=== PATIENT | male | born 1965 | race African-American/Black ===

== ENCOUNTER 2017-02-01 10:08 | Day surgery (SDC) | payer OTHER ==
[2017-01-31 08:24] VITALS: BMI 21.4
[~2017-02-01 10:08] MED LIST: LACTATED RINGERS 1,000 ML IV SCH
[2017-02-01 11:33] VITALS: RESP 18; TEMP 98
[2017-02-01] MEDS ORDERED: LIDOCAINE 1% 20 ML VIAL (10MG/ML) FOR IV START INTRADERMA ONE (11:39)
--- NOTE | 2017-02-01 11:41 | P.GSHP ---
History of Present Illness H&P Date: 02/01/17 Chief Complaint: GI bleed This is a 51-year-old male with complaints of GI bleed. He presents today for colonoscopy. - Constitutional Constitutional: Reports as per HPI Past Medical History Past Medical History: COPD, CVA/TIA, Hypertension, Osteoarthritis (OA) Additional Past Medical History / Comment(s): recent rectal bleeding, blood in stools, had test for sleep apnea-never got results, ?TIA few months ago, not currently taking BP medication but has in past History of Any Multi-Drug Resistant Organisms: None Reported Past Surgical History: Joint Replacement Additional Past Surgical History / Comment(s): L hip replacement Past Anesthesia/Blood Transfusion Reactions: No Reported Reaction Past Psychological History: No Psychological Hx Reported Smoking Status: Current every day smoker Past Alcohol Use History: Heavy Additional Past Alcohol Use History / Comment(s): 1ppd for 41 yrs., 4-5 24 oz. beers daily or pint alcohol Past Drug Use History: Marijuana Additional Drug Use History / Comment(s): USUALLY ONCE A DAY - Past Family History Mother Family Medical History: Cancer Medications and Allergies Home Medications Medication Instructions Recorded Confirmed Type No Known Home Medications [No 08/13/15 01/31/17 History Known Home Medications] Allergies Allergy/AdvReac Type Severity Reaction Status Date / Time aspirin AdvReac Nausea & Verified 01/31/17 08:20 Vomiting ibuprofen [From Motrin] AdvReac Nausea & Verified 01/31/17 08:20 Vomiting Surgical - Exam Vital Signs Temp Pulse Resp BP Pulse Ox 98.0 F 60 18 130/75 99 02/01/17 11:28 02/01/17 11:28 02/01/17 11:28 02/01/17 11:28 02/01/17 11:28 - General well developed, no distress - Eyes PERRL - ENT normal pinna - Neck no masses - Respiratory normal expansion - Cardiovascular Rhythm: regular - Abdomen Abdomen: soft, non tender Assessment and Plan Plan: GI bleed. We'll perform colonoscopy.
[2017-02-01] MEDS ORDERED: FAMOTIDINE 20 MG/2 ML VIAL IVP ONE (11:44)
[2017-02-01] MEDS ORDERED: fentaNYL (PF) 50 MCG/ML 2 ML AMP ONE (12:38)
[2017-02-01] MEDS ORDERED: MIDAZOLAM 2 MG/2 ML VIAL ONE (12:38)
[2017-02-01] MEDS ORDERED: PROPOFOL 10 MG/ML 20 ML VIAL IV ONE (12:38)
--- NOTE | 2017-02-01 13:12 | P.OP ---
Date of Procedure: 02/01/17 Preoperative Diagnosis: GI bleed Postoperative Diagnosis: Mild internal hemorrhoids Transverse colon polyp Procedure(s) Performed: Colonoscopy Anesthesia: MAC Surgeon: Shantanu Yip Pathology: other (Transverse colon polyp) Disposition: PACU Description of Procedure: The patient's placed on the endoscopy table in the lateral position. He received IV sedation. Digital rectal exam was performed which revealed a few internal hemorrhoids. Flexible colonoscope was then placed patient anus and passed throughout the entire colon. The ileocecal valve lesions. The cecum, ascending colon appeared normal. In the transverse colon there was a small polyp was removed the forcep. Scope was then withdrawn remainder the transverse descending and sigmoid colon appeared normal. Scope was then brought back the rectum and this appeared normal. Scope was withdrawn for patient.
[2017-02-01 13:22] LABS: Glucose,Whole Blood 85 mg/dL (75-99)
[2017-02-01 13:33] VITALS: BP 145/80; PULSE 62
== END 2017-02-01 14:06 | disposition home or self-care (01) ==
LOC: ORWHC2ENDO 10:08
PROVIDERS: ATTEND Surgery
DX: K63.5 Polyp of colon (principal); K64.8 Other hemorrhoids; F17.200 Nicotine dependence, unspecified, uncomplicated; F10.10 Alcohol abuse, uncomplicated; Z88.6 Allergy status to analgesic agent
CPT/HCPCS: 88305; 45380; J2250; J3010; J2704

== ENCOUNTER → 2017-05-14 | Outpatient (CLI) | payer OTHER ==
--- NOTE | 2017-05-14 07:48 | XR ---
EXAMINATION TYPE: XR chest 2V DATE OF EXAM: 05/14/2017 HISTORY: C61 prostate ca. REFERENCE: Previous study dated 08/31/2011. FINDINGS: The lungs are overinflated. There are scattered granulomata of the right lung base. Lungs o therwise clear. Pleural spaces are clear. The heart is not enlarged. IMPRESSION: 1. COPD. 2. EVIDENCE OF OLD GRANULOMATOUS DISEASE.
--- NOTE | 2017-05-14 10:03 | CT ---
EXAMINATION TYPE: CT abdomen pelvis w con DATE OF EXAM: 05/14/2017 REFERENCE: NONE HISTORY: C61 prostate ca HISTORY: Prostatic cancer REFERENCE: NONE CT DLP: 375.2 mGy Automated exposure control for dose reduction was used. TECHNIQUE: Helical acquisition through the abdomen and pelvis was obtained following the oral ingesti on of with Oral Contrast and following intravenous administration of 100 mL of Omnipaque 300. The kia a was reformatted in axial, coronal and sagittal projections. FINDINGS: There is some atelectasis or early infiltrate at the right lung base. There is no pleural or pericardial fluid. The heart is not enlarged. Within the abdomen, the liver is normal in size but mildly fatty infiltrated. The spleen and gallblad fay are normal. There is mild fullness to the left adrenal gland but no adrenal masses seen. Both kidneys demonstrate function. There are 2 small hypoechoic lesions involving the left kidney. Th e largest is in the mid polar region and measures 9.9 mm. The right kidney is normal. The pancreas is unremarkable. There is mild atheromatous calcification of the visualized arterial tree. There is no significant retroperitoneal, iliac or inguinal adenopathy. A left hip arthroplasty is causing significant streak artifact through the pelvis. There is prostatic enlargement and thickening of the bladder. There is no significant diverticular change and there is no radiographic evidence of diverticulitis. There is some mucosal thickening involving the ascending, transverse and proximal descending colon. T he appendix is not visualized. Small bowel loops are normal. There is no free fluid and no free air. No osseous lesion is seen. He left kidney. IMPRESSION: 1. FINDINGS CONSISTENT WITH COLITIS. PLEASE CORRELATE CLINICALLY. 2. 2 SMALL LESIONS IN THE LEFT KIDNEY ARE LIKELY CYSTS. THIS COULD BE CONFIRMED WITH ULTRASOUND.
--- NOTE | 2017-05-14 12:40 | NM ---
EXAMINATION TYPE: NM bone scan whole body DATE OF EXAM: 05/14/2017 COMPARISON: CT abdomen pelvis and chest x-ray same date HISTORY: Prostate carcinoma, C 61 Delayed whole-body scanning was performed following the injection of 25.2 mCi Tc 99m MDP. Images acq uired 3 hours post injection. FINDINGS: Soft tissue uptake is normal. There is a focus of increased radiopharmaceutical uptake present in the posterior left eighth rib. No corresponding plain film finding on chest x-ray. Photopenic area in th e left hip is compatible with patient's history of arthroplasty. Some urine contamination is present over the soft tissues within the groin region. There is a spinal curvature. IMPRESSION: Cannot exclude metastasis to the posterior left eighth rib, correlate for history of trauma, alternat e imaging may be of benefit. Postop changes.
== END | disposition home or self-care (01) ==
LOC: RADCTMAIN 07:26
PROVIDERS: ATTEND Urology
DX: C61 Malignant neoplasm of prostate (principal); J44.9 Chronic obstructive pulmonary disease, unspecified; N28.9 Disorder of kidney and ureter, unspecified; Z98.890 Other specified postprocedural states
CPT/HCPCS: 71020; 74177; 78306; A9503; Q9967

== ENCOUNTER → 2017-05-28 | Outpatient (CLI) | payer OTHER ==
--- NOTE | 2017-05-28 14:38 | XR ---
Left rib series HISTORY: Abnormal bone scan, prostate carcinoma 4 views of the left ribs correlated to bone scan, CT abdomen pelvis, chest x-ray 05/14/2017 There is no corresponding abnormality to the finding on bone scan within the posterior left eighth ri b. MRI or CT of the chest could be performed for increased sensitivity. No pneumothorax or pleural ef fusion. There is mild spinal curvature. IMPRESSION: No abnormalities evident as described.
== END | disposition home or self-care (01) ==
LOC: RADXRMAIN 11:18
PROVIDERS: ATTEND Urology
DX: C61 Malignant neoplasm of prostate (principal)

== ENCOUNTER 2018-12-11 13:30 | Inpatient (IN) | payer OTHER ==
[2018-12-11] MEDS ORDERED: SODIUM CHLORIDE 0.9% 1,000 ML IV STA ×2 (14:04)
--- NOTE | 2018-12-11 14:30 | ED ---
Nausea/Vomiting/Diarrhea HPI - General Source: patient, RN notes reviewed, old records reviewed Mode of arrival: ambulatory Limitations: no limitations <María Arthur - Last Filed: 12/11/18 17:50> <Andres Wilson - Last Filed: 12/11/18 18:30> - General Chief complaint: Nausea/Vomiting/Diarrhea Stated complaint: diarrhea Time Seen by Provider: 12/11/18 13:37 - History of Present Illness Initial comments: Patient is a 73-year-old male who presents emergency room today with complaints of diarrhea and tarry stools for the past 4 days. He has history of colon cancer which is in remission. Last chemotherapy and radiation therapy was 3 months ago. He reports he's had progressive weight loss over the past year. He states he had some episodes vomiting yesterday that were questionably bloody. Patient states that he has history of COPD. (María Arthur) - Related Data Home Medications Medication Instructions Recorded Confirmed ALPRAZolam [Xanax] 0.25 mg PO BID PRN 12/11/18 12/11/18 HYDROcodone/APAP 10-325MG [Allison 1 tab PO Q6HR PRN 12/11/18 12/11/18 10-325] Allergies Allergy/AdvReac Type Severity Reaction Status Date / Time aspirin AdvReac Nausea & Verified 12/11/18 14:33 Vomiting ibuprofen [From Motrin] AdvReac Nausea & Verified 12/11/18 14:33 Vomiting Review of Systems ROS Other: All systems not noted in ROS Statement are negative. <María Arthur - Last Filed: 12/11/18 17:50> ROS Other: All systems not noted in ROS Statement are negative. <Andres Wilson - Last Filed: 12/11/18 18:30> ROS Statement: Those systems with pertinent positive or pertinent negative responses have been documented in the HPI. Past Medical History Past Medical History: COPD, CVA/TIA, Hypertension, Osteoarthritis (OA) Additional Past Medical History / Comment(s): recent rectal bleeding, blood in stools, had test for sleep apnea-never got results, ?TIA few months ago, not currently taking BP medication but has in past History of Any Multi-Drug Resistant Organisms: None Reported Past Surgical History: Joint Replacement Additional Past Surgical History / Comment(s): L hip replacement Past Anesthesia/Blood Transfusion Reactions: No Reported Reaction Past Psychological History: No Psychological Hx Reported Smoking Status: Current every day smoker Past Alcohol Use History: Heavy Past Drug Use History: Marijuana - Past Family History Mother Family Medical History: Cancer <María Arthur - Last Filed: 12/11/18 17:50> General Exam Limitations: no limitations General appearance: alert, in no apparent distress Head exam: Present: atraumatic, normocephalic, normal inspection Eye exam: Present: normal appearance, PERRL, EOMI. Absent: scleral icterus, conjunctival injection, periorbital swelling ENT exam: Present: normal exam, mucous membranes moist Neck exam: Present: normal inspection. Absent: tenderness, meningismus, lymphadenopathy Respiratory exam: Present: normal lung sounds bilaterally. Absent: respiratory distress, wheezes, rales, rhonchi, stridor Cardiovascular Exam: Present: regular rate, normal rhythm, normal heart sounds. Absent: systolic murmur, diastolic murmur, rubs, gallop, clicks GI/Abdominal exam: Present: soft, distended, tenderness (Diffuse abdominal tenderness) Rectal exam: Present: normal inspection, heme (+) stool (Black tarry stools), black stool Extremities exam: Present: normal inspection, full ROM, normal capillary refill. Absent: tenderness, pedal edema, joint swelling, calf tenderness Back exam: Present: normal inspection Neurological exam: Present: alert, oriented X3, CN II-XII intact Psychiatric exam: Present: normal affect, normal mood Skin exam: Present: warm, dry, intact, normal color. Absent: rash <María Arthur - Last Filed: 12/11/18 17:50> <Andres Wilson - Last Filed: 12/11/18 18:30> - General Exam Comments Initial Comments: Patient 3-year-old male. Alert and oriented. Patient appears weak. (María Arthur) Vital Signs 12/11/18 12/11/18 12/11/18 13:32 16:00 18:00 Temperature 96.7 F L 98.0 F Pulse Rate 93 88 102 H Respiratory 22 18 18 Rate Blood Pressure 104/74 108/67 104/78 O2 Sat by Pulse 97 97 100 Oximetry Procedures - Sepsis Sepsis Focused Exam #1 Time Sepsis Criteria Met: 18:00 Sepsis Focused Exam Date: 12/11/18 Sepsis Focused Exam Time: 18:30 Sepsis Focused Exam Complete: Yes Vital Signs & RN Notes Reviewed: Yes Capillary Refill: < 2 Seconds: Fingers, Toes Peripheral Pulses: Normal: Radial (R), Radial (L) Skin Color: Normal for Patient Respiratory Exam: normal lung sounds Cardiovascular Exam: regular rate, normal rhythm <Andres Wilson - Last Filed: 12/11/18 18:30> Medical Decision Making - Lab Data Result diagrams: 12/11/18 14:25 12/11/18 14:25 - Radiology Data Radiology results: report reviewed <María Arthur - Last Filed: 12/11/18 17:50> - Lab Data Result diagrams: 12/11/18 14:25 12/11/18 14:25 <Andres Wilson - Last Filed: 12/11/18 18:30> - Medical Decision Making 53-year-old male presents to return today with progressive weight loss, and complains of diffuse abdominal pain and bloody stools and vomiting for the past 4 days. He appears generally ill and weak. Lactic acid blood cultures were obtained. Lab work was reviewed. His hemoglobin has been somewhat stable at this time. But he does have significant tarry stools. He is not on any blood thinners. Lactic acid was noted to be elevated at 4.6. Is given 2 L bolus. Urinalysis is positive for infection. Urine culture completed given [address] abdomen and pelvis was completed. There is evidence of small bowel obstruction. He has had no active vomiting at this time. So we did not proceed with a NG tube. He was started on maintenance fluids. There is also the Patient has history of alcohol abuse. Given the patient's he will protocol. Patient also meets sepsis criteria. (María Arthur) patient reevaluated by myself, Dr. Wilson. Patient resting in bed with some nausea. Abdomen with mild diffuse tenderness. Patient is updated on results and plan. Case was discussed in detail with Dr. Krishna, who will admit his patient with consult for Dr. Yip. I did review and agree with PAs findings. This includes all diagnostic interpretations and treatment plan. ( Andres Wilson) - Lab Data Lab Results 12/11/18 12/11/18 12/11/18 Range/Units 14:25 14:25 14:25 WBC 10.1 (3.8-10.6) k/uL RBC 3.80 L (4.30-5.90) m/uL Hgb 11.7 L (13.0-17.5) gm/dL Hct 34.6 L (39.0-53.0) % MCV 91.1 (80.0-100.0) fL MCH 30.9 (25.0-35.0) pg MCHC 33.9 (31.0-37.0) g/dL RDW 13.9 (11.5-15.5) % Plt Count 185 (150-450) k/uL Neutrophils % 85 % Lymphocytes % 9 % Monocytes % 4 % Eosinophils % 1 % Basophils % 0 % Neutrophils # 8.7 H (1.3-7.7) k/uL Lymphocytes # 0.9 L (1.0-4.8) k/uL Monocytes # 0.4 (0-1.0) k/uL Eosinophils # 0.1 (0-0.7) k/uL Basophils # 0.0 (0-0.2) k/uL PT 10.3 (9.0-12.0) sec INR 1.0 (<1.2) APTT 25.0 (22.0-30.0) sec Sodium 140 (137-145) mmol/L Potassium 3.9 (3.5-5.1) mmol/L Chloride 105 (98-107) mmol/L Carbon Dioxide 24 (22-30) mmol/L Anion Gap 11 mmol/L BUN 17 (9-20) mg/dL Creatinine 0.74 (0.66-1.25) mg/dL Est GFR (CKD-EPI)AfAm >90 (>60 ml/min/1.73 sqM) Est GFR (CKD-EPI)NonAf >90 (>60 ml/min/1.73 sqM) Glucose 110 H (74-99) mg/dL Plasma Lactic Acid Hank (0.7-2.0) mmol/L Calcium 8.9 (8.4-10.2) mg/dL Total Bilirubin 1.3 (0.2-1.3) mg/dL AST 73 H (17-59) U/L ALT 63 (21-72) U/L Alkaline Phosphatase 81 (38-126) U/L Troponin I (0.000-0.034) ng/mL Total Protein 6.4 (6.3-8.2) g/dL Albumin 3.2 L (3.5-5.0) g/dL Amylase 38 (30-110) U/L Lipase 15 L (23-300) U/L Urine Color Urine Appearance (Clear) Urine pH (5.0-8.0) Ur Specific [place] (1.001-1.035) Urine Protein (Negative) Urine Glucose (UA) (Negative) Urine Ketones (Negative) Urine Blood (Negative) Urine Nitrite (Negative) Urine Bilirubin (Negative) Urine Urobilinogen (<2.0) mg/dL Ur Leukocyte Esterase (Negative) Urine RBC (0-5) /hpf Urine WBC (0-5) /hpf Ur Squamous Epith Cells (0-4) /hpf Urine Mucus (None) /hpf Stool Occult Blood (Negative) Blood Type Blood Type Confirm Blood Type Recheck Antibody Screen Spec Expiration Date 12/11/18 12/11/18 12/11/18 Range/Units 14:25 14:25 14:25 WBC (3.8-10.6) k/uL RBC (4.30-5.90) m/uL Hgb (13.0-17.5) gm/dL Hct (39.0-53.0) % MCV (80.0-100.0) fL MCH (25.0-35.0) pg MCHC (31.0-37.0) g/dL RDW (11.5-15.5) % Plt Count (150-450) k/uL Neutrophils % % Lymphocytes % % Monocytes % % Eosinophils % % Basophils % % Neutrophils # (1.3-7.7) k/uL Lymphocytes # (1.0-4.8) k/uL Monocytes # (0-1.0) k/uL Eosinophils # (0-0.7) k/uL Basophils # (0-0.2) k/uL PT (9.0-12.0) sec INR (<1.2) APTT (22.0-30.0) sec Sodium (137-145) mmol/L Potassium (3.5-5.1) mmol/L Chloride (98-107) mmol/L Carbon Dioxide (22-30) mmol/L Anion Gap mmol/L BUN (9-20) mg/dL Creatinine (0.66-1.25) mg/dL Est GFR (CKD-EPI)AfAm (>60 ml/min/1.73 sqM) Est GFR (CKD-EPI)NonAf (>60 ml/min/1.73 sqM) Glucose (74-99) mg/dL Plasma Lactic Acid Hank 4.8 H* (0.7-2.0) mmol/L Calcium (8.4-10.2) mg/dL Total Bilirubin (0.2-1.3) mg/dL AST (17-59) U/L ALT (21-72) U/L Alkaline Phosphatase (38-126) U/L Troponin I <0.012 (0.000-0.034) ng/mL Total Protein (6.3-8.2) g/dL Albumin (3.5-5.0) g/dL Amylase (30-110) U/L Lipase (23-300) U/L Urine Color Yellow Urine Appearance Clear (Clear) Urine pH 5.5 (5.0-8.0) Ur Specific [place] 1.014 (1.001-1.035) Urine Protein 1+ H (Negative) Urine Glucose (UA) 1+ H (Negative) Urine Ketones 1+ H (Negative) Urine Blood Negative (Negative) Urine Nitrite Negative (Negative) Urine Bilirubin Negative (Negative) Urine Urobilinogen 2.0 (<2.0) mg/dL Ur Leukocyte Esterase Large H (Negative) Urine RBC 2 (0-5) /hpf Urine WBC 42 H (0-5) /hpf Ur Squamous Epith Cells <1 (0-4) /hpf Urine Mucus Rare H (None) /hpf Stool Occult Blood (Negative) Blood Type Blood Type Confirm Blood Type Recheck Antibody Screen Spec Expiration Date 12/11/18 12/11/18 12/11/18 Range/Units 14:25 16:44 18:12 WBC (3.8-10.6) k/uL RBC (4.30-5.90) m/uL Hgb (13.0-17.5) gm/dL Hct (39.0-53.0) % MCV (80.0-100.0) fL MCH (25.0-35.0) pg MCHC (31.0-37.0) g/dL RDW (11.5-15.5) % Plt Count (150-450) k/uL Neutrophils % % Lymphocytes % % Monocytes % % Eosinophils % % Basophils % % Neutrophils # (1.3-7.7) k/uL Lymphocytes # (1.0-4.8) k/uL Monocytes # (0-1.0) k/uL Eosinophils # (0-0.7) k/uL Basophils # (0-0.2) k/uL PT (9.0-12.0) sec INR (<1.2) APTT (22.0-30.0) sec Sodium (137-145) mmol/L Potassium (3.5-5.1) mmol/L Chloride (98-107) mmol/L Carbon Dioxide (22-30) mmol/L Anion Gap mmol/L BUN (9-20) mg/dL Creatinine (0.66-1.25) mg/dL Est GFR (CKD-EPI)AfAm (>60 ml/min/1.73 sqM) Est GFR (CKD-EPI)NonAf (>60 ml/min/1.73 sqM) Glucose (74-99) mg/dL Plasma Lactic Acid Hank (0.7-2.0) mmol/L Calcium (8.4-10.2) mg/dL Total Bilirubin (0.2-1.3) mg/dL AST (17-59) U/L ALT (21-72) U/L Alkaline Phosphatase (38-126) U/L Troponin I (0.000-0.034) ng/mL Total Protein (6.3-8.2) g/dL Albumin (3.5-5.0) g/dL Amylase (30-110) U/L Lipase (23-300) U/L Urine Color Urine Appearance (Clear) Urine pH (5.0-8.0) Ur Specific [place] (1.001-1.035) Urine Protein (Negative) Urine Glucose (UA) (Negative) Urine Ketones (Negative) Urine Blood (Negative) Urine Nitrite (Negative) Urine Bilirubin (Negative) Urine Urobilinogen (<2.0) mg/dL Ur Leukocyte Esterase (Negative) Urine RBC (0-5) /hpf Urine WBC (0-5) /hpf Ur Squamous Epith Cells (0-4) /hpf Urine Mucus (None) /hpf Stool Occult Blood Positive (Negative) Blood Type O Positive Blood Type Confirm O Positive Blood Type Recheck CABO Indicated Antibody Screen NEGATIVE Spec Expiration Date 12/14/2018 - 230912/11/18 17:28 EKG shows no sinus rhythm, left anterior fascicular block. Prolonged QT. Normal EKG. Ventricular rate 95 bpm. Was 154 ms. QS duration 66. QT QTC 390/490 ms. (María Arthur) - Radiology Data Mild distal ileal small bowel obstruction pattern. Incidental urinary bladder wall thickening presuming a bladder outlet related. If her with urology consultation. (María Arthur) Disposition Is patient prescribed a controlled substance at d/c from ED?: No Time of Disposition: 17:54 <María Arthur - Last Filed: 12/11/18 17:50> <Andres Wilson - Last Filed: 12/11/18 18:30> Clinical Impression: GI bleed, History of ETOH abuse, SBO (small bowel obstruction), UTI (urinary tract infection), Sepsis Disposition: ADMITTED IP TO THIS HOSP Condition: Stable Referrals: Lawanda Krishna MD [Primary Care Provider] - 1-2 days
--- NOTE | 2018-12-11 14:58 | XR ---
EXAMINATION TYPE: XR chest 2V DATE OF EXAM: 12/11/2018 COMPARISON: NONE TECHNIQUE: PA and lateral views submitted. HISTORY: Nausea and vomiting FINDINGS: The lungs are clear and there is no pneumothorax, pleural effusion, or focal pneumonia. Hyperinflat ion correlate for COPD. Dilated bowel loops in the upper abdomen. IMPRESSION: 1. No acute process. Correlate for COPD. 2. There are dilated bowel loops in the upper abdomen correlate clinically and if necessary with abdo le series to assess for abnormality related to the bowel.
[2018-12-11] MEDS ORDERED: PANTOPRAZOLE 40 MG/10 ML VIAL IVP STA (15:02)
[2018-12-11 15:25] LABS: ALT 63 U/L (21-72); AST 73 U/L (17-59); Albumin 3.2 g/dL (3.5-5.0); Alkaline Phosphatase 81 U/L (38-126); Amylase 38 U/L (30-110); Anion Gap 11 mmol/L; Blood Urea Nitrogen 17 mg/dL (9-20); Calcium 8.9 mg/dL (8.4-10.2); Carbon Dioxide 24 mmol/L (22-30); Chloride 105 mmol/L (98-107); Glucose 110 mg/dL (74-99); Lipase 15 U/L (23-300); Potassium 3.9 mmol/L (3.5-5.1); Prothrombin Time 10.3 sec (9.0-12.0); Sodium 140 mmol/L (137-145); Total Bilirubin 1.3 mg/dL (0.2-1.3); Total Protein 6.4 g/dL (6.3-8.2)
[2018-12-11 15:33] LABS: Appearance,Urine Clear (Clear); Bilirubin,Urine Negative (Negative); Blood,Urine Negative (Negative); Color,Urine Yellow; Glucose,Urine (UA) 1+ (Negative); Ketones,Urine 1+ (Negative); Leukocyte Esterase,Urine Large (Negative); Mucus,Urine Rare /hpf; Nitrite,Urine Negative (Negative); PH, Urine 5.5 (5.0-8.0); Protein,Urine 1+ (Negative); RBC,Urine 2 /hpf (0-5); Specific Gravity,Urine 1.014 (1.001-1.035); Squamous Epithelial Cell,Urine <1 /hpf (0-4); WBC,Urine 42 /hpf (0-5)
[2018-12-11 15:42] LABS: Basophils % (A) 0 %; Eosinophils # (A) 0.1 k/uL (0-0.7); Eosinophils % (A) 1 %; HCT 34.6 % (39.0-53.0); HGB 11.7 gm/dL (13.0-17.5); Lymphocytes # (A) 0.9 k/uL (1.0-4.8); Lymphocytes % (A) 9 %; MCH 30.9 pg (25.0-35.0); MCHC 33.9 g/dL (31.0-37.0); MCV 91.1 fL (80.0-100.0); Mean Platelet Volume 7.3; Monocytes # (A) 0.4 k/uL (0-1.0); Monocytes % (A) 4 %; Neutrophils # (A) 8.7 k/uL (1.3-7.7); Neutrophils % (A) 85 %; Platelet Count 185 k/uL (150-450); RDW 13.9 % (11.5-15.5); WBC 10.1 k/uL (3.8-10.6)
[2018-12-11] MEDS ORDERED: SODIUM CHLORIDE 0.9% 1,000 ML IV ONE (16:03)
--- NOTE | 2018-12-11 16:52 | CT ---
EXAMINATION TYPE: CT abdomen pelvis w con DATE OF EXAM: 12/11/2018 COMPARISON: 05/14/2017 HISTORY: VOMITING CT DLP: 572.5 mGycm Automated exposure control for dose reduction was used. TECHNIQUE: Helical acquisition of images was performed from the lung bases through the pelvis. CONTRAST: Performed without Oral Contrast and with IV Contrast, patient injected with 100 mL of Isovu e 300. FINDINGS: LUNG BASES: No significant abnormality is appreciated. LIVER/GB: No significant abnormality is appreciated. PANCREAS: No significant abnormality is seen. SPLEEN: No significant abnormality is seen. ADRENALS: No significant abnormality is seen. KIDNEYS: No significant abnormality is seen. FREE AIR: No free air is visualized. RETROPERITONEAL ADENOPATHY: None visualized REPRODUCTIVE ORGANS: No significant abnormality is seen URINARY BLADDER: No definite acute finding, but bladder wall thickening is noted, partially obscured due to the metallic CT beam hardening artifact from the left THR. PELVIC ADENOPATHY: None visualized. OSSEOUS STRUCTURES: No significant abnormality is seen. BOWEL: There are a few lower quadrant loops of ileum that are mildly dilated. No mural thickening, p neumatosis, or mesenteric edematous reticulation. At the transition point there is no apparent etiolo gy, so adhesions are suspected. Gas is seen throughout a nondilated colon. OTHER: No acute vascular findings. 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 IMPRESSION: 1. MILD DISTAL ILEAL SMALL BOWEL OBSTRUCTION PATTERN. 2. INCIDENTAL URINARY BLADDER WALL THICKENING, PRESUMABLY BLADDER OUTLET RELATED, WITH DEFER TO UROLO GY CONSULTATION.
[2018-12-11] MEDS ORDERED: THIAMINE 100 MG/ML 2 ML VIAL IM STA (17:55)
[2018-12-11] MEDS ORDERED: LORazepam 2 MG/ML INJ IV PRN (17:55)
[2018-12-11] MEDS ORDERED: ONDANSETRON 4 MG/2 ML VIAL IVP PRN (17:56)
[2018-12-11] MEDS ORDERED: NALOXONE 0.4 MG/ML 1 ML VIAL IV PRN (17:56)
[2018-12-11] MEDS ORDERED: HYDROmorphone 1 MG/ML 1 ML SYRINGE IVP PRN (17:56)
[2018-12-11] MEDS: THIAMINE 100 MG TAB PO SCH (19:43)
[2018-12-11] MEDS: LORazepam 2 MG/ML INJ IV PRN (21:31)
[2018-12-12 06:37] LABS: Anion Gap 5 mmol/L; Blood Urea Nitrogen 14 mg/dL (9-20); Calcium 8.4 mg/dL (8.4-10.2); Carbon Dioxide 24 mmol/L (22-30); Chloride 110 mmol/L (98-107); Glucose 64 mg/dL (74-99); Potassium 3.3 mmol/L (3.5-5.1); Sodium 139 mmol/L (137-145)
[2018-12-12 06:44] LABS: Basophils % (A) 0 %; Eosinophils # (A) 0.1 k/uL (0-0.7); Eosinophils % (A) 1 %; HCT 28.3 % (39.0-53.0); Lymphocytes # (A) 1.2 k/uL (1.0-4.8); Lymphocytes % (A) 16 %; MCH 32.2 pg (25.0-35.0); MCHC 34.8 g/dL (31.0-37.0); MCV 92.4 fL (80.0-100.0); Mean Platelet Volume 7.7; Monocytes # (A) 0.3 k/uL (0-1.0); Monocytes % (A) 4 %; Neutrophils # (A) 5.4 k/uL (1.3-7.7); Neutrophils % (A) 77 %; Platelet Count 144 k/uL (150-450); RBC 3.07 m/uL (4.30-5.90); RDW 14.1 % (11.5-15.5); WBC 7.1 k/uL (3.8-10.6)
[2018-12-12 07:01] LABS: HGB 9.9 gm/dL (13.0-17.5)
[2018-12-12] MEDS ORDERED: SODIUM CHLORIDE 0.9% 1,000 ML IV ONE (08:44)
[2018-12-12] MEDS ORDERED: PROPOFOL 10 MG/ML 20 ML VIAL IV ONE (08:44)
[2018-12-12] MEDS ORDERED: Potassium Replacement Protocol 1 EACH MISC MISCELLANE PRN (09:06)
[2018-12-12] MEDS: PANTOPRAZOLE 40 MG/10 ML VIAL IV SCH (09:53)
--- NOTE | 2018-12-12 09:57 | P.OP ---
Date of Procedure: 12/12/18 Preoperative Diagnosis: Hematemesis Postoperative Diagnosis: Duodenitis Mild antral gastritis Hiatal hernia Esophagitis Procedure(s) Performed: EGD Anesthesia: MAC Surgeon: Shantanu Yip Pathology: other (Antrum, esophagus) Condition: stable Disposition: PACU Description of Procedure: The patient's placed on the endoscopy table in the lateral position. He received IV sedation. The gastroscope placed oropharynx passed in the esophagus into the stomach. Scope was then placed through the pylorus. First and second portion of the duodenum appeared mildly inflamed. A biopsies performed. Scope was then brought back and the antrum this is minimal inflamed. A biopsies performed. Scope was then retroflexed and the remainder stomach appeared normal. There was a moderate size hiatal hernia. The GE junction was at 38 cm. The distal esophagus. Inflamed this was biopsied. The proximal esophagus appeared normal. Scope withdrawn for patient.
--- NOTE | 2018-12-12 09:59 | P.GSCN ---
History of Present Illness Consult date: 12/12/18 Reason for Consult: Hematemesis History of present illness: This a 53-year-old male who was admitted through the emergency room with complaints of nausea vomiting patient hematemesis. He describes a black tarry vomits. He states she's had some epigastric pain. His CAT scan shows a possible mild distal small bowel obstruction. Past Medical History Past Medical History: COPD, CVA/TIA, Hypertension, Osteoarthritis (OA) Additional Past Medical History / Comment(s): recent rectal bleeding, blood in stools, had test for sleep apnea-never got results, ?TIA few months ago, not currently taking BP medication but has in past. colon cancer-radiation ended 3 months ago. History of Any Multi-Drug Resistant Organisms: None Reported Past Surgical History: Joint Replacement Additional Past Surgical History / Comment(s): L hip replacement Past Anesthesia/Blood Transfusion Reactions: No Reported Reaction Past Psychological History: No Psychological Hx Reported Smoking Status: Current every day smoker Past Alcohol Use History: Heavy Additional Past Alcohol Use History / Comment(s): 1ppd for 41 yrs., 4-5 24 oz. beers daily or pint alcohol. pt states he drinks depending on how much money he has Past Drug Use History: Marijuana Additional Drug Use History / Comment(s): USUALLY ONCE A DAY - Past Family History Mother Family Medical History: Cancer Medications and Allergies Home Medications Medication Instructions Recorded Confirmed Type ALPRAZolam [Xanax] 0.25 mg PO BID PRN 12/11/18 12/11/18 History HYDROcodone/APAP 10-325MG [[place] 1 tab PO Q6HR PRN 12/11/18 12/11/18 History 10-325] Allergies Allergy/AdvReac Type Severity Reaction Status Date / Time aspirin AdvReac Nausea & Verified 12/11/18 14:33 Vomiting ibuprofen [From Motrin] AdvReac Nausea & Verified 12/11/18 14:33 Vomiting Surgical - Exam Vital Signs Temp Pulse Resp BP Pulse Ox 96.7 F L 93 22 104/74 97 12/11/18 13:32 12/11/18 13:32 12/11/18 13:32 12/11/18 13:32 12/11/18 13:32 - General well developed, well nourished, no distress - Eyes PERRL - ENT normal pinna - Neck no masses - Respiratory normal expansion - Cardiovascular Rhythm: regular - Abdomen The patient is very thin he appears to be cachectic Abdomen: soft, non tender Results - Labs 12/12/18 05:47 12/12/18 05:47 Abnormal Lab Results - Last 24 Hours (Table) 12/11/18 12/11/18 12/11/18 Range/Units 14:25 14:25 14:25 RBC 3.80 L (4.30-5.90) m/uL Hgb 11.7 L (13.0-17.5) gm/dL Hct 34.6 L (39.0-53.0) % Plt Count (150-450) k/uL Neutrophils # 8.7 H (1.3-7.7) k/uL Lymphocytes # 0.9 L (1.0-4.8) k/uL Potassium (3.5-5.1) mmol/L Chloride (98-107) mmol/L Glucose 110 H (74-99) mg/dL Plasma Lactic Acid Hank (0.7-2.0) mmol/L AST 73 H (17-59) U/L Albumin 3.2 L (3.5-5.0) g/dL Lipase 15 L (23-300) U/L Urine Protein 1+ H (Negative) Urine Glucose (UA) 1+ H (Negative) Urine Ketones 1+ H (Negative) Ur Leukocyte Esterase Large H (Negative) Urine WBC 42 H (0-5) /hpf Urine Mucus Rare H (None) /hpf 12/11/18 12/11/18 12/12/18 Range/Units 14:25 19:20 05:47 RBC 3.07 L (4.30-5.90) m/uL Hgb 9.9 L D (13.0-17.5) gm/dL Hct 28.3 L (39.0-53.0) % Plt Count 144 L (150-450) k/uL Neutrophils # (1.3-7.7) k/uL Lymphocytes # (1.0-4.8) k/uL Potassium (3.5-5.1) mmol/L Chloride (98-107) mmol/L Glucose (74-99) mg/dL Plasma Lactic Acid Hank 4.8 H* 2.6 H* (0.7-2.0) mmol/L AST (17-59) U/L Albumin (3.5-5.0) g/dL Lipase (23-300) U/L Urine Protein (Negative) Urine Glucose (UA) (Negative) Urine Ketones (Negative) Ur Leukocyte Esterase (Negative) Urine WBC (0-5) /hpf Urine Mucus (None) /hpf 12/12/18 Range/Units 05:47 RBC (4.30-5.90) m/uL Hgb (13.0-17.5) gm/dL Hct (39.0-53.0) % Plt Count (150-450) k/uL Neutrophils # (1.3-7.7) k/uL Lymphocytes # (1.0-4.8) k/uL Potassium 3.3 L (3.5-5.1) mmol/L Chloride 110 H (98-107) mmol/L Glucose 64 L (74-99) mg/dL Plasma Lactic Acid Hank (0.7-2.0) mmol/L AST (17-59) U/L Albumin (3.5-5.0) g/dL Lipase (23-300) U/L Urine Protein (Negative) Urine Glucose (UA) (Negative) Urine Ketones (Negative) Ur Leukocyte Esterase (Negative) Urine WBC (0-5) /hpf Urine Mucus (None) /hpf Microbiology - Last 24 Hours (Table) 12/11/18 14:25 Urine Culture - Preliminary Urine,Voided 12/11/18 19:20 Stool Culture - Preliminary Stool Diabetes panel 12/11/18 12/12/18 Range/Units 14:25 05:47 Sodium 140 139 (137-145) mmol/L Potassium 3.9 3.3 L (3.5-5.1) mmol/L Chloride 105 110 H (98-107) mmol/L Carbon Dioxide 24 24 (22-30) mmol/L BUN 17 14 (9-20) mg/dL Creatinine 0.74 0.71 (0.66-1.25) mg/dL Glucose 110 H 64 L (74-99) mg/dL Calcium 8.9 8.4 (8.4-10.2) mg/dL AST 73 H (17-59) U/L ALT 63 (21-72) U/L Alkaline Phosphatase 81 (38-126) U/L Total Protein 6.4 (6.3-8.2) g/dL Albumin 3.2 L (3.5-5.0) g/dL Calcium panel 12/11/18 12/12/18 Range/Units 14:25 05:47 Calcium 8.9 8.4 (8.4-10.2) mg/dL Albumin 3.2 L (3.5-5.0) g/dL Pituitary panel 12/11/18 12/12/18 Range/Units 14:25 05:47 Sodium 140 139 (137-145) mmol/L Potassium 3.9 3.3 L (3.5-5.1) mmol/L Chloride 105 110 H (98-107) mmol/L Carbon Dioxide 24 24 (22-30) mmol/L BUN 17 14 (9-20) mg/dL Creatinine 0.74 0.71 (0.66-1.25) mg/dL Glucose 110 H 64 L (74-99) mg/dL Calcium 8.9 8.4 (8.4-10.2) mg/dL Adrenal panel 12/11/18 12/12/18 Range/Units 14:25 05:47 Sodium 140 139 (137-145) mmol/L Potassium 3.9 3.3 L (3.5-5.1) mmol/L Chloride 105 110 H (98-107) mmol/L Carbon Dioxide 24 24 (22-30) mmol/L BUN 17 14 (9-20) mg/dL Creatinine 0.74 0.71 (0.66-1.25) mg/dL Glucose 110 H 64 L (74-99) mg/dL Calcium 8.9 8.4 (8.4-10.2) mg/dL Total Bilirubin 1.3 (0.2-1.3) mg/dL AST 73 H (17-59) U/L ALT 63 (21-72) U/L Alkaline Phosphatase 81 (38-126) U/L Total Protein 6.4 (6.3-8.2) g/dL Albumin 3.2 L (3.5-5.0) g/dL Assessment and Plan Assessment: The patient denies any nausea or vomiting currently. The patient will undergo EGD to evaluate the source of his upper GI bleed.
[2018-12-12] MEDS: POTASSIUM CHLORIDE 10 MEQ in WATER FOR INJECTION 1 100ML.BAG IVPB SCH ×4 (10:23→16:34)
[2018-12-12] MEDS: SODIUM CHLORIDE 0.9% 1,000 ML IV SCH ×2 (10:23→20:00)
[2018-12-12] MEDS ORDERED: MAGNESIUM SULFATE-D5W PMX 1 GM in DEXTROSE/WATER 1 100ML.BAG IVPB ONE (11:00)
[2018-12-12] MEDS: LORazepam 2 MG/ML INJ IV PRN ×3 (11:18→17:45)
[2018-12-12] MEDS: THIAMINE 100 MG TAB PO SCH ×2 (12:22→16:34)
--- NOTE | 2018-12-12 13:12 | P.HPIM ---
History of Present Illness H&P Date: 12/12/18 Chief Complaint: Black tarry stools and hematemesis This is a 53-year-old male with a known past medical history of colon cancer she is currently in remission last chemo therapy and radiation treatment was about 3 months ago. He also has a history of COPD, TIA nicotine dependence and alcohol abuse. He presents to the hospital for 4 day complaint of diarrhea with tarry stools and hematemesis. Patient also reporting significant weight loss. Stool for occult blood was positive. Hemoglobin did drop from 11.7-9.9. Lactic acid was elevated at 2.6 and down to 1.3 after IV fluids. Potassium 3.3 magnesium 1.7 being replaced. AST was 73. Patient was seen by surgical service and underwent EGD this morning which did reveal duodenitis mild antral gastritis hiatal hernia and esophagitis. He is currently on IV Protonix. He is still having diarrhea. However the stools are more green. Cultures have been obtained. Last hematemesis was yesterday. Patient denies any chest pain or shortness of breath. Denies abdominal pain. Does admit to burning with urination. He was found have evidence of a UTI and is on Rocephin. Review of Systems Please refer to HPI otherwise unremarkable Past Medical History Past Medical History: COPD, CVA/TIA, Hypertension, Osteoarthritis (OA) Additional Past Medical History / Comment(s): recent rectal bleeding, blood in stools, had test for sleep apnea-never got results, ?TIA few months ago, not currently taking BP medication but has in past. colon cancer-radiation ended 3 months ago. History of Any Multi-Drug Resistant Organisms: None Reported Past Surgical History: Joint Replacement Additional Past Surgical History / Comment(s): L hip replacement Past Anesthesia/Blood Transfusion Reactions: No Reported Reaction Past Psychological History: No Psychological Hx Reported Smoking Status: Current every day smoker Past Alcohol Use History: Heavy Additional Past Alcohol Use History / Comment(s): 1ppd for 41 yrs., 4-5 24 oz. beers daily or pint alcohol. pt states he drinks depending on how much money he has Past Drug Use History: Marijuana Additional Drug Use History / Comment(s): USUALLY ONCE A DAY - Past Family History Mother Family Medical History: Cancer Medications and Allergies Home Medications Medication Instructions Recorded Confirmed Type ALPRAZolam [Xanax] 0.25 mg PO BID PRN 12/11/18 12/11/18 History HYDROcodone/APAP 10-325MG [[place] 1 tab PO Q6HR PRN 12/11/18 12/11/18 History 10-325] Allergies Allergy/AdvReac Type Severity Reaction Status Date / Time aspirin AdvReac Nausea & Verified 12/11/18 14:33 Vomiting ibuprofen [From Motrin] AdvReac Nausea & Verified 12/11/18 14:33 Vomiting Physical Exam Vitals: Vital Signs Temp Pulse Pulse Resp BP BP BP 12/12/18 11:14 98.6 F 84 20 128/78 12/12/18 09:50 74 127/70 12/12/18 09:30 77 103/72 12/12/18 08:00 98.9 F 88 16 110/79 12/12/18 04:00 98.1 F 101 H 18 120/90 12/11/18 23:39 91 16 12/11/18 23:36 99.0 F 91 16 97/75 12/11/18 23:31 98.5 F 118 H 16 99/77 12/11/18 22:30 118 H 16 12/11/18 22:00 110 H 19 112/88 12/11/18 21:30 98.5 F 118 H 16 99/77 12/11/18 21:06 91 16 102/82 12/11/18 20:56 114 H 16 93/76 12/11/18 20:00 111/85 12/11/18 19:44 98 16 111/85 12/11/18 19:30 106/81 12/11/18 19:00 104 H 18 108/78 12/11/18 18:30 99 19 104/78 12/11/18 18:00 98.0 F 102 H 18 104/78 12/11/18 16:00 88 18 108/67 12/11/18 13:32 96.7 F L 93 22 104/74 Pulse Ox 12/12/18 11:14 100 12/12/18 09:50 100 12/12/18 09:30 99 12/12/18 08:00 98 12/12/18 04:00 98 12/11/18 23:39 12/11/18 23:36 97 12/11/18 23:31 95 12/11/18 22:30 12/11/18 22:00 98 12/11/18 21:30 95 12/11/18 21:06 12/11/18 20:56 99 12/11/18 20:00 12/11/18 19:44 12/11/18 19:30 12/11/18 19:00 12/11/18 18:30 96 12/11/18 18:00 100 12/11/18 16:00 97 12/11/18 13:32 97 Intake and Output 12/11/18 12/12/18 12/12/18 22:59 06:59 14:59 Intake Total 800 100 Output Total 150 200 Balance 650 -100 Intake: IV 100 Intake, IV Titration 800 Amount Sodium Chloride 0.9% 1, 800 000 ml @ 100 mls/hr IV . Q10H STA Rx#:[id number] Output: Urine 150 200 Other: Voiding Method Urinal Urinal Urinal # Voids 1 1 1 Weight 52.6 kg 52.6 kg Head normocephalic Neck supple Lungs clear to auscultation bilaterally no wheezing or crackles Heart regular rate and rhythm S1-S2, no rub or gallop Abdomen is soft nontender nondistended positive bowel sounds no hepatosplenomegaly Extremities no edema Neuro alert and orientated to 3 Results CBC & Chem 7: 12/12/18 05:47 12/12/18 05:47 Labs: Abnormal Lab Results - Last 24 Hours (Table) 12/11/18 12/11/18 12/11/18 Range/Units 14:25 14:25 14:25 RBC 3.80 L (4.30-5.90) m/uL Hgb 11.7 L (13.0-17.5) gm/dL Hct 34.6 L (39.0-53.0) % Plt Count (150-450) k/uL Neutrophils # 8.7 H (1.3-7.7) k/uL Lymphocytes # 0.9 L (1.0-4.8) k/uL Potassium (3.5-5.1) mmol/L Chloride (98-107) mmol/L Glucose 110 H (74-99) mg/dL Plasma Lactic Acid Hank (0.7-2.0) mmol/L AST 73 H (17-59) U/L Albumin 3.2 L (3.5-5.0) g/dL Lipase 15 L (23-300) U/L Urine Protein 1+ H (Negative) Urine Glucose (UA) 1+ H (Negative) Urine Ketones 1+ H (Negative) Ur Leukocyte Esterase Large H (Negative) Urine WBC 42 H (0-5) /hpf Urine Mucus Rare H (None) /hpf 12/11/18 12/11/18 12/12/18 Range/Units 14:25 19:20 05:47 RBC 3.07 L (4.30-5.90) m/uL Hgb 9.9 L D (13.0-17.5) gm/dL Hct 28.3 L (39.0-53.0) % Plt Count 144 L (150-450) k/uL Neutrophils # (1.3-7.7) k/uL Lymphocytes # (1.0-4.8) k/uL Potassium (3.5-5.1) mmol/L Chloride (98-107) mmol/L Glucose (74-99) mg/dL Plasma Lactic Acid Hank 4.8 H* 2.6 H* (0.7-2.0) mmol/L AST (17-59) U/L Albumin (3.5-5.0) g/dL Lipase (23-300) U/L Urine Protein (Negative) Urine Glucose (UA) (Negative) Urine Ketones (Negative) Ur Leukocyte Esterase (Negative) Urine WBC (0-5) /hpf Urine Mucus (None) /hpf 12/12/18 Range/Units 05:47 RBC (4.30-5.90) m/uL Hgb (13.0-17.5) gm/dL Hct (39.0-53.0) % Plt Count (150-450) k/uL Neutrophils # (1.3-7.7) k/uL Lymphocytes # (1.0-4.8) k/uL Potassium 3.3 L (3.5-5.1) mmol/L Chloride 110 H (98-107) mmol/L Glucose 64 L (74-99) mg/dL Plasma Lactic Acid Hank (0.7-2.0) mmol/L AST (17-59) U/L Albumin (3.5-5.0) g/dL Lipase (23-300) U/L Urine Protein (Negative) Urine Glucose (UA) (Negative) Urine Ketones (Negative) Ur Leukocyte Esterase (Negative) Urine WBC (0-5) /hpf Urine Mucus (None) /hpf Microbiology - Last 24 Hours (Table) 12/11/18 14:25 Urine Culture - Preliminary Urine,Voided 12/11/18 19:20 Stool Culture - Preliminary Stool Thrombosis Risk Factor Assmnt - Choose All That Apply Any of the Below Risk Factors Present?: Yes Each Factor Represents 1 point: Abnormal pulmonary function (COPD), Age 41-60 years Other Risk Factors: No Other congenital or acquired thrombophilia - If yes, enter type in comment: No Thrombosis Risk Factor Assessment Total Risk Factor Score: 2 Thrombosis Risk Factor Assessment Level: Low Risk Assessment and Plan Assessment: 1. Acute upper GI bleed with black tarry stools and hematemesis. Status post EGD revealing duodenitis, mild antral gastritis, hiatal hernia and esophagitis. Continue with IV Protonix surgical service is following. Stool for occult blood positive 2. UTI: Check urine culture continue Rocephin 3. Hypomagnesemia and hypokalemia patient receiving supplement. Likely related to patient's diarrhea. 4. Elevated lactic acid level on admission of 2.6 improved with IV fluids 5. Anemia with acute blood loss anemia secondary GI bleed. Hemoglobin is 9.9 continue to monitor 6. History of COPD stable 7. Nicotine dependence discussed smoking cessation for greater than 3 minutes. Patient refusing nicotine patch at this time 8. Alcohol abuse: last alcoholic beverage was yesterday. Continue the CIWA protocol. Patient has been requiring the Ativan. Continue thiamine and multivitamin. 9. History of colon cancer with previous surgery and last chemotherapy and radiation treatment was about 3 months ago GI prophylaxis Protonix and DVT prophylaxis SCDs Time with Patient: Greater than 30 (Greater than 50% of the total time spent in counseling and coordination of care.I performed an examination of the patient and discussed their management with the physician Miller Rod Mill. I have reviewed the Physician Miller Rod Mill's notes and agree with the documented findings and plan of care)
[2018-12-12] MEDS: IOPAMIDOL-300 CONTRAST 30 ML VIAL (ORAL USE) PO PRN ×2 (13:44→14:49)
--- NOTE | 2018-12-12 15:48 | CT ---
EXAMINATION TYPE: CT abdomen pelvis wo con DATE OF EXAM: 12/12/2018 COMPARISON: 12/11/2018 INDICATION: Abdominal pain DLP: 472.3 mGycm, Automated exposure control for dose reduction was used. CONTRAST: 0 mL of Isovue 300. Study performed with Oral Contrast TECHNIQUE: Axial images were obtained from above the diaphragm to the pubic rami in the axial plane a t 5 mm thick sections. Reconstructed images are reviewed on the computer in the coronal plane. FINDINGS: Limited CT sections are obtained the lung bases. Mild infiltrate is in the posterior left lung base. Correlate for atelectasis. Developing pneumonia could be considered.. CT ABDOMEN: Liver: There appears be moderate fatty infiltration liver. Spleen: Normal Pancreas: Normal Adrenal glands: The adrenal glands are normal. Gallbladder: Poorly visualized there may be a small amount of contrast within the gallbladder which m ay be some secondary excretion from previous examination. Kidneys: No masses are evident. No hydronephrosis is present. No cysts are present. No renal stone s are identified. Aorta: Vascular calcification is within the aorta. Inferior vena cava: Normal. CT PELVIS: Oral contrast extends into the pelvis. Contrast into the distal ileum is not evident. No contrast is within the air-filled colon. Distal small bowel loops are somewhat prominent. Transition may be withi n the right inguinal hernia. Significant dissent of bowel distally into the inguinal hernia is not id entified. Appendix: What appears to be the appendix is normal. Urinary bladder: Decompressed. A left hip prosthesis is present which causes beam hardening artifact and additional limitation Genitourinary structures: Prostate appears normal Osseous structures: No suspicious lytic or sclerotic lesions. IMPRESSIONS: 1. There is a right inguinal hernia containing loops of bowel. This may be a zone of transition with out contrast extending to the distal ileum or within the colon.
[2018-12-13] MEDS: LORazepam 2 MG/ML INJ IV PRN ×3 (00:36→23:31)
[2018-12-13] MEDS: SODIUM CHLORIDE 0.9% 1,000 ML IV SCH ×2 (06:10→18:54)
[2018-12-13 07:20] LABS: Basophils % (A) 1 %; Eosinophils # (A) 0.1 k/uL (0-0.7); Eosinophils % (A) 2 %; HCT 27.4 % (39.0-53.0); Lymphocytes # (A) 0.7 k/uL (1.0-4.8); Lymphocytes % (A) 16 %; MCH 31.6 pg (25.0-35.0); MCHC 32.8 g/dL (31.0-37.0); MCV 96.3 fL (80.0-100.0); Monocytes # (A) 0.2 k/uL (0-1.0); Monocytes % (A) 5 %; Neutrophils # (A) 3.6 k/uL (1.3-7.7); Neutrophils % (A) 75 %; Platelet Count 151 k/uL (150-450); RBC 2.84 m/uL (4.30-5.90); WBC 4.8 k/uL (3.8-10.6)
[2018-12-13 07:59] LABS: ALT 43 U/L (21-72); AST 53 U/L (17-59); Albumin 2.5 g/dL (3.5-5.0); Alkaline Phosphatase 59 U/L (38-126); Anion Gap 9 mmol/L; Blood Urea Nitrogen 7 mg/dL (9-20); Calcium 7.9 mg/dL (8.4-10.2); Carbon Dioxide 18 mmol/L (22-30); Chloride 110 mmol/L (98-107); Magnesium 1.8 mg/dL (1.6-2.3); Potassium 3.7 mmol/L (3.5-5.1); Sodium 137 mmol/L (137-145); Total Bilirubin 1.1 mg/dL (0.2-1.3)
[2018-12-13 08:22] LABS: Glucose 39 mg/dL (74-99)
[2018-12-13] MEDS: PANTOPRAZOLE 40 MG/10 ML VIAL IV SCH (08:44)
[2018-12-13] MEDS: MULTIVITAMINS, THERA 1 EACH TAB PO SCH (08:45)
[2018-12-13] MEDS: THIAMINE 100 MG TAB PO SCH ×2 (08:45→18:54)
[2018-12-13 08:46] LABS: Glucose,Whole Blood 49 mg/dL (75-99)
[2018-12-13 09:05] LABS: Glucose,Whole Blood 48 mg/dL (75-99)
[2018-12-13 09:18] LABS: Glucose,Whole Blood 55 mg/dL (75-99)
[2018-12-13 09:33] LABS: Glucose,Whole Blood 77 mg/dL (75-99)
--- NOTE | 2018-12-13 09:37 | P.PN ---
Progress Note - Text Progress Note Date: 12/13/18 The patient's CAT scan noted a right inguinal hernia. Per the patient he has had a right inguinal hernia for a very long time. The hernia comes and goes. On exam his abdomen is soft. His hernia was completely reduced today. There is known to any obstruction due to hernia. Abdomen is soft with minimal tenderness. A pair patient will start on a clear liquid diet.
[2018-12-13 11:24] LABS: Glucose,Whole Blood 198 mg/dL (75-99)
[2018-12-13] MEDS ORDERED: THIAMINE 100 MG TAB ONE (14:28)
[2018-12-13] MEDS ORDERED: LORazepam 2 MG/ML INJ ONE ×2 (14:28)
[2018-12-13 23:28] LABS: Glucose,Whole Blood 97 mg/dL (75-99)
[2018-12-14] MEDS: LORazepam 2 MG/ML INJ IV PRN ×5 (03:16→23:16)
[2018-12-14] MEDS: SODIUM CHLORIDE 0.9% 1,000 ML IV SCH ×3 (03:16→23:15)
[2018-12-14 07:21] LABS: Basophils % (A) 1 %; Eosinophils # (A) 0.1 k/uL (0-0.7); Eosinophils % (A) 4 %; HCT 26.7 % (39.0-53.0); Lymphocytes # (A) 0.6 k/uL (1.0-4.8); Lymphocytes % (A) 17 %; MCH 31.7 pg (25.0-35.0); MCHC 33.8 g/dL (31.0-37.0); MCV 93.8 fL (80.0-100.0); Mean Platelet Volume 6.8; Monocytes # (A) 0.2 k/uL (0-1.0); Monocytes % (A) 6 %; Neutrophils # (A) 2.6 k/uL (1.3-7.7); Neutrophils % (A) 70 %; Platelet Count 153 k/uL (150-450); RBC 2.85 m/uL (4.30-5.90); RDW 14.2 % (11.5-15.5); WBC 3.7 k/uL (3.8-10.6)
[2018-12-14 07:41] LABS: ALT 43 U/L (21-72); AST 49 U/L (17-59); Albumin 2.3 g/dL (3.5-5.0); Alkaline Phosphatase 51 U/L (38-126); Anion Gap 2 mmol/L; Blood Urea Nitrogen 2 mg/dL (9-20); Calcium 8.1 mg/dL (8.4-10.2); Carbon Dioxide 24 mmol/L (22-30); Chloride 111 mmol/L (98-107); Glucose 75 mg/dL (74-99); Magnesium 1.5 mg/dL (1.6-2.3); Potassium 4.1 mmol/L (3.5-5.1); Sodium 137 mmol/L (137-145); Total Bilirubin 1.1 mg/dL (0.2-1.3); Total Protein 4.9 g/dL (6.3-8.2)
[2018-12-14] MEDS: PANTOPRAZOLE 40 MG/10 ML VIAL IV SCH (08:07)
[2018-12-14] MEDS: MULTIVITAMINS, THERA 1 EACH TAB PO SCH (12:38)
[2018-12-14] MEDS: THIAMINE 100 MG TAB PO SCH ×2 (12:40→16:49)
--- NOTE | 2018-12-14 13:10 | P.PN ---
Subjective Progress Note Date: 12/14/18 Date of this progress note is 12/13/2018 computer where down on that day and the note was dictated the next day. This is a 53-year-old male with a known past medical history of colon cancer she is currently in remission last chemo therapy and radiation treatment was about 3 months ago. He also has a history of COPD, TIA nicotine dependence and alcohol abuse. He presents to the hospital for 4 day complaint of diarrhea with tarry stools and hematemesis. Patient also reporting significant weight loss. Stool for occult blood was positive. Hemoglobin did drop from 11.7-9.9. Lactic acid was elevated at 2.6 and down to 1.3 after IV fluids. Potassium 3.3 magnesium 1.7 being replaced. AST was 73. Patient was seen by surgical service and underwent EGD this morning which did reveal duodenitis mild antral gastritis hiatal hernia and esophagitis. He is currently on IV Protonix. He is still having diarrhea. However the stools are more green. Cultures have been obtained. Last hematemesis was yesterday. Patient denies any chest pain or shortness of breath. Denies abdominal pain. Does admit to burning with urination. He was found have evidence of a UTI and is on Rocephin. On 12/13/2018 patient was seen and examined on the telemetry floor he is alert slightly confused in no apparent distress, he is having multiple bowel movements , he is still complaining of abdominal pain, he is still having significant tremors, otherwise there is no other complaints there is no fever or chills no headache or dizziness no chest pain no shortness of breath no cough no nausea or vomiting and no urinary symptoms. On 12/14/2018 patient is alert slightly confused in no apparent distress, still having some tremor and abdominal pain otherwise no complaints, he had multiple loose bowel movements yesterday, no bowel movements today, there is no fever or chills no headache or dizziness no chest pain no shortness of breath no cough no nausea or vomiting and no urinary symptoms. Objective - Vital Signs Vital signs: Vital Signs Temp 97.4 F L 12/14/18 04:00 Pulse 110 H 12/14/18 12:00 Resp 16 12/14/18 12:00 BP 115/94 12/14/18 12:00 Pulse Ox 100 12/14/18 04:00 Intake & Output 12/13/18 12/14/18 12/14/18 18:59 06:59 18:59 Intake Total 0 10 160 Output Total 1 Balance 0 9 160 Weight 54 kg Intake: IV 10 10 Invasive Line 2 10 10 Oral 0 150 Output: Urine 1 Other: Voiding Method Urinal Urinal # Voids 1 - Exam Head normocephalic and atraumatic Neck supple no JVD no goiter Lungs clear to auscultation bilaterally no wheezing or crackles Heart regular rate and rhythm S1-S2, no rub or gallop Abdomen is soft nontender nondistended positive bowel sounds no hepatosplenomegaly Extremities no edema no cyanosis or clubbing Neuro alert and orientated to 3 - Labs CBC & Chem 7: 12/14/18 06:14 12/14/18 06:14 Labs: Abnormal Lab Results - Last 24 Hours (Table) 12/14/18 12/14/18 Range/Units 06:14 06:14 WBC 3.7 L (3.8-10.6) k/uL RBC 2.85 L (4.30-5.90) m/uL Hgb 9.0 L (13.0-17.5) gm/dL Hct 26.7 L (39.0-53.0) % Lymphocytes # 0.6 L (1.0-4.8) k/uL Chloride 111 H (98-107) mmol/L BUN 2 L (9-20) mg/dL Creatinine 0.59 L (0.66-1.25) mg/dL Calcium 8.1 L (8.4-10.2) mg/dL Magnesium 1.5 L (1.6-2.3) mg/dL Total Protein 4.9 L (6.3-8.2) g/dL Albumin 2.3 L (3.5-5.0) g/dL Microbiology - Last 24 Hours (Table) 12/11/18 19:20 Stool Culture - Preliminary Stool 12/11/18 14:25 Blood Culture - Preliminary Blood No Growth after 48 hours Assessment and Plan Plan: 1. Acute upper GI bleed with black tarry stools and hematemesis. Status post EGD revealing duodenitis, mild antral gastritis, hiatal hernia and esophagitis. Continue with IV Protonix surgical service is following. Stool for occult blood positive, computed tomography scan revealing possible bowel obstruction versus ileus, surgery following, patient is having bowel movements today, no surgical intervention planned at this point. 2. UTI: Check urine culture continue Rocephin 3. Hypomagnesemia and hypokalemia patient receiving supplement. Likely related to patient's diarrhea. 4. Elevated lactic acid level on admission of 2.6 improved with IV fluids 5. Anemia with acute blood loss anemia secondary GI bleed. Hemoglobin is 9.9 continue to monitor 6. History of COPD stable 7. Nicotine dependence discussed smoking cessation for greater than 3 minutes. Patient refusing nicotine patch at this time 8. Alcohol abuse: last alcoholic beverage was yesterday. Continue the CIWA protocol. Patient has been requiring the Ativan. Continue thiamine and multivitamin. 9. History of colon cancer with previous surgery and last chemotherapy and radiation treatment was about 3 months ago GI prophylaxis Protonix and DVT prophylaxis SCDs
--- NOTE | 2018-12-14 13:41 | P.PN ---
Progress Note - Text Progress Note Date: 12/14/18 The patient is resting in his bed. He is currently being treated for DTs. He denies any significant abdominal pain. On exam his vital signs are stable. His abdomen is soft nontender. No evidence of bowel structure. Patient will have his right inguinal hernia repaired once he is medically stable as an outpatient.
[2018-12-14] MEDS ORDERED: MAGNESIUM SULFATE-D5W PMX 1 GM in DEXTROSE/WATER 1 100ML.BAG IVPB ONE (14:00)
[2018-12-15] MEDS: LORazepam 2 MG/ML INJ IV PRN ×2 (03:24→22:15)
[2018-12-15 06:29] LABS: Basophils % (A) 0 %; Eosinophils # (A) 0.1 k/uL (0-0.7); Eosinophils % (A) 3 %; HCT 27.8 % (39.0-53.0); HGB 9.4 gm/dL (13.0-17.5); Lymphocytes # (A) 0.7 k/uL (1.0-4.8); Lymphocytes % (A) 19 %; MCH 31.5 pg (25.0-35.0); MCHC 33.7 g/dL (31.0-37.0); MCV 93.3 fL (80.0-100.0); Mean Platelet Volume 7.1; Monocytes # (A) 0.2 k/uL (0-1.0); Monocytes % (A) 7 %; Neutrophils # (A) 2.3 k/uL (1.3-7.7); Neutrophils % (A) 67 %; Platelet Count 184 k/uL (150-450); RBC 2.98 m/uL (4.30-5.90); RDW 14.1 % (11.5-15.5); WBC 3.4 k/uL (3.8-10.6)
[2018-12-15 06:43] LABS: ALT 48 U/L (21-72); AST 49 U/L (17-59); Albumin 2.3 g/dL (3.5-5.0); Alkaline Phosphatase 52 U/L (38-126); Anion Gap 2 mmol/L; Blood Urea Nitrogen <2 mg/dL (9-20); Calcium 8.3 mg/dL (8.4-10.2); Carbon Dioxide 26 mmol/L (22-30); Chloride 112 mmol/L (98-107); Glucose 78 mg/dL (74-99); Magnesium 1.7 mg/dL (1.6-2.3); Potassium 3.8 mmol/L (3.5-5.1); Sodium 140 mmol/L (137-145); Total Bilirubin 0.8 mg/dL (0.2-1.3); Total Protein 4.9 g/dL (6.3-8.2)
[2018-12-15] MEDS: PANTOPRAZOLE 40 MG/10 ML VIAL IV SCH (08:13)
[2018-12-15] MEDS: SODIUM CHLORIDE 0.9% 1,000 ML IV SCH ×2 (08:13→16:50)
--- NOTE | 2018-12-15 10:42 | P.PN ---
Subjective Progress Note Date: 12/15/18 This is a 53-year-old male with a known past medical history of colon cancer she is currently in remission last chemo therapy and radiation treatment was about 3 months ago. He also has a history of COPD, TIA nicotine dependence and alcohol abuse. He presents to the hospital for 4 day complaint of diarrhea with tarry stools and hematemesis. Patient also reporting significant weight loss. Stool for occult blood was positive. Hemoglobin did drop from 11.7-9.9. Lactic acid was elevated at 2.6 and down to 1.3 after IV fluids. Potassium 3.3 magnesium 1.7 being replaced. AST was 73. Patient was seen by surgical service and underwent EGD this morning which did reveal duodenitis mild antral gastritis hiatal hernia and esophagitis. He is currently on IV Protonix. He is still having diarrhea. However the stools are more green. Cultures have been obtained. Last hematemesis was yesterday. Patient denies any chest pain or shortness of breath. Denies abdominal pain. Does admit to burning with urination. He was found have evidence of a UTI and is on Rocephin. On 12/13/2018 patient was seen and examined on the telemetry floor he is alert slightly confused in no apparent distress, he is having multiple bowel movements , he is still complaining of abdominal pain, he is still having significant tremors, otherwise there is no other complaints there is no fever or chills no headache or dizziness no chest pain no shortness of breath no cough no nausea or vomiting and no urinary symptoms. On 12/14/2018 patient is alert slightly confused in no apparent distress, still having some tremor and abdominal pain otherwise no complaints, he had multiple loose bowel movements yesterday, no bowel movements today, there is no fever or chills no headache or dizziness no chest pain no shortness of breath no cough no nausea or vomiting and no urinary symptoms. 12/15/2018 patient complaining of back pain per nursing staff. Resume his home [place]. Also requesting a cigarette. Nicotine patch has been ordered. He's working with physical therapy this morning. Still requiring Ativan per the CIWA protocol. Patient reports having a bowel movement. Per nursing staff there has been no black stool or blood in stool present. Hemoglobin 9.4. Patient will be transferred to a regular medical floor with telemetry. He is still having some sinus tachycardia likely related to withdrawal's. Objective - Vital Signs Vital signs: Vital Signs Temp 98.6 F 12/15/18 08:15 Pulse 104 H 12/15/18 10:11 Resp 18 12/15/18 10:11 BP 122/80 12/15/18 08:15 Pulse Ox 100 12/15/18 10:11 Intake & Output 12/14/18 12/15/18 12/15/18 18:59 06:59 18:59 Intake Total 510 920 Output Total 1575 Balance 510 -655 Weight 54 kg Intake: IV 10 800 Invasive Line 2 10 Sodium Chloride 0.9% 1, 800 000 ml @ 100 mls/hr IV . Q10H SCOTT Rx#:[id number] Oral 500 120 Output: Urine 1575 Other: Voiding Method Urinal Urinal # Voids 1 - Exam Head normocephalic Neck supple Lungs clear to auscultation bilaterally no wheezing or crackles Heart regular rate and rhythm S1-S2, no rub or gallop Abdomen is soft nontender nondistended positive bowel sounds no hepatosplenomegaly Extremities no edema Neuro tremor in the hands present awake and alert answering questions appropriately - Labs CBC & Chem 7: 12/15/18 05:49 12/15/18 05:49 Labs: Abnormal Lab Results - Last 24 Hours (Table) 12/15/18 12/15/18 Range/Units 05:49 05:49 WBC 3.4 L (3.8-10.6) k/uL RBC 2.98 L (4.30-5.90) m/uL Hgb 9.4 L (13.0-17.5) gm/dL Hct 27.8 L (39.0-53.0) % Lymphocytes # 0.7 L (1.0-4.8) k/uL Chloride 112 H (98-107) mmol/L BUN <2 L (9-20) mg/dL Creatinine 0.60 L (0.66-1.25) mg/dL Calcium 8.3 L (8.4-10.2) mg/dL Total Protein 4.9 L (6.3-8.2) g/dL Albumin 2.3 L (3.5-5.0) g/dL Microbiology - Last 24 Hours (Table) 12/11/18 19:20 Stool Culture - Final Stool 12/11/18 14:25 Blood Culture - Preliminary Blood No Growth after 72 hours Assessment and Plan Assessment: 1. Acute upper GI bleed with black tarry stools and hematemesis. Status post EGD revealing duodenitis, mild antral gastritis, hiatal hernia and esophagitis. Continue with IV Protonix surgical service is following. Stool for occult blood positive 2. UTI: Urine culture contaminant. Patient currently on Rocephin 3. Hypomagnesemia and hypokalemia patient receiving supplement. Likely related to patient's diarrhea. 4. Elevated lactic acid level on admission of 2.6 improved with IV fluids. Likely related to GI bleed 5. Anemia with acute blood loss anemia secondary GI bleed. Hemoglobin is 9.4 continue to monitor 6. History of COPD stable 7. Nicotine dependence discussed smoking cessation for greater than 3 minutes. Start nicotine patch 8. Alcohol abuse with evidence of alcohol withdrawal: last alcoholic beverage was yesterday. Continue the CIWA protocol. Patient has been requiring the Ativan. Continue thiamine and multivitamin. 9. History of colon cancer with previous surgery and last chemotherapy and radiation treatment was about 3 months ago 10. Her magnesium patient receiving magnesium supplement. Repeat magnesium in a.m. 11. Right inguinal hernia noted on CAT scan. Surgical service recommending repair in outpatient setting Plan Increase diet as tolerated Replace magnesium Add [place] for pain control Continue physical therapy Add nicotine patch Transfer to regular medical floor with telemetry GI prophylaxis Protonix and DVT prophylaxis SCDs I performed an examination of the patient and discussed their management with the physician Asian Art Curator. I have reviewed the Physician Asian Art Curator's notes and agree with the documented findings and plan of care
[2018-12-15] MEDS ORDERED: NICOTINE 14MG/24HR PATCH TRANSDERM STA (10:53)
[2018-12-15] MEDS: HYDROcodone/APAP 10-325MG 1 EACH TAB PO PRN (11:26)
[2018-12-15] MEDS: THIAMINE 100 MG TAB PO SCH ×2 (11:26→16:50)
[2018-12-15] MEDS: MULTIVITAMINS, THERA 1 EACH TAB PO SCH (11:26)
[2018-12-15 11:57] LABS: Glucose,Whole Blood 115 mg/dL (75-99)
[2018-12-15 14:33] VITALS: BMI 17.0
--- NOTE | 2018-12-15 15:26 | P.PN ---
Subjective Progress Note Date: 12/15/18 HISTORY OF PRESENT ILLNESS: Patient currently going through DTs. Denies abdominal pain. Tolerating PO intake, although intake is decreased. PHYSICAL EXAM: VITAL SIGNS: Currently stable. GENERAL: Well-developed in no acute distress. HEENT: No sclera icterus. Extraocular movements grossly intact. Moist buccal mucosa. Head is atraumatic, normocephalic. Hears conversational speech. No nasal drainage. NECK: Supple without lymphadenopathy. CHEST: Non-labored respirations and equal bilateral excursions. CARDIOVASCULAR: Regular rate with regular rhythm. Palpable 2+ radial pulses. ABDOMEN: Soft. Nondistended. MUSCULOSKELETAL: No clubbing, cyanosis or edema. NEUROLOGIC: No focal or lateralizing signs. Cranial nerves II through XII grossly intact. PSYCH: Awake and alert SKIN: Well perfused. Good skin turgor. ASSESSMENT: 1. Hematemesis, status post EGD revealing duodenitis, mild antral gastritis, hiatal hernia, and esophagitis 2. Right inguinal hernia PLAN: 1. Advance diet as tolerated 2. Patient to follow-up with Dr. Yip outpatient for repair of right inguinal hernia 3. Patient is stable from a surgical standpoint. We will sign off. Nurse practitioner note has been reviewed by physician. Signing provider agrees with the documented findings, assessment, and plan of care. Objective - Vital Signs Vital signs: Vital Signs Temp 98.6 F 12/15/18 08:15 Pulse 104 H 12/15/18 10:11 Resp 18 12/15/18 10:11 BP 122/80 12/15/18 08:15 Pulse Ox 100 12/15/18 10:11 Intake & Output 12/14/18 12/15/18 12/15/18 18:59 06:59 18:59 Intake Total 510 920 850 Output Total 1575 Balance 510 -655 850 Weight 54 kg Intake: IV 10 800 800 Invasive Line 2 10 Sodium Chloride 0.9% 1, 800 800 000 ml @ 100 mls/hr IV . Q10H [facility]OTT Rx#:[id number] Intake, IV Titration 50 Amount cefTRIAXone 1,000 mg In 50 Sodium Chloride 0.9% 50 ml @ 100 mls/hr IVPB Q24HR SCOTT Rx#:[id number] Oral 500 120 Output: Urine 1575 Other: Voiding Method Urinal Urinal Urinal # Voids 1 - Labs CBC & Chem 7: 01/28/19 05:49 12/15/18 05:49 Labs: Abnormal Lab Results - Last 24 Hours (Table) 12/15/18 12/15/18 12/15/18 Range/Units 05:49 05:49 11:45 WBC 3.4 L (3.8-10.6) k/uL RBC 2.98 L (4.30-5.90) m/uL Hgb 9.4 L (13.0-17.5) gm/dL Hct 27.8 L (39.0-53.0) % Lymphocytes # 0.7 L (1.0-4.8) k/uL Chloride 112 H (98-107) mmol/L BUN <2 L (9-20) mg/dL Creatinine 0.60 L (0.66-1.25) mg/dL POC Glucose (mg/dL) 115 H (75-99) mg/dL Calcium 8.3 L (8.4-10.2) mg/dL Total Protein 4.9 L (6.3-8.2) g/dL Albumin 2.3 L (3.5-5.0) g/dL Microbiology - Last 24 Hours (Table) 12/11/18 19:20 Stool Culture - Final Stool 12/11/18 14:25 Blood Culture - Preliminary Blood No Growth after 72 hours
[2018-12-15 21:21] LABS: Glucose,Whole Blood 133 mg/dL (75-99)
[2018-12-16] MEDS: SODIUM CHLORIDE 0.9% 1,000 ML IV SCH (05:42)
[2018-12-16 07:40] LABS: Basophils % (A) 0 %; Eosinophils # (A) 0.1 k/uL (0-0.7); Eosinophils % (A) 2 %; HCT 27.2 % (39.0-53.0); HGB 9.3 gm/dL (13.0-17.5); Lymphocytes # (A) 1.2 k/uL (1.0-4.8); Lymphocytes % (A) 23 %; MCH 31.4 pg (25.0-35.0); MCHC 34.2 g/dL (31.0-37.0); MCV 91.9 fL (80.0-100.0); Mean Platelet Volume 6.9; Monocytes # (A) 0.4 k/uL (0-1.0); Monocytes % (A) 8 %; Neutrophils # (A) 3.4 k/uL (1.3-7.7); Neutrophils % (A) 65 %; Platelet Count 232 k/uL (150-450); RBC 2.96 m/uL (4.30-5.90); RDW 14.3 % (11.5-15.5); WBC 5.3 k/uL (3.8-10.6)
[2018-12-16] MEDS: PANTOPRAZOLE 40 MG/10 ML VIAL IV SCH (08:44)
[2018-12-16] MEDS: NICOTINE 14MG/24HR PATCH TRANSDERM SCH (08:44)
[2018-12-16 08:54] LABS: ALT 42 U/L (21-72); AST 40 U/L (17-59); Albumin 2.3 g/dL (3.5-5.0); Alkaline Phosphatase 61 U/L (38-126); Anion Gap 2 mmol/L; Blood Urea Nitrogen <2 mg/dL (9-20); Calcium 8.3 mg/dL (8.4-10.2); Carbon Dioxide 26 mmol/L (22-30); Chloride 110 mmol/L (98-107); Glucose 85 mg/dL (74-99); Magnesium 1.5 mg/dL (1.6-2.3); Potassium 3.6 mmol/L (3.5-5.1); Sodium 138 mmol/L (137-145); Total Bilirubin 0.6 mg/dL (0.2-1.3); Total Protein 4.8 g/dL (6.3-8.2)
[2018-12-16] MEDS: LORazepam 2 MG/ML INJ IV PRN ×2 (11:30→19:54)
[2018-12-16] MEDS: THIAMINE 100 MG TAB PO SCH ×2 (12:42→17:51)
[2018-12-16] MEDS: MULTIVITAMINS, THERA 1 EACH TAB PO SCH (12:42)
[2018-12-16] MEDS: MAGNESIUM SULFATE-D5W PMX 1 GM in DEXTROSE/WATER 1 100ML.BAG IVPB SCH ×2 (12:42→14:19)
--- NOTE | 2018-12-16 12:45 | P.PN ---
Subjective Progress Note Date: 12/16/18 This is a 53-year-old male with a known past medical history of colon cancer she is currently in remission last chemo therapy and radiation treatment was about 3 months ago. He also has a history of COPD, TIA nicotine dependence and alcohol abuse. He presents to the hospital for 4 day complaint of diarrhea with tarry stools and hematemesis. Patient also reporting significant weight loss. Stool for occult blood was positive. Hemoglobin did drop from 11.7-9.9. Lactic acid was elevated at 2.6 and down to 1.3 after IV fluids. Potassium 3.3 magnesium 1.7 being replaced. AST was 73. Patient was seen by surgical service and underwent EGD this morning which did reveal duodenitis mild antral gastritis hiatal hernia and esophagitis. He is currently on IV Protonix. He is still having diarrhea. However the stools are more green. Cultures have been obtained. Last hematemesis was yesterday. Patient denies any chest pain or shortness of breath. Denies abdominal pain. Does admit to burning with urination. He was found have evidence of a UTI and is on Rocephin. On 12/13/2018 patient was seen and examined on the telemetry floor he is alert slightly confused in no apparent distress, he is having multiple bowel movements , he is still complaining of abdominal pain, he is still having significant tremors, otherwise there is no other complaints there is no fever or chills no headache or dizziness no chest pain no shortness of breath no cough no nausea or vomiting and no urinary symptoms. On 12/14/2018 patient is alert slightly confused in no apparent distress, still having some tremor and abdominal pain otherwise no complaints, he had multiple loose bowel movements yesterday, no bowel movements today, there is no fever or chills no headache or dizziness no chest pain no shortness of breath no cough no nausea or vomiting and no urinary symptoms. 12/15/2018 patient complaining of back pain per nursing staff. Resume his home [place]. Also requesting a cigarette. Nicotine patch has been ordered. He's working with physical therapy this morning. Still requiring Ativan per the CIWA protocol. Patient reports having a bowel movement. Per nursing staff there has been no black stool or blood in stool present. Hemoglobin 9.4. Patient will be transferred to a regular medical floor with telemetry. He is still having some sinus tachycardia likely related to withdrawal's. 12/16/2018 patient had an episode of V. tach 12 beat run. Magnesium and potassium are being replaced. Cardiology will be consulted. The episode happened when he got to stand with physical therapy. Patient also reporting a possible dream versus hallucination as throwing a knife at the police. Patient denies any chest pain or shortness of breath. Possible small episode of vomiting yesterday per patient. Again patient is a poor historian. Patient is stooling no further episodes of blood in the stool. Hemoglobin is 9.3. Magnesium 1.5 and potassium is 3.6 Objective - Vital Signs Vital signs: Vital Signs Temp 97.6 F 12/16/18 11:55 Pulse 115 H 12/16/18 11:55 Resp 22 12/16/18 11:55 BP 140/99 12/16/18 11:55 Pulse Ox 100 12/16/18 11:55 Intake & Output 12/15/18 12/16/18 12/16/18 18:59 06:59 18:59 Intake Total 1450 480 Output Total 475 800 Balance 975 -320 Weight 54 kg Intake: IV 800 Sodium Chloride 0.9% 1, 800 000 ml @ 100 mls/hr IV . Q10H [facility] Rx#:[id number] Intake, IV Titration 50 Amount cefTRIAXone 1,000 mg In 50 Sodium Chloride 0.9% 50 ml @ 100 mls/hr IVPB Q24HR [facility]OTT Rx#:[id number] Oral 600 480 Output: Urine 475 800 Other: Voiding Method Urinal Urinal Urinal # Voids 1 - Exam Head normocephalic Neck supple Lungs clear to auscultation bilaterally no wheezing or crackles Heart regular rate and rhythm S1-S2, no rub or gallop Abdomen is soft nontender nondistended positive bowel sounds no hepatosplenomegaly Extremities no edema Neuro tremor in the hands present awake and alert answering questions appropriately - Labs CBC & Chem 7: 12/16/18 07:14 12/16/18 07:14 Labs: Abnormal Lab Results - Last 24 Hours (Table) 12/15/18 12/16/18 12/16/18 Range/Units 21:19 07:14 07:14 RBC 2.96 L (4.30-5.90) m/uL Hgb 9.3 L (13.0-17.5) gm/dL Hct 27.2 L (39.0-53.0) % Chloride 110 H (98-107) mmol/L BUN <2 L (9-20) mg/dL Creatinine 0.63 L (0.66-1.25) mg/dL POC Glucose (mg/dL) 133 H (75-99) mg/dL Calcium 8.3 L (8.4-10.2) mg/dL Magnesium 1.5 L (1.6-2.3) mg/dL Total Protein 4.8 L (6.3-8.2) g/dL Albumin 2.3 L (3.5-5.0) g/dL Microbiology - Last 24 Hours (Table) 12/11/18 14:25 Blood Culture - Preliminary Blood No Growth after 96 hours Assessment and Plan Assessment: 1. Acute upper GI bleed with black tarry stools and hematemesis. Status post EGD revealing duodenitis, mild antral gastritis, hiatal hernia and esophagitis. Continue with IV Protonix surgical service is following. Stool for occult blood positive. Patient tolerated advancement of diet. Surgical service has signed off 2. UTI: Urine culture contaminant. Patient completed 5 days of Rocephin 3. Hypomagnesemia and hypokalemia patient receiving supplement. Likely related to patient's diarrhea. 4. Elevated lactic acid level on admission of 2.6 improved with IV fluids. Likely related to GI bleed 5. Anemia with acute blood loss anemia secondary GI bleed. Hemoglobin is 9.4 continue to monitor 6. History of COPD stable 7. Nicotine dependence discussed smoking cessation for greater than 3 minutes. Start nicotine patch 8. Alcohol abuse with evidence of alcohol withdrawal: last alcoholic beverage was yesterday. Continue the CIWA protocol. Patient has been requiring the Ativan. Continue thiamine and multivitamin. 9. History of colon cancer with previous surgery and last chemotherapy and radiation treatment was about 3 months ago 10. Hypomagnesium patient receiving magnesium supplement. Repeat magnesium in a.m. 11. Right inguinal hernia noted on CAT scan. Surgical service recommending repair in outpatient setting 12. Episode of nonsustained ventricle tachycardia. Consult cardiology. Possible secondary to patient's poor magnesium. Patient is receiving magnesium supplement as well as potassium supplement. Plan Replace magnesium and potassium Consult cardiology GI prophylaxis Protonix and DVT prophylaxis SCDs I performed an examination of the patient and discussed their management with the physician Tobacco Drummer. I have reviewed the Physician Tobacco Drummer's notes and agree with the documented findings and plan of care
[2018-12-16] MEDS: HYDROcodone/APAP 10-325MG 1 EACH TAB PO PRN (20:33)
[2018-12-17] MEDS: POTASSIUM CHLORIDE ER 20 MEQ TAB.ER PO SCH ×2 (00:34→01:13)
[2018-12-17 04:03] LABS: Basophils % (A) 1 %; Eosinophils # (A) 0.2 k/uL (0-0.7); Eosinophils % (A) 4 %; HCT 24.8 % (39.0-53.0); Lymphocytes % (A) 20 %; MCH 30.4 pg (25.0-35.0); MCHC 32.3 g/dL (31.0-37.0); MCV 94.1 fL (80.0-100.0); Monocytes # (A) 0.5 k/uL (0-1.0); Monocytes % (A) 10 %; Neutrophils # (A) 3.1 k/uL (1.3-7.7); Neutrophils % (A) 62 %; Platelet Count 241 k/uL (150-450); RBC 2.64 m/uL (4.30-5.90); RDW 14.5 % (11.5-15.5)
[2018-12-17 04:21] LABS: ALT 45 U/L (21-72); AST 29 U/L (17-59); Albumin 2.1 g/dL (3.5-5.0); Alkaline Phosphatase 67 U/L (38-126); Anion Gap 1 mmol/L; Blood Urea Nitrogen 4 mg/dL (9-20); Calcium 8.1 mg/dL (8.4-10.2); Carbon Dioxide 28 mmol/L (22-30); Chloride 108 mmol/L (98-107); Glucose 87 mg/dL (74-99); Magnesium 1.8 mg/dL (1.6-2.3); Potassium 3.4 mmol/L (3.5-5.1); Sodium 137 mmol/L (137-145); Total Bilirubin 0.5 mg/dL (0.2-1.3); Total Protein 4.6 g/dL (6.3-8.2)
[2018-12-17] MEDS: POTASSIUM CHLORIDE 10 MEQ in WATER FOR INJECTION 1 100ML.BAG IVPB SCH ×4 (05:08→08:47)
[2018-12-17 05:14] LABS: Polychromasia Present; Target Cells Present
[2018-12-17] MEDS: NICOTINE 14MG/24HR PATCH TRANSDERM SCH (07:41)
[2018-12-17] MEDS: PANTOPRAZOLE 40 MG/10 ML VIAL IV SCH (07:41)
--- NOTE | 2018-12-17 11:12 | P.CRDCN ---
History of Present Illness History of present illness: This is a pleasant 53-year-old male past medical history significant for colon cancer s/p chemotherapy and radiation 3-months ago, COPD, chronic nicotine dependence and regular daily alcohol abuse. He denies history of coronary artery disease, hypertension, dyslipidemia or diabetes mellitus. We have been asked to see him in consultation for a run of 12 beats of VT. He presented to the hospital 6 days ago with black tarry stools, diarrhea and hematemesis. He underwent an EGD with Dr. Arora revealing duodenitis, gastritis, esophagitis and hiatal hernia. He is being treated with IV protonix, however continuing to have diarrhea. He is also being treated for acute alcohol withdrawal symptoms. Telemetry tracings reviewed and reveal he has been having multiple episodes of non-sustained ventricular tachycardia since admission. He is seen and examined laying flat in bed in no acute distress. He denies feeling any symptoms of chest pain, palpitation, dizziness or shortness of breath yesterday during the episode of VT. He was up walking with PT at the time and was completely asymptomatic per PT staff and nursing staff. EKG on admission reveals sinus mechanism with no acute ST or T-wave abnormalities with left anterior fasicular block. Chest x-ray on admission is negative for an acute cardiopulmonary process with evidence of COPD, dilated bowel loops in the upper abdomen. CT abdomen and pelvis on admission reveals mild distal ileal small bowel obstruction, urinary bladder wall thickening. Laboratory data reviewed, WBC 5, hemoglobin 8, platelets 241, sodium 137, potassium 3.4, creatinine 0.69, magnesium 1.8. Most recent echocardiogram obtained 2014 reveals preserved left ventricular systolic function with ejection fraction 55-60%. He does not take any daily cardiac medications. At the time of my exam: CONSTITUTIONAL: Denies fever. Denies chills. EYES: Denies blurred vision. Denies vision changes. Denies eye pain. EARS, NOSE, MOUTH & THROAT: Denies headache. Denies sore throat. Denies ear pain. CARDIOVASCULAR: Denies chest pain. Denies shortness of breath. Denies orthopnea. Denies PND. Denies palpitations. RESPIRATORY: Denies cough. GASTROINTESTINAL: Denies abdominal pain. Denies diarrhea. Denies constipation. Denies nausea. Denies vomiting. MUSCULOSKELETAL: Denies myalgias. INTEGUMENTARY: Denies pruitis. Denies rash. NEUROLOGIC: Denies numbness. Denies tingling. Denies weakness. PSYCHIATRIC: Denies anxiety. Denies depression. ENDOCRINE: Denies fatigue. Denies weight change. Denies polydipsia. Denies polyurina. GENITOURINARY: Denies burning, hematuria or urgency with micturation. HEMATOLOGIC: Denies history of anemia. Denies bleeding. Blood pressure 119/80 heart rate 86 afebrile maintaining oxygen saturation on room air. GENERAL: This is a 53-year-old male in no apparent distress at the time of my examination. Frail. HEENT: Head is atraumatic, normocephalic. Pupils are equal, round. Sclerae anicteric. Conjunctivae are clear. Mucous membranes of the mouth are moist. Neck is supple. There is no jugular venous distention. No carotid bruit is heard. LUNGS: Clear to auscultation no wheezes, rales or rhonchi. No chest wall tenderness is noted on palpation or with deep breathing. HEART: Regular rate and rhythm without murmurs, rubs or gallops. S1 and S2 heard. ABDOMEN: Soft, nontender. Bowel sounds are heard. No organomegaly noted. EXTREMITIES: No evidence of peripheral edema and no calf tenderness noted. VASCULAR: Radial and dorsalis pedis pulses palpated, no evidence of clubbing. NEUROLOGIC: Patient is awake, alert and oriented x3. ASSESSMENT Non-sustained ventricular tachycardia in the presence of electrolyte abnormalities Acute upper GI bleed s/p EGD revealing duodenitis, esophagitis, gastritis and hiatal hernia. Urinary tract infection Lactic acidosis on admission, resolved. Colon cancer Hypokalemia, currently being replaced Hypomagnesemia, replaced yesterday and stable today Acute blood loss anemia COPD Chronic alcohol abuse Chronic nicotine dependence PLAN Obtain 2D echocardiogram and doppler study to assess cardiac structure and function. Continue to replace electrolytes aggressively. Add on small dose of beta sandra, lopressor 25 mg BID. Check TSH. Repeat BMP and magnesium in the morning. Thank you kindly for this consultation. Nurse Practitioner note has been reviewed, I agree with a documented findings and plan of care. Patient was seen and examined. Past Medical History Past Medical History: COPD, CVA/TIA, Hypertension, Osteoarthritis (OA) Additional Past Medical History / Comment(s): recent rectal bleeding, blood in stools, had test for sleep apnea-never got results, ?TIA few months ago, not currently taking BP medication but has in past. colon cancer-radiation ended 3 months ago. History of Any Multi-Drug Resistant Organisms: None Reported Past Surgical History: Joint Replacement Additional Past Surgical History / Comment(s): L hip replacement Past Anesthesia/Blood Transfusion Reactions: No Reported Reaction Past Psychological History: No Psychological Hx Reported Smoking Status: Current every day smoker Past Alcohol Use History: Heavy Additional Past Alcohol Use History / Comment(s): 1ppd for 41 yrs., 4-5 24 oz. beers daily or pint alcohol. pt states he drinks depending on how much money he has Past Drug Use History: Marijuana Additional Drug Use History / Comment(s): USUALLY ONCE A DAY - Past Family History Mother Family Medical History: Cancer Medications and Allergies Home Medications Medication Instructions Recorded Confirmed Type ALPRAZolam [Xanax] 0.25 mg PO BID PRN 12/11/18 12/11/18 History HYDROcodone/APAP 10-325MG [[place] 1 tab PO Q6HR PRN 12/11/18 12/11/18 History 10-325] Allergies Allergy/AdvReac Type Severity Reaction Status Date / Time aspirin AdvReac Nausea & Verified 12/11/18 14:33 Vomiting ibuprofen [From Motrin] AdvReac Nausea & Verified 12/11/18 14:33 Vomiting Physical Exam Vitals: Vital Signs Temp Pulse Resp BP BP Pulse Ox 12/17/18 04:54 98.2 F 86 16 119/80 100 12/17/18 01:00 97.6 F 12/17/18 00:50 107 H 119/82 96 12/16/18 20:51 99.5 F 96 18 129/80 100 12/16/18 19:53 99.9 F H 119 H 18 126/84 97 12/16/18 11:55 97.6 F 115 H 22 140/99 100 Intake and Output 12/16/18 12/17/18 12/17/18 22:59 06:59 14:59 Intake Total 450 Balance 450 Intake: Oral 450 Other: Voiding Method Urinal Urinal Urinal Diaper Incontinent # Voids 4 3 Results 12/17/18 03:54 12/17/18 03:54 Cardiac Enzymes 12/16/18 12/17/18 Range/Units 07:14 03:54 AST 40 29 (17-59) U/L CBC 12/17/18 Range/Units 03:54 WBC 5.0 (3.8-10.6) k/uL RBC 2.64 L (4.30-5.90) m/uL Hgb 8.0 L (13.0-17.5) gm/dL Hct 24.8 L (39.0-53.0) % Plt Count 241 (150-450) k/uL Comprehensive Metabolic Panel 12/16/18 12/16/18 12/17/18 Range/Units 07:14 22:45 03:54 Sodium 138 137 (137-145) mmol/L Potassium 3.6 3.1 L 3.4 L (3.5-5.1) mmol/L Chloride 110 H 108 H (98-107) mmol/L Carbon Dioxide 26 28 (22-30) mmol/L BUN <2 L 4 L (9-20) mg/dL Creatinine 0.63 L 0.69 (0.66-1.25) mg/dL Glucose 85 87 (74-99) mg/dL Calcium 8.3 L 8.1 L (8.4-10.2) mg/dL AST 40 29 (17-59) U/L ALT 42 45 (21-72) U/L Alkaline Phosphatase 61 67 (38-126) U/L Total Protein 4.8 L 4.6 L (6.3-8.2) g/dL Albumin 2.3 L 2.1 L (3.5-5.0) g/dL Current Medications Generic Name Dose Route Start Last Admin Trade Name Freq PRN Reason Stop Dose Admin Hydrocodone Bitart/Acetaminophen 1 each 12/15/18 10:53 12/16/18 20:33 [place] 10 PO 1 each Q6HR PRN Administration Mild Pain Potassium Chloride 10 meq/ IV 100 mls @ 100 mls/hr 12/17/18 05:00 12/17/18 07 :40 Solution IVPB 12/17/18 08:59 100 mls/hr Q1HR SCOTT Administration Protocol Lorazepam 1 mg 12/11/18 17:55 12/16/18 11:30 Ativan IV 1 mg Q2HR PRN Administration CIWA 8 or 9 Lorazepam 1 mg 12/11/18 17:55 12/16/18 19:54 Ativan IV 1 mg Q1HR PRN Administration CIWA 10 to 15 Miscellaneous Information 1 each 12/12/18 09:06 Potassium Per Protocol MISCELLANE DAILY PRN Per Protocol Protocol Multivitamins 1 each 12/13/18 12:00 12/16/18 12:42 Theragran PO 1 each DAILY@1200 SCOTT Administration Naloxone HCl 0.2 mg 12/11/18 17:56 Narcan IV Q2M PRN Opioid Reversal Nicotine 1 patch 12/16/18 09:00 12/17/18 07:41 Habitrol 14mg/24hr Patch TRANSDERM 1 patch DAILY SCOTT Administration Ondansetron HCl 4 mg 12/11/18 17:56 12/12/18 09:55 Zofran IVP 4 mg Q8HR PRN Administration Nausea And Vomiting Pantoprazole Sodium 40 mg 12/12/18 09:00 12/17/18 07:41 Protonix IV 40 mg DAILY SCOTT Administration Thiamine HCl 100 mg 12/11/18 19:00 12/16/18 17:51 Vitamin B-1 PO 100 mg BID@1200,1700 SCOTT Administration Intake and Output 12/16/18 12/17/18 12/17/18 22:59 06:59 14:59 Intake Total 450 Balance 450 Intake: Oral 450 Other: Voiding Method Urinal Urinal Urinal Diaper Incontinent # Voids 4 3 12/17/18 03:54 12/17/18 03:54
[2018-12-17] MEDS: METOPROLOL TARTRATE 25 MG TAB PO SCH ×2 (11:53→22:09)
[2018-12-17] MEDS: HYDROcodone/APAP 10-325MG 1 EACH TAB PO PRN ×2 (11:53→19:49)
[2018-12-17] MEDS: MULTIVITAMINS, THERA 1 EACH TAB PO SCH (11:53)
[2018-12-17] MEDS: THIAMINE 100 MG TAB PO SCH ×2 (11:53→17:49)
--- NOTE | 2018-12-17 11:55 | P.PN ---
Subjective Principal diagnosis: This is a 53-year-old male with a known past medical history of colon cancer she is currently in remission last chemo therapy and radiation treatment was about 3 months ago. He also has a history of COPD, TIA nicotine dependence and alcohol abuse. He presents to the hospital for 4 day complaint of diarrhea with tarry stools and hematemesis. Patient also reporting significant weight loss. Stool for occult blood was positive. Hemoglobin did drop from 11.7-9.9. Lactic acid was elevated at 2.6 and down to 1.3 after IV fluids. Potassium 3.3 magnesium 1.7 being replaced. AST was 73. Patient was seen by surgical service and underwent EGD this morning which did reveal duodenitis mild antral gastritis hiatal hernia and esophagitis. He is currently on IV Protonix. He is still having diarrhea. However the stools are more green. Cultures have been obtained. Last hematemesis was yesterday. Patient denies any chest pain or shortness of breath. Denies abdominal pain. Does admit to burning with urination. He was found have evidence of a UTI and is on Rocephin. On 12/13/2018 patient was seen and examined on the telemetry floor he is alert slightly confused in no apparent distress, he is having multiple bowel movements , he is still complaining of abdominal pain, he is still having significant tremors, otherwise there is no other complaints there is no fever or chills no headache or dizziness no chest pain no shortness of breath no cough no nausea or vomiting and no urinary symptoms. On 12/14/2018 patient is alert slightly confused in no apparent distress, still having some tremor and abdominal pain otherwise no complaints, he had multiple loose bowel movements yesterday, no bowel movements today, there is no fever or chills no headache or dizziness no chest pain no shortness of breath no cough no nausea or vomiting and no urinary symptoms. 12/15/2018 patient complaining of back pain per nursing staff. Resume his home [place]. Also requesting a cigarette. Nicotine patch has been ordered. He's working with physical therapy this morning. Still requiring Ativan per the CIWA protocol. Patient reports having a bowel movement. Per nursing staff there has been no black stool or blood in stool present. Hemoglobin 9.4. Patient will be transferred to a regular medical floor with telemetry. He is still having some sinus tachycardia likely related to withdrawal's. 12/16/2018 patient had an episode of V. tach 12 beat run. Magnesium and potassium are being replaced. Cardiology will be consulted. The episode happened when he got to stand with physical therapy. Patient also reporting a possible dream versus hallucination as throwing a knife at the police. Patient denies any chest pain or shortness of breath. Possible small episode of vomiting yesterday per patient. Again patient is a poor historian. Patient is stooling no further episodes of blood in the stool. Hemoglobin is 9.3. Magnesium 1.5 and potassium is 3.6 on 12/17/2018 patient is currently resting in bed. Patient currently getting 2- D echo completed per cardiology. Per nursing staff patient's had no additional runs of V. tach hemoglobin decreasing to 8.0. Per nursing patient had denied any bowel movement or emesis. No evidence of blood in stool. Potassium remains low at 3.4 will replace per protocol. At this time patient denies chest pain or shortness of breath. Patient denies nausea vomiting or diarrhea. Patient denies any urinary burning or frequency This is a 53-year-old male with a known past medical history of colon cancer she is currently in remission last chemo therapy and radiation treatment was about 3 months ago. He also has a history of COPD, TIA nicotine dependence and alcohol abuse. He presents to the hospital for 4 day complaint of diarrhea with tarry stools and hematemesis. Patient also reporting significant weight loss. Stool for occult blood was positive. Hemoglobin did drop from 11.7-9.9. Lactic acid was elevated at 2.6 and down to 1.3 after IV fluids. Potassium 3.3 magnesium 1.7 being replaced. AST was 73. Patient was seen by surgical service and underwent EGD this morning which did reveal duodenitis mild antral gastritis hiatal hernia and esophagitis. He is currently on IV Protonix. He is still having diarrhea. However the stools are more green. Cultures have been obtained. Last hematemesis was yesterday. Patient denies any chest pain or shortness of breath. Denies abdominal pain. Does admit to burning with urination. He was found have evidence of a UTI and is on Rocephin. On 12/13/2018 patient was seen and examined on the telemetry floor he is alert slightly confused in no apparent distress, he is having multiple bowel movements , he is still complaining of abdominal pain, he is still having significant tremors, otherwise there is no other complaints there is no fever or chills no headache or dizziness no chest pain no shortness of breath no cough no nausea or vomiting and no urinary symptoms. On 12/14/2018 patient is alert slightly confused in no apparent distress, still having some tremor and abdominal pain otherwise no complaints, he had multiple loose bowel movements yesterday, no bowel movements today, there is no fever or chills no headache or dizziness no chest pain no shortness of breath no cough no nausea or vomiting and no urinary symptoms. 12/15/2018 patient complaining of back pain per nursing staff. Resume his home [place]. Also requesting a cigarette. Nicotine patch has been ordered. He's working with physical therapy this morning. Still requiring Ativan per the CIWA protocol. Patient reports having a bowel movement. Per nursing staff there has been no black stool or blood in stool present. Hemoglobin 9.4. Patient will be transferred to a regular medical floor with telemetry. He is still having some sinus tachycardia likely related to withdrawal's. 12/16/2018 patient had an episode of V. tach 12 beat run. Magnesium and potassium are being replaced. Cardiology will be consulted. The episode happened when he got to stand with physical therapy. Patient also reporting a possible dream versus hallucination as throwing a knife at the police. Patient denies any chest pain or shortness of breath. Possible small episode of vomiting yesterday per patient. Again patient is a poor historian. Patient is stooling no further episodes of blood in the stool. Hemoglobin is 9.3. Magnesium 1.5 and potassium is 3.6 on 12/17/2018 patient is currently resting in bed. Patient currently getting 2- D echo completed per cardiology. Per nursing staff patient's had no additional runs of V. tach hemoglobin decreasing to 8.0. Per nursing patient had denied any bowel movement or emesis. No evidence of blood in stool. Potassium remains low at 3.4 will replace per protocol. At this time patient denies chest pain or shortness of breath. Patient denies nausea vomiting or diarrhea. Patient denies any urinary burning or frequency Objective - Vital Signs Vital signs: Vital Signs Temp 98.2 F 12/17/18 04:54 Pulse 86 12/17/18 04:54 Resp 16 12/17/18 04:54 BP 119/80 12/17/18 04:54 Pulse Ox 100 12/17/18 04:54 Intake & Output 12/16/18 12/17/18 12/17/18 18:59 06:59 18:59 Intake Total 450 Output Total 500 Balance -500 450 Weight 54 kg Intake: Oral 450 Output: Urine 500 Other: Voiding Method Urinal Urinal Urinal Diaper Incontinent # Voids 3 - Exam Head normocephalic Neck supple Lungs clear to auscultation bilaterally no wheezing or crackles Heart regular rate and rhythm S1-S2, no rub or gallop Abdomen is soft nontender nondistended positive bowel sounds no hepatosplenomegaly Extremities no edema Neuro tremor in the hands present awake and alert answering questions appropriately - Labs CBC & Chem 7: 12/17/18 03:54 12/17/18 11:08 Labs: Abnormal Lab Results - Last 24 Hours (Table) 12/16/18 12/17/18 12/17/18 Range/Units 22:45 03:54 03:54 RBC 2.64 L (4.30-5.90) m/uL Hgb 8.0 L (13.0-17.5) gm/dL Hct 24.8 L (39.0-53.0) % Potassium 3.1 L 3.4 L (3.5-5.1) mmol/L Chloride 108 H (98-107) mmol/L BUN 4 L (9-20) mg/dL Calcium 8.1 L (8.4-10.2) mg/dL Total Protein 4.6 L (6.3-8.2) g/dL Albumin 2.1 L (3.5-5.0) g/dL Microbiology - Last 24 Hours (Table) 12/11/18 14:25 Blood Culture - Preliminary Blood No Growth after 120 hours Assessment and Plan Assessment: 1. Acute upper GI bleed with black tarry stools and hematemesis. Status post EGD revealing duodenitis, mild antral gastritis, hiatal hernia and esophagitis. Continue with IV Protonix surgical service is following. Stool for occult blood positive. Patient tolerated advancement of diet. Surgical service has signed off 2. UTI: Urine culture contaminant. Patient completed 5 days of Rocephin 3. Hypomagnesemia and hypokalemia patient receiving supplement. Likely related to patient's diarrhea. 4. Elevated lactic acid level on admission of 2.6 improved with IV fluids. Likely related to GI bleed 5. Anemia with acute blood loss anemia secondary GI bleed. Hemoglobin is 8.0. 6. History of COPD stable 7. Nicotine dependence discussed smoking cessation for greater than 3 minutes. Start nicotine patch 8. Alcohol abuse with evidence of alcohol withdrawal: last alcoholic beverage was yesterday. Continue the CIWA protocol. Patient has been requiring the Ativan. Continue thiamine and multivitamin. 9. History of colon cancer with previous surgery and last chemotherapy and radiation treatment was about 3 months ago 10. Hypomagnesium patient receiving magnesium supplement. Repeat magnesium in a.m. 11. Right inguinal hernia noted on CAT scan. Surgical service recommending repair in outpatient setting 12. Episode of nonsustained ventricle tachycardia. Consult cardiology. Possible secondary to patient's poor magnesium. Patient is receiving magnesium supplement as well as potassium supplement. 2-D echo has been ordered per cardiology. Small dose of beta sandra Lopressor 25 mg twice a day has been added per cardiology. TSH level has been ordered GI prophylaxis Protonix. DVT prophylaxis SCDs I performed an examination of the patient and discussed their management with the Nurse Practitioner. I have reviewed the Nurse Practitioner's notes and agree with the documented findings and plan of care
[2018-12-17] MEDS ORDERED: SODIUM FERRIC GLUCONAT-SUCROSE 125 MG in SODIUM CHLORIDE 0.9% 100 ML IVPB ONE (13:00)
[2018-12-18] MEDS: HYDROcodone/APAP 10-325MG 1 EACH TAB PO PRN (01:54)
[2018-12-18] MEDS: LORazepam 2 MG/ML INJ IV PRN (02:08)
[2018-12-18] MEDS ORDERED: PANTOPRAZOLE 40 MG TABLET PO SCH (09:00)
[2018-12-18] MEDS: METOPROLOL TARTRATE 25 MG TAB PO SCH (09:11)
[2018-12-18] MEDS: NICOTINE 14MG/24HR PATCH TRANSDERM SCH (09:11)
[2018-12-18 09:38] LABS: HCT 25.9 % (39.0-53.0); HGB 8.2 gm/dL (13.0-17.5); MCH 29.8 pg (25.0-35.0); MCHC 31.7 g/dL (31.0-37.0); MCV 94.2 fL (80.0-100.0); Mean Platelet Volume 6.6; Platelet Count 326 k/uL (150-450); RBC 2.75 m/uL (4.30-5.90); RDW 14.3 % (11.5-15.5); WBC 4.7 k/uL (3.8-10.6)
[2018-12-18 09:51] LABS: ALT 43 U/L (21-72); AST 29 U/L (17-59); Albumin 2.3 g/dL (3.5-5.0); Alkaline Phosphatase 59 U/L (38-126); Anion Gap 1 mmol/L; Blood Urea Nitrogen 5 mg/dL (9-20); Calcium 8.5 mg/dL (8.4-10.2); Carbon Dioxide 29 mmol/L (22-30); Chloride 106 mmol/L (98-107); Glucose 87 mg/dL (74-99); Potassium 3.9 mmol/L (3.5-5.1); Sodium 136 mmol/L (137-145); Total Bilirubin 0.5 mg/dL (0.2-1.3); Total Protein 4.8 g/dL (6.3-8.2)
[2018-12-18 11:04] LABS: Lymphocytes # (M) 1.32 k/uL (1.0-4.8); Monocytes # (M) 0.66 k/uL (0-1.0); Myelocytes # (M) 0.05 k/uL (0); Myelocytes % 1 %; Nucleated Red Blood Cells 0 /100 WBC (0-0)
--- NOTE | 2018-12-18 11:05 | P.PN ---
Subjective This is a pleasant 53-year-old male past medical history significant for colon cancer s/p chemotherapy and radiation 3-months ago, COPD, chronic nicotine dependence and regular daily alcohol abuse. He denies history of coronary artery disease, hypertension, dyslipidemia or diabetes mellitus. He is seen and examined sitting up in bed in no acute distress. Telemetry tracings for the previous 24 hours reviewed and reveals sinus mechanism with no further episodes of non-sustained VT. EKG obtained yesterday reveals sinus mechanism with no acute ST or T-wave abnormalities. Laboratory data reviewed, hemoglobin 8.2, platelets 326, sodium 136, potassium 3.9, creatinine 0.57, TSH 1.15. Blood pressure 111/77 heart rate 79. He denies chest pain, shortness of breath, dizziness or palpitations. He seems to be tolerating lopressor thus far. Echocardiogram obtained and will be reviewed. GENERAL: This is a 53-year-old male in no apparent distress at the time of my examination. Frail. HEENT: Head is atraumatic, normocephalic. Pupils are equal, round. Sclerae anicteric. Conjunctivae are clear. Mucous membranes of the mouth are moist. Neck is supple. There is no jugular venous distention. No carotid bruit is heard. LUNGS: Clear to auscultation no wheezes, rales or rhonchi. No chest wall tenderness is noted on palpation or with deep breathing. HEART: Regular rate and rhythm without murmurs, rubs or gallops. S1 and S2 heard. ABDOMEN: Soft, nontender. Bowel sounds are heard. No organomegaly noted. EXTREMITIES: No evidence of peripheral edema and no calf tenderness noted. ASSESSMENT Non-sustained ventricular tachycardia in the presence of electrolyte abnormalities Acute upper GI bleed s/p EGD revealing duodenitis, esophagitis, gastritis and hiatal hernia. Urinary tract infection Lactic acidosis on admission, resolved. Colon cancer Hypokalemia, currently being replaced Hypomagnesemia, replaced yesterday and stable today Acute blood loss anemia COPD Chronic alcohol abuse Chronic nicotine dependence PLAN Stable from a cardiac perspective. Alcohol and tobacco cessation recommended. Follow up in the office with Dr. Mcintyre in 3-4 weeks. We will continue to follow as needed. Nurse Practitioner note has been reviewed, I agree with a documented findings and plan of care. Patient was seen and examined. Objective - Vital Signs Vital signs: Vital Signs Temp 97.8 F 12/18/18 05:23 Pulse 79 12/18/18 05:23 Resp 18 12/18/18 05:23 BP 111/77 12/18/18 05:23 Pulse Ox 99 12/18/18 05:23 Intake & Output 12/17/18 12/18/18 12/18/18 18:59 06:59 18:59 Output Total 700 200 Balance -700 -200 Weight 54 kg Output: Urine 700 200 Other: Voiding Method Urinal Urinal Urinal Diaper Diaper # Voids 1,200 4 - Labs CBC & Chem 7: 12/18/18 08:13 12/18/18 08:13 Labs: Abnormal Lab Results - Last 24 Hours (Table) 12/18/18 12/18/18 Range/Units 08:13 08:13 RBC 2.75 L (4.30-5.90) m/uL Hgb 8.2 L (13.0-17.5) gm/dL Hct 25.9 L (39.0-53.0) % Sodium 136 L (137-145) mmol/L BUN 5 L (9-20) mg/dL Creatinine 0.57 L (0.66-1.25) mg/dL Total Protein 4.8 L (6.3-8.2) g/dL Albumin 2.3 L (3.5-5.0) g/dL Microbiology - Last 24 Hours (Table) 12/11/18 14:25 Blood Culture - Final Blood No Growth after 144 hours
[2018-12-18 11:06] LABS: Eosinophils # (M) 0.14 k/uL (0-0.7); Neutrophils # (M) 2.59 k/uL (1.3-7.7); Neutrophils % (M) 55 %; Total Cells Counted 200
[2018-12-18 11:07] LABS: Poikilocytosis (M) Present
--- NOTE | 2018-12-18 11:18 | ECHOF ---
Referral Reason:vt MEASUREMENTS -------- HEIGHT: 152.4 cm WEIGHT: 54.0 kg BP: IVSd: 0.8 cm (0.6 - 1.1) LVIDd: 4.5 cm (3.9 - 5.3) LVPWd: 1.5 cm (0.6 - 1.1) IVSs: 1.2 cm LVIDs: 3.2 cm LVPWs: 1.2 cm LA Diam: 3.8 cm (2.7 - 3.8) RVIDd: 3.0 cm (< 3.3) Ao Diam: 3.5 cm (2.0 - 3.7) LA Diam: 3.3 cm (2.7 - 3.8) AV Cusp: 1.6 cm (1.5 - 2.6) EPSS: 1.0 cm MV E Jostin: 0.58 m/s MV DecT: 227 ms MV A Jostin: 0.77 m/s MV E/A Ratio: 0.75 RAP: 5.00 mmHg RVSP: 41.69 mmHg MV EF SLOPE: 99.82 mm/s (70 - 150) MV EXCURSION: 25.68 mm (> 18.000) FINDINGS -------- Sinus rhythm. This was a technically adequate study. LV size, wall thickness and systolic function are normal, with an EF greater than 55%. The right ventricle is normal in size. The left atrial size is normal. The right atrial size is normal. The aortic valve is trileaflet, and appears structurally normal. No aortic stenosis or regurgitation. Mild mitral regurgitation is present. Mild tricuspid regurgitation present. There is mild pulmonary hypertension. The right ventricular systolic pressure, as measured by Doppler, is 41.69mmHg. Trace/mild (physiologic) pulmonic regurgitation. The aortic root size is normal. There is no pericardial effusion. CONCLUSIONS -------- 1. LV size, wall thickness and systolic function are normal, with an EF greater than 55%. 2. The right ventricle is normal in size. 3. The left atrial size is normal. 4. The right atrial size is normal. 5. The aortic valve is trileaflet, and appears structurally normal. No aortic stenosis or regurgitati on. 6. Mild mitral regurgitation is present. 7. Mild tricuspid regurgitation present. 8. There is mild pulmonary hypertension. 9. The right ventricular systolic pressure, as measured by Doppler, is 41.69mmHg. 10. Trace/mild (physiologic) pulmonic regurgitation. 11. The aortic root size is normal. 12. There is no pericardial effusion. ADOLESCENT COORDINATOR: Sofia Jain RDCS
[2018-12-18 12:35] VITALS: BP 124/86; PULSE 76; RESP 17; TEMP 97.7
[2018-12-18] MEDS: MULTIVITAMINS, THERA 1 EACH TAB PO SCH (13:22)
[2018-12-18] MEDS: THIAMINE 100 MG TAB PO SCH (13:22)
--- NOTE | 2018-12-18 13:37 | P.DS ---
Providers Date of admission: 12/11/18 18:28 Expected date of discharge: 12/18/18 Attending physician: Lawanda Krishna Consults: 12/12/18 14:21 Consult Physician Routine Consulting Provider: Cesar Artis Consult Reason/Comments: urinary bladder wall thickening Do you want consulting provider notified?: Yes 12/16/18 12:06 Consult Physician Routine Consulting Provider: Koby Vera Consult Reason/Comments: Run Vtach Do you want consulting provider notified?: Already Contacted 12/16/18 13:36 Consult Physician Routine Consulting Provider: Artemio Ashraf Consult Reason/Comments: possible hallucinations Do you want consulting provider notified?: Yes Primary care physician: Lawandaximena Krishna [facility] Course: Discharge diagnosis 1. Acute upper GI bleed with black tarry stools and hematemesis. Status post EGD revealing duodenitis, mild antral gastritis, hiatal hernia and esophagitis. Continue with IV Protonix surgical service is following. Stool for occult blood positive. Patient tolerated advancement of diet. Surgical service has signed off 2. UTI: Urine culture contaminant. Patient completed 5 days of Rocephin 3. Hypomagnesemia and hypokalemia patient receiving supplement. Likely related to patient's diarrhea. 4. Elevated lactic acid level on admission of 2.6 improved with IV fluids. Likely related to GI bleed 5. Anemia with acute blood loss anemia secondary GI bleed. Hemoglobin is 8.0. 6. History of COPD stable 7. Nicotine dependence discussed smoking cessation for greater than 3 minutes. Start nicotine patch 8. Alcohol abuse with evidence of alcohol withdrawal: last alcoholic beverage was yesterday. Continue the CIWA protocol. Patient has been requiring the Ativan. Continue thiamine and multivitamin. 9. History of colon cancer with previous surgery and last chemotherapy and radiation treatment was about 3 months ago 10. Hypomagnesium patient receiving magnesium supplement. Repeat magnesium in a.m. 11. Right inguinal hernia noted on CAT scan. Surgical service recommending repair in outpatient setting 12. Episode of nonsustained ventricle tachycardia. Consult cardiology. Possible secondary to patient's poor magnesium. Patient is receiving magnesium supplement as well as potassium supplement. 2-D echo has been ordered per cardiology. Small dose of beta sandra Lopressor 25 mg twice a day has been added per cardiology. TSH level is normal. Echo so shows an EF greater than 55 Hospital course This is a 53-year-old male with a known past medical history of colon cancer she is currently in remission last chemo therapy and radiation treatment was about 3 months ago. He also has a history of COPD, TIA nicotine dependence and alcohol abuse. He presents to the hospital for 4 day complaint of diarrhea with tarry stools and hematemesis. Patient also reporting significant weight loss. Stool for occult blood was positive. Hemoglobin did drop from 11.7-9.9. Lactic acid was elevated at 2.6 and down to 1.3 after IV fluids. Potassium 3.3 magnesium 1.7 being replaced. AST was 73. Patient was seen by surgical service and underwent EGD this morning which did reveal duodenitis mild antral gastritis hiatal hernia and esophagitis. He is currently on IV Protonix. He is still having diarrhea. However the stools are more green. Cultures have been obtained. Last hematemesis was yesterday. Patient denies any chest pain or shortness of breath. Denies abdominal pain. Does admit to burning with urination. He was found have evidence of a UTI and is on Rocephin. On 12/13/2018 patient was seen and examined on the telemetry floor he is alert slightly confused in no apparent distress, he is having multiple bowel movements , he is still complaining of abdominal pain, he is still having significant tremors, otherwise there is no other complaints there is no fever or chills no headache or dizziness no chest pain no shortness of breath no cough no nausea or vomiting and no urinary symptoms. On 12/14/2018 patient is alert slightly confused in no apparent distress, still having some tremor and abdominal pain otherwise no complaints, he had multiple loose bowel movements yesterday, no bowel movements today, there is no fever or chills no headache or dizziness no chest pain no shortness of breath no cough no nausea or vomiting and no urinary symptoms. 12/15/2018 patient complaining of back pain per nursing staff. Resume his home [place]. Also requesting a cigarette. Nicotine patch has been ordered. He's working with physical therapy this morning. Still requiring Ativan per the CIWA protocol. Patient reports having a bowel movement. Per nursing staff there has been no black stool or blood in stool present. Hemoglobin 9.4. Patient will be transferred to a regular medical floor with telemetry. He is still having some sinus tachycardia likely related to withdrawal's. 12/16/2018 patient had an episode of V. tach 12 beat run. Magnesium and potassium are being replaced. Cardiology will be consulted. The episode happened when he got to stand with physical therapy. Patient also reporting a possible dream versus hallucination as throwing a knife at the police. Patient denies any chest pain or shortness of breath. Possible small episode of vomiting yesterday per patient. Again patient is a poor historian. Patient is stooling no further episodes of blood in the stool. Hemoglobin is 9.3. Magnesium 1.5 and potassium is 3.6 on 12/17/2018 patient is currently resting in bed. Patient currently getting 2- D echo completed per cardiology. Per nursing staff patient's had no additional runs of V. tach hemoglobin decreasing to 8.0. Per nursing patient had denied any bowel movement or emesis. No evidence of blood in stool. Potassium remains low at 3.4 will replace per protocol. At this time patient denies chest pain or shortness of breath. Patient denies nausea vomiting or diarrhea. Patient denies any urinary burning or frequency 12/18/2018 patient is medically stable for discharge. Tolerating diet. No further episodes of bleeding. Patient's hemoglobin is 8.2 after receiving IV iron. He'll continue on iron supplement at discharge. Also be discharged with Protonix 40 mg daily. Patient did have EGD during this admission showing duodenitis, gastritis and esophagitis. Patient also had V. tach during this admission metoprolol was added. Electrolytes were replaced. Magnesium is 1.6 at discharge we'll continue magnesium oxide 400 mg daily for the next 3 days. Recommend checking CBC, magnesium and potassium level in 3 days. Patient also dealing with some hoarseness which is been ongoing for the last couple of months. We'll have him follow up with ENT as outpatient. Patient is medically stable for discharge. He has been cleared by all consulting physicians. Please refer to chart for any further details. I performed an examination of the patient and discussed their management with the physician Hydrology Technician. I have reviewed the Physician Hydrology Technician's notes and agree with the documented findings and plan of care Patient Condition at Discharge: Stable Plan - Discharge Summary Discharge Rx Participant: Yes New Discharge Prescriptions: New Metoprolol Tartrate [Lopressor] 25 mg PO BID #180 tab Ferrous Sulfate [Feosol] 325 mg PO BID #60 tab Multivitamins, Thera [Multivitamin (formulary)] 1 each PO DAILY@1200 #30 tab Thiamine [Vitamin B-1] 100 mg PO BID@1200,1700 #60 tab Pantoprazole Sodium [Protonix] 40 mg PO DAILY #30 tablet. Magnesium Oxide 400 mg PO DAILY #3 tablet Continue HYDROcodone/APAP 10-325MG [[place] 10-325] 1 tab PO Q6HR PRN PRN Reason: Shortness Of Breath ALPRAZolam [Xanax] 0.25 mg PO BID PRN PRN Reason: Anxiety Discharge Medication List ALPRAZolam [Xanax] 0.25 mg PO BID PRN 12/11/18 [History] HYDROcodone/APAP 10-325MG [[place] 10-325] 1 tab PO Q6HR PRN 12/11/18 [History] Ferrous Sulfate [Feosol] 325 mg PO BID #60 tab 12/18/18 [Rx] Magnesium Oxide 400 mg PO DAILY #3 tablet 12/18/18 [Rx] Metoprolol Tartrate [Lopressor] 25 mg PO BID #180 tab 12/18/18 [Rx] Multivitamins, Thera [Multivitamin (formulary)] 1 each PO DAILY@1200 #30 tab [Rx] Pantoprazole Sodium [Protonix] 40 mg PO DAILY #30 tablet. 12/18/18 [Rx] Thiamine [Vitamin B-1] 100 mg PO BID@1200,1700 #60 tab 12/18/18 [Rx] Follow up Appointment(s)/Referral(s): Freddie Mcintyre MD [STAFF PHYSICIAN] - 01/09/19 11:30 am Koko Longoria DO [Doctor of Osteopathic Medicine] - 1 Week [facility], [NON-STAFF] - 1-2 Days Lawanda Krishna MD [Primary Care Provider] - 12/26/18 10:30 am () Ambulatory/Diagnostic Orders: Complete Blood Count w/diff [LAB.AMB] Time Frame: 3 Days, Location: None Selected Activity/Diet/Wound Care/Special Instructions: Diet: regular Activity: as tolerated Discharge Disposition: HOME WITH HOME HEALTH SERVICES
--- NOTE | 2018-12-22 16:09 | CDI ---
Documentation Clarification Form Date: 12/22/2018 2:46:00 PM From: Modesta Lehman Sierra Cervantes, Java Sdet Hours-8:30 am & 5 pm MDorcas Admit Date: 12/11/2018 6:28:00 PM Patient Name: Fercho Yen Visit Number: [id number] Discharge Date: 12/18/2018 2:49:00 PM ATTENTION: The Clinical Documentation Specialists (CDI) and [facility] Coding Staff appreciate your assistance in clarifying documentation. Please respond to the clarification below the line at the bottom and electronically sign. The CDI & [facility] Coding staff will review the response and follow-up if needed. Please note: Queries are made part of the Legal Health Record. If you have any questions, please contact the author of this message via ITS. Dr. Lawnada Krishna Conflicting documentation has been found in the medical record: ED Notes document Sepsis History/Risk Factors:UTI Clinical Indicators: LA 4.8, 2.6, 1.3 RR 22,18,18 Treatment: IV Abx In your opinion, what is the most clinically appropriate diagnosis for this patient? Sepsis ruled in Sepsis ruled out Other Unable to determine MTDD
== END 2018-12-18 14:49 | disposition home health service (06) | DRG 378 ==
LOC: EC 13:30 → 3SCARD 18:28 → 3NMEDONC 12-16 02:23
PROVIDERS: ADMIT Internal Medicine; ATTEND Internal Medicine
PROC: 0D9670Z Drainage of Stomach with Drainage Device, Via Natural or Artificial Opening (ICD-10-PCS; 2018-12-11)
PROC: 0DB98ZX Excision of Duodenum, Via Natural or Artificial Opening Endoscopic, Diagnostic (ICD-10-PCS; 2018-12-12)
PROC: 0DB38ZX Excision of Lower Esophagus, Via Natural or Artificial Opening Endoscopic, Diagnostic (ICD-10-PCS; 2018-12-12)
PROC: 0DB78ZX Excision of Stomach, Pylorus, Via Natural or Artificial Opening Endoscopic, Diagnostic (ICD-10-PCS; principal; 2018-12-12 07:55)
DX: K29.81 Duodenitis with bleeding (principal); D62 Acute posthemorrhagic anemia; N39.0 Urinary tract infection, site not specified; I47.2 Ventricular tachycardia; F10.231 Alcohol dependence with withdrawal delirium; E87.2 Acidosis; K40.30 Unilateral inguinal hernia, with obstruction, without gangrene, not specified as recurrent; Z68.1 Body mass index [BMI] 19.9 or less, adult; E83.42 Hypomagnesemia; R63.4 Abnormal weight loss; J44.9 Chronic obstructive pulmonary disease, unspecified; K29.71 Gastritis, unspecified, with bleeding; I10 Essential (primary) hypertension; M19.90 Unspecified osteoarthritis, unspecified site; K44.9 Diaphragmatic hernia without obstruction or gangrene; K20.9 Esophagitis, unspecified; E87.6 Hypokalemia; F17.210 Nicotine dependence, cigarettes, uncomplicated; M54.9 Dorsalgia, unspecified; I44.4 Left anterior fascicular block; Z79.899 Other long term (current) drug therapy; Z86.73 Personal history of transient ischemic attack (TIA), and cerebral infarction without residual deficits; Z96.642 Presence of left artificial hip joint; Z92.21 Personal history of antineoplastic chemotherapy; Z92.3 Personal history of irradiation; Z85.038 Personal history of other malignant neoplasm of large intestine; Z71.6 Tobacco abuse counseling; Z80.9 Family history of malignant neoplasm, unspecified; Z88.6 Allergy status to analgesic agent
CPT/HCPCS: 36415; 43239; 71046; 74176; 74177; 80048; 80053; 81001; 82150; 82272; 83605; 83690; 83735; 84132; 84443; 84484; 85025; 85610; 85730; 86850; 86900; 86901; 87040; 87045; 87046; 87086; 87324; 88305; 93005; 93306; 96361; 96365; 96372; 96375; 99285

== ENCOUNTER → 2019-03-13 | Outpatient (CLI) | payer OTHER ==
[2019-03-13 12:57] LABS: HGB 12.9 gm/dL (13.0-17.5); MCH 29.9 pg (25.0-35.0); MCHC 33.1 g/dL (31.0-37.0); MCV 90.4 fL (80.0-100.0); Mean Platelet Volume 7.2; Platelet Count 241 k/uL (150-450); RBC 4.32 m/uL (4.30-5.90); RDW 15.7 % (11.5-15.5); WBC 3.8 k/uL (3.8-10.6)
== END | disposition home or self-care (01) ==
LOC: LABPAT 12:28
PROVIDERS: ATTEND Surgery
DX: Z01.812 Encounter for preprocedural laboratory examination (principal); K40.90 Unilateral inguinal hernia, without obstruction or gangrene, not specified as recurrent; K42.9 Umbilical hernia without obstruction or gangrene
CPT/HCPCS: 36415; 84132; 85027

== ENCOUNTER 2019-03-17 07:27 | Day surgery (SDC) | payer OTHER ==
[2019-03-12 18:01] VITALS: BMI 18.6
[~2019-03-17 07:27] MED LIST changes: +DEXAMETHASONE SOD PHOSPHATE 10 MG/ML 1 ML VIAL IV ONE; +HEPARIN SODIUM,PORCINE 5,000 UNIT/ML 1 ML VIAL SQ ONE; +HYDROmorphone 0.5 MG/0.5 ML SYRINGE IVP PRN; -LACTATED RINGERS 1,000 ML IV SCH; +LIDOCAINE 1% 20 ML VIAL (10MG/ML) FOR IV START INTRADERMA PRN; +MIDAZOLAM 2 MG/2 ML VIAL IV PRN; +ONDANSETRON 4 MG/2 ML VIAL IVP ONE; +SCOPOLAMINE 1.5MG/72HR PATCH TRANSDERM ONE; +ceFAZolin IN SWFI 2 GM/20 ML SYRINGE IVP ONE
[2019-03-17] MEDS: LACTATED RINGERS 1,000 ML IV SCH (08:40)
--- NOTE | 2019-03-17 08:45 | P.GSHP ---
History of Present Illness H&P Date: 03/17/19 Chief Complaint: Right inguinal hernia, umbilical hernia This is a 54-year-old male who presents today for laparoscopic robotic system repair of right inguinal hernia and umbilical hernia. Past Medical History Past Medical History: Cancer, COPD, CVA/TIA, GERD/Reflux, GI Bleed, Hypertension, Osteoarthritis (OA), Sleep Apnea/CPAP/BIPAP Additional Past Medical History / Comment(s): Hx rectal bleeding, blood in stools, UTI 12/06. Still has UTI symptoms - INSTRUCTED TO NOTIFY DR HERNÁNDEZ IN AM. TIA 2017. Not currently taking BP medication but has in past. "Stomach cancer 4 months ago, had 3 months of radiation." No CPAP use. STATES PATIENT CONTINUES TO DRINK HEAVILY, PATIENT NOT TAKING RX PRESCRIBED - SHE WILL CALL DR HERNÁNDEZ RE. THIS IN AM ALSO. History of Any Multi-Drug Resistant Organisms: None Reported Past Surgical History: Joint Replacement Additional Past Surgical History / Comment(s): Left hip replacement. EGD 11/2018. Past Anesthesia/Blood Transfusion Reactions: No Reported Reaction Smoking Status: Current every day smoker - Past Family History Mother Family Medical History: Cancer Additional Family Medical History / Comment(s): Breast cancer. Medications and Allergies Home Medications Medication Instructions Recorded Confirmed Type Ferrous Sulfate [Feosol] 325 mg PO BID #60 tab 12/18/18 03/12/19 Rx Escitalopram [Lexapro] 10 mg PO DAILY 03/12/19 03/12/19 History Furosemide [Lasix] 20 mg PO DAILY 03/12/19 03/12/19 History Magnesium Oxide [Mag-Ox] 400 mg PO DAILY 03/12/19 03/12/19 History Metoprolol Tartrate [Lopressor] 25 mg PO BID 03/12/19 03/17/19 History Multivitamins, Thera [Multivitamin 1 tab PO DAILY 03/12/19 03/12/19 History (formulary)] Omeprazole [PriLOSEC] 20 mg PO AC-BID 03/12/19 03/12/19 History Pantoprazole [Protonix] 40 mg PO DAILY 03/12/19 03/12/19 History Potassium Chloride ER [K-Dur 10] 10 meq PO DAILY 03/12/19 03/12/19 History Thiamine [Vitamin B-1] 100 mg PO DAILY@1200,1700 03/12/19 03/12/19 History Allergies Allergy/AdvReac Type Severity Reaction Status Date / Time aspirin AdvReac Nausea & Verified 03/17/19 07:58 Vomiting ibuprofen [From Motrin] AdvReac Nausea & Verified 03/17/19 07:58 Vomiting Surgical - Exam Vital Signs Temp Pulse Resp BP Pulse Ox 98.7 F 72 17 117/69 98 03/17/19 08:38 03/17/19 08:38 03/17/19 08:38 03/17/19 08:38 03/17/19 08:38 - General well developed, well nourished, no distress - Eyes PERRL - ENT normal pinna - Neck no masses - Respiratory normal expansion - Cardiovascular Rhythm: regular - Abdomen Abdomen: soft, non tender Hernia: inguinal (Right inguinal hernia), umbilical (Umbilical hernia) Assessment and Plan Assessment: Right inguinal and umbilical hernia. We'll perform laparoscopic robotic- assisted repair.
--- NOTE | 2019-03-17 09:16 | P.ONQ ---
Anesthesiology Proc Note - PNB - Peripheral Nerve Block Performed Right Transversus Abdominis Time Out Performed: Yes Procedure Start Time: 08:41 Procedure Stop Time: 08:52 Indication: Acute Post-Operative Pain, Analgesia, Requested by physician Sedation Type: Sedate with meaningful contact maintained Preparation: Sterile Prep Catheter: None Needle Types: On-Q Needle Size: 50mm (2") Needle Gauge: 20 Technique: Ultrasound Injectate: 0.5% Ropivacaine (see comment for volume) Blood Aspirated: No Pain Paresthesia on Injection Noted: No Resistance on Injection: Normal Events: Uneventful and Well Tolerated (30 ml total solution)
[2019-03-17] MEDS ORDERED: GLYCOPYRROLATE 0.2 MG/ML 2 ML VIAL ONE (09:55)
[2019-03-17] MEDS ORDERED: fentaNYL (PF) 50 MCG/ML 2 ML AMP ONE (09:55)
[2019-03-17] MEDS ORDERED: NEOSTIGMINE 1 MG/ML 10 ML VIAL ONE (09:55)
[2019-03-17] MEDS ORDERED: MIDAZOLAM 2 MG/2 ML VIAL ONE (09:55)
[2019-03-17] MEDS ORDERED: ROPIVACAINE 5 MG/ML 30 ML VIAL ONE (09:55)
[2019-03-17] MEDS ORDERED: PROPOFOL 10 MG/ML 20 ML VIAL IV ONE (09:55)
[2019-03-17] MEDS ORDERED: ROCURONIUM BROMIDE 10 MG/ML 10 ML VIAL IV ONE (09:55)
[2019-03-17] MEDS ORDERED: LIDOCAINE 1% INJ 10MG/ML (20 ML MDV) ONE (09:55)
[2019-03-17] MEDS ORDERED: BUPIVACAINE (PF) 0.5% 30 ML VIAL SQ ONE (10:23)
[2019-03-17 11:09] VITALS: RESP 16; TEMP 97.5
--- NOTE | 2019-03-17 11:26 | P.OP ---
Date of Procedure: 03/17/19 Preoperative Diagnosis: Umbilical hernia Right inguinal hernia Postoperative Diagnosis: Umbilical hernia Right inguinal hernia Procedure(s) Performed: Laparoscopic robotic-assisted repair of right inguinal hernia and umbilical hernia Anesthesia: TK Surgeon: Shantanu Yip Estimated Blood Loss (ml): 5 Pathology: other (Umbilical hernia sac/omentum) Condition: stable Disposition: PACU Description of Procedure: The patient was placed on the operating table in the supine position. The patient received general anesthesia. The patient's abdomen was prepped and draped in usual sterile fashion. The skin was anesthetized 1% local Xylocaine at the incision sites. Using an 11 blade a skin incision was made at the umbilicus. The fascia was grasped with a Doyle and then the peritoneal cavity was entered with the Veress needle. Position of the Veress needle was confirmed with a positive drop test. After adequate insufflation a 5 mm trocar was placed into the peritoneal cavity. The Laparoscope was placed the peritoneal cavity. And a robotic 8 mm trocar was placed in the right lateral position and then another 8 mm robotic trochars placed in the left lateral position. The original 5 mm trocar was exchanged for a 12 mm trocar. The patient was placed in reverse Trendelenburg and then the patient was docked to the robot. Next the peritoneum over top of the hernia was incised and then using blunt and sharp dissection and electrocautery the hernia sac was dissected free from the floor of the inguinal canal. The hernia sac was completely reduced into the peritoneal cavity. And then using the Pro beauty sales consultant mesh the hernia was repaired. The peritoneum was then sutured with 2-0V lock suture. The patient was then undocked the robot. The needle was withdrawn from the peritoneal cavity. The umbilical hernia site was closed with 0 Ethibond suture. The skin was closed interrupted 3-0 Monocryl suture. Dermabond dressing was applied. Patient was sent to recovery in stable condition.
[2019-03-17] MEDS ORDERED: HYDROcodone/APAP 7.5-325MG 1 EACH TAB PO ONE (12:07)
[2019-03-17 12:27] VITALS: PULSE 61
[2019-03-17 12:44] VITALS: BP 139/81
== END 2019-03-17 12:56 | disposition home or self-care (01) ==
LOC: OR 07:27
PROVIDERS: ATTEND Surgery
DX: K42.9 Umbilical hernia without obstruction or gangrene (principal); J44.9 Chronic obstructive pulmonary disease, unspecified; I11.0 Hypertensive heart disease with heart failure; I50.9 Heart failure, unspecified; K21.9 Gastro-esophageal reflux disease without esophagitis; M19.90 Unspecified osteoarthritis, unspecified site; F17.200 Nicotine dependence, unspecified, uncomplicated; Z85.028 Personal history of other malignant neoplasm of stomach; Z86.73 Personal history of transient ischemic attack (TIA), and cerebral infarction without residual deficits; Z96.642 Presence of left artificial hip joint; Z79.891 Long term (current) use of opiate analgesic; Z79.899 Other long term (current) drug therapy; Z88.6 Allergy status to analgesic agent; Z88.8 Allergy status to other drugs, medicaments and biological substances
CPT/HCPCS: 49652; S2900; 64486; 88302

== ENCOUNTER 2020-07-04 17:41 | Inpatient (IN) | payer OTHER ==
[2020-07-04] MEDS ORDERED: SODIUM CHLORIDE 0.9% 1,000 ML with MVI, ADULT NO.4 WITH VIT K 10 ML, THIAMINE 100 MG, F... IV ONE ×4 (18:30)
[2020-07-04 18:36] LABS: Basophils % (A) 0 %; Eosinophils # (A) 0.1 k/uL (0-0.7); Eosinophils % (A) 1 %; HCT 24.9 % (39.0-53.0); HGB 8.3 gm/dL (13.0-17.5); Lymphocytes # (A) 1.3 k/uL (1.0-4.8); Lymphocytes % (A) 14 %; MCH 29.2 pg (25.0-35.0); MCHC 33.2 g/dL (31.0-37.0); Mean Platelet Volume 8.1; Monocytes # (A) 0.3 k/uL (0-1.0); Monocytes % (A) 4 %; Neutrophils # (A) 6.9 k/uL (1.3-7.7); Neutrophils % (A) 79 %; Platelet Count 301 k/uL (150-450); RBC 2.83 m/uL (4.30-5.90); RDW 15.5 % (11.5-15.5); WBC 8.7 k/uL (3.8-10.6)
[2020-07-04] MEDS ORDERED: SODIUM CHLORIDE 0.9% 1,000 ML IV STA (18:40)
--- NOTE | 2020-07-04 18:40 | ED ---
Weakness HPI - General Chief complaint: Weakness Stated complaint: N/V/D, weakness Time Seen by Provider: 07/04/20 17:54 Source: patient, RN notes reviewed Mode of arrival: wheelchair Limitations: no limitations - History of Present Illness Initial comments: This is a 55-year-old male with a history of alcoholism also history of cirrhosis per his who is brought in for evaluation because of continued weight loss confusion cough he is a heavy drinker per his he has not drank in 2 or 3 days she's had no oral intake for 3 days. No reported falls however. He told his that he was on vacation but he did not know where or when he later said it evaluated was in [place] though he was in [place]. MD Complaint: generalized weakness, lack of energy - Related Data Home Medications Medication Instructions Recorded Confirmed Omeprazole [PriLOSEC] 20 mg PO AC-BID PRN 03/12/19 07/04/20 ALPRAZolam [Xanax] 0.25 mg PO BID PRN 07/04/20 07/04/20 Albuterol Sulfate [Ventolin HFA] 2 puff INHALATION RT-QID PRN 07/04/20 07/04/20 HYDROcodone/APAP 10-325MG [[place] 1 tab PO Q6H PRN 07/04/20 07/04/20 10-325] Allergies Allergy/AdvReac Type Severity Reaction Status Date / Time aspirin AdvReac Nausea & Verified 07/04/20 18:40 Vomiting ibuprofen [From Motrin] AdvReac Nausea & Verified 07/04/20 18:40 Vomiting Review of Systems ROS Statement: Those systems with pertinent positive or pertinent negative responses have been documented in the HPI. ROS Other: All systems not noted in ROS Statement are negative. Past Medical History Past Medical History: Cancer, COPD, CVA/TIA, GERD/Reflux, GI Bleed, Hypertension, Osteoarthritis (OA), Sleep Apnea/CPAP/BIPAP Additional Past Medical History / Comment(s): Hx rectal bleeding, blood in stools, UTI 12/06. Still has UTI symptoms - INSTRUCTED TO NOTIFY DR HERNÁNDEZ IN AM. TIA 2017. Not currently taking BP medication but has in past. "Stomach cancer 4 months ago, had 3 months of radiation." No CPAP use. STATES PATIENT CONTINUES TO DRINK HEAVILY, PATIENT NOT TAKING RX PRESCRIBED - SHE WILL CALL DR EDGAR KNAPP. THIS IN AM ALSO. History of Any Multi-Drug Resistant Organisms: None Reported Past Surgical History: Joint Replacement Additional Past Surgical History / Comment(s): Left hip replacement. EGD 11/2018. Past Anesthesia/Blood Transfusion Reactions: No Reported Reaction Past Psychological History: Anxiety, Depression Smoking Status: Current some day smoker Past Alcohol Use History: Abuse, Daily, Heavy Past Drug Use History: Marijuana - Past Family History Mother Family Medical History: Cancer Additional Family Medical History / Comment(s): Breast cancer. General Exam - General Exam Comments Initial Comments: This is a well-developed asthenic appearing male who is awake lethargic male. He believes it is the does not know which month Limitations: no limitations General appearance: alert, lethargic Head exam: Present: atraumatic, normocephalic, normal inspection Eye exam: Present: normal appearance, PERRL, EOMI. Absent: scleral icterus, conjunctival injection, periorbital swelling ENT exam: Present: mucous membranes dry Neck exam: Present: normal inspection. Absent: tenderness, meningismus, lymphadenopathy Respiratory exam: Present: decreased breath sounds. Absent: respiratory distress, wheezes, rales, rhonchi, stridor Cardiovascular Exam: Present: regular rate, normal rhythm, normal heart sounds. Absent: systolic murmur, diastolic murmur, rubs, gallop, clicks GI/Abdominal exam: Present: soft, normal bowel sounds. Absent: distended, tenderness, guarding, rebound, rigid Extremities exam: Present: normal inspection, full ROM, normal capillary refill. Absent: tenderness, pedal edema, joint swelling, calf tenderness Back exam: Present: normal inspection Neurological exam: Present: alert, oriented X3, CN II-XII intact Psychiatric exam: Present: normal affect, normal mood Skin exam: Present: warm, dry, intact, normal color. Absent: rash Course Vital Signs 07/04/20 07/04/20 07/04/20 17:43 18:50 19:43 Temperature 97.7 F Pulse Rate 60 100 Respiratory 16 16 Rate Blood Pressure 71/59 75/61 85/62 O2 Sat by Pulse 94 L 99 Oximetry EKG Findings - EKG Results: EKG: interpreted by COLIN, sinus rhythm (Sinus rhythm of 98. Interval 144 QRS duration 82 QT/QTC 474/605. Left anterior fascicular block prolonged QT. Occasional PVCs) Medical Decision Making - Medical Decision Making I did discuss the findings with the patient had previously with his patient will be admitted he does have evidence of hypo-ketonemia hypotensive episode dehydration sodium of 126 likely an alcohol withdrawal. CAT scans are negative. The case will be discussed with Dr. Krishna - Lab Data Result diagrams: 07/04/20 18:27 07/04/20 18:27 Lab Results 07/04/20 07/04/20 07/04/20 Range/Units 18:27 18:27 18:27 WBC 8.7 (3.8-10.6) k/uL RBC 2.83 L (4.30-5.90) m/uL Hgb 8.3 L (13.0-17.5) gm/dL Hct 24.9 L (39.0-53.0) % MCV 88.0 (80.0-100.0) fL MCH 29.2 (25.0-35.0) pg MCHC 33.2 (31.0-37.0) g/dL RDW 15.5 (11.5-15.5) % Plt Count 301 (150-450) k/uL Neutrophils % 79 % Lymphocytes % 14 % Monocytes % 4 % Eosinophils % 1 % Basophils % 0 % Neutrophils # 6.9 (1.3-7.7) k/uL Lymphocytes # 1.3 (1.0-4.8) k/uL Monocytes # 0.3 (0-1.0) k/uL Eosinophils # 0.1 (0-0.7) k/uL Basophils # 0.0 (0-0.2) k/uL PT 10.8 (9.0-12.0) sec INR 1.1 (<1.2) Sodium 126 L (137-145) mmol/L Potassium 2.5 L* (3.5-5.1) mmol/L Chloride 85 L (98-107) mmol/L Carbon Dioxide 30 (22-30) mmol/L Anion Gap 11 mmol/L BUN 10 (9-20) mg/dL Creatinine 0.60 L (0.66-1.25) mg/dL Est GFR (CKD-EPI)AfAm >90 (>60 ml/min/1.73 sqM) Est GFR (CKD-EPI)NonAf >90 (>60 ml/min/1.73 sqM) Glucose 93 (74-99) mg/dL POC Glucose (mg/dL) (75-99) mg/dL POC Glu Behavioral Health Consultant ID Calcium 7.9 L (8.4-10.2) mg/dL Magnesium 2.0 (1.6-2.3) mg/dL Total Bilirubin 0.9 (0.2-1.3) mg/dL AST 27 (17-59) U/L ALT 23 (4-49) U/L Alkaline Phosphatase 41 (38-126) U/L Ammonia (<30) umol/L Creatine Kinase 22 L (55-170) U/L Total Protein 5.2 L (6.3-8.2) g/dL Albumin 2.6 L (3.5-5.0) g/dL Lipase 14 L (23-300) U/L Serum Alcohol 21 mg/dL 07/04/20 07/04/20 Range/Units 18:27 18:57 WBC (3.8-10.6) k/uL RBC (4.30-5.90) m/uL Hgb (13.0-17.5) gm/dL Hct (39.0-53.0) % MCV (80.0-100.0) fL MCH (25.0-35.0) pg MCHC (31.0-37.0) g/dL RDW (11.5-15.5) % Plt Count (150-450) k/uL Neutrophils % % Lymphocytes % % Monocytes % % Eosinophils % % Basophils % % Neutrophils # (1.3-7.7) k/uL Lymphocytes # (1.0-4.8) k/uL Monocytes # (0-1.0) k/uL Eosinophils # (0-0.7) k/uL Basophils # (0-0.2) k/uL PT (9.0-12.0) sec INR (<1.2) Sodium (137-145) mmol/L Potassium (3.5-5.1) mmol/L Chloride (98-107) mmol/L Carbon Dioxide (22-30) mmol/L Anion Gap mmol/L BUN (9-20) mg/dL Creatinine (0.66-1.25) mg/dL Est GFR (CKD-EPI)AfAm (>60 ml/min/1.73 sqM) Est GFR (CKD-EPI)NonAf (>60 ml/min/1.73 sqM) Glucose (74-99) mg/dL POC Glucose (mg/dL) 105 H (75-99) mg/dL POC Glu Behavioral Health Consultant ID Linette, NAWAF, Gerardo Calcium (8.4-10.2) mg/dL Magnesium (1.6-2.3) mg/dL Total Bilirubin (0.2-1.3) mg/dL AST (17-59) U/L ALT (4-49) U/L Alkaline Phosphatase (38-126) U/L Ammonia <9 (<30) umol/L Creatine Kinase (55-170) U/L Total Protein (6.3-8.2) g/dL Albumin (3.5-5.0) g/dL Lipase (23-300) U/L Serum Alcohol mg/dL - Radiology Data Radiology results: report reviewed, image reviewed (I did review the imaging and report no acute findings.) Disposition Clinical Impression: Alcohol withdrawal delirium, Hypotensive episode, Hypokalemia, Dehydration, Failure to thrive Disposition: ADMITTED IP TO THIS HOSP Condition: Fair Referrals: Lawanda Krishna MD [Primary Care Provider] - 1-2 days
[2020-07-04 18:45] LABS: INR 1.1 (<1.2); Prothrombin Time 10.8 sec (9.0-12.0)
[2020-07-04 18:46] LABS: ALT 23 U/L (4-49); AST 27 U/L (17-59); African American GFR (CKD) >90 (>60 ml/min/1.73 sqM); Albumin 2.6 g/dL (3.5-5.0); Alcohol 21 mg/dL; Alkaline Phosphatase 41 U/L (38-126); Anion Gap 11 mmol/L; Blood Urea Nitrogen 10 mg/dL (9-20); Calcium 7.9 mg/dL (8.4-10.2); Carbon Dioxide 30 mmol/L (22-30); Chloride 85 mmol/L (98-107); Creatine Kinase 22 U/L (55-170); Glucose 93 mg/dL (74-99); Non-African American GFR(CKD) >90 (>60 ml/min/1.73 sqM); Sodium 126 mmol/L (137-145); Total Bilirubin 0.9 mg/dL (0.2-1.3); Total Protein 5.2 g/dL (6.3-8.2)
[2020-07-04 18:50] LABS: Potassium 2.5 mmol/L (3.5-5.1)
[2020-07-04 18:58] LABS: Glucose,Whole Blood 105 mg/dL (75-99)
[2020-07-04] MEDS ORDERED: POTASSIUM CHLORIDE 20 MEQ in WATER FOR INJECTION 1 100ML.BAG IVPB STA (19:09)
--- NOTE | 2020-07-04 19:21 | XR ---
EXAMINATION TYPE: XR chest 2V DATE OF EXAM: 07/04/2020 COMPARISON: 12/11/2018 HISTORY: Pain TECHNIQUE: FINDINGS: Heart is normal. Lungs are clear of consolidation. There are no hilar masses. There are kiana st leads. Costophrenic angles are clear. Bony thorax appears intact. IMPRESSION: No active cardiopulmonary disease. No change.
--- NOTE | 2020-07-04 19:23 | CT ---
EXAMINATION TYPE: CT brain wo con DATE OF EXAM: 07/04/2020 COMPARISON: None HISTORY: Confusion. Weakness CT DLP: 1123.4 mGycm Automated exposure control for dose reduction was used. There is cerebral cortical atrophy. There is no mass effect nor midline shift. There is no sign of in tracranial hemorrhage. The calvarium is intact. There is no evidence of cerebral edema. Skull base is intact. IMPRESSION: Cerebral atrophy. No acute intracranial abnormality.
[2020-07-04] MEDS ORDERED: SODIUM CHLORIDE 0.9% 500 ML 500 ML IV STA (20:10)
[2020-07-04] MEDS ORDERED: NALOXONE 0.4 MG/ML 1 ML VIAL IV PRN (20:25)
[2020-07-04] MEDS ORDERED: THIAMINE 100 MG/ML 2 ML VIAL IM STA (20:29)
[2020-07-04] MEDS ORDERED: LORazepam 2 MG/ML INJ IV PRN (20:29)
[2020-07-04] MEDS ORDERED: ALBUTEROL NEBULIZED 2.5 MG/3 ML INHALATION PRN (20:30)
[2020-07-04] MEDS ORDERED: PANTOPRAZOLE 40 MG TABLET PO PRN (20:30)
[2020-07-04 21:39] LABS: Glucose,Whole Blood 102 mg/dL (75-99)
[2020-07-04] MEDS: SODIUM CHLORIDE 0.9% 1,000 ML IV SCH (22:30)
[2020-07-05 04:37] LABS: Basophils % (A) 0 %; Eosinophils % (A) 1 %; HCT 21.8 % (39.0-53.0); HGB 7.1 gm/dL (13.0-17.5); Lymphocytes % (A) 15 %; MCH 29.7 pg (25.0-35.0); MCHC 32.8 g/dL (31.0-37.0); MCV 90.5 fL (80.0-100.0); Mean Platelet Volume 7.5; Monocytes # (A) 0.3 k/uL (0-1.0); Monocytes % (A) 4 %; Neutrophils # (A) 5.4 k/uL (1.3-7.7); Neutrophils % (A) 78 %; Platelet Count 260 k/uL (150-450); RBC 2.41 m/uL (4.30-5.90); RDW 15.6 % (11.5-15.5); WBC 6.9 k/uL (3.8-10.6)
[2020-07-05 04:51] LABS: African American GFR (CKD) >90 (>60 ml/min/1.73 sqM); Anion Gap 7 mmol/L; Blood Urea Nitrogen 8 mg/dL (9-20); Calcium 7.2 mg/dL (8.4-10.2); Carbon Dioxide 27 mmol/L (22-30); Chloride 95 mmol/L (98-107); Glucose 73 mg/dL (74-99); Non-African American GFR(CKD) >90 (>60 ml/min/1.73 sqM); Potassium 2.8 mmol/L (3.5-5.1); Sodium 129 mmol/L (137-145)
[2020-07-05] MEDS: POTASSIUM CHLORIDE ER 20 MEQ TAB.ER PO SCH ×8 (05:25→21:00)
[2020-07-05] MEDS: SODIUM CHLORIDE 0.9% 1,000 ML IV SCH (05:27)
[2020-07-05] MEDS: THIAMINE 100 MG TAB PO SCH ×2 (07:00→19:21)
[2020-07-05 10:44] LABS: Potassium 2.9 mmol/L (3.5-5.1)
[2020-07-05] MEDS ORDERED: Potassium Replacement Protocol 1 EACH MISC MISCELLANE PRN ×3 (10:54→18:24)
[2020-07-05] MEDS: NICOTINE 21MG/24HR PATCH TRANSDERM SCH (11:02)
--- NOTE | 2020-07-05 12:00 | US ---
EXAMINATION TYPE: US abdomen limited DATE OF EXAM: 07/05/2020 COMPARISON: NONE CLINICAL HISTORY: ETOH hx, anemia, Nausea/vomiting. No ultrasound evidence of fluid. IMPRESSION: No evidence of sizable ascites.
--- NOTE | 2020-07-05 17:47 | P.HPIM ---
History of Present Illness H&P Date: 07/05/20 Fercho Yen, is a 55-year-old male with known history of excessive alcohol use and history of liver cirrhosis who was brought in to [facility] emergency room by his due to mental status changes was confusion patient was also having weight loss, he was drinking alcohol up to 2 days prior to admission then he was not feeling well and he stopped drinking alcohol and stopped eating and drinking for 2-3 days. Patient was evaluated in emergency room, he was febrile temperature 97.7 pulse 60 respiration 16 blood pressure was significantly low at 71/59 pulse ox 94% on room air white blood count was 8.7 hemoglobin 8.3 platelet count 260 sodium was low at 126 potassium was low at 2.5 serum alcohol level was 21. Patient was admitted to intensive care unit he was started on IV fluid and potassium replacement protocol. Chest x-ray was done in the emergency room and did not reveal any active cardiopulmonary disease, computed tomography scan done in the emergency room revealed cerebral atrophy no acute intracranial abnormality, abdomen ultrasound done did not reveal any e vidence of sizable ascites, urine analysis and blood culture were done and were ordered in ICU. Past Medical History Past Medical History: Cancer, COPD, CVA/TIA, GERD/Reflux, GI Bleed, Hypertension, Osteoarthritis (OA), Sleep Apnea/CPAP/BIPAP Additional Past Medical History / Comment(s): TIA 2017. Not currently taking BP medication but has in past. "Stomach cancer 3 yrs, had 3 months of radiation." Does not use CPAP machine. History of Any Multi-Drug Resistant Organisms: None Reported Past Surgical History: Joint Replacement Additional Past Surgical History / Comment(s): Left hip replacement. EGD 11/2018. Past Anesthesia/Blood Transfusion Reactions: No Reported Reaction Past Psychological History: Anxiety, Depression Smoking Status: Current every day smoker Past Alcohol Use History: Abuse, Daily, Heavy Additional Past Alcohol Use History / Comment(s): DRINKS 5-10. beers daily. Past Drug Use History: Marijuana Additional Drug Use History / Comment(s): USUALLY USES MARIJUANA ONCE A DAY. - Past Family History Mother Family Medical History: Cancer Additional Family Medical History / Comment(s): Breast cancer. Medications and Allergies Home Medications Medication Instructions Recorded Confirmed Type Omeprazole [PriLOSEC] 20 mg PO AC-BID PRN 03/12/19 07/04/20 History ALPRAZolam [Xanax] 0.25 mg PO BID PRN 07/04/20 07/04/20 History Albuterol Sulfate [Ventolin HFA] 2 puff INHALATION RT-QID PRN 07/04/20 07/04/20 History HYDROcodone/APAP 10-325MG [[place] 1 tab PO Q6H PRN 07/04/20 07/04/20 History 10-325] Allergies Allergy/AdvReac Type Severity Reaction Status Date / Time aspirin AdvReac Nausea & Verified 07/04/20 18:40 Vomiting ibuprofen [From Motrin] AdvReac Nausea & Verified 07/04/20 18:40 Vomiting Physical Exam Vitals: Vital Signs Temp Pulse Resp BP BP Pulse Ox 07/05/20 13:00 82 20 91/67 100 07/05/20 12:00 97.6 F 107 H 20 81/60 100 07/05/20 11:00 83 22 93/32 99 07/05/20 10:00 85 24 85/64 98 07/05/20 09:28 88 07/05/20 09:13 92 07/05/20 09:00 78 20 96/81 98 07/05/20 08:00 86 25 H 94/79 96 07/05/20 07:00 72 18 85/69 98 07/05/20 06:00 82 22 94/64 96 07/05/20 05:00 75 20 84/64 95 07/05/20 04:00 97.7 F 84 15 88/67 95 07/05/20 03:00 79 19 88/67 95 07/05/20 02:00 87 23 97/77 97 07/05/20 01:00 81 10 L 97 07/05/20 00:00 96 19 97/77 97 07/04/20 23:00 80 16 98/66 98 07/04/20 22:00 97.6 F 86 17 99/76 99 07/04/20 21:42 97.6 F 21 99/76 07/04/20 21:18 90 16 115/93 99 07/04/20 21:05 82 16 87/58 07/04/20 19:43 100 16 85/62 99 07/04/20 18:50 75/61 07/04/20 17:43 97.7 F 60 16 71/59 94 L Intake and Output 08/17/20 08/18/20 08/18/20 22:59 06:59 14:59 Intake Total 230 2140 880 Output Total 100 500 Balance 130 1640 880 Intake: IV 230 1840 880 Sodium Chloride 0.9% 1, 100 800 100 000 ml @ 100 mls/hr IV . Q10H7M ONE with Mvi, Adult No.4 with Vit K 10 ml with Thiamine 100 mg with Folic Acid 1 mg Rx#: [id number] Sodium Chloride 0.9% 1, 130 1040 780 000 ml @ 130 mls/hr IV . Q7H42M [facility] Rx#:[id number] Tube Feeding 300 Output: Urine 100 500 Other: # Voids 1 Weight 49.895 kg 50.2 kg 50.2 kg In general patient is alert slightly confused in no apparent distress HEENT head normocephalic and atraumatic Neck is supple no JVD no goiter no lymphadenopathy Chest exam reveals a few scattered crackles no wheezing Cardiac exam reveals regular heart sounds S1 and S2 no gallops no murmurs Abdomen is soft nontender no organomegaly with normal bowel sounds Extremity exam reveals no edema no cyanosis or clubbing Neurological examination reveals no gross focal deficit other than mild confusion Results CBC & Chem 7: 07/05/20 03:56 07/05/20 10:18 Labs: Abnormal Lab Results - Last 24 Hours (Table) 07/04/20 07/04/20 07/04/20 Range/Units 18:27 18:27 18:57 RBC 2.83 L (4.30-5.90) m/uL Hgb 8.3 L (13.0-17.5) gm/dL Hct 24.9 L (39.0-53.0) % RDW (11.5-15.5) % Sodium 126 L (137-145) mmol/L Potassium 2.5 L* (3.5-5.1) mmol/L Chloride 85 L (98-107) mmol/L BUN (9-20) mg/dL Creatinine 0.60 L (0.66-1.25) mg/dL Glucose (74-99) mg/dL POC Glucose (mg/dL) 105 H (75-99) mg/dL Calcium 7.9 L (8.4-10.2) mg/dL Creatine Kinase 22 L (55-170) U/L Total Protein 5.2 L (6.3-8.2) g/dL Albumin 2.6 L (3.5-5.0) g/dL Lipase 14 L (23-300) U/L 07/04/20 07/05/20 07/05/20 Range/Units 21:37 03:56 03:56 RBC 2.41 L (4.30-5.90) m/uL Hgb 7.1 L (13.0-17.5) gm/dL Hct 21.8 L (39.0-53.0) % RDW 15.6 H (11.5-15.5) % Sodium 129 L (137-145) mmol/L Potassium 2.8 L (3.5-5.1) mmol/L Chloride 95 L (98-107) mmol/L BUN 8 L (9-20) mg/dL Creatinine 0.49 L (0.66-1.25) mg/dL Glucose 73 L (74-99) mg/dL POC Glucose (mg/dL) 102 H (75-99) mg/dL Calcium 7.2 L (8.4-10.2) mg/dL Creatine Kinase (55-170) U/L Total Protein (6.3-8.2) g/dL Albumin (3.5-5.0) g/dL Lipase (23-300) U/L 07/05/20 Range/Units 10:18 RBC (4.30-5.90) m/uL Hgb (13.0-17.5) gm/dL Hct (39.0-53.0) % RDW (11.5-15.5) % Sodium (137-145) mmol/L Potassium 2.9 L (3.5-5.1) mmol/L Chloride (98-107) mmol/L BUN (9-20) mg/dL Creatinine (0.66-1.25) mg/dL Glucose (74-99) mg/dL POC Glucose (mg/dL) (75-99) mg/dL Calcium (8.4-10.2) mg/dL Creatine Kinase (55-170) U/L Total Protein (6.3-8.2) g/dL Albumin (3.5-5.0) g/dL Lipase (23-300) U/L Thrombosis Risk Factor Assmnt - Choose All That Apply Each Factor Represents 1 point: Age 41-60 years Other Risk Factors: No Thrombosis Risk Factor Assessment Total Risk Factor Score: 1 Thrombosis Risk Factor Assessment Level: Low Risk Assessment and Plan Plan: 1. Mental status changes, likely related to chronic alcohol use and early alcohol withdrawal, on CIWA protocol 2. Hypotension patient was started on IV fluid, blood pressure stable, will check urine analysis and blood culture to rule out any infectious etiology, cr itical care consult requested 3. Underlying history of liver cirrhosis, gastroenterology consult requested 4. Anemia will recheck CBC is this evening, if needed will proceed with red blood cell transfusion, gastroenterology consult 5. Hypokalemia correcting 6. Poor oral intake will advance diet gradually For DVT prophylaxis SCD stockings For GI prophylaxis patient on Protonix Will follow in a.m.
[2020-07-05 18:12] LABS: Basophils % (A) 0 %; Eosinophils % (A) 0 %; HCT 23.9 % (39.0-53.0); HGB 7.7 gm/dL (13.0-17.5); Lymphocytes # (A) 1.1 k/uL (1.0-4.8); Lymphocytes % (A) 15 %; MCH 29.2 pg (25.0-35.0); MCHC 32.3 g/dL (31.0-37.0); MCV 90.3 fL (80.0-100.0); Mean Platelet Volume 7.7; Monocytes # (A) 0.2 k/uL (0-1.0); Monocytes % (A) 3 %; Neutrophils % (A) 81 %; Platelet Count 351 k/uL (150-450); RBC 2.65 m/uL (4.30-5.90); RDW 15.8 % (11.5-15.5); WBC 7.4 k/uL (3.8-10.6)
[2020-07-06 01:08] LABS: % Iron Saturation 15.15 (15.00-50.00); Folate, Serum 10.2 ng/mL
--- NOTE | 2020-07-06 02:51 | CONS ---
CONSULTATION DATE OF DICTATION: 07/05/2020 REASON FOR CONSULTATION: Anemia. HISTORY OF PRESENT ILLNESS: The patient is a 55-year-old white male with history of heavy alcohol abuse, was admitted to hospital with altered mental status. The patient was brought in by his to the emergency room and in the ER he had an ammonia level done which was within normal limits. Patient apparently has been drinking alcohol heavily for several years and he stopped drinking alcohol 2 days ago and since then he stopped eating and drinking liquids too. In the ER he was noted to be hypotensive and hemoglobin was 8.3, which subsequently dropped to 7.5 g/dL and hence we are consulted because of this issue. The patient denies any abdominal pain. He reports no nausea, vomiting. He denies any rectal bleeding or melena. At the time of admission to the hospital, alcohol level was 21, hemoglobin 8.3, platelets were 260. ALT, AST, T bilirubin and alkaline phosphatase were within normal limits. He did have a CT of the abdomen and pelvis done that showed small amount of ascites, otherwise unremarkable. PAST MEDICAL HISTORY: Significant for heavy alcohol abuse, history of GERD, hypertension, degenerative joint disease, COPD, CVA in the past, sleep apnea. PAST SURGICAL HISTORY: Left hip replacement. SOCIAL HISTORY: Chronic smoker. Alcohol abuse heavily as mentioned above. FAMILY HISTORY: Mother had breast cancer. MEDICATIONS: Medications at home include Prilosec, Xanax, Ventolin and [place]. ALLERGIES: ASPIRIN, IBUPROFEN. REVIEW OF SYSTEMS: CARDIOPULMONARY: No chest pain or shortness of breath. GENITOURINARY: No dysuria or hematuria. MUSCULOSKELETAL: Unremarkable. SKIN: Unremarkable. NEUROLOGY: Unremarkable. ENT/VISION: Unremarkable. CONSTITUTIONAL: No weight loss. No fever, chills, night sweats. PHYSICAL EXAMINATION: He appears comfortable. No apparent distress. Vital signs are stable. Blood pressure is 85/64, pulse rate 100, temperature 97.6. HEENT EXAMINATION: Unremarkable. Conjunctivae pale. Sclerae anicteric. Oral cavity, no lesions. NECK: No JVD or lymph node enlargement. CHEST: Clear to auscultation. HEART: Regular rate and rhythm. ABDOMEN: Was soft. It was nontender, nondistended. Liver and spleen were not palpable. Bowel sounds are positive. No organomegaly. EXTREMITIES: No pedal edema. SKIN: No rashes. NEURO: He is alert and oriented x3. No focal deficits. LABS: Labs done today: WBC 6.9, hemoglobin 7.1, platelets 260. Yesterday hemoglobin was 8.8. Sodium 133, potassium 2.9. BUN and creatinine are within normal limits at 10 and 0.6. Albumin 2.6. Lipase 14. IMPRESSION: 1. Severe symptomatic anemia with a hemoglobin of 7.7 g/dL. Clinically no evidence of active ongoing bleeding. 2. Altered mental status, but normal serum ammonia level. 3. History of heavy alcohol abuse with possible underlying chronic liver disease. 4. Electrolyte abnormalities with hypokalemia. RECOMMENDATIONS: 1. Continue with Protonix 40 mg daily. 2. We will obtain iron studies. 3. Transfuse if hemoglobin less than 7. 4. Will monitor for alcohol withdrawal/DTs. 5. Abstinence from alcohol. 6. Further recommendations will follow based on the iron studies. We will follow with you closely. Thank you for this consultation. YOMI / JASIELN: [id number] /
[2020-07-06 04:02] LABS: Appearance,Urine Cloudy (Clear); Bacteria,Urine Many /hpf; Bilirubin,Urine Negative (Negative); Blood,Urine Small (Negative); Color,Urine Yellow; Glucose,Urine (UA) Negative (Negative); Ketones,Urine Negative (Negative); Leukocyte Esterase,Urine Large (Negative); Mucus,Urine Rare /hpf; Nitrite,Urine Positive (Negative); PH, Urine 5.5 (5.0-8.0); Protein,Urine Negative (Negative); RBC,Urine 2 /hpf (0-5); Specific Gravity,Urine 1.007 (1.001-1.035); Urobilinogen,Urine <2.0 mg/dL (<2.0); WBC,Urine 10 /hpf (0-5)
[2020-07-06 04:48] LABS: Anisocytosis Slight; Basophils % (A) 0 %; Eosinophils # (A) 0.1 k/uL (0-0.7); Eosinophils % (A) 1 %; HCT 20.7 % (39.0-53.0); Lymphocytes # (A) 1.3 k/uL (1.0-4.8); Lymphocytes % (A) 15 %; MCH 30.2 pg (25.0-35.0); MCHC 32.8 g/dL (31.0-37.0); MCV 92.1 fL (80.0-100.0); Mean Platelet Volume 7.3; Monocytes # (A) 0.4 k/uL (0-1.0); Monocytes % (A) 5 %; Neutrophils # (A) 6.9 k/uL (1.3-7.7); Neutrophils % (A) 79 %; Platelet Count 319 k/uL (150-450); RBC 2.25 m/uL (4.30-5.90); RDW 16.1 % (11.5-15.5); WBC 8.8 k/uL (3.8-10.6)
[2020-07-06 05:01] LABS: ALT 19 U/L (4-49); AST 23 U/L (17-59); African American GFR (CKD) >90 (>60 ml/min/1.73 sqM); Albumin 2.2 g/dL (3.5-5.0); Alkaline Phosphatase 41 U/L (38-126); Anion Gap 1 mmol/L; Blood Urea Nitrogen 3 mg/dL (9-20); Calcium 7.7 mg/dL (8.4-10.2); Carbon Dioxide 26 mmol/L (22-30); Chloride 106 mmol/L (98-107); Glucose 89 mg/dL (74-99); Non-African American GFR(CKD) >90 (>60 ml/min/1.73 sqM); Potassium 3.7 mmol/L (3.5-5.1); Sodium 133 mmol/L (137-145); Total Bilirubin 0.7 mg/dL (0.2-1.3); Total Protein 4.6 g/dL (6.3-8.2)
[2020-07-06 05:16] LABS: HGB 6.8 gm/dL (13.0-17.5)
[2020-07-06] MEDS: NICOTINE 21MG/24HR PATCH TRANSDERM SCH (09:12)
[2020-07-06] MEDS: POTASSIUM CHLORIDE 10 MEQ in WATER FOR INJECTION 1 100ML.BAG IVPB SCH ×2 (09:12→10:33)
[2020-07-06] MEDS: THIAMINE 100 MG TAB PO SCH ×2 (09:12→16:49)
[2020-07-06] MEDS: SODIUM CHLORIDE 0.9% 1,000 ML IV SCH ×5 (09:20→18:46)
--- NOTE | 2020-07-06 10:28 | CONS ---
CONSULTATION PULMONARY/CRITICAL CARE CONSULTATION: DATE OF SERVICE: 07/06/2020 This is a 55-year-old gentleman who apparently was brought into the emergency room on July 04 at 17:41. He apparently came in with nausea, vomiting, diarrhea and weakness. He has a history of chronic alcohol abuse and history of alcoholic liver cirrhosis. The patient apparently has had continued weight loss, confusion and dry cough. He is a heavy drinker per , but had apparently not been drinking for 2 or 3 days prior to admission and has had no oral intake. His alcohol level on admission was 21, I believe. Apparently, the patient was admitted with a diagnosis of alcohol with potential alcohol withdrawal syndrome, alcoholic liver disease and admitted to the ICU as an overflow patient. We were not initially consulted. Apparently yesterday, then we were placed on consultation. I am not sure exactly why the need for the consultation after a day and a half of being here, but nonetheless, it is noted that his admission hemoglobin was 8.3. His sodium on admission was 126, potassium 2.5, it looked like he had a urinary tract infection. Currently, his hemoglobin 6.8, but he has no active bleeding. We are going to add a nicotine patch as he is asking for cigarettes. We are going to also add Rocephin for possible UTI. He is on room air. In no distress. He is getting saline at 130 mL an hour. MEDICATIONS: His home medications include Prilosec, Xanax, Ventolin inhaler, and [place]. ALLERGIES: He is allergic to ASPIRIN and IBUPROFEN. MEDICAL HISTORY: Documented and includes COPD, CVA, GERD, GI bleed, hypertension, DJD, and sleep apnea syndrome, currently on CPAP. He also has a history of previous lower GI bleed with rectal bleeding, previous UTI, TIA, stomach cancer with previous radiation, as well as some other minor medical problems. SURGICAL HISTORY: Includes left hip replacement and an EGD. SOCIAL HISTORY: Positive for ongoing daily tobacco use, chronic and ongoing alcohol abuse, as well as marijuana use. FAMILY HISTORY: Positive for mother with breast cancer. REVIEW OF SYSTEMS: CONSTITUTIONAL: Weakness. NEUROLOGIC: Negative. HEENT: Negative. CARDIOVASCULAR: Negative. PULMONARY: Cough. GI: Nausea, vomiting, abdominal pain. : Negative. RHEUMATOLOGIC: Negative. IMMUNOLOGIC: Negative. ENDOCRINOLOGIC: Negative. DERMATOLOGIC: Negative. PHYSICAL EXAMINATION: VITAL SIGNS: Current vital signs are reviewed. Temperature 97.9, heart rate 116, respiratory rate 23, blood pressure 84/72 with mean 76, saturations on room air 100%. Appears in no acute distress. HEENT: Examination is unremarkable. No nasal O2. NECK: Supple, full range of motion. No adenopathy. Neck veins are flat. CARDIOVASCULAR: Examination reveals regular rhythm and rate. S1, S2 normal. No S3, S4, or murmur. LUNGS: Reveal a few scattered rhonchi. No wheezes or crackles. ABDOMEN: Soft. EXTREMITIES: Intact. No edema. SKIN: Without rash. NEUROLOGIC: Examination is brief but nonfocal. LABS: Reviewed. White count 8.8, hemoglobin 6.8, hematocrit 28.7, platelet count 319,000. Sodium 133, potassium 3.7, chloride 106, CO2 26, anion gap is 1. BUN and creatinine were 3 and 0.46. The rest of the labs look okay. Urine appears to show urinary tract infection with leukocyte esterase being large positive, nitrite being positive, 10 WBCs, few WBC clumps and many urine bacteria. Hence, the ceftriaxone. IMAGING: Abdominal ultrasound was done. It shows no evidence of ascites. A brain CT was done. It showed no abnormality other than cerebral atrophy. A chest x-ray was done. It is consistent with underlying COPD, in my opinion. ASSESSMENT: 1. Alcoholic liver disease with liver cirrhosis, rule out alcohol withdrawal syndrome. 2. History of stomach cancer, status post radiation. 3. History of chronic obstructive pulmonary disease from chronic and ongoing tobacco use. 4. Chronic alcohol abuse. 5. History of marijuana use. 6. History of cerebrovascular accident/transient ischemic attack. 7. History of gastroesophageal reflux disease and gastrointestinal bleed. 8. History of hypertension. 9. Degenerative joint disease. 10.History of sleep apnea syndrome. 11.Prior history of urinary tract infection. 12.Prior history of gastrointestinal bleed with bright red blood per rectum. 13.Multiple other medical problems and comorbidities. PLAN: Currently, the patient's medications include albuterol updrafts as needed, Rocephin, Ativan, Narcan, nicotine patch, Protonix, potassium replacement, and thiamine. We will continue to follow. Prognosis is guarded. We will need to get more history as to the stomach cancer diagnosis. His overall prognosis is poor. He looks very frail. We did add nicotine patch and Rocephin. Additional recommendations and suggestions are forthcoming. MMODL / IJN: [id number] /
[2020-07-06] MEDS: LORazepam 2 MG/ML INJ IV PRN (11:45)
--- NOTE | 2020-07-06 13:56 | CDI ---
Documentation Clarification Form Date: 07/06/2020 01:48:27 PM From: Latoya Marin RN, CCDS Admit Date: 07/04/2020 08:25:00 PM Patient Name: Fercho Yen Visit Number: [id number] ATTENTION: The Clinical Documentation Specialists (CDI) and [facility] Coding Staff appreciate your assistance in clarifying documentation. Please respond to the clarification below the line at the bottom and electronically sign. The CDI & [facility] Coding staff will review the response and follow-up if needed. Please note: Queries are made part of the Legal Health Record. If you have any questions, please contact the author of this message via ITS. Dr. Lawanda Krishna Severe symptomatic Anemia is documented in the H&P and consults and requires further specificity History/Risk Factors: ETOH, Anemia, Nausea, vomiting Clinical indicators: 07/05 H&P: "Anemia will recheck CBC is this evening, if needed will proceed with red blood cell transfusion, gastroenterology consult." 07/05 GI progress Note: Severe symptomatic anemia with a hemoglobin of 7.7 g/dL. Clinically no evidence of active ongoing bleeding." 07/04-07/06 Hemoglobin: 8.3/7.7/7.7/6.8 07/04-07/06 Hematocrit: 24.9/21.8/23.9/20.7 Treatment: 07/04 IV Multivit bag 07/04 1.5L IVF Bolus 0.9% NS followed by 130 cc/ hr In order to capture the severity of condition, please clarify the type of anemia and etiology if known. Chronic blood loss anemia Iron deficiency anemia Anemia due to malignancy Nutritional anemia Anemia of chronic disease Unable to determine Other, please specify (Last Form Revision: January 2020) Anemia of chronic disease MTDD
--- NOTE | 2020-07-06 23:52 | PN ---
PROGRESS NOTE Patient is a 55-year-old white male with history of alcoholic cirrhosis of the liver, admitted to the hospital with nausea, vomiting, diarrhea, altered mental status. The patient is going through alcohol withdrawal currently and remains somewhat confused. He is being monitored in the intensive care unit closely. We saw him on consultation yesterday for anemia with a hemoglobin of 7.7. Today he dropped his hemoglobin to 6.8 g/dL. As per the nursing staff, he had 2 brown bowel movements today. No nausea, vomiting that was documented. The patient is very confused. PHYSICAL EXAMINATION: He appears comfortable. No apparent distress. Vital signs are stable. Blood pressure is 112/82, pulse rate 104, temperature 98. HEENT EXAMINATION: Unremarkable. Conjunctivae pale. Sclerae anicteric. Oral cavity, no lesions. NECK: No JVD or lymph node enlargement. CHEST: Clear to auscultation. HEART: Regular rate and rhythm. ABDOMEN: Soft. Bowel sounds are positive. EXTREMITIES: No pedal edema. NEURO: He is very confused. LABS: WBC 8.8, hemoglobin 6.8, platelets 319. Basic metabolic panel is within normal limits. BUN 3, creatinine 0.46. Serum iron 25, TIBC 165, iron saturation 15%. Vitamin B12 and folate are normal. Ammonia level is less than 9. AST, ALT, T bilirubin and alkaline phosphatase are within normal limits. IMPRESSION: 1. Acute alcohol withdrawal. 2. Severe symptomatic anemia with a hemoglobin of 6.8. Iron indices consistent with iron deficiency. However, ferritin was not done. Clinically no evidence of active bleeding most likely dealing with upper gastrointestinal blood loss. 3. History of alcoholic cirrhosis of the liver. 4. Electrolyte abnormalities, improving. RECOMMENDATIONS: 1. Plan to continue close monitoring in ICU and treat alcohol withdrawal and watch for DTs. 2. Transfuse 1 unit of PRBC. 3. Monitor CBC on a daily basis. 4. No plans on any endoscopic intervention until his overall medical condition stabilizes. We will follow with you closely. Thank you for this consultation. MMODL / IJN: [id number] /
[2020-07-07] MEDS: LORazepam 2 MG/ML INJ IV PRN ×4 (00:03→21:43)
[2020-07-07] MEDS: SODIUM CHLORIDE 0.9% 1,000 ML IV SCH ×3 (02:08→18:03)
[2020-07-07 04:58] LABS: Anisocytosis Slight; Basophils % (A) 0 %; Eosinophils # (A) 0.1 k/uL (0-0.7); Eosinophils % (A) 1 %; HCT 21.5 % (39.0-53.0); Lymphocytes # (A) 1.5 k/uL (1.0-4.8); Lymphocytes % (A) 15 %; MCH 29.5 pg (25.0-35.0); MCHC 31.9 g/dL (31.0-37.0); MCV 92.5 fL (80.0-100.0); Mean Platelet Volume 7.1; Monocytes # (A) 0.5 k/uL (0-1.0); Monocytes % (A) 6 %; Neutrophils # (A) 7.1 k/uL (1.3-7.7); Neutrophils % (A) 76 %; Platelet Count 385 k/uL (150-450); RBC 2.33 m/uL (4.30-5.90); RDW 16.4 % (11.5-15.5); WBC 9.4 k/uL (3.8-10.6)
[2020-07-07 05:11] LABS: HGB 6.9 gm/dL (13.0-17.5)
[2020-07-07 05:12] LABS: African American GFR (CKD) >90 (>60 ml/min/1.73 sqM); Anion Gap 0 mmol/L; Blood Urea Nitrogen 2 mg/dL (9-20); Calcium 8.1 mg/dL (8.4-10.2); Carbon Dioxide 27 mmol/L (22-30); Chloride 107 mmol/L (98-107); Glucose 94 mg/dL (74-99); Non-African American GFR(CKD) >90 (>60 ml/min/1.73 sqM); Potassium 3.7 mmol/L (3.5-5.1); Sodium 134 mmol/L (137-145)
[2020-07-07] MEDS: POTASSIUM CHLORIDE 10 MEQ in WATER FOR INJECTION 1 100ML.BAG IVPB SCH ×2 (05:29→06:39)
[2020-07-07] MEDS: THIAMINE 100 MG TAB PO SCH ×2 (06:51→18:09)
--- NOTE | 2020-07-07 06:53 | XR ---
EXAMINATION TYPE: XR chest 1V portable DATE OF EXAM: 07/07/2020 CLINICAL HISTORY: Cough TECHNIQUE: Portable upright view of the chest obtained COMPARISON: 07/04/2020 FINDINGS: The cardiomediastinal silhouette is within normal limits for size. Pulmonary vasculature i s normal. Minimal bibasilar atelectasis. There is no focal air space opacity, pleural effusion, or pn eumothorax seen. The osseous structures are intact. IMPRESSION: No acute cardiopulmonary process.
[2020-07-07] MEDS: NICOTINE 21MG/24HR PATCH TRANSDERM SCH (07:45)
[2020-07-07] MEDS ORDERED: IPRATROPIUM-ALBUTEROL 3 ML NEB INHALATION PRN (07:50)
[2020-07-07] MEDS: IPRATROPIUM-ALBUTEROL 3 ML NEB INHALATION SCH ×4 (08:32→20:08)
--- NOTE | 2020-07-07 09:07 | P.PN ---
Subjective Progress Note Date: 07/07/20 Principal diagnosis: Alcoholic liver disease with liver cirrhosis, rule out acute alcohol withdrawal syndrome, possible urinary tract infection, chronic anemia 55-year-old white male patient with history of heavy alcohol abuse who was admitted to the hospital on 07/04/2020 when she was brought in by his for evaluation of altered mental status. In the ER she was also hypotensive, and hemoglobin was 8.3, with no evidence of active bleeding. He was given IV fluid boluses, and his hemoglobin has been trending down over the last couple of days. 6.9 and today's labs, and patient denies any abdominal pain, there has been no evidence of active bleeding since admission. Patient has been being monitored in the ICU, he is awake and alert, he is only oriented to person, his chem ICU is positive on today's exam. He has a vice president safety at the bedside. he thought he was in [place]. He denies any acute distress, there is audible wheezing on today's exam. He has a congested cough. Patient is a chronic smoker. Today's chest x-ray shows no acute cardiopulmonary process. Abdomen is nontender, GI service is following, aorta to the unit of blood for hemoglobin of 6.9 this morning. Sinus tachycardia on the monitor, with a rate of 120 BPM. Blood pressure is 115/99, patient is on room air, with a pulse ox of 100%. Afebrile, denies any chills. White blood cell count is 9.4, platelet count is 385, serum sodium is 134, the rest of the electrolytes were within normal limits, B1 is 2 and creatinine 0.49, LFTs were within normal limits. Yesterday his urinalysis suggested presence of urinary tract infection, urine culture was sent and is pending, blood culture showed no growth at the 24-hour [place]. We started the patient on ceftriaxone empirically. IV fluids 0.9 and was seen at a rate of 1:30, patient is on CIWA protocol for acute alcohol withdrawal, however only required 1 mg of Ativan last night. No agitation. Patient is fairly cooperative. Objective - Vital Signs Vital signs: Vital Signs Temp 98.5 F 07/07/20 04:00 Pulse 116 H 07/07/20 07:00 Resp 22 07/07/20 07:00 BP 115/99 07/07/20 07:00 Pulse Ox 100 08/20/20 07:00 Intake & Output 07/06/20 07/07/20 07/07/20 18:59 06:59 18:59 Intake Total 1735 1430 130 Output Total 845 610 125 Balance 890 820 5 Weight 54.6 kg Intake: IV 1735 1430 130 Potassium Chloride 10 meq 200 In Water For Injection 1 100ml.bag @ 100 mls/hr IVPB Q1H [facility] Rx#: [id number] Sodium Chloride 0.9% 1, 1485 1430 130 000 ml @ 130 mls/hr IV . Q7H42M [facility] Rx#:[id number] cefTRIAXone 1 gm In 50 Sodium Chloride 0.9% 50 ml @ 100 mls/hr IVPB Q24HR [facility] Rx#:[id number] Output: Urine 845 610 125 Other: Voiding Method Indwelling Catheter Indwelling Catheter # Voids 1 - Exam GENERAL EXAM: Alert, slightly lethargic, a bit slow to respond, confused, with positive CAM-ICU, 55-year-old -[place] male, thin, resting in bed, remains pulse ox is 100%, vice president safety is at the bedside, comfortable in no apparent distress. HEAD: Normocephalic/atraumatic. EYES: Normal reaction of pupils, equal size. Conjunctiva pink, sclera white. NOSE: Clear with pink turbinates. THROAT: No erythema or exudates. NECK: No masses, no JVD, no thyroid enlargement, no adenopathy. CHEST: No chest wall deformity. Symmetrical expansion. LUNGS: Equal air entry with scattered wheezes, rhonchi CVS: Regular rate and rhythm, normal S1 and S2, no gallops, no murmurs, no rubs, tachycardic, in sinus mechanism ABDOMEN: Soft, nontender. No hepatosplenomegaly, normal bowel sounds, no guardi ng or rigidity. EXTREMITIES: No clubbing, no edema, no cyanosis, 2+ pulses and upper and lower extremities. MUSCULOSKELETAL: Muscle strength and tone normal. SPINE: No scoliosis or deformity SKIN: No rashes CENTRAL NERVOUS SYSTEM: Alert and oriented -1. No focal deficits, tone is normal in all 4 extremities. PSYCHIATRIC: Alert and oriented -1. Confused, not agitated - Labs CBC & Chem 7: 07/07/20 04:20 07/07/20 04:20 Labs: Abnormal Lab Results - Last 24 Hours (Table) 07/07/20 07/07/20 07/07/20 Range/Units 04:20 04:20 06:04 RBC 2.33 L (4.30-5.90) m/uL Hgb 6.9 L* (13.0-17.5) gm/dL Hct 21.5 L (39.0-53.0) % RDW 16.4 H (11.5-15.5) % Sodium 134 L (137-145) mmol/L BUN 2 L (9-20) mg/dL Creatinine 0.49 L (0.66-1.25) mg/dL Calcium 8.1 L (8.4-10.2) mg/dL Crossmatch See Detail Microbiology - Last 24 Hours (Table) 07/05/20 17:48 Blood Culture - Preliminary Blood No Growth after 24 hours 07/06/20 03:20 Urine Culture - Preliminary Urine,Voided Assessment and Plan Plan: Assessment: #1. Alcoholic liver disease with liver cirrhosis, rule out alcohol withdrawal syndrome #2. Hypotension, likely hypovolemic, related to poor oral intake, and active alcohol abuse, improved fluid resuscitation #3. Symptomatic anemia, with no sign of active bleeding, GI service is following, today's hemoglobin 6.9, patient will receive a unit of packed red blood cells. There may be a component of hemodilution related to IV fluid resuscitation #4. Acute exacerbation of COPD #5. Chronic alcohol abuse #6. Acute delirium likely related to acute alcohol withdrawal, and symptomatic anemia, and possibility of urinary tract infection is not excluded #7. History of chronic alcohol abuse and chronic tobacco abuse #8. GERD/reflux with history of GI bleeding in the past #9. History of hypertension #10. History of sleep apnea syndrome #11. Prior history of urinary tract infections Plan: Continue current medical treatment, continue the IV fluids, patient is tole rating oral diet, maintain aspiration precautions, maintain safety precautions, as a patient remains delirious. Monitor for signs of bleeding, so far there has not been a sign of active bleeding. GI service is following. Hemodynamically patient is stable, in our opinion we can hold off on the blood transfusion. Continue same antibiotics, awaiting results of urine culture, patient has been afebrile. Continue [place] protocol, we'll add breathing treatments. We'll continue monitoring the patient in the intensive care unit. I performed a history & physical examination of the patient and discussed their management with my nurse practitioner, Marilyn Rushing. I reviewed the nurse practitioner's note and agree with the documented findings and plan of care. Lung sounds are positive for diffuse wheezes throughout the lung truong. The findings and the impression was discussed with the patient. I attest to the documentation by the nurse practitioner. Time with Patient: Less than 30
--- NOTE | 2020-07-07 19:11 | PN ---
PROGRESS NOTE DATE OF SERVICE: 07/07/2020 HISTORY OF PRESENT ILLNESS: Patient is a 57-year-old white male admitted to the hospital with acute alcoholic intoxication and presently undergoing alcohol withdrawal. He remains in the intensive care unit. He continues to have persistent anemia. He dropped his hemoglobin to 6.8 g/dL today. Clinically no evidence of active bleeding. He received one unit of PRBC transfusion. No prior history of EGD or colonoscopy in the past. PHYSICAL EXAMINATION: He appears comfortable. No apparent distress. Vital signs stable. Blood pressure is 112/82, pulse rate 109 temperature 98.7. HEENT: Examination unremarkable. Conjunctivae pink. Sclerae anicteric. Oral cavity no lesions. NECK: No JVD or lymph node enlargement. CHEST:Clear to auscultation. HEART: Regular rate and rhythm. ABDOMEN: Soft. EXTREMITIES: Mild tremors. No pedal edema. NEUROLOGIC: Awake, somewhat sleepy. LABS: WBC 9.4, hemoglobin 6.9, platelets 385. BUN and creatinine 2 and 0.49 respectively. Sodium is 134. IMPRESSION: 1. Acute alcohol withdrawal, gradually improving. 2. History of heavy alcohol abuse. 3. Severe symptomatic anemia and iron indices consistent with iron deficiency anemia. No prior history of EGD or colonoscopy in the past. Clinically no evidence of active bleeding. RECOMMENDATION: 1. Monitor the patient closely in the ICU. 2. Repeat CBC in the morning. 3. Obtain ferritin level. 4. Consider EGD and colonoscopy prior to discharge from the hospital as a part of evaluation of anemia. Thank you for this consultation. MMANGELL / JASIELN: [id number] /
--- NOTE | 2020-07-07 19:21 | P.PN ---
Subjective Progress Note Date: 07/07/20 Fercho Yen, is a 55-year-old male with known history of excessive alcohol use and history of liver cirrhosis who was brought in to [facility] emergency room by his due to mental status changes was confusion patient was also having weight loss, he was drinking alcohol up to 2 days prior to admission then he was not feeling well and he stopped drinking alcohol and stopped eating and drinking for 2-3 days. Patient was evaluated in emergency room, he was febrile temperature 97.7 pulse 60 respiration 16 blood pressure was significantly low at 71/59 pulse ox 94% on room air white blood count was 8.7 hemoglobin 8.3 platelet count 260 sodium was low at 126 potassium was low at 2.5 serum alcohol level was 21. Patient was admitted to intensive care unit he was started on IV fluid and potassium replacement protocol. Chest x-ray was done in the emergency room and did not reveal any active cardiopulmonary disease, computed tomography scan done in the emergency room revealed cerebral atrophy no acute intracranial abnormality, abdomen ultrasound done did not reveal any evidence of sizable ascites, urine analysis and blood culture were done and were ordered in ICU. On 07/06/2020 patient was seen and examined on the medical floor he is more somnolent he responds to stimuli otherwise he denies any complaints blood pressure is improved today urine analysis revealed evidence of urinary tract infection patient was started on IV Rocephin more globin is down to 6.8, On 07/07/2020 patient was seen and examined in the ICU he is alert and oriented 3 in no apparent distress he is answering questions appropriately today, there is no fever or chills no headache or dizziness no chest pain no shortness of breath no cough no nausea or vomiting no abdominal pain. No burning with urination no frequency or urgency and no hematuria, he received 1 unit of red blood cells today Objective - Vital Signs Vital signs: Vital Signs Temp 98.2 F 07/07/20 09:39 Pulse 109 H 07/07/20 10:00 Resp 22 07/07/20 10:00 BP 107/74 07/07/20 10:00 Pulse Ox 100 07/07/20 10:00 Intake & Output 07/06/20 07/07/20 07/07/20 18:59 06:59 18:59 Intake Total 1735 1430 470 Output Total 845 610 475 Balance 890 820 -5 Weight 54.6 kg Intake: IV 1735 1430 470 Potassium Chloride 10 meq 200 In Water For Injection 1 100ml.bag @ 100 mls/hr IVPB Q1H [facility] Rx#: [id number] Sodium Chloride 0.9% 1, 1485 1430 420 000 ml @ 130 mls/hr IV . Q7H42M [facility] Rx#:[id number] cefTRIAXone 1 gm In 50 50 Sodium Chloride 0.9% 50 ml @ 100 mls/hr IVPB Q24HR [facility] Rx#:[id number] Blood Product 0 Rc As-1 Unit 0 [id number] Output: Urine 845 610 475 Other: Voiding Method Indwelling Catheter Indwelling Catheter # Voids 1 - Exam In general patient is alert slightly confused in no apparent distress HEENT head normocephalic and atraumatic Neck is supple no JVD no goiter no lymphadenopathy Chest exam reveals a few scattered crackles no wheezing Cardiac exam reveals regular heart sounds S1 and S2 no gallops no murmurs Abdomen is soft nontender no organomegaly with normal bowel sounds Extremity exam reveals no edema no cyanosis or clubbing Neurological examination reveals no gross focal deficit other than mild confusion - Labs CBC & Chem 7: 07/07/20 04:20 07/07/20 04:20 Labs: Abnormal Lab Results - Last 24 Hours (Table) 07/07/20 07/07/20 07/07/20 Range/Units 04:20 04:20 06:04 RBC 2.33 L (4.30-5.90) m/uL Hgb 6.9 L* (13.0-17.5) gm/dL Hct 21.5 L (39.0-53.0) % RDW 16.4 H (11.5-15.5) % Sodium 134 L (137-145) mmol/L BUN 2 L (9-20) mg/dL Creatinine 0.49 L (0.66-1.25) mg/dL Calcium 8.1 L (8.4-10.2) mg/dL Crossmatch See Detail Microbiology - Last 24 Hours (Table) 07/05/20 17:48 Blood Culture - Preliminary Blood No Growth after 24 hours 07/06/20 03:20 Urine Culture - Preliminary Urine,Voided Assessment and Plan Plan: 1. Mental status changes, likely related to chronic alcohol use and early alcohol withdrawal, on CIWA protocol 2. Hypotension patient was started on IV fluid, blood pressure stable, will ch sb urine analysis and blood culture to rule out any infectious etiology, critical care consult requested 3. Underlying history of liver cirrhosis, gastroenterology consult requested 4. Anemia will recheck CBC is this evening, if needed will proceed with red blood cell transfusion, gastroenterology consult 5. Hypokalemia correcting 6. Poor oral intake will advance diet gradually For DVT prophylaxis SCD stockings For GI prophylaxis patient on Protonix Will follow in a.m.
[2020-07-07 19:35] LABS: Anisocytosis Slight; HCT 27.7 % (39.0-53.0); MCH 28.2 pg (25.0-35.0); MCHC 31.7 g/dL (31.0-37.0); MCV 88.9 fL (80.0-100.0); Platelet Count 383 k/uL (150-450); RBC 3.11 m/uL (4.30-5.90); RDW 17.9 % (11.5-15.5); WBC 11.7 k/uL (3.8-10.6)
[2020-07-07 19:40] LABS: HGB 8.8 gm/dL (13.0-17.5)
[2020-07-08] MEDS: SODIUM CHLORIDE 0.9% 1,000 ML IV SCH ×3 (03:28→16:50)
[2020-07-08] MEDS: IPRATROPIUM-ALBUTEROL 3 ML NEB INHALATION SCH ×4 (07:53→19:57)
[2020-07-08 09:06] LABS: ALT 18 U/L (4-49); AST 20 U/L (17-59); African American GFR (CKD) >90 (>60 ml/min/1.73 sqM); Alkaline Phosphatase 43 U/L (38-126); Anion Gap 3 mmol/L; Blood Urea Nitrogen 4 mg/dL (9-20); Carbon Dioxide 27 mmol/L (22-30); Chloride 108 mmol/L (98-107); Glucose 72 mg/dL (74-99); Non-African American GFR(CKD) >90 (>60 ml/min/1.73 sqM); Potassium 3.9 mmol/L (3.5-5.1); Sodium 138 mmol/L (137-145); Total Bilirubin 0.9 mg/dL (0.2-1.3); Total Protein 4.5 g/dL (6.3-8.2)
[2020-07-08 09:08] LABS: Anisocytosis Slight; Basophils % (A) 0 %; Eosinophils # (A) 0.1 k/uL (0-0.7); Eosinophils % (A) 1 %; HGB 8.1 gm/dL (13.0-17.5); Lymphocytes # (A) 1.1 k/uL (1.0-4.8); Lymphocytes % (A) 10 %; MCH 28.7 pg (25.0-35.0); MCHC 32.5 g/dL (31.0-37.0); MCV 88.3 fL (80.0-100.0); Mean Platelet Volume 7.1; Monocytes # (A) 0.8 k/uL (0-1.0); Monocytes % (A) 7 %; Neutrophils # (A) 8.7 k/uL (1.3-7.7); Neutrophils % (A) 81 %; Platelet Count 348 k/uL (150-450); RBC 2.83 m/uL (4.30-5.90); RDW 18.5 % (11.5-15.5); WBC 10.8 k/uL (3.8-10.6)
[2020-07-08] MEDS: LORazepam 2 MG/ML INJ IV PRN (09:48)
[2020-07-08] MEDS: NICOTINE 21MG/24HR PATCH TRANSDERM SCH (09:48)
[2020-07-08] MEDS: THIAMINE 100 MG TAB PO SCH ×2 (09:48→17:13)
--- NOTE | 2020-07-08 11:10 | P.PN ---
Subjective Progress Note Date: 07/08/20 Principal diagnosis: Alcoholic liver disease with liver cirrhosis, rule out acute alcohol withdrawal syndrome, possible urinary tract infection, chronic anemia 55-year-old white male patient with history of heavy alcohol abuse who was admitted to the hospital on 07/04/2020 when he was brought in by his for evaluation of altered mental status. In the ER she was also hypotensive, and hemoglobin was 8.3, with no evidence of active bleeding. He was given IV fluid boluses, and his hemoglobin has been trending down over the last couple of days. 6.9 and today's labs, and patient denies any abdominal pain, there has been no evidence of active bleeding since admission. Patient has been being monitored in the ICU, he is awake and alert, he is only oriented to person, his chem ICU is positive on today's exam. He has a human resources safety manager at the bedside. he thought he was in [place]. He denies any acute distress, there is audible wheezing on today's exam. He has a congested cough. Patient is a chronic smoker. Today's chest x-ray shows no acute cardiopulmonary process. Abdomen is nontender, GI service is following, aorta to the unit of blood for hemoglobin of 6.9 this morning. Sinus tachycardia on the monitor, with a rate of 120 BPM. Blood pressure is 115/99, patient is on room air, with a pulse ox of 100%. Afebrile, denies any chills. White blood cell count is 9.4, platelet count is 385, serum sodium is 134, the rest of the electrolytes were within normal limits, B1 is 2 and creatinine 0.49, LFTs were within normal limits. Yesterday his urinalysis s uggested presence of urinary tract infection, urine culture was sent and is pending, blood culture showed no growth at the 24-hour [place]. We started the patient on ceftriaxone empirically. IV fluids 0.9 and was seen at a rate of 1:30, patient is on CIWA protocol for acute alcohol withdrawal, however only required 1 mg of Ativan last night. No agitation. Patient is fairly cooperative. On 07/08/2020 patient seen in follow-up on the selective care unit, he is resting quietly in bed, appears to be in no acute distress, room air pulse ox is 98%, his been intermittently confused. Afebrile. Denies any shortness of breath, lung sounds are clear, last chest x-ray was on 07/07/2020, showing no a cute cardiopulmonary process. Patient was transfused with 1 unit of packed red blood cells yesterday, today hemoglobin is 8.1, clinically no evidence of bleeding. GI service is following. Patient is on antibiotics in the form of Rocephin for gram-negative bacilli in the urine culture, blood culture showed no growth. Patient has been afebrile. Objective - Vital Signs Vital signs: Vital Signs Temp 98 F 07/08/20 08:00 Pulse 99 07/08/20 08:00 Resp 18 07/08/20 08:00 BP 110/82 07/08/20 08:00 Pulse Ox 98 07/08/20 08:00 Intake & Output 07/07/20 07/08/20 07/08/20 18:59 06:59 18:59 Intake Total 1560 1170 Output Total 920 1200 690 Balance 640 -30 -690 Weight 56.5 kg Intake: IV 1250 1170 Sodium Chloride 0.9% 1, 1200 1170 000 ml @ 130 mls/hr IV . Q7H42M [facility] Rx#:[id number] cefTRIAXone 1 gm In 50 Sodium Chloride 0.9% 50 ml @ 100 mls/hr IVPB Q24HR [facility] Rx#:[id number] Blood Product 310 Rc As-1 Unit 310 [id number] Output: Urine 920 1200 690 Other: Voiding Method Indwelling Catheter Indwelling Catheter Indwelling Catheter - Exam GENERAL EXAM: Alert, slightly lethargic, a bit slow to respond, confused, with positive CAM-ICU, 55-year-old -[place] male, thin, resting in bed, remains pulse ox is 98%, human resources safety manager is at the bedside, comfortable in no apparent distress. HEAD: Normocephalic/atraumatic. EYES: Normal reaction of pupils, equal size. Conjunctiva pink, sclera white. NOSE: Clear with pink turbinates. THROAT: No erythema or exudates. NECK: No masses, no JVD, no thyroid enlargement, no adenopathy. CHEST: No chest wall deformity. Symmetrical expansion. LUNGS: Equal air entry with scattered wheezes, rhonchi CVS: Regular rate and rhythm, normal S1 and S2, no gallops, no murmurs, no rubs, tachycardic, in sinus mechanism ABDOMEN: Soft, nontender. No hepatosplenomegaly, normal bowel sounds, no guarding or rigidity. EXTREMITIES: No clubbing, no edema, no cyanosis, 2+ pulses and upper and lower extremities. MUSCULOSKELETAL: Muscle strength and tone normal. SPINE: No scoliosis or deformity SKIN: No rashes CENTRAL NERVOUS SYSTEM: Alert and oriented -1. No focal deficits, tone is normal in all 4 extremities. PSYCHIATRIC: Alert and oriented -1. Confused, not agitated - Labs CBC & Chem 7: 07/08/20 07:50 07/08/20 07:50 Labs: Abnormal Lab Results - Last 24 Hours (Table) 07/07/20 07/07/20 07/08/20 Range/Units 06:04 18:26 07:50 WBC 11.7 H 10.8 H (3.8-10.6) k/uL RBC 3.11 L 2.83 L (4.30-5.90) m/uL Hgb 8.8 L D 8.1 L (13.0-17.5) gm/dL Hct 27.7 L 25.0 L (39.0-53.0) % RDW 17.9 H 18.5 H (11.5-15.5) % Neutrophils # 8.7 H (1.3-7.7) k/uL Chloride (98-107) mmol/L BUN (9-20) mg/dL Creatinine (0.66-1.25) mg/dL Glucose (74-99) mg/dL Calcium (8.4-10.2) mg/dL Total Protein (6.3-8.2) g/dL Albumin (3.5-5.0) g/dL Crossmatch See Detail 07/08/20 Range/Units 07:50 WBC (3.8-10.6) k/uL RBC (4.30-5.90) m/uL Hgb (13.0-17.5) gm/dL Hct (39.0-53.0) % RDW (11.5-15.5) % Neutrophils # (1.3-7.7) k/uL Chloride 108 H (98-107) mmol/L BUN 4 L (9-20) mg/dL Creatinine 0.53 L (0.66-1.25) mg/dL Glucose 72 L (74-99) mg/dL Calcium 8.0 L (8.4-10.2) mg/dL Total Protein 4.5 L (6.3-8.2) g/dL Albumin 2.0 L (3.5-5.0) g/dL Crossmatch Microbiology - Last 24 Hours (Table) 07/05/20 17:48 Blood Culture - Preliminary Blood No Growth after 48 hours 07/06/20 03:20 Urine Culture - Preliminary Urine,Voided Gram Neg Bacilli Assessment and Plan Plan: Assessment: #1. Alcoholic liver disease with liver cirrhosis, rule out alcohol withdrawal syndrome #2. Hypotension, likely hypovolemic, related to poor oral intake, and active alcohol abuse, improved fluid resuscitation #3. Symptomatic anemia, with no sign of active bleeding, GI service is following, hemoglobin is 8.1 today status post transfusion with 1 unit of packed red blood cells #4. Acute exacerbation of COPD #5. Chronic alcohol abuse #6. Acute delirium likely related to acute alcohol withdrawal, and symptomatic anemia, and possibility of urinary tract infection is not excluded #7. History of chronic alcohol abuse and chronic tobacco abuse #8. GERD/reflux with history of GI bleeding in the past #9. History of hypertension #10. History of sleep apnea syndrome #11. Prior history of urinary tract infections Plan: Continue current medical treatment, recommend addressing patient's CODE STATUS, overall prognosis is extremely guarded. He has remained stable in the last 24 hours, denies any pulmonary complaints, intermittently confused, but no acute distress, maintain safety precautions, maintain aspiration precautions, pulmonary/critical care service will sign off and follow on as-needed basis. I performed a history & physical examination of the patient and discussed their management with my nurse practitioner, Marilyn Rushing. I reviewed the nurse practitioner's note and agree with the documented findings and plan of care. Lung sounds are positive for diffuse wheezes throughout the lung truong. The findings and the impression was discussed with the patient. I attest to the documentation by the nurse practitioner. Time with Patient: Less than 30
[2020-07-08] MEDS ORDERED: PEG 3350-NA SULF,BICARB,CL/KCL 4,000 ML BOTTLE PO ONE (15:00)
[2020-07-08] MEDS ORDERED: bisacodyL 5 MG TABLET.DR PO STA (15:21)
--- NOTE | 2020-07-08 15:51 | P.PN ---
Subjective Progress Note Date: 07/08/20 Fercho Yen, is a 55-year-old male with known history of excessive alcohol use and history of liver cirrhosis who was brought in to [facility] emergency room by his due to mental status changes was confusion patient was also having weight loss, he was drinking alcohol up to 2 days prior to admission then he was not feeling well and he stopped drinking alcohol and stopped eating and drinking for 2-3 days. Patient was evaluated in emergency room, he was febrile temperature 97.7 pulse 60 respiration 16 blood pressure was significantly low at 71/59 pulse ox 94% on room air white blood count was 8.7 hemoglobin 8.3 platelet count 260 sodium was low at 126 potassium was low at 2.5 serum alcohol level was 21. Patient was admitted to intensive care unit he was started on IV fluid and potassium replacement protocol. Chest x-ray was done in the emergency room and did not reveal any active cardiopulmonary disease, computed tomography scan done in the emergency room revealed cerebral atrophy no acute intracranial abnormality, abdomen ultrasound done did not reveal any evidence of sizable ascites, urine analysis and blood culture were done and were ordered in ICU. On 07/06/2020 patient was seen and examined on the medical floor he is more somnolent he responds to stimuli otherwise he denies any complaints blood pressure is improved today urine analysis revealed evidence of urinary tract infection patient was started on IV Rocephin more globin is down to 6.8, On 07/07/2020 patient was seen and examined in the ICU he is alert and oriented 3 in no apparent distress he is answering questions appropriately today, there is no fever or chills no headache or dizziness no chest pain no shortness of breath no cough no nausea or vomiting no abdominal pain. No burning with urination no frequency or urgency and no hematuria, he received 1 unit of red blood cells today. On 07/08/2020, patient was seen and examined on the medical floor, he is somnolent but arousable in no apparent distress, there is no fever or chills no headache or dizziness no chest pain no shortness of breath no cough no nausea or vomiting no abdominal pain no diarrhea no burning with urination no frequency or urgency no hematuria, he had very poor oral intake so far, he was counseled in length he seems to understand, if the oral intake does not improve patient may need a nasogastric tube feeding. Objective - Vital Signs Vital signs: Vital Signs Temp 98.2 F 07/08/20 11:26 Pulse 104 H 07/08/20 12:00 Resp 18 07/08/20 12:00 BP 102/69 07/08/20 11:26 Pulse Ox 99 07/08/20 11:26 Intake & Output 07/07/20 07/08/20 07/08/20 18:59 06:59 18:59 Intake Total 1560 1170 Output Total 920 1200 690 Balance 640 -30 -690 Weight 56.5 kg 56.5 kg Intake: IV 1250 1170 Sodium Chloride 0.9% 1, 1200 1170 000 ml @ 130 mls/hr IV . Q7H42M [facility] Rx#:[id number] cefTRIAXone 1 gm In 50 Sodium Chloride 0.9% 50 ml @ 100 mls/hr IVPB Q24HR [facility] Rx#:[id number] Blood Product 310 Rc As-1 Unit 310 [id number] Output: Urine 920 1200 690 Other: Voiding Method Indwelling Catheter Indwelling Catheter Indwelling Catheter - Exam In general patient is alert slightly confused in no apparent distress HEENT head normocephalic and atraumatic Neck is supple no JVD no goiter no lymphadenopathy Chest exam reveals a few scattered crackles no wheezing Cardiac exam reveals regular heart sounds S1 and S2 no gallops no murmurs Abdomen is soft nontender no organomegaly with normal bowel sounds Extremity exam reveals no edema no cyanosis or clubbing Neurological examination reveals no gross focal deficit other than mild confusion - Labs CBC & Chem 7: 07/08/20 07:50 07/08/20 07:50 Labs: Abnormal Lab Results - Last 24 Hours (Table) 07/07/20 07/08/20 07/08/20 Range/Units 18:26 07:50 07:50 WBC 11.7 H 10.8 H (3.8-10.6) k/uL RBC 3.11 L 2.83 L (4.30-5.90) m/uL Hgb 8.8 L D 8.1 L (13.0-17.5) gm/dL Hct 27.7 L 25.0 L (39.0-53.0) % RDW 17.9 H 18.5 H (11.5-15.5) % Neutrophils # 8.7 H (1.3-7.7) k/uL Chloride 108 H (98-107) mmol/L BUN 4 L (9-20) mg/dL Creatinine 0.53 L (0.66-1.25) mg/dL Glucose 72 L (74-99) mg/dL Calcium 8.0 L (8.4-10.2) mg/dL Total Protein 4.5 L (6.3-8.2) g/dL Albumin 2.0 L (3.5-5.0) g/dL Microbiology - Last 24 Hours (Table) 07/06/20 03:20 Urine Culture - Final Urine,Voided Klebsiella pneumoniae 07/05/20 17:48 Blood Culture - Preliminary Blood No Growth after 48 hours Assessment and Plan Plan: 1. Mental status changes, likely related to chronic alcohol use and early alcohol withdrawal, on CIWA protocol 2. Hypotension patient was started on IV fluid, blood pressure stable, will check urine analysis and blood culture to rule out any infectious etiology, critical care consult requested 3. Underlying history of liver cirrhosis, gastroenterology consult requested 4. Anemia will recheck CBC is this evening, if needed will proceed with red blood cell transfusion, gastroenterology consult 5. Hypokalemia correcting 6. Poor oral intake will advance diet gradually For DVT prophylaxis SCD stockings For GI prophylaxis patient on Protonix Will follow in a.m.
--- NOTE | 2020-07-08 18:43 | PN ---
PROGRESS NOTE DATE OF DICTATION: 07/08/2020 Patient is a 55-year-old pleasant white male admitted to the hospital with acute alcohol intoxication followed by acute alcohol withdrawal. While in the hospital he was noted to have a hemoglobin of 6.8 requiring a unit of blood transfusion. Iron indices are consistent with iron deficiency anemia. The patient denies any symptoms today. He does complain of fatigue and weakness. Otherwise doing well. PHYSICAL EXAMINATION: Appears comfortable. No apparent distress. Vital signs are stable. Blood pressure is 126/74, pulse rate 96, temperature 97.2. HEENT examination unremarkable. Conjunctivae pink. Sclerae anicteric. Oral cavity no lesions. NECK: No JVD or lymph node enlargement. CHEST: Clear to auscultation. HEART: Regular rate and rhythm. ABDOMEN: Soft. Bowel sounds are positive. No organomegaly. EXTREMITIES: No pedal edema. NEUROLOGIC: Alert and oriented x3. No focal deficits. LABS: Labs from today show WBC 10.8, hemoglobin 8.1, platelets 348. Rest of the labs are within normal limits. AST, ALT, T-bilirubin and alkaline phosphatase are normal. BUN and creatinine normal. IMPRESSION: 1. Iron deficiency anemia with a hemoglobin of 6.8, status post one unit of PRBC transfusion. Clinically no evidence of active bleeding. There was questionable dark-colored stool last night. 2. History of heavy alcohol abuse. 3. Alcohol withdrawal, resolved. RECOMMENDATIONS: In regard to the iron deficiency, we will proceed with an EGD and colonoscopy tomorrow. Discussed with the patient as well as his and they are agreeable to it. He is scheduled for the procedure tomorrow. Thank you for this consultation. MMODL / IJN: [id number] /
[2020-07-09] MEDS: SODIUM CHLORIDE 0.9% 1,000 ML IV SCH ×2 (00:41→08:41)
[2020-07-09 06:43] LABS: Anisocytosis Slight; Basophils % (A) 0 %; Eosinophils # (A) 0.1 k/uL (0-0.7); Eosinophils % (A) 1 %; HCT 25.8 % (39.0-53.0); HGB 8.2 gm/dL (13.0-17.5); Hypochromasia Slight; Lymphocytes % (A) 9 %; MCH 27.9 pg (25.0-35.0); MCHC 31.8 g/dL (31.0-37.0); MCV 87.7 fL (80.0-100.0); Mean Platelet Volume 7.1; Monocytes # (A) 0.7 k/uL (0-1.0); Monocytes % (A) 7 %; Neutrophils # (A) 9.1 k/uL (1.3-7.7); Neutrophils % (A) 82 %; Platelet Count 333 k/uL (150-450); RBC 2.95 m/uL (4.30-5.90)
[2020-07-09] MEDS: THIAMINE 100 MG TAB PO SCH ×2 (07:01→18:03)
[2020-07-09 07:11] LABS: ALT 19 U/L (4-49); AST 23 U/L (17-59); African American GFR (CKD) >90 (>60 ml/min/1.73 sqM); Alkaline Phosphatase 45 U/L (38-126); Anion Gap 9 mmol/L; Blood Urea Nitrogen 6 mg/dL (9-20); Calcium 7.6 mg/dL (8.4-10.2); Carbon Dioxide 22 mmol/L (22-30); Chloride 108 mmol/L (98-107); Glucose 58 mg/dL (74-99); Non-African American GFR(CKD) >90 (>60 ml/min/1.73 sqM); Potassium 3.6 mmol/L (3.5-5.1); Sodium 139 mmol/L (137-145); Total Bilirubin 0.8 mg/dL (0.2-1.3); Total Protein 4.6 g/dL (6.3-8.2)
[2020-07-09] MEDS ORDERED: PROPOFOL 10 MG/ML 20 ML VIAL IV ONE (07:20)
[2020-07-09] MEDS ORDERED: LIDOCAINE 1% INJ 10MG/ML (20 ML MDV) ONE (07:20)
[2020-07-09] MEDS ORDERED: IV FLUID CONTINUATION 400 ML IV ONE (07:41)
--- NOTE | 2020-07-09 07:49 | P.PCN ---
Date of Procedure: 07/09/20 Procedure(s) Performed: BRIEF HISTORY: Patient is a 55-year-old, pleasant, white male with history of heavy alcohol abuse admitted to the hospital with altered mental status and acute alcohol withdrawn. He was noted to have anemia with a hemoglobin of 6.8 and iron indices consistent with iron deficiency anemia. He also has intermittent dark colored stools. He is scheduled for an upper endoscopy as well as colonoscopy today. However he did not take his colon prep. PROCEDURE PERFORMED: Esophagogastroduodenoscopy with biopsy. PREOPERATIVE DIAGNOSIS: And deficiency anemia and black stool. IV sedation per anesthesia. PROCEDURE: After informed consent was obtained, the patient was brought into the endoscopy unit. IV sedation was administered by Anesthesia under continuous monitoring. Initially the Olympus GIF-140 video endoscope was inserted into the mouth. Esophagus intubated without any difficulty. It was gradually advanced into the stomach and duodenum and carefully examined. The bulb and the second part of the duodenum had mild duodenitis. Biopsies were done from this area.. The scope at this time was withdrawn to the stomach, adequately insufflated with air, and upon careful examination, mucosa of the antrum, body, cardia and the fundus is diffuse Gastritis with small amount of old blood but no active bleeding. No evidence of peptic ulcer disease. The scope was then withdrawn into the esophagus. Small hiatal hernia noted The GE junction was located at 39 cm from the incisors. The esophagus appeared normal. There were no erosions or ulcerations seen and the patient tolerated the procedure well. IMPRESSION: 1. Diffuse gastritis involving the entire stomach with small amount of old blood but no active bleeding. 2. No evidence of gastric or esophageal varices. 3. Mild duodenitis 4. Small hiatal hernia RECOMMENDATIONS: The findings of this examination were discussed with the patient , he was advised to follow with the biopsy results. Diet will be advanced as tolerated. He can have an outpatient colonoscopy in the near future
[2020-07-09] MEDS: IPRATROPIUM-ALBUTEROL 3 ML NEB INHALATION SCH ×4 (08:11→19:36)
[2020-07-09] MEDS: NICOTINE 21MG/24HR PATCH TRANSDERM SCH (08:41)
--- NOTE | 2020-07-09 11:27 | P.PN ---
Subjective Progress Note Date: 07/09/20 Fercho Yen, is a 55-year-old male with known history of excessive alcohol use and history of liver cirrhosis who was brought in to [facility] emergency room by his due to mental status changes was confusion patient was also having weight loss, he was drinking alcohol up to 2 days prior to admission then he was not feeling well and he stopped drinking alcohol and stopped eating and drinking for 2-3 days. Patient was evaluated in emergency room, he was febrile temperature 97.7 pulse 60 respiration 16 blood pressure was significantly low at 71/59 pulse ox 94% on room air white blood count was 8.7 hemoglobin 8.3 platelet count 260 sodium was low at 126 potassium was low at 2.5 serum alcohol level was 21. Patient was admitted to intensive care unit he was started on IV fluid and potassium replacement protocol. Chest x-ray was done in the emergency room and did not reveal any active cardiopulmonary disease, computed tomography scan done in the emergency room revealed cerebral atrophy no acute intracranial abnormality, abdomen ultrasound done did not reveal any evidence of sizable ascites, urine analysis and blood culture were done and were ordered in ICU. On 07/06/2020 patient was seen and examined on the medical floor he is more somnolent he responds to stimuli otherwise he denies any complaints blood pressure is improved today urine analysis revealed evidence of urinary tract infection patient was started on IV Rocephin more globin is down to 6.8, On 07/07/2020 patient was seen and examined in the ICU he is alert and oriented 3 in no apparent distress he is answering questions appropriately today, there is no fever or chills no headache or dizziness no chest pain no shortness of breath no cough no nausea or vomiting no abdominal pain. No burning with urination no frequency or urgency and no hematuria, he received 1 unit of red blood cells today. On 07/08/2020, patient was seen and examined on the medical floor, he is somnolent but arousable in no apparent distress, there is no fever or chills no headache or dizziness no chest pain no shortness of breath no cough no nausea or vomiting no abdominal pain no diarrhea no burning with urination no frequency or urgency no hematuria, he had very poor oral intake so far, he was counseled in length he seems to understand, if the oral intake does not improve patient may need a nasogastric tube feeding. On 07/09/2020 patient was seen and examined on the medical floor, he is more alert today, his still has very poor oral intake, he was counseled in length in regard to need to eat more, he is denying any symptoms at this time there is no fever or chills no headache or dizziness no chest pain no shortness of breath no cough no nausea or vomiting no abdominal pain no diarrhea no burning with urination no frequency or urgency no hematuria, will add physical therapy and occupational therapy and assess if patient needs after discharge Objective - Vital Signs Vital signs: Vital Signs Temp 98.0 F 07/09/20 04:18 Pulse 103 H 07/09/20 04:18 Resp 18 07/09/20 04:18 BP 130/74 07/09/20 04:18 Pulse Ox 100 07/09/20 04:18 Intake & Output 07/08/20 07/09/20 07/09/20 18:59 06:59 18:59 Intake Total 1140 Output Total 1490 700 Balance -1490 -700 1140 Weight 56.5 kg 56.5 kg Intake: IV 1140 Sodium Chloride 0.9% 1, 1040 000 ml @ 130 mls/hr IV . Q7H42M [facility] Rx#:[id number] Output: Urine 1490 700 Other: Voiding Method Indwelling Catheter # Bowel Movements 0 - Exam In general patient is alert slightly confused in no apparent distress HEENT head normocephalic and atraumatic Neck is supple no JVD no goiter no lymphadenopathy Chest exam reveals a few scattered crackles no wheezing Cardiac exam reveals regular heart sounds S1 and S2 no gallops no murmurs Abdomen is soft nontender no organomegaly with normal bowel sounds Extremity exam reveals no edema no cyanosis or clubbing Neurological examination reveals no gross focal deficit other than mild confusion - Labs CBC & Chem 7: 07/09/20 06:17 07/09/20 06:17 Labs: Abnormal Lab Results - Last 24 Hours (Table) 07/09/20 07/09/20 Range/Units 06:17 06:17 WBC 11.0 H (3.8-10.6) k/uL RBC 2.95 L (4.30-5.90) m/uL Hgb 8.2 L (13.0-17.5) gm/dL Hct 25.8 L (39.0-53.0) % RDW 18.0 H (11.5-15.5) % Neutrophils # 9.1 H (1.3-7.7) k/uL Chloride 108 H (98-107) mmol/L BUN 6 L (9-20) mg/dL Creatinine 0.50 L (0.66-1.25) mg/dL Glucose 58 L (74-99) mg/dL Calcium 7.6 L (8.4-10.2) mg/dL Total Protein 4.6 L (6.3-8.2) g/dL Albumin 2.0 L (3.5-5.0) g/dL Microbiology - Last 24 Hours (Table) 07/05/20 17:48 Blood Culture - Preliminary Blood No Growth after 72 hours 07/06/20 03:20 Urine Culture - Final Urine,Voided Klebsiella pneumoniae Assessment and Plan Plan: 1. Mental status changes, likely related to chronic alcohol use and early alcohol withdrawal, on CIWA protocol 2. Hypotension patient was started on IV fluid, blood pressure stable, will check urine analysis and blood culture to rule out any infectious etiology, critical care consult requested 3. Underlying history of liver cirrhosis, gastroenterology consult requested 4. Anemia will recheck CBC is this evening, if needed will proceed with red blood cell transfusion, gastroenterology consult 5. Hypokalemia correcting 6. Poor oral intake will advance diet gradually For DVT prophylaxis SCD stockings For GI prophylaxis patient on Protonix Will follow in a.m.
[2020-07-09] MEDS ORDERED: SODIUM CHLORIDE 0.9% 1,000 ML IV STA (11:31)
[2020-07-09] MEDS: LORazepam 2 MG/ML INJ IV PRN ×2 (12:16→23:04)
[2020-07-10] MEDS: LORazepam 2 MG/ML INJ IV PRN ×2 (02:16→08:32)
[2020-07-10] MEDS: THIAMINE 100 MG TAB PO SCH ×2 (05:52→16:00)
[2020-07-10 06:21] LABS: Anisocytosis Slight; Basophils % (A) 0 %; Eosinophils # (A) 0.1 k/uL (0-0.7); Eosinophils % (A) 1 %; HCT 25.5 % (39.0-53.0); HGB 8.1 gm/dL (13.0-17.5); Hypochromasia Slight; Lymphocytes # (A) 0.9 k/uL (1.0-4.8); Lymphocytes % (A) 9 %; MCH 27.9 pg (25.0-35.0); MCHC 31.8 g/dL (31.0-37.0); MCV 87.8 fL (80.0-100.0); Mean Platelet Volume 7.4; Monocytes # (A) 0.8 k/uL (0-1.0); Monocytes % (A) 7 %; Neutrophils # (A) 8.7 k/uL (1.3-7.7); Neutrophils % (A) 81 %; Platelet Count 360 k/uL (150-450); RDW 17.7 % (11.5-15.5); WBC 10.7 k/uL (3.8-10.6)
[2020-07-10 06:47] LABS: ALT 19 U/L (4-49); AST 19 U/L (17-59); African American GFR (CKD) >90 (>60 ml/min/1.73 sqM); Albumin 2.1 g/dL (3.5-5.0); Alkaline Phosphatase 47 U/L (38-126); Anion Gap 6 mmol/L; Blood Urea Nitrogen 6 mg/dL (9-20); Calcium 7.3 mg/dL (8.4-10.2); Carbon Dioxide 23 mmol/L (22-30); Chloride 108 mmol/L (98-107); Glucose 76 mg/dL (74-99); Non-African American GFR(CKD) >90 (>60 ml/min/1.73 sqM); Potassium 3.4 mmol/L (3.5-5.1); Sodium 137 mmol/L (137-145); Total Protein 4.7 g/dL (6.3-8.2)
[2020-07-10] MEDS: IPRATROPIUM-ALBUTEROL 3 ML NEB INHALATION SCH ×4 (08:05→20:51)
[2020-07-10] MEDS: NICOTINE 21MG/24HR PATCH TRANSDERM SCH (08:59)
[2020-07-10] MEDS ORDERED: Potassium Replacement Protocol 1 EACH MISC MISCELLANE PRN ×2 (09:15→13:06)
--- NOTE | 2020-07-10 09:43 | P.PN ---
Subjective Progress Note Date: 07/10/20 Fercho Yen, is a 55-year-old male with known history of excessive alcohol use and history of liver cirrhosis who was brought in to [facility] emergency room by his due to mental status changes was confusion patient was also having weight loss, he was drinking alcohol up to 2 days prior to admission then he was not feeling well and he stopped drinking alcohol and stopped eating and drinking for 2-3 days. Patient was evaluated in emergency room, he was febrile temperature 97.7 pulse 60 respiration 16 blood pressure was significantly low at 71/59 pulse ox 94% on room air white blood count was 8.7 hemoglobin 8.3 platelet count 260 sodium was low at 126 potassium was low at 2.5 serum alcohol level was 21. Patient was admitted to intensive care unit he was started on IV fluid and potassium replacement protocol. Chest x-ray was done in the emergency room and did not reveal any active cardiopulmonary disease, computed tomography scan done in the emergency room revealed cerebral atrophy no acute intracranial abnormality, abdomen ultrasound done did not reveal any evidence of sizable ascites, urine analysis and blood culture were done and were ordered in ICU. On 07/06/2020 patient was seen and examined on the medical floor he is more somnolent he responds to stimuli otherwise he denies any complaints blood pressure is improved today urine analysis revealed evidence of urinary tract infection patient was started on IV Rocephin more globin is down to 6.8, On 07/07/2020 patient was seen and examined in the ICU he is alert and oriented 3 in no apparent distress he is answering questions appropriately today, there is no fever or chills no headache or dizziness no chest pain no shortness of breath no cough no nausea or vomiting no abdominal pain. No burning with urination no frequency or urgency and no hematuria, he received 1 unit of red blood cells today. On 07/08/2020, patient was seen and examined on the medical floor, he is somnolent but arousable in no apparent distress, there is no fever or chills no headache or dizziness no chest pain no shortness of breath no cough no nausea or vomiting no abdominal pain no diarrhea no burning with urination no frequency or urgency no hematuria, he had very poor oral intake so far, he was counseled in length he seems to understand, if the oral intake does not improve patient may need a nasogastric tube feeding. On 07/09/2020 patient was seen and examined on the medical floor, he is more alert today, his still has very poor oral intake, he was counseled in length in regard to need to eat more, he is denying any symptoms at this time there is no fever or chills no headache or dizziness no chest pain no shortness of breath no cough no nausea or vomiting no abdominal pain no diarrhea no burning with urination no frequency or urgency no hematuria, will add physical therapy and occupational therapy and assess if patient needs after discharge On 07/10/2020 patient was seen and examined on the medical floor he is alert slightly confused in no apparent distress nurse stated that he has been more agitated and slightly aggressive with staff he still has very poor oral intake otherwise he denies any complaints he has been refusing to keep telemetry box on there is no fever or chills no headache or dizziness no chest pain no shortness of breath no cough no nausea or vomiting no abdominal pain no diarrhea and no urinary symptoms Objective - Vital Signs Vital signs: Vital Signs Temp 97.8 F 07/10/20 04:10 Pulse 104 H 07/10/20 04:10 Resp 18 07/10/20 04:10 BP 98/56 07/10/20 04:10 Pulse Ox 100 07/10/20 04:10 Intake & Output 07/09/20 07/10/20 07/10/20 18:59 06:59 18:59 Intake Total 1240 Output Total 1400 Balance 1240 -1400 Weight 40 kg Intake: IV 1140 Sodium Chloride 0.9% 1, 1040 000 ml @ 130 mls/hr IV . Q7H42M [facility] Rx#:[id number] Oral 100 Output: Urine 1400 Other: Voiding Method Indwelling Catheter # Bowel Movements 0 - Exam In general patient is alert slightly confused in no apparent distress HEENT head normocephalic and atraumatic Neck is supple no JVD no goiter no lymphadenopathy Chest exam reveals a few scattered crackles no wheezing Cardiac exam reveals regular heart sounds S1 and S2 no gallops no murmurs Abdomen is soft nontender no organomegaly with normal bowel sounds Extremity exam reveals no edema no cyanosis or clubbing Neurological examination reveals no gross focal deficit other than mild confusion - Labs CBC & Chem 7: 07/10/20 05:15 07/10/20 05:15 Labs: Abnormal Lab Results - Last 24 Hours (Table) 07/10/20 07/10/20 Range/Units 05:15 05:15 WBC 10.7 H (3.8-10.6) k/uL RBC 2.90 L (4.30-5.90) m/uL Hgb 8.1 L (13.0-17.5) gm/dL Hct 25.5 L (39.0-53.0) % RDW 17.7 H (11.5-15.5) % Neutrophils # 8.7 H (1.3-7.7) k/uL Lymphocytes # 0.9 L (1.0-4.8) k/uL Potassium 3.4 L (3.5-5.1) mmol/L Chloride 108 H (98-107) mmol/L BUN 6 L (9-20) mg/dL Creatinine 0.48 L (0.66-1.25) mg/dL Calcium 7.3 L (8.4-10.2) mg/dL Total Protein 4.7 L (6.3-8.2) g/dL Albumin 2.1 L (3.5-5.0) g/dL Microbiology - Last 24 Hours (Table) 07/05/20 17:48 Blood Culture - Preliminary Blood No Growth after 96 hours Assessment and Plan Plan: 1. Mental status changes, likely related to chronic alcohol use and early alcohol withdrawal, on CIWA protocol 2. Hypotension patient was started on IV fluid, blood pressure stable, will check urine analysis and blood culture to rule out any infectious etiology, critical care consult requested 3. Underlying history of liver cirrhosis, gastroenterology consult requested 4. Anemia will recheck CBC is this evening, if needed will proceed with red blood cell transfusion, gastroenterology consult 5. Hypokalemia correcting 6. Poor oral intake will advance diet gradually For DVT prophylaxis SCD stockings For GI prophylaxis patient on Protonix Will follow in a.m.
[2020-07-10] MEDS: ALPRAZolam 0.25 MG TAB PO SCH ×3 (11:13→21:15)
--- NOTE | 2020-07-10 13:20 | XR ---
EXAMINATION TYPE: XR chest 1V portable DATE OF EXAM: 07/10/2020 CLINICAL HISTORY: Cough and possible aspiration progress study. TECHNIQUE: Single AP portable frontal view of the chest is obtained. COMPARISON: Chest x-ray from 3 days earlier and older studies FINDINGS: There is slightly more prominent bibasilar opacities though this may be exaggerated by non upright technique. Elevated left hemidiaphragm redemonstrated. Upper lungs are clear without pneumoth orax. Cardiac silhouette size stable and within normal limits. Osseous structures are intact. IMPRESSION: Bibasilar acute infiltrate and/or atelectasis and small to tiny bilateral pleural effusio ns on current study.
[2020-07-10] MEDS: POTASSIUM CHLORIDE ER 20 MEQ TAB.ER PO SCH ×2 (14:05→16:00)
--- NOTE | 2020-07-10 15:16 | PN ---
PROGRESS NOTE DATE OF SERVICE: 07/10/2020 The patient is a 55-year-old white male admitted to the hospital with altered mental status and alcohol withdrawal. Had a hemoglobin of 6.9. Iron indices consistent with iron deficiency anemia. He underwent an upper endoscopy yesterday that showed evidence of mild diffuse gastritis. He refused to drink his prep for the colonoscopy and hence it was canceled. The patient is somewhat sleepy today. He does not answer any questions. PHYSICAL EXAMINATION: VITAL SIGNS: Blood pressure is 131/84, pulse rate 90, temperature 98.4. HEENT examination unremarkable. Conjunctivae pink. Sclerae anicteric. Oral cavity no lesions. NECK no JVD. No lymph node enlargement. CHEST was auscultation. HEART: Regular rate and rhythm. ABDOMEN: Soft. Bowel sounds are positive. No organomegaly. EXTREMITIES: No pedal edema. NEUROLOGIC: Alert and oriented x3. No focal deficits. LABS: WBC 10.7, hemoglobin 8.1, platelets normal. BUN and creatinine normal. Rest of the labs are within normal limits. IMPRESSION: 1. Acute alcohol withdrawal, resolved. 2. Altered mental status with intermittent episodes of agitation. 3. Iron deficiency anemia, status post EGD yesterday that showed diffuse gastritis. He refused to have a colonoscopy at this time. RECOMMENDATIONS: 1. Continue to monitor CBC on a daily basis. 2. Recommended outpatient colonoscopy following discharge from the hospital. 3. Monitor labs. We will follow with you. Thank you for this consultation. MMODL / JASIELN: [id number] /
[2020-07-11 05:59] LABS: Anisocytosis Slight; Basophils % (A) 0 %; Eosinophils # (A) 0.2 k/uL (0-0.7); Eosinophils % (A) 2 %; HCT 23.8 % (39.0-53.0); HGB 7.8 gm/dL (13.0-17.5); Hypochromasia Slight; Lymphocytes # (A) 1.1 k/uL (1.0-4.8); Lymphocytes % (A) 10 %; MCH 28.6 pg (25.0-35.0); MCHC 32.6 g/dL (31.0-37.0); MCV 87.9 fL (80.0-100.0); Mean Platelet Volume 6.8; Monocytes # (A) 0.5 k/uL (0-1.0); Monocytes % (A) 5 %; Neutrophils # (A) 8.4 k/uL (1.3-7.7); Neutrophils % (A) 81 %; Platelet Count 374 k/uL (150-450); RBC 2.71 m/uL (4.30-5.90); RDW 17.1 % (11.5-15.5); WBC 10.4 k/uL (3.8-10.6)
[2020-07-11 06:12] LABS: ALT 16 U/L (4-49); AST 19 U/L (17-59); African American GFR (CKD) >90 (>60 ml/min/1.73 sqM); Alkaline Phosphatase 44 U/L (38-126); Anion Gap 3 mmol/L; Blood Urea Nitrogen 3 mg/dL (9-20); Calcium 7.7 mg/dL (8.4-10.2); Carbon Dioxide 25 mmol/L (22-30); Chloride 107 mmol/L (98-107); Glucose 78 mg/dL (74-99); Non-African American GFR(CKD) >90 (>60 ml/min/1.73 sqM); Potassium 3.7 mmol/L (3.5-5.1); Sodium 135 mmol/L (137-145); Total Bilirubin 0.9 mg/dL (0.2-1.3); Total Protein 4.6 g/dL (6.3-8.2)
[2020-07-11] MEDS: IPRATROPIUM-ALBUTEROL 3 ML NEB INHALATION SCH ×4 (07:19→19:16)
[2020-07-11] MEDS: THIAMINE 100 MG TAB PO SCH ×2 (08:00→16:45)
[2020-07-11] MEDS: NICOTINE 21MG/24HR PATCH TRANSDERM SCH (08:00)
[2020-07-11] MEDS: ALPRAZolam 0.25 MG TAB PO SCH ×3 (08:00→21:11)
[2020-07-11] MEDS: LORazepam 2 MG/ML INJ IV PRN (09:51)
[2020-07-11] MEDS ORDERED: POTASSIUM BICARBONATE/CIT AC 20 MEQ TABLET.EFF NG-TUBE SCH (12:00)
[2020-07-11] MEDS: PIPERACILLIN-TAZOBACTAM 3.375 GM in SODIUM CHLORIDE 0.9% 100 ML IVPB SCH ×3 (12:11→23:14)
--- NOTE | 2020-07-11 13:38 | P.PN ---
Subjective Progress Note Date: 07/11/20 On today's evaluation of a 2019, seeing the patient for a follow-up. The patient currently is afebrile. He is lethargic. He is slowing communicating. He has noisy breathing and a congested cough. Unable to bring up much sputum. Chest x-ray was repeated and the patient has some atelectatic changes in lung bases bilaterally. He was started on IV Zosyn. Once it was a template for. He remains on room air oxygen. No documented or reported or witnessed aspiration episodes. As mentioned earlier, this is a very debilitated 55-year-old alcoholic male patient with known history of liver cirrhosis. He did have some altered mentation throughout this hospitalization as the patient was drinking a lcohol excessively and he was drinking continuously since young age. He stopped eating and drinking few days prior to his hospitalization. No agitation. No tremulousness. No shakiness. CAT scan of the brain showed cerebral atrophy. Abdominal ultrasound showed no evidence of any ascites. On examination the patient has a large anterior wall hernia with an umbilical hernia in place. Patient had normal LFTs. Albumin is down to 2.0. He looks quite cachectic and malnourished. A baseline ammonia at a time of admission was less than 9. Objective - Vital Signs Vital signs: Vital Signs Temp 98 F 07/11/20 11:31 Pulse 118 H 07/11/20 11:31 Resp 20 07/11/20 11:31 BP 129/78 07/11/20 11:31 Pulse Ox 99 07/11/20 11:31 Intake & Output 07/10/20 07/11/20 07/11/20 18:59 06:59 18:59 Intake Total 150 550 Output Total 500 450 Balance -350 100 Intake: Intake, IV Titration 50 Amount cefTRIAXone 1 gm In 50 Sodium Chloride 0.9% 50 ml @ 100 mls/hr IVPB Q24HR [facility] Rx#:[id number] Oral 100 550 Output: Urine 500 450 Other: Voiding Method Indwelling Catheter Indwelling Catheter Indwelling Catheter - Exam GENERAL EXAM: Alert, slightly lethargic, confused and there is no significant agitation. He is comfortable in bed. No signs of any respiratory distress and currently is on room air oxygen. HEAD: Normocephalic/atraumatic. EYES: Normal reaction of pupils, equal size. Conjunctiva pink, sclera white. NOSE: Clear with pink turbinates. THROAT: No erythema or exudates. NECK: No masses, no JVD, no thyroid enlargement, no adenopathy. CHEST: No chest wall deformity. Symmetrical expansion. LUNGS: Equal air entry with scattered wheezes, rhonchi CVS: Regular rate and rhythm, normal S1 and S2, no gallops, no murmurs, no rubs, tachycardic, in sinus mechanism ABDOMEN: Soft, nontender. No hepatosplenomegaly, normal bowel sounds, no guarding or rigidity. The patient is an anterior abdominal wall hernia and an umbilical hernia. EXTREMITIES: No clubbing, no edema, no cyanosis, 2+ pulses and upper and lower extremities. MUSCULOSKELETAL: Muscle strength and tone normal. SPINE: No scoliosis or deformity SKIN: No rashes CENTRAL NERVOUS SYSTEM: Arousable, noncommunicating at this point in time. 4 extremities. No agitation. No restlessness. No tremors. Weak cough. PSYCHIATRIC: Alert and oriented -1. Confused, not agitated - Labs CBC & Chem 7: 07/11/20 05:39 07/11/20 05:39 Labs: Abnormal Lab Results - Last 24 Hours (Table) 07/11/20 07/11/20 Range/Units 05:39 05:39 RBC 2.71 L (4.30-5.90) m/uL Hgb 7.8 L (13.0-17.5) gm/dL Hct 23.8 L (39.0-53.0) % RDW 17.1 H (11.5-15.5) % Neutrophils # 8.4 H (1.3-7.7) k/uL Sodium 135 L (137-145) mmol/L BUN 3 L (9-20) mg/dL Creatinine 0.49 L (0.66-1.25) mg/dL Calcium 7.7 L (8.4-10.2) mg/dL Total Protein 4.6 L (6.3-8.2) g/dL Albumin 2.0 L (3.5-5.0) g/dL Microbiology - Last 24 Hours (Table) 07/05/20 17:48 Blood Culture - Preliminary Blood No Growth after 120 hours Assessment and Plan Plan: 1 acute bilateral lower lobe infiltrates, atelectasis versus aspiration on IV Zosyn. The patient remains on room air oxygen. 2 chronic alcoholism 3 chronic liver cirrhosis 4 altered mentation, ammonia level was less than 9 at time of admission. Consider metabolic encephalopathy. Alcohol withdrawal possibly still ongoing. Also consider the possibility of an underlying alcoholic dementia as the patient has significant cerebral atrophy on CAT scan imaging 5 chronic symptomatic anemia, current hemoglobin is at 7.8 6 COPD currently inactive in stable 7 chronic malnourishment 8 hypoproteinemia and hypoalbuminemia along with significant loss in total body protein mass and chronic malnourishment 9 hypertension 10 obstructive sleep apnea 11 significant debility secondary to above-mentioned comorbidities Plan Aspiration precautions DuoNeb nebulized treatments [id number] Continue IV Zosyn Continue thiamine Continue IV Protonix Recheck ammonia level
--- NOTE | 2020-07-11 17:50 | P.PN ---
Subjective Progress Note Date: 07/11/20 Fercho Yen, is a 55-year-old male with known history of excessive alcohol use and history of liver cirrhosis who was brought in to [facility] emergency room by his due to mental status changes was confusion patient was also having weight loss, he was drinking alcohol up to 2 days prior to admission then he was not feeling well and he stopped drinking alcohol and stopped eating and drinking for 2-3 days. Patient was evaluated in emergency room, he was febrile temperature 97.7 pulse 60 respiration 16 blood pressure was significantly low at 71/59 pulse ox 94% on room air white blood count was 8.7 hemoglobin 8.3 platelet count 260 sodium was low at 126 potassium was low at 2.5 serum alcohol level was 21. Patient was admitted to intensive care unit he was started on IV fluid and potassium replacement protocol. Chest x-ray was done in the emergency room and did not reveal any active cardiopulmonary disease, computed tomography scan done in the emergency room revealed cerebral atrophy no acute intracranial abnormality, abdomen ultrasound done did not reveal any evidence of sizable ascites, urine analysis and blood culture were done and were ordered in ICU. On 07/06/2020 patient was seen and examined on the medical floor he is more somnolent he responds to stimuli otherwise he denies any complaints blood pressure is improved today urine analysis revealed evidence of urinary tract infection patient was started on IV Rocephin more globin is down to 6.8, On 07/07/2020 patient was seen and examined in the ICU he is alert and oriented 3 in no apparent distress he is answering questions appropriately today, there is no fever or chills no headache or dizziness no chest pain no shortness of breath no cough no nausea or vomiting no abdominal pain. No burning with urination no frequency or urgency and no hematuria, he received 1 unit of red blood cells today. On 07/08/2020, patient was seen and examined on the medical floor, he is somnolent but arousable in no apparent distress, there is no fever or chills no headache or dizziness no chest pain no shortness of breath no cough no nausea or vomiting no abdominal pain no diarrhea no burning with urination no frequency or urgency no hematuria, he had very poor oral intake so far, he was counseled in length he seems to understand, if the oral intake does not improve patient may need a nasogastric tube feeding. On 07/09/2020 patient was seen and examined on the medical floor, he is more alert today, his still has very poor oral intake, he was counseled in length in regard to need to eat more, he is denying any symptoms at this time there is no fever or chills no headache or dizziness no chest pain no shortness of breath no cough no nausea or vomiting no abdominal pain no diarrhea no burning with urination no frequency or urgency no hematuria, will add physical therapy and occupational therapy and assess if patient needs after discharge On 07/10/2020 patient was seen and examined on the medical floor he is alert slightly confused in no apparent distress nurse stated that he has been more agitated and slightly aggressive with staff he still has very poor oral intake otherwise he denies any complaints he has been refusing to keep telemetry box on there is no fever or chills no headache or dizziness no chest pain no shortness of breath no cough no nausea or vomiting no abdominal pain no diarrhea and no urinary symptoms On 07/11/2020 patient was seen and examined on the medical floor he is alert slightly confused in no distress he is complaining of cough he is breathing sounds are coarse otherwise there is no complaints there is no fever or chills no headache or dizziness no chest pain no shortness of breath, no nausea or vomiting no abdominal pain no diarrhea no burning with urination no frequency or urgency and no hematuria. Chest x-ray reveals bilateral infiltrates and small pleural effusion will re-consult pulmonary in that regard Objective - Vital Signs Vital signs: Vital Signs Temp 98.9 F 07/11/20 05:09 Pulse 120 H 07/11/20 07:34 Resp 16 07/11/20 05:09 BP 108/73 07/11/20 05:09 Pulse Ox 99 07/11/20 05:09 Intake & Output 07/10/20 07/11/20 07/11/20 18:59 06:59 18:59 Intake Total 150 550 Output Total 500 450 Balance -350 100 Intake: Intake, IV Titration 50 Amount cefTRIAXone 1 gm In 50 Sodium Chloride 0.9% 50 ml @ 100 mls/hr IVPB Q24HR [facility] Rx#:[id number] Oral 100 550 Output: Urine 500 450 Other: Voiding Method Indwelling Catheter Indwelling Catheter Indwelling Catheter - Exam In general patient is alert slightly confused in no apparent distress HEENT head normocephalic and atraumatic Neck is supple no JVD no goiter no lymphadenopathy Chest exam reveals a few scattered crackles no wheezing Cardiac exam reveals regular heart sounds S1 and S2 no gallops no murmurs Abdomen is soft nontender no organomegaly with normal bowel sounds Extremity exam reveals no edema no cyanosis or clubbing Neurological examination reveals no gross focal deficit other than mild confusion - Labs CBC & Chem 7: 07/11/20 05:39 07/11/20 05:39 Labs: Abnormal Lab Results - Last 24 Hours (Table) 07/11/20 07/11/20 Range/Units 05:39 05:39 RBC 2.71 L (4.30-5.90) m/uL Hgb 7.8 L (13.0-17.5) gm/dL Hct 23.8 L (39.0-53.0) % RDW 17.1 H (11.5-15.5) % Neutrophils # 8.4 H (1.3-7.7) k/uL Sodium 135 L (137-145) mmol/L BUN 3 L (9-20) mg/dL Creatinine 0.49 L (0.66-1.25) mg/dL Calcium 7.7 L (8.4-10.2) mg/dL Total Protein 4.6 L (6.3-8.2) g/dL Albumin 2.0 L (3.5-5.0) g/dL Microbiology - Last 24 Hours (Table) 07/05/20 17:48 Blood Culture - Preliminary Blood No Growth after 120 hours Assessment and Plan Plan: 1. Mental status changes, likely related to chronic alcohol use and early alcohol withdrawal, on CIWA protocol 2. Hypotension patient was started on IV fluid, blood pressure stable, will check urine analysis and blood culture to rule out any infectious etiology, critical care consult requested 3. Underlying history of liver cirrhosis, gastroenterology consult requested 4. Anemia will recheck CBC is this evening, if needed will proceed with red blood cell transfusion, gastroenterology consult 5. Hypokalemia correcting 6. Poor oral intake will advance diet gradually 7. By basilar infiltrate with small pleural effusion, possible pneumonia antibiotic were switched to Zosyn, will reconsult pulmonary For DVT prophylaxis SCD stockings For GI prophylaxis patient on Protonix Will follow in a.m.
[2020-07-11 19:44] LABS: % Iron Saturation 13.41 (15.00-50.00)
[2020-07-12 07:41] LABS: Anisocytosis Slight; Basophils % (A) 0 %; Eosinophils # (A) 0.1 k/uL (0-0.7); Eosinophils % (A) 1 %; Hypochromasia Slight; Lymphocytes # (A) 1.2 k/uL (1.0-4.8); Lymphocytes % (A) 10 %; MCH 28.4 pg (25.0-35.0); MCV 88.8 fL (80.0-100.0); Monocytes # (A) 0.5 k/uL (0-1.0); Monocytes % (A) 5 %; Neutrophils # (A) 9.5 k/uL (1.3-7.7); Neutrophils % (A) 83 %; Platelet Count 381 k/uL (150-450); RBC 2.82 m/uL (4.30-5.90); RDW 16.4 % (11.5-15.5); WBC 11.5 k/uL (3.8-10.6)
[2020-07-12 07:51] LABS: ALT 16 U/L (4-49); AST 17 U/L (17-59); African American GFR (CKD) >90 (>60 ml/min/1.73 sqM); Albumin 2.1 g/dL (3.5-5.0); Alkaline Phosphatase 50 U/L (38-126); Anion Gap 4 mmol/L; Blood Urea Nitrogen 6 mg/dL (9-20); Calcium 7.6 mg/dL (8.4-10.2); Carbon Dioxide 27 mmol/L (22-30); Chloride 107 mmol/L (98-107); Glucose 66 mg/dL (74-99); Non-African American GFR(CKD) >90 (>60 ml/min/1.73 sqM); Potassium 3.6 mmol/L (3.5-5.1); Sodium 138 mmol/L (137-145); Total Bilirubin 0.9 mg/dL (0.2-1.3); Total Protein 4.8 g/dL (6.3-8.2)
[2020-07-12] MEDS: NICOTINE 21MG/24HR PATCH TRANSDERM SCH (07:53)
[2020-07-12] MEDS: ALPRAZolam 0.25 MG TAB PO SCH ×3 (07:53→21:35)
[2020-07-12] MEDS: THIAMINE 100 MG TAB PO SCH ×2 (07:53→16:45)
[2020-07-12] MEDS: PIPERACILLIN-TAZOBACTAM 3.375 GM in SODIUM CHLORIDE 0.9% 100 ML IVPB SCH ×3 (08:48→23:26)
[2020-07-12] MEDS: IPRATROPIUM-ALBUTEROL 3 ML NEB INHALATION SCH ×4 (08:53→20:37)
--- NOTE | 2020-07-12 11:03 | P.PN ---
Subjective Progress Note Date: 07/12/20 Principal diagnosis: Alcoholic liver disease with liver cirrhosis, rule out acute alcohol withdrawal syndrome, possible urinary tract infection, chronic anemia 55-year-old white male patient with history of heavy alcohol abuse who was admitted to the hospital on 07/04/2020 when he was brought in by his for evaluation of altered mental status. In the ER she was also hypotensive, and hemoglobin was 8.3, with no evidence of active bleeding. He was given IV fluid boluses, and his hemoglobin has been trending down over the last couple of days. 6.9 and today's labs, and patient denies any abdominal pain, there has been no evidence of active bleeding since admission. Patient has been being monitored in the ICU, he is awake and alert, he is only oriented to person, his chem ICU is positive on today's exam. He has a safety and occupational health manager at the bedside. he thought he was in [place]. He denies any acute distress, there is audible wheezing on today's exam. He has a congested cough. Patient is a chronic smoker. Today's chest x-ray shows no acute cardiopulmonary process. Abdomen is nontender, GI service is following, aorta to the unit of blood for hemoglobin of 6.9 this morning. Sinus tachycardia on the monitor, with a rate of 120 BPM. Blood pressure is 115/99, patient is on room air, with a pulse ox of 100%. Afebrile, denies any chills. White blood cell count is 9.4, platelet count is 385, serum sodium is 134, the rest of the electrolytes were within normal limits, B1 is 2 and creatinine 0.49, LFTs were within normal limits. Yesterday his urinalysis s uggested presence of urinary tract infection, urine culture was sent and is pending, blood culture showed no growth at the 24-hour [place]. We started the patient on ceftriaxone empirically. IV fluids 0.9 and was seen at a rate of 1:30, patient is on CIWA protocol for acute alcohol withdrawal, however only required 1 mg of Ativan last night. No agitation. Patient is fairly cooperative. On 07/11/2020 patient seen in follow-up on the selective care unit, he is resting quietly in bed, appears to be in no acute distress, room air pulse ox is 98%, his been intermittently confused. Afebrile. Denies any shortness of breath, lung sounds are clear, last chest x-ray was on 07/07/2020, showing no a cute cardiopulmonary process. Patient was transfused with 1 unit of packed red blood cells yesterday, today hemoglobin is 8.1, clinically no evidence of bleeding. GI service is following. Patient is on antibiotics in the form of Rocephin for gram-negative bacilli in the urine culture, blood culture showed no growth. Patient has been afebrile. On 07/12/2020 patient seen in follow-up on general medical surgical floor, she is more awake today, more interactive, room air pulse ox is 97%, no complaints of shortness of breath, today's hemoglobin is 8.0, no active bleeding, serum ammonia level came back at less than 9. No new chest x-ray, last chest x-ray was done on 07/10/2020 showing bibasilar Infiltrates and/or atelectasis and small tiny bilateral pleural effusions, clinically patient is asymptomatic, room air pulse ox is 97%, afebrile, and he is on Zosyn for antibiotic coverage, and nebulized bronchodilators. No hemoptysis, no chest pain breathing is comfortable, Objective - Vital Signs Vital signs: Vital Signs Temp 97.6 F 07/12/20 05:00 Pulse 108 H 07/12/20 08:53 Resp 16 07/12/20 05:00 BP 106/72 07/12/20 05:00 Pulse Ox 97 07/12/20 05:00 Intake & Output 07/11/20 07/12/20 07/12/20 18:59 06:59 18:59 Intake Total 100 Output Total 700 1700 Balance -700 -1600 Weight 40 kg Intake: Intake, IV Titration 100 Amount Piperacillin-Tazobactam 3 100 .375 gm In Sodium Chloride 0.9% 100 ml @ 25 mls/hr IVPB Q8HR [facility] Rx# :[id number] Output: Urine 700 1700 Uretheral (Painter) 700 700 Other: Voiding Method Indwelling Catheter Indwelling Catheter Indwelling Catheter # Voids 0 # Bowel Movements 1 1 - Exam GENERAL EXAM: Alert, less confused 55-year-old -[place] male, thin, resting in bed, with room air pulse ox of 97% comfortable in no apparent distress. HEAD: Normocephalic/atraumatic. EYES: Normal reaction of pupils, equal size. Conjunctiva pink, sclera white. NOSE: Clear with pink turbinates. THROAT: No erythema or exudates. NECK: No masses, no JVD, no thyroid enlargement, no adenopathy. CHEST: No chest wall deformity. Symmetrical expansion. LUNGS: Equal air entry with scattered wheezes, rhonchi CVS: Regular rate and rhythm, normal S1 and S2, no gallops, no murmurs, no rubs, tachycardic, in sinus mechanism ABDOMEN: Soft, nontender. No hepatosplenomegaly, normal bowel sounds, no guarding or rigidity. EXTREMITIES: No clubbing, no edema, no cyanosis, 2+ pulses and upper and lower extremities. MUSCULOSKELETAL: Muscle strength and tone normal. SPINE: No scoliosis or deformity SKIN: No rashes CENTRAL NERVOUS SYSTEM: Alert and oriented -2. No focal deficits, tone is normal in all 4 extremities. PSYCHIATRIC: Alert and oriented -2. Confused, not agitated - Labs CBC & Chem 7: 07/12/20 06:46 07/12/20 06:46 Labs: Abnormal Lab Results - Last 24 Hours (Table) 07/11/20 07/12/20 07/12/20 Range/Units 05:30 06:46 06:46 WBC 11.5 H (3.8-10.6) k/uL RBC 2.82 L (4.30-5.90) m/uL Hgb 8.0 L (13.0-17.5) gm/dL Hct 25.0 L (39.0-53.0) % RDW 16.4 H (11.5-15.5) % Neutrophils # 9.5 H (1.3-7.7) k/uL BUN 6 L (9-20) mg/dL Creatinine 0.59 L (0.66-1.25) mg/dL Glucose 66 L (74-99) mg/dL Calcium 7.6 L (8.4-10.2) mg/dL Iron 22 L (65-175) ug/dL TIBC 164 L (228-460) ug/dL % Saturation 13.41 L (15.00-50.00) Total Protein 4.8 L (6.3-8.2) g/dL Albumin 2.1 L (3.5-5.0) g/dL Microbiology - Last 24 Hours (Table) 07/05/20 17:48 Blood Culture - Final Blood No Growth after 144 hours Assessment and Plan Plan: Assessment: #1. Alcoholic liver disease with liver cirrhosis, rule out alcohol withdrawal syndrome, symptoms of confusion and delirium are improving. Ammonia level is le ss than 9 #2. Hypotension, likely hypovolemic, related to poor oral intake, and active alcohol abuse, improved with fluid resuscitation #3. Symptomatic anemia, with no sign of active bleeding, GI service is following, hemoglobin is 8.1 today status post transfusion with 1 unit of packed red blood cells #4. Acute exacerbation of COPD #5. Chronic alcohol abuse #6. Acute delirium likely related to acute alcohol withdrawal, and symptomatic anemia, and possibility of urinary tract infection is not excluded #7. History of chronic alcohol abuse and chronic tobacco abuse #8. GERD/reflux with history of GI bleeding in the past #9. History of hypertension #10. History of sleep apnea syndrome #11. Prior history of urinary tract infections Plan: Patient remains stable on the medical surgical floor, no fever or chills, no significant cough or congestion, maintain aspiration precautions, on today's exam he's less confused and more interactive, he is on room air, he's been afebr ile, continues on empiric antibiotics, and continue with bronchodilators, no active bleeding in the last 24 hours, vital signs have been noted, obtain follow-up chest x-ray in the morning. Continue to follow I performed a history & physical examination of the patient and discussed their management with my nurse practitioner, Marilyn Rushing. I reviewed the nurse practitioner's note and agree with the documented findings and plan of care. Lung sounds are positive for diffuse wheezes throughout the lung truong. The findings and the impression was discussed with the patient. I attest to the documentation by the nurse practitioner. Time with Patient: Less than 30
--- NOTE | 2020-07-12 12:41 | CDI ---
Documentation Clarification Form Date: 07/12/2020 12:11:38 PM From: Latoya Marin RN, CCDS Admit Date: 07/04/2020 08:25:00 PM Patient Name: Fercho Yen Visit Number: [id number] ATTENTION: The Clinical Documentation Specialists (CDI) and [facility] Coding Staff appreciate your assistance in clarifying documentation. Please respond to the clarification below the line at the bottom and electronically sign. The CDI & [facility] Coding staff will review the response and follow-up if needed. Please note: Queries are made part of the Legal Health Record. If you have any questions, please contact the author of this message via ITS. Dr. Harjeet Person Malnutrition has been documented in 07/11 Pulmonary Progress Note and requires further specificity. History/Risk Factors: Alcoholism with alcohol withdrawal, cirrhosis, COPD, HTN, CVA, Anxiety, depression Clinical Indicators: 07/11 Pulmonary Progress Note:"He looks quite cachectic and malnourished. hypoproteinemia and hypoalbuminemia along with significant loss in total body protein mass and chronic malnourishment 07/09-Present Nursing Wound Assessment: Pressure injury to coccyx, POA, Optifoam dressing in place, redness to site w/o drainage. 07/05 Dietary Consult: "Stage 2 pressure ulcer on coccyx. Acute severe malnutrition" 07/04-07/12 Labs: Total Protein 5.2/4.6/4.5/4.6/4.7/4.6/4.8, Albumin 2.6/2.2/2.0/2.1/2/2.1 Ca+ 7.9/7.2/7.7/8.1/8/7.3/7.7/7.6 Current BMI: 13.8 Insufficient energy intake: Per Dietary Consult: "Poor appetite X1 month with difficulty chewing and swallowing." Weight Loss: documented per dietary consult 07/06 Pulmonary consult: "He apparently came in with nausea, vomiting, diarrhea and weakness." Loss of muscle mass: per Dietary Consult: "patient appears underweight." Treatment: Dietary Consult: Completed 07/05, 07/08, & 07/11 Supplements: ensure enlive TID Tube feeding recommendations made for Jevity 1.5 @ 55 ml/hr made Lab monitoring: AM daily 07/04 MVI bag IV x 1 bag 07/04 500 c 0.9% NS IVF bolus 07/04 100 mg IM Thiamin followed by 100 mg PO BID PO Protonix 40 mg Q AAC Breakfast KCL replacement protocol In your professional opinion, can you please clarify if these findings signify one of the following conditions? Mild Protein-Calorie Malnutrition Moderate Protein-Calorie Malnutrition Severe Protein-Calorie Malnutrition Other condition, please specify Unable to determine (Last Revision: May 2019) Severe Protein-Calorie Malnutrition MTDD
[2020-07-12] MEDS ORDERED: SODIUM FERRIC GLUCONAT-SUCROSE 125 MG in SODIUM CHLORIDE 0.9% 100 ML IVPB ONE (12:46)
--- NOTE | 2020-07-12 12:51 | CDI ---
Documentation Clarification Form Date: 07/12/2020 12:43:00 PM From: Latoya Marin RN, CCDS Admit Date: 07/04/2020 08:25:00 PM Patient Name: Fercho Yen Visit Number: [id number] ATTENTION: The Clinical Documentation Specialists (CDI) and [facility] Coding Staff appreciate your assistance in clarifying documentation. Please respond to the clarification below the line at the bottom and electronically sign. The CDI & [facility] Coding staff will review the response and follow-up if needed. Please note: Queries are made part of the Legal Health Record. If you have any questions, please contact the author of this message via ITS. Dr. Lawanda Shannon pressure ulcer was documented in the Nursing assessments and the Dietary Consult and requires clinical significance documentation by . History/Risk Factors: Alcoholism, cirrhosis, Alcohol withdrawal, Cirrhosis Clinical Indicators: Location: Coccyx Wound description: reddened pressure injury w/o drainage POA per nursing assessments. Stage 2 pressure ulcer documented per dietary. 07/11 Pulmonary Progress Note:"He looks quite cachectic and malnourished. hypoproteinemia and hypoalbuminemia along with significant loss in total body protein mass and chronic malnourishment 07/09-Present Nursing Wound Assessment: Pressure injury to coccyx, POA, Optifoam dressing in place, redness to site w/o drainage. 07/05 Dietary Consult: "Stage 2 pressure ulcer on coccyx. Acute severe malnutrition" 07/04-07/12 Labs: Total Protein 5.2/4.6/4.5/4.6/4.7/4.6/4.8, Albumin 2.6/2.2/2.0/2.1/2/2.1 Ca+ 7.9/7.2/7.7/8.1/8/7.3/7.7/7.6 Current BMI: 13.8 Weight Loss: documented per dietary consult 07/06 Pulmonary consult: "He apparently came in with nausea, vomiting, diarrhea and weakness." Loss of muscle mass: per Dietary Consult: "patient appears underweight. severe acute malnourishment" Treatment: Optifoam dressing Elements for accurate and compliant documentation of an ulcer: *The location/laterality of the ulcer *Etiology (decubitus/pressure, diabetic, PVD) *Stage I-IV, Unstageable, Suspected Deep Tissue Injury (To the deepest stage) *If the ulcer was present at admission (POA) or occurred after admission In your professional opinion, can you please clarify the diagnosis, location, laterality and whether present on admission (POA): Stage 1 Pressure/Decubitus Ulcer (intact skin, non-blanching redness of local area) Stage 2 Pressure/Decubitus Ulcer (Partial thickness, loss of dermis, pink wound bed) Stage 3 Pressure/Decubitus Ulcer (Full thickness tissue loss) Stage 4 Pressure/Decubitus Ulcer (Full thickness tissue loss with exposed bone, tendon, or muscle. May have slough or eschar present) Unstageable Other condition, please specify Unable to determine Please indicate etiology of pressure ulcer (if known). (Last Revision: August 2017) stage 2 pressure ulcer MTDD
--- NOTE | 2020-07-12 16:52 | P.PN ---
Subjective Progress Note Date: 07/12/20 Fercho Yen, is a 55-year-old male with known history of excessive alcohol use and history of liver cirrhosis who was brought in to [facility] emergency room by his due to mental status changes was confusion patient was also having weight loss, he was drinking alcohol up to 2 days prior to admission then he was not feeling well and he stopped drinking alcohol and stopped eating and drinking for 2-3 days. Patient was evaluated in emergency room, he was febrile temperature 97.7 pulse 60 respiration 16 blood pressure was significantly low at 71/59 pulse ox 94% on room air white blood count was 8.7 hemoglobin 8.3 platelet count 260 sodium was low at 126 potassium was low at 2.5 serum alcohol level was 21. Patient was admitted to intensive care unit he was started on IV fluid and potassium replacement protocol. Chest x-ray was done in the emergency room and did not reveal any active cardiopulmonary disease, computed tomography scan done in the emergency room revealed cerebral atrophy no acute intracranial abnormality, abdomen ultrasound done did not reveal any evidence of sizable ascites, urine analysis and blood culture were done and were ordered in ICU. On 07/06/2020 patient was seen and examined on the medical floor he is more somnolent he responds to stimuli otherwise he denies any complaints blood pressure is improved today urine analysis revealed evidence of urinary tract infection patient was started on IV Rocephin more globin is down to 6.8, On 07/07/2020 patient was seen and examined in the ICU he is alert and oriented 3 in no apparent distress he is answering questions appropriately today, there is no fever or chills no headache or dizziness no chest pain no shortness of breath no cough no nausea or vomiting no abdominal pain. No burning with urination no frequency or urgency and no hematuria, he received 1 unit of red blood cells today. On 07/08/2020, patient was seen and examined on the medical floor, he is somnolent but arousable in no apparent distress, there is no fever or chills no headache or dizziness no chest pain no shortness of breath no cough no nausea or vomiting no abdominal pain no diarrhea no burning with urination no frequency or urgency no hematuria, he had very poor oral intake so far, he was counseled in length he seems to understand, if the oral intake does not improve patient may need a nasogastric tube feeding. On 07/09/2020 patient was seen and examined on the medical floor, he is more alert today, his still has very poor oral intake, he was counseled in length in regard to need to eat more, he is denying any symptoms at this time there is no fever or chills no headache or dizziness no chest pain no shortness of breath no cough no nausea or vomiting no abdominal pain no diarrhea no burning with urination no frequency or urgency no hematuria, will add physical therapy and occupational therapy and assess if patient needs after discharge On 07/10/2020 patient was seen and examined on the medical floor he is alert slightly confused in no apparent distress nurse stated that he has been more agitated and slightly aggressive with staff he still has very poor oral intake otherwise he denies any complaints he has been refusing to keep telemetry box on there is no fever or chills no headache or dizziness no chest pain no shortness of breath no cough no nausea or vomiting no abdominal pain no diarrhea and no urinary symptoms On 07/11/2020 patient was seen and examined on the medical floor he is alert slightly confused in no distress he is complaining of cough he is breathing sounds are coarse otherwise there is no complaints there is no fever or chills no headache or dizziness no chest pain no shortness of breath, no nausea or vomiting no abdominal pain no diarrhea no burning with urination no frequency or urgency and no hematuria. Chest x-ray reveals bilateral infiltrates and small pleural effusion will re-consult pulmonary in that regard. On 07/12/2020 patient was seen and examined on the medical floor he is more alert and oriented today he is having more oral intake he is still complaining of cough there is no fever or chills, no chest pain or shortness of breath no nausea or vomiting no abdominal pain no diarrhea and no urinary symptoms Objective - Vital Signs Vital signs: Vital Signs Temp 97.6 F 07/12/20 05:00 Pulse 117 H 07/12/20 12:57 Resp 16 07/12/20 11:05 BP 114/76 07/12/20 11:05 Pulse Ox 99 07/12/20 11:28 Intake & Output 07/11/20 07/12/20 07/12/20 18:59 06:59 18:59 Intake Total 100 Output Total 700 1700 Balance -700 -1600 Weight 40 kg Intake: Intake, IV Titration 100 Amount Piperacillin-Tazobactam 3 100 .375 gm In Sodium Chloride 0.9% 100 ml @ 25 mls/hr IVPB Q8HR [facility] Rx# :[id number] Output: Urine 700 1700 Uretheral (Painter) 700 700 Other: Voiding Method Indwelling Catheter Indwelling Catheter Indwelling Catheter # Voids 0 # Bowel Movements 1 1 - Exam In general patient is alert slightly confused in no apparent distress HEENT head normocephalic and atraumatic Neck is supple no JVD no goiter no lymphadenopathy Chest exam reveals a few scattered crackles no wheezing Cardiac exam reveals regular heart sounds S1 and S2 no gallops no murmurs Abdomen is soft nontender no organomegaly with normal bowel sounds Extremity exam reveals no edema no cyanosis or clubbing Neurological examination reveals no gross focal deficit other than mild confusion - Labs CBC & Chem 7: 07/12/20 06:46 07/12/20 06:46 Labs: Abnormal Lab Results - Last 24 Hours (Table) 07/11/20 07/12/20 07/12/20 Range/Units 05:30 06:46 06:46 WBC 11.5 H (3.8-10.6) k/uL RBC 2.82 L (4.30-5.90) m/uL Hgb 8.0 L (13.0-17.5) gm/dL Hct 25.0 L (39.0-53.0) % RDW 16.4 H (11.5-15.5) % Neutrophils # 9.5 H (1.3-7.7) k/uL BUN 6 L (9-20) mg/dL Creatinine 0.59 L (0.66-1.25) mg/dL Glucose 66 L (74-99) mg/dL Calcium 7.6 L (8.4-10.2) mg/dL Iron 22 L (65-175) ug/dL TIBC 164 L (228-460) ug/dL % Saturation 13.41 L (15.00-50.00) Total Protein 4.8 L (6.3-8.2) g/dL Albumin 2.1 L (3.5-5.0) g/dL Microbiology - Last 24 Hours (Table) 07/05/20 17:48 Blood Culture - Final Blood No Growth after 144 hours Assessment and Plan Plan: 1. Mental status changes, likely related to chronic alcohol use and early alcohol withdrawal, on CIWA protocol 2. Hypotension patient was started on IV fluid, blood pressure stable, will check urine analysis and blood culture to rule out any infectious etiology, critical care consult requested 3. Underlying history of liver cirrhosis, gastroenterology consult requested 4. Anemia will recheck CBC is this evening, if needed will proceed with red blood cell transfusion, gastroenterology consult 5. Hypokalemia correcting 6. Poor oral intake will advance diet gradually 7. By basilar infiltrate with small pleural effusion, possible pneumonia antibiotic were switched to Zosyn, will reconsult pulmonary For DVT prophylaxis SCD stockings For GI prophylaxis patient on Protonix Will follow in a.m.
[2020-07-12] MEDS: LORazepam 2 MG/ML INJ IV PRN (23:43)
[2020-07-13] MEDS: LORazepam 2 MG/ML INJ IV PRN (05:32)
[2020-07-13] MEDS: IPRATROPIUM-ALBUTEROL 3 ML NEB INHALATION SCH ×4 (07:29→20:08)
[2020-07-13] MEDS: ALPRAZolam 0.25 MG TAB PO SCH ×3 (10:00→22:17)
[2020-07-13] MEDS: NICOTINE 21MG/24HR PATCH TRANSDERM SCH (10:00)
[2020-07-13] MEDS: THIAMINE 100 MG TAB PO SCH ×2 (10:00→17:30)
[2020-07-13] MEDS: PIPERACILLIN-TAZOBACTAM 3.375 GM in SODIUM CHLORIDE 0.9% 100 ML IVPB SCH (10:01)
--- NOTE | 2020-07-13 11:00 | P.PN ---
Subjective Progress Note Date: 07/13/20 Principal diagnosis: Alcoholic liver disease with liver cirrhosis, rule out acute alcohol withdrawal syndrome, possible urinary tract infection, chronic anemia 55-year-old white male patient with history of heavy alcohol abuse who was admitted to the hospital on 07/04/2020 when he was brought in by his for evaluation of altered mental status. In the ER she was also hypotensive, and hemoglobin was 8.3, with no evidence of active bleeding. He was given IV fluid boluses, and his hemoglobin has been trending down over the last couple of days. 6.9 and today's labs, and patient denies any abdominal pain, there has been no evidence of active bleeding since admission. Patient has been being monitored in the ICU, he is awake and alert, he is only oriented to person, his chem ICU is positive on today's exam. He has a product safety and standards engineer at the bedside. he thought he was in [place]. He denies any acute distress, there is audible wheezing on today's exam. He has a congested cough. Patient is a chronic smoker. Today's chest x-ray shows no acute cardiopulmonary process. Abdomen is nontender, GI service is following, aorta to the unit of blood for hemoglobin of 6.9 this morning. Sinus tachycardia on the monitor, with a rate of 120 BPM. Blood pressure is 115/99, patient is on room air, with a pulse ox of 100%. Afebrile, denies any chills. White blood cell count is 9.4, platelet count is 385, serum sodium is 134, the rest of the electrolytes were within normal limits, B1 is 2 and creatinine 0.49, LFTs were within normal limits. Yesterday his urinalysis s uggested presence of urinary tract infection, urine culture was sent and is pending, blood culture showed no growth at the 24-hour [place]. We started the patient on ceftriaxone empirically. IV fluids 0.9 and was seen at a rate of 1:30, patient is on CIWA protocol for acute alcohol withdrawal, however only required 1 mg of Ativan last night. No agitation. Patient is fairly cooperative. On 07/11/2020 patient seen in follow-up on the selective care unit, he is resting quietly in bed, appears to be in no acute distress, room air pulse ox is 98%, his been intermittently confused. Afebrile. Denies any shortness of breath, lung sounds are clear, last chest x-ray was on 07/07/2020, showing no a cute cardiopulmonary process. Patient was transfused with 1 unit of packed red blood cells yesterday, today hemoglobin is 8.1, clinically no evidence of bleeding. GI service is following. Patient is on antibiotics in the form of Rocephin for gram-negative bacilli in the urine culture, blood culture showed no growth. Patient has been afebrile. On 07/12/2020 patient seen in follow-up on general medical surgical floor, she is more awake today, more interactive, room air pulse ox is 97%, no complaints of shortness of breath, today's hemoglobin is 8.0, no active bleeding, serum ammonia level came back at less than 9. No new chest x-ray, last chest x-ray was done on 07/10/2020 showing bibasilar Infiltrates and/or atelectasis and small tiny bilateral pleural effusions, clinically patient is asymptomatic, room air pulse ox is 97%, afebrile, and he is on Zosyn for antibiotic coverage, and nebulized bronchodilators. No hemoptysis, no chest pain breathing is comfortable, On 07/13/2020 patient seen in follow-up on the general medical surgical floor. He is resting in bed, sounds more congested and wheezy on today's exam, patient is able to expectorate whitish yellowish colored phlegm, denies any chest pain, no hemoptysis, no fever or chills. It is labs have been reviewed, showing white blood cell, 11.5, hemoglobin of 8.0, electrolytes were all within normal limits, BUN 6 creatinine 0.59. Pro-calcitonin came back elevated at 0.45 suggesting possibility of bacterial infection, chest x-ray showed bibasilar acute infiltrates and/or atelectasis with small tiny bilateral pleural effusions. Patient is on Zosyn for empiric antibiotic coverage. Patient apparently was more confused last night, and try to get up out of bed, however patient is not agitated, he was given some Ativan for possibility of alcohol withdrawals, however this is day 9 of his hospital stay, possibility of alcohol withdrawal at this point is unlikely. Patient remains delirious, but not agitated, delirious screen is positive on today's exam. Otherwise no acute distress Objective - Vital Signs Vital signs: Vital Signs Temp 97.5 F L 07/13/20 05:00 Pulse 122 H 07/13/20 07:43 Resp 20 07/13/20 05:00 BP 106/72 07/13/20 05:00 Pulse Ox 93 L 07/13/20 05:00 Intake & Output 07/12/20 07/13/20 07/13/20 18:59 06:59 18:59 Intake Total 240 Output Total 600 350 Balance -600 -110 Intake: Oral 240 Output: Urine 600 350 Other: Voiding Method Indwelling Catheter Indwelling Catheter # Bowel Movements 1 - Exam GENERAL EXAM: Alert, confused 55-year-old -[place] male, thin, resting in bed, with room air pulse ox of 93% comfortable in no apparent distress. HEAD: Normocephalic/atraumatic. EYES: Normal reaction of pupils, equal size. Conjunctiva pink, sclera white. NOSE: Clear with pink turbinates. THROAT: No erythema or exudates. NECK: No masses, no JVD, no thyroid enlargement, no adenopathy. CHEST: No chest wall deformity. Symmetrical expansion. LUNGS: Equal air entry with scattered wheezes, rhonchi CVS: Regular rate and rhythm, normal S1 and S2, no gallops, no murmurs, no rubs, tachycardic, in sinus mechanism ABDOMEN: Soft, nontender. No hepatosplenomegaly, normal bowel sounds, no guarding or rigidity. EXTREMITIES: No clubbing, no edema, no cyanosis, 2+ pulses and upper and lower extremities. MUSCULOSKELETAL: Muscle strength and tone normal. SPINE: No scoliosis or deformity SKIN: No rashes CENTRAL NERVOUS SYSTEM: Alert and oriented -2. No focal deficits, tone is normal in all 4 extremities. PSYCHIATRIC: Alert and oriented -2. Confused, not agitated - Labs CBC & Chem 7: 07/12/20 06:46 07/12/20 06:46 Labs: Abnormal Lab Results - Last 24 Hours (Table) 07/12/20 Range/Units 06:46 Procalcitonin 0.45 H (0.02-0.09) ng/mL Assessment and Plan Plan: Assessment: #1. Alcoholic liver disease with liver cirrhosis, rule out alcohol withdrawal syndrome, symptoms of confusion and delirium are improving. Ammonia level is less than 9 #2. Hypotension, likely hypovolemic, related to poor oral intake, and active alcohol abuse, improved with fluid resuscitation. And patient has been stable in terms of blood pressure in the last several days #3. Symptomatic anemia, with no sign of active bleeding, GI service is following, hemoglobin is 8.1 today status post transfusion with 1 unit of packed red blood cells #4. Acute exacerbation of COPD #5. Chronic alcohol abuse #6. Acute delirium likely related to acute alcohol withdrawal, and symptomatic anemia, and possibility of urinary tract infection is not excluded #7. History of chronic alcohol abuse and chronic tobacco abuse #8. GERD/reflux with history of GI bleeding in the past #9. History of hypertension #10. History of sleep apnea syndrome #11. Prior history of urinary tract infections Plan: Continue breathing treatments, patient sounds more wheezy and congested on today's exam, maintain aspiration precautions, continue antibiotics, Zosyn can be switched to oral Augmentin, hemodynamically patient is stable, no fever or chills, he is on room air, discontinue the Ativan for possibility of making his delirium worse. Maintain safety precautions, discontinue Painter catheter, increase activity as tolerated, discharge planning is in progress for placement to a local ECF, possibly to [facility] [place], from pulmonary perspective patient is stable for discharge to ECF today I performed a history & physical examination of the patient and discussed their management with my nurse practitioner, Marilyn Rushing. I reviewed the nurse practitioner's note and agree with the documented findings and plan of care. Lung sounds are positive for diffuse wheezes throughout the lung truong. The findings and the impression was discussed with the patient. I attest to the documentation by the nurse practitioner. Time with Patient: Less than 30
--- NOTE | 2020-07-13 11:55 | P.DS ---
Providers Date of admission: 07/04/20 20:25 Expected date of discharge: 07/13/20 Attending physician: Lawanda Krishna Consults: 07/05/20 17:39 Consult Physician Routine Consulting Provider: Bora Millan Consult Reason/Comments: hypotension Do you want consulting provider notified?: Yes 07/11/20 12:40 Consult Physician Routine Consulting Provider: Harjeet Person Consult Reason/Comments: pneumonia Do you want consulting provider notified?: Yes Primary care physician: Lawanda Tomi [facility] Course: Diagnoses on discharge: 1. Mental status changes, likely related to chronic alcohol use and early alcohol withdrawal, on CIWA protocol 2. Hypotension patient was started on IV fluid, blood pressure stable, will check urine analysis and blood culture to rule out any infectious etiology, critical care consult requested 3. Underlying history of liver cirrhosis, gastroenterology consult requested 4. Anemia will recheck CBC is this evening, if needed will proceed with red blood cell transfusion, gastroenterology consult 5. Hypokalemia correcting 6. Poor oral intake will advance diet gradually 7. Bibasilar infiltrate with small pleural effusion, possible pneumonia antibiotic were switched to Zosyn, will reconsult pulmonary 8. Urinary tract infection treated with IV antibiotic Rocephin and then Zosyn Hospital course: Fercho Yen, is a 55-year-old male with known history of excessive alcohol use and history of liver cirrhosis who was brought in to [facility] emergency room by his due to mental status changes was confusion patient was also having weight loss, he was drinking alcohol up to 2 days prior to admission then he was not feeling well and he stopped drinking alcohol and stopped eating and drinking for 2-3 days. Patient was evaluated in emergency room, he was febrile temperature 97.7 pulse 60 respiration 16 blood pressure was significantly low at 71/59 pulse ox 94% on room air white blood count was 8.7 hemoglobin 8.3 platelet count 260 sodium was low at 126 potassium was low at 2.5 serum alcohol level was 21. Patient was admitted to intensive care unit he was started on IV fluid and potassium replacement protocol. Chest x-ray was done in the emergency room and did not reveal any active cardiopulmonary disease, computed tomography scan done in the emergency room revealed cerebral atrophy no acute intracranial abnormality, abdomen ultrasound done did not reveal any evidence of sizable ascites, urine analysis and blood culture were done and were ordered in ICU. On 07/06/2020 patient was seen and examined on the medical floor he is more somnolent he responds to stimuli otherwise he denies any complaints blood pressure is improved today urine analysis revealed evidence of urinary tract infection patient was started on IV Rocephin more globin is down to 6.8, On 07/07/2020 patient was seen and examined in the ICU he is alert and oriented 3 in no apparent distress he is answering questions appropriately today, there is no fever or chills no headache or dizziness no chest pain no shortness of breath no cough no nausea or vomiting no abdominal pain. No burning with urination no frequency or urgency and no hematuria, he received 1 unit of red blood cells today. On 07/08/2020, patient was seen and examined on the medical floor, he is somnolent but arousable in no apparent distress, there is no fever or chills no headache or dizziness no chest pain no shortness of breath no cough no nausea or vomiting no abdominal pain no diarrhea no burning with urination no frequency or urgency no hematuria, he had very poor oral intake so far, he was counseled in length he seems to understand, if the oral intake does not improve patient may need a nasogastric tube feeding. On 07/09/2020 patient was seen and examined on the medical floor, he is more alert today, his still has very poor oral intake, he was counseled in length in regard to need to eat more, he is denying any symptoms at this time there is no fever or chills no headache or dizziness no chest pain no shortness of breath no cough no nausea or vomiting no abdominal pain no diarrhea no burning with urination no frequency or urgency no hematuria, will add physical therapy and occupational therapy and assess if patient needs after discharge On 07/10/2020 patient was seen and examined on the medical floor he is alert slightly confused in no apparent distress nurse stated that he has been more agitated and slightly aggressive with staff he still has very poor oral intake otherwise he denies any complaints he has been refusing to keep telemetry box on there is no fever or chills no headache or dizziness no chest pain no shortness of breath no cough no nausea or vomiting no abdominal pain no diarrhea and no urinary symptoms On 07/11/2020 patient was seen and examined on the medical floor he is alert slightly confused in no distress he is complaining of cough he is breathing sounds are coarse otherwise there is no complaints there is no fever or chills no headache or dizziness no chest pain no shortness of breath, no nausea or vomiting no abdominal pain no diarrhea no burning with urination no frequency or urgency and no hematuria. Chest x-ray reveals bilateral infiltrates and small pleural effusion will re-consult pulmonary in that regard. On 07/12/2020 patient was seen and examined on the medical floor he is more alert and oriented today he is having more oral intake he is still complaining of cough there is no fever or chills, no chest pain or shortness of breath no nausea or vomiting no abdominal pain no diarrhea and no urinary symptoms Patient Condition at Discharge: Fair Plan - Discharge Summary Discharge Rx Participant: Yes New Discharge Prescriptions: New Amoxic-Pot Clav 875-125Mg [Augmentin 875-125] 1 each PO Q12HR tab Ipratropium-Albuterol Nebulize [Duoneb 0.5 mg-3 mg/3 ml Soln] 3 ml INHALATION RT-QID ml Ipratropium-Albuterol Nebulize [Duoneb 0.5 mg-3 mg/3 ml Soln] 3 ml INHALATION RT-Q2H PRN ml PRN Reason: Shortness Of Breath Or Wheezing Nicotine 21Mg/24Hr Patch [Habitrol] 1 patch TRANSDERM DAILY patch Thiamine [Vitamin B-1] 100 mg PO BID-W/MEALS tab ALPRAZolam [Xanax] 0.25 mg PO TID tab Continue Omeprazole [PriLOSEC] 20 mg PO AC-BID PRN PRN Reason: gerds HYDROcodone/APAP 10-325MG [Deeth 10-325] 1 tab PO Q6H PRN PRN Reason: Pain Albuterol Sulfate [Ventolin HFA] 2 puff INHALATION RT-QID PRN PRN Reason: Shortness Of Breath Discontinued ALPRAZolam [Xanax] 0.25 mg PO BID PRN PRN Reason: Anxiety Discharge Medication List Omeprazole [PriLOSEC] 20 mg PO AC-BID PRN 03/12/19 [History] Albuterol Sulfate [Ventolin HFA] 2 puff INHALATION RT-QID PRN 07/04/20 [History] HYDROcodone/APAP 10-325MG [Deeth 10-325] 1 tab PO Q6H PRN 07/04/20 [History] ALPRAZolam [Xanax] 0.25 mg PO TID tab 07/13/20 [Rx] Amoxic-Pot Clav 875-125Mg [Augmentin 875-125] 1 each PO Q12HR tab 07/13/20 [Rx] Ipratropium-Albuterol Nebulize [Duoneb 0.5 mg-3 mg/3 ml Soln] 3 ml INHALATION RT-Q2H PRN ml 07/13/20 [Rx] Ipratropium-Albuterol Nebulize [Duoneb 0.5 mg-3 mg/3 ml Soln] 3 ml INHALATION RT-QID ml 07/13/20 [Rx] Nicotine 21Mg/24Hr Patch [Habitrol] 1 patch TRANSDERM DAILY patch 07/13/20 [Rx] Thiamine [Vitamin B-1] 100 mg PO BID-W/MEALS tab 07/13/20 [Rx] Follow up Appointment(s)/Referral(s): Lawanda Krishna MD [Primary Care Provider] - 1-2 days
--- NOTE | 2020-07-13 13:27 | XR ---
EXAMINATION TYPE: XR chest 2V DATE OF EXAM: 07/13/2020 CLINICAL HISTORY: Dyspnea TECHNIQUE: Frontal and lateral views of the chest are obtained. COMPARISON: 07/10/2020 chest radiograph FINDINGS: Elevation of the left hemidiaphragm redemonstrated. The cardiomediastinal silhouette is wit hin normal limits for size. Pulmonary vasculature is normal. Bibasilar airspace opacities are not sig nificantly changed versus 07/10/2020 comparison. Small bilateral pleural effusions redemonstrated. No pneumothorax. The osseous structures are intact. IMPRESSION: Bibasilar airspace opacities and small bilateral pleural effusions not significantly calderon ged from 07/10/2020.
[2020-07-13 16:39] LABS: Folate, Serum 3.8 ng/mL
[2020-07-13] MEDS: AMOXIC-POT CLAV 875-125MG 1 EACH TAB PO SCH (22:17)
[2020-07-14 03:49] LABS: Glucose,Whole Blood 104 mg/dL (75-99)
[2020-07-14] MEDS: IPRATROPIUM-ALBUTEROL 3 ML NEB INHALATION SCH ×4 (07:27→20:00)
[2020-07-14] MEDS: ALPRAZolam 0.25 MG TAB PO SCH ×3 (09:16→21:16)
[2020-07-14] MEDS: NICOTINE 21MG/24HR PATCH TRANSDERM SCH (09:17)
[2020-07-14] MEDS: THIAMINE 100 MG TAB PO SCH ×2 (09:17→16:55)
[2020-07-14] MEDS: AMOXIC-POT CLAV 875-125MG 1 EACH TAB PO SCH ×2 (09:19→21:16)
--- NOTE | 2020-07-14 11:47 | P.PN ---
Subjective Progress Note Date: 07/14/20 Principal diagnosis: Alcoholic liver disease with liver cirrhosis, rule out acute alcohol withdrawal syndrome, possible urinary tract infection, chronic anemia 55-year-old white male patient with history of heavy alcohol abuse who was admitted to the hospital on 07/04/2020 when he was brought in by his for evaluation of altered mental status. In the ER she was also hypotensive, and hemoglobin was 8.3, with no evidence of active bleeding. He was given IV fluid boluses, and his hemoglobin has been trending down over the last couple of days. 6.9 and today's labs, and patient denies any abdominal pain, there has been no evidence of active bleeding since admission. Patient has been being monitored in the ICU, he is awake and alert, he is only oriented to person, his chem ICU is positive on today's exam. He has a airworthiness safety inspector at the bedside. he thought he was in [place]. He denies any acute distress, there is audible wheezing on today's exam. He has a congested cough. Patient is a chronic smoker. Today's chest x-ray shows no acute cardiopulmonary process. Abdomen is nontender, GI service is following, aorta to the unit of blood for hemoglobin of 6.9 this morning. Sinus tachycardia on the monitor, with a rate of 120 BPM. Blood pressure is 115/99, patient is on room air, with a pulse ox of 100%. Afebrile, denies any chills. White blood cell count is 9.4, platelet count is 385, serum sodium is 134, the rest of the electrolytes were within normal limits, B1 is 2 and creatinine 0.49, LFTs were within normal limits. Yesterday his urinalysis s uggested presence of urinary tract infection, urine culture was sent and is pending, blood culture showed no growth at the 24-hour [place]. We started the patient on ceftriaxone empirically. IV fluids 0.9 and was seen at a rate of 1:30, patient is on CIWA protocol for acute alcohol withdrawal, however only required 1 mg of Ativan last night. No agitation. Patient is fairly cooperative. On 07/11/2020 patient seen in follow-up on the selective care unit, he is resting quietly in bed, appears to be in no acute distress, room air pulse ox is 98%, his been intermittently confused. Afebrile. Denies any shortness of breath, lung sounds are clear, last chest x-ray was on 07/07/2020, showing no a cute cardiopulmonary process. Patient was transfused with 1 unit of packed red blood cells yesterday, today hemoglobin is 8.1, clinically no evidence of bleeding. GI service is following. Patient is on antibiotics in the form of Rocephin for gram-negative bacilli in the urine culture, blood culture showed no growth. Patient has been afebrile. On 07/12/2020 patient seen in follow-up on general medical surgical floor, she is more awake today, more interactive, room air pulse ox is 97%, no complaints of shortness of breath, today's hemoglobin is 8.0, no active bleeding, serum ammonia level came back at less than 9. No new chest x-ray, last chest x-ray was done on 07/10/2020 showing bibasilar Infiltrates and/or atelectasis and small tiny bilateral pleural effusions, clinically patient is asymptomatic, room air pulse ox is 97%, afebrile, and he is on Zosyn for antibiotic coverage, and nebulized bronchodilators. No hemoptysis, no chest pain breathing is comfortable, On 07/13/2020 patient seen in follow-up on the general medical surgical floor. He is resting in bed, sounds more congested and wheezy on today's exam, patient is able to expectorate whitish yellowish colored phlegm, denies any chest pain, no hemoptysis, no fever or chills. It is labs have been reviewed, showing white blood cell, 11.5, hemoglobin of 8.0, electrolytes were all within normal limits, BUN 6 creatinine 0.59. Pro-calcitonin came back elevated at 0.45 suggesting possibility of bacterial infection, chest x-ray showed bibasilar acute infiltrates and/or atelectasis with small tiny bilateral pleural effusions. Patient is on Zosyn for empiric antibiotic coverage. Patient apparently was more confused last night, and try to get up out of bed, however patient is not agitated, he was given some Ativan for possibility of alcohol withdrawals, however this is day 9 of his hospital stay, possibility of alcohol withdrawal at this point is unlikely. Patient remains delirious, but not agitated, delirious screen is positive on today's exam. Otherwise no acute distress On 07/14/2020 patient seen in follow-up on general medical surgical floor. He sitting up in the recliner currently, he has a belt around him because he has been trying to get up unassisted at times, no agitation, he is answering q uestions appropriately, and delirium screen is negative today, room air pulse ox is 100%, hemodynamically stable, he denies any breathing difficulty, lung sounds are less congested and wheezy and today's exam. No fever or chills, no compressive chest pain. Today's chest x-ray shows bibasilar airspace opacity and small bilateral pleural effusions nonsignificant changed from previous chest x-ray. Clinically patient is stable, remains on oral Augmentin, and breathing treatments, urine culture revealed Klebsiella pneumonia with no sensitivity except to ampicillin. Painter catheter has been discontinued. Objective - Vital Signs Vital signs: Vital Signs Temp 98.2 F 07/14/20 05:00 Pulse 112 H 07/14/20 07:40 Resp 18 07/14/20 05:00 BP 104/68 07/14/20 05:00 Pulse Ox 100 07/14/20 05:00 Intake & Output 07/13/20 07/14/20 07/14/20 18:59 06:59 18:59 Intake Total 100 Output Total 500 Balance -500 100 Intake: Oral 100 Output: Urine 500 Other: Voiding Method Indwelling Catheter Diaper Incontinent # Voids 1 - Exam GENERAL EXAM: Alert, oriented person and place 55-year-old -Prydeinig male, thin, resting in bed, with room air pulse ox of 100% comfortable in no apparent distress. HEAD: Normocephalic/atraumatic. EYES: Normal reaction of pupils, equal size. Conjunctiva pink, sclera white. NOSE: Clear with pink turbinates. THROAT: No erythema or exudates. NECK: No masses, no JVD, no thyroid enlargement, no adenopathy. CHEST: No chest wall deformity. Symmetrical expansion. LUNGS: Equal air entry with scattered wheezes, rhonchi CVS: Regular rate and rhythm, normal S1 and S2, no gallops, no murmurs, no rubs, tachycardic, in sinus mechanism ABDOMEN: Soft, nontender. No hepatosplenomegaly, normal bowel sounds, no guarding or rigidity. EXTREMITIES: No clubbing, no edema, no cyanosis, 2+ pulses and upper and lower extremities. MUSCULOSKELETAL: Muscle strength and tone normal. SPINE: No scoliosis or deformity SKIN: No rashes CENTRAL NERVOUS SYSTEM: Alert and oriented -2. No focal deficits, tone is normal in all 4 extremities. PSYCHIATRIC: Alert and oriented -2. No confusion on today's exam, delirium screen is negative - Labs CBC & Chem 7: 07/12/20 06:46 07/12/20 06:46 Labs: Abnormal Lab Results - Last 24 Hours (Table) 07/13/20 07/14/20 Range/Units 07:39 03:47 POC Glucose (mg/dL) 104 H (75-99) mg/dL Procalcitonin 0.41 H (0.02-0.09) ng/mL Assessment and Plan Plan: Assessment: #1. Alcoholic liver disease with liver cirrhosis, rule out alcohol withdrawal syndrome, symptoms of confusion and delirium are improving. Ammonia level is less than 9 #2. Hypotension, likely hypovolemic, related to poor oral intake, and active alcohol abuse, improved with fluid resuscitation. And patient has been stable in terms of blood pressure in the last several days #3. Symptomatic anemia, with no sign of active bleeding, GI service is following, hemoglobin is 8.1 today status post transfusion with 1 unit of packed red blood cells #4. Acute exacerbation of COPD #5. Chronic alcohol abuse #6. Acute delirium likely related to acute alcohol withdrawal, and symptomatic anemia, and urinary tract infection related to Klebsiella pneumonia, improved #7. History of chronic alcohol abuse and chronic tobacco abuse #8. GERD/reflux with history of GI bleeding in the past #9. History of hypertension #10. History of sleep apnea syndrome #11. Prior history of urinary tract infections #12. Klebsiella pneumonia urinary tract infection Plan: Continue oral Augmentin, patient's urine culture was positive for Klebsiella pneumonia. Repeat chest x-ray has been reviewed showing bibasilar airspace opacities and small bilateral pleural effusions. Encourage deep breathing and coughing, increased since activity, encourage patient to sit up in a chair and ambulate with assistance. Delirium has improved, no agitation. No fever or chills. Discharge pending for discharge to [facility] I performed a history & physical examination of the patient and discussed their management with my nurse practitioner, Marilyn Rushing. I reviewed the nurse practitioner's note and agree with the documented findings and plan of care. Lung sounds are positive for diffuse wheezes throughout the lung truong. The findings and the impression was discussed with the patient. I attest to the documentation by the nurse practitioner. Time with Patient: Less than 30
--- NOTE | 2020-07-14 12:17 | FL ---
EXAMINATION TYPE: FL barium swallow w video DATE OF EXAM: 07/14/2020 MODIFIED SWALLOW / DEGLUTITION STUDY CLINICAL HISTORY: Dysphagia. History of lung cancer. TECHNIQUE: Deglutition study is performed utilizing thin liquid barium, honey and nectar thick liqui d barium, and barium thick applesauce. Total 3.09 minutes of fluoroscopic time. There are 0 spot imag es saved. COMPARISON: None. FINDINGS: The oral and pharyngeal phases show satisfactory mild to moderate delay in initiation. Sati sfactory propagation. Some titrations last aspiration with honey thick liquid barium causes coughing. Suspect some penetration with less viscous modalities. Mild pharyngeal residuals are appreciated. IMPRESSION: 1 episode of penetration/aspiration honey thick liquid barium causes cough reflex and roberto aring. Some episodes of transient penetration with less viscous modalities thought present. Please refer to speech therapist notes for further details if necessary.
--- NOTE | 2020-07-14 17:06 | P.PN ---
Subjective Progress Note Date: 07/14/20 Fercho Yen, is a 55-year-old male with known history of excessive alcohol use and history of liver cirrhosis who was brought in to [facility] emergency room by his due to mental status changes was confusion patient was also having weight loss, he was drinking alcohol up to 2 days prior to admission then he was not feeling well and he stopped drinking alcohol and stopped eating and drinking for 2-3 days. Patient was evaluated in emergency room, he was febrile temperature 97.7 pulse 60 respiration 16 blood pressure was significantly low at 71/59 pulse ox 94% on room air white blood count was 8.7 hemoglobin 8.3 platelet count 260 sodium was low at 126 potassium was low at 2.5 serum alcohol level was 21. Patient was admitted to intensive care unit he was started on IV fluid and potassium replacement protocol. Chest x-ray was done in the emergency room and did not reveal any active cardiopulmonary disease, computed tomography scan done in the emergency room revealed cerebral atrophy no acute intracranial abnormality, abdomen ultrasound done did not reveal any evidence of sizable ascites, urine analysis and blood culture were done and were ordered in ICU. On 07/06/2020 patient was seen and examined on the medical floor he is more somnolent he responds to stimuli otherwise he denies any complaints blood pressure is improved today urine analysis revealed evidence of urinary tract infection patient was started on IV Rocephin more globin is down to 6.8, On 07/07/2020 patient was seen and examined in the ICU he is alert and oriented 3 in no apparent distress he is answering questions appropriately today, there is no fever or chills no headache or dizziness no chest pain no shortness of breath no cough no nausea or vomiting no abdominal pain. No burning with urination no frequency or urgency and no hematuria, he received 1 unit of red blood cells today. On 07/08/2020, patient was seen and examined on the medical floor, he is somnolent but arousable in no apparent distress, there is no fever or chills no headache or dizziness no chest pain no shortness of breath no cough no nausea or vomiting no abdominal pain no diarrhea no burning with urination no frequency or urgency no hematuria, he had very poor oral intake so far, he was counseled in length he seems to understand, if the oral intake does not improve patient may need a nasogastric tube feeding. On 07/09/2020 patient was seen and examined on the medical floor, he is more alert today, his still has very poor oral intake, he was counseled in length in regard to need to eat more, he is denying any symptoms at this time there is no fever or chills no headache or dizziness no chest pain no shortness of breath no cough no nausea or vomiting no abdominal pain no diarrhea no burning with urination no frequency or urgency no hematuria, will add physical therapy and occupational therapy and assess if patient needs after discharge On 07/10/2020 patient was seen and examined on the medical floor he is alert slightly confused in no apparent distress nurse stated that he has been more agitated and slightly aggressive with staff he still has very poor oral intake otherwise he denies any complaints he has been refusing to keep telemetry box on there is no fever or chills no headache or dizziness no chest pain no shortness of breath no cough no nausea or vomiting no abdominal pain no diarrhea and no urinary symptoms On 07/11/2020 patient was seen and examined on the medical floor he is alert slightly confused in no distress he is complaining of cough he is breathing sounds are coarse otherwise there is no complaints there is no fever or chills no headache or dizziness no chest pain no shortness of breath, no nausea or vomiting no abdominal pain no diarrhea no burning with urination no frequency or urgency and no hematuria. Chest x-ray reveals bilateral infiltrates and small pleural effusion will re-consult pulmonary in that regard. On 07/12/2020 patient was seen and examined on the medical floor he is more alert and oriented today he is having more oral intake he is still complaining of cough there is no fever or chills, no chest pain or shortness of breath no nausea or vomiting no abdominal pain no diarrhea and no urinary symptoms On 07/14/2020 patient was seen and examined on the medical floor, he is alert and oriented 3 in no apparent distress, he was cleared by all consultants yesterday [facility], discharge was done yest erday however, patient still need authorization from insurance, hence discharge was delayed, clinically patient is stable he is complaining of generalized weakness otherwise he denies any specific complaints there is no fever or chills no headache or dizziness no chest pain no shortness of breath no cough no nausea or vomiting no abdominal pain no diarrhea and no urinary symptoms Objective - Vital Signs Vital signs: Vital Signs Temp 98.2 F 07/14/20 05:00 Pulse 112 H 07/14/20 07:40 Resp 18 07/14/20 05:00 BP 104/68 07/14/20 05:00 Pulse Ox 100 07/14/20 05:00 Intake & Output 07/13/20 07/14/20 07/14/20 18:59 06:59 18:59 Intake Total 100 Output Total 500 Balance -500 100 Intake: Oral 100 Output: Urine 500 Other: Voiding Method Indwelling Catheter Diaper Incontinent # Voids 1 - Exam In general patient is alert slightly confused in no apparent distress HEENT head normocephalic and atraumatic Neck is supple no JVD no goiter no lymphadenopathy Chest exam reveals a few scattered crackles no wheezing Cardiac exam reveals regular heart sounds S1 and S2 no gallops no murmurs Abdomen is soft nontender no organomegaly with normal bowel sounds Extremity exam reveals no edema no cyanosis or clubbing Neurological examination reveals no gross focal deficit other than mild confusion - Labs CBC & Chem 7: 07/12/20 06:46 07/12/20 06:46 Labs: Abnormal Lab Results - Last 24 Hours (Table) 07/13/20 07/14/20 Range/Units 07:39 03:47 POC Glucose (mg/dL) 104 H (75-99) mg/dL Procalcitonin 0.41 H (0.02-0.09) ng/mL Assessment and Plan Plan: 1. Mental status changes, likely related to chronic alcohol use and early alcohol withdrawal, on [facility] protocol 2. Hypotension patient was started on IV fluid, blood pressure stable, will check urine analysis and blood culture to rule out any infectious etiology, critical care consult requested 3. Underlying history of liver cirrhosis, gastroenterology consult requested 4. Anemia will recheck CBC is this evening, if needed will proceed with red blood cell transfusion, gastroenterology consult 5. Hypokalemia correcting 6. Poor oral intake will advance diet gradually 7. By basilar infiltrate with small pleural effusion, possible pneumonia antibiotic were switched to Zosyn, will reconsult pulmonary For DVT prophylaxis SCD stockings For GI prophylaxis patient on Protonix Will follow in a.m.
[2020-07-15] MEDS: IPRATROPIUM-ALBUTEROL 3 ML NEB INHALATION SCH ×4 (08:08→20:03)
[2020-07-15] MEDS: NICOTINE 21MG/24HR PATCH TRANSDERM SCH (08:16)
[2020-07-15] MEDS: ALPRAZolam 0.25 MG TAB PO SCH ×3 (08:16→23:13)
[2020-07-15] MEDS: THIAMINE 100 MG TAB PO SCH ×2 (08:16→15:50)
[2020-07-15] MEDS: AMOXIC-POT CLAV 875-125MG 1 EACH TAB PO SCH (08:21)
--- NOTE | 2020-07-15 16:21 | P.PN ---
Subjective Progress Note Date: 07/15/20 Fercho Yen, is a 55-year-old male with known history of excessive alcohol use and history of liver cirrhosis who was brought in to [facility] emergency room by his due to mental status changes was confusion patient was also having weight loss, he was drinking alcohol up to 2 days prior to admission then he was not feeling well and he stopped drinking alcohol and stopped eating and drinking for 2-3 days. Patient was evaluated in emergency room, he was febrile temperature 97.7 pulse 60 respiration 16 blood pressure was significantly low at 71/59 pulse ox 94% on room air white blood count was 8.7 hemoglobin 8.3 platelet count 260 sodium was low at 126 potassium was low at 2.5 serum alcohol level was 21. Patient was admitted to intensive care unit he was started on IV fluid and potassium replacement protocol. Chest x-ray was done in the emergency room and did not reveal any active cardiopulmonary disease, computed tomography scan done in the emergency room revealed cerebral atrophy no acute intracranial abnormality, abdomen ultrasound done did not reveal any evidence of sizable ascites, urine analysis and blood culture were done and were ordered in ICU. On 07/06/2020 patient was seen and examined on the medical floor he is more somnolent he responds to stimuli otherwise he denies any complaints blood pressure is improved today urine analysis revealed evidence of urinary tract infection patient was started on IV Rocephin more globin is down to 6.8, On 07/07/2020 patient was seen and examined in the ICU he is alert and oriented 3 in no apparent distress he is answering questions appropriately today, there is no fever or chills no headache or dizziness no chest pain no shortness of breath no cough no nausea or vomiting no abdominal pain. No burning with urination no frequency or urgency and no hematuria, he received 1 unit of red blood cells today. On 07/08/2020, patient was seen and examined on the medical floor, he is somnolent but arousable in no apparent distress, there is no fever or chills no headache or dizziness no chest pain no shortness of breath no cough no nausea or vomiting no abdominal pain no diarrhea no burning with urination no frequency or urgency no hematuria, he had very poor oral intake so far, he was counseled in length he seems to understand, if the oral intake does not improve patient may need a nasogastric tube feeding. On 07/09/2020 patient was seen and examined on the medical floor, he is more alert today, his still has very poor oral intake, he was counseled in length in regard to need to eat more, he is denying any symptoms at this time there is no fever or chills no headache or dizziness no chest pain no shortness of breath no cough no nausea or vomiting no abdominal pain no diarrhea no burning with urination no frequency or urgency no hematuria, will add physical therapy and occupational therapy and assess if patient needs after discharge On 07/10/2020 patient was seen and examined on the medical floor he is alert slightly confused in no apparent distress nurse stated that he has been more agitated and slightly aggressive with staff he still has very poor oral intake otherwise he denies any complaints he has been refusing to keep telemetry box on there is no fever or chills no headache or dizziness no chest pain no shortness of breath no cough no nausea or vomiting no abdominal pain no diarrhea and no urinary symptoms On 07/11/2020 patient was seen and examined on the medical floor he is alert slightly confused in no distress he is complaining of cough he is breathing sounds are coarse otherwise there is no complaints there is no fever or chills no headache or dizziness no chest pain no shortness of breath, no nausea or vomiting no abdominal pain no diarrhea no burning with urination no frequency or urgency and no hematuria. Chest x-ray reveals bilateral infiltrates and small pleural effusion will re-consult pulmonary in that regard. On 07/12/2020 patient was seen and examined on the medical floor he is more alert and oriented today he is having more oral intake he is still complaining of cough there is no fever or chills, no chest pain or shortness of breath no nausea or vomiting no abdominal pain no diarrhea and no urinary symptoms On 07/14/2020 patient was seen and examined on the medical floor, he is alert and oriented 3 in no apparent distress, he was cleared by all consultants yesterday [facility], discharge was done yest erday however, patient still need authorization from insurance, hence discharge was delayed, clinically patient is stable he is complaining of generalized weakness otherwise he denies any specific complaints there is no fever or chills no headache or dizziness no chest pain no shortness of breath no cough no nausea or vomiting no abdominal pain no diarrhea and no urinary symptoms. On 07/14/2020 patient was seen and examined on the medical floor, he is complaining of abdominal pain today, otherwise he denies any complaints there is no fever or chills no headache or dizziness no chest pain no shortness of breath no cough no nausea or vomiting no diarrhea no blood in the stools no burning with urination no frequency or urgency no hematuria Objective - Vital Signs Vital signs: Vital Signs Temp 98.2 F 07/15/20 04:25 Pulse 110 H 07/15/20 08:17 Resp 18 07/15/20 04:25 BP 90/65 07/15/20 04:25 Pulse Ox 99 07/15/20 04:25 Intake & Output 07/14/20 07/15/20 07/15/20 18:59 06:59 18:59 Intake Total 290 Balance 290 Intake: Oral 290 Other: Voiding Method Urinal Urinal Diaper Diaper Incontinent Incontinent # Voids 3 2 # Bowel Movements 1 - Exam In general patient is alert slightly confused in no apparent distress HEENT head normocephalic and atraumatic Neck is supple no JVD no goiter no lymphadenopathy Chest exam reveals a few scattered crackles no wheezing Cardiac exam reveals regular heart sounds S1 and S2 no gallops no murmurs Abdomen is soft nontender no organomegaly with normal bowel sounds Extremity exam reveals no edema no cyanosis or clubbing Neurological examination reveals no gross focal deficit other than mild confusion - Labs CBC & Chem 7: 07/12/20 06:46 07/12/20 06:46 Assessment and Plan Plan: 1. Mental status changes, likely related to chronic alcohol use and early alcohol withdrawal, on [facility] protocol 2. Hypotension patient was started on IV fluid, blood pressure stable, will check urine analysis and blood culture to rule out any infectious etiology, critical care consult requested 3. Underlying history of liver cirrhosis, gastroenterology consult requested 4. Anemia will recheck CBC is this evening, if needed will proceed with red blood cell transfusion, gastroenterology consult 5. Hypokalemia correcting 6. Poor oral intake will advance diet gradually 7. By basilar infiltrate with small pleural effusion, possible pneumonia antibiotic were switched to Zosyn, will reconsult pulmonary 8. New abdominal pain today, will check abdomen x-ray and abdomen ultrasound For DVT prophylaxis SCD stockings For GI prophylaxis patient on Protonix Will follow in a.m.
--- NOTE | 2020-07-15 18:15 | XR ---
EXAMINATION TYPE: XR abdomen 2V DATE OF EXAM: 07/15/2020 COMPARISON: Chest x-ray 07/13/2020 INDICATION: Abdominal pain TECHNIQUE: Single view abdomen frontal supine view FINDINGS: There are dilated small bowel loops within the abdomen. Small amount contrast may be within the colon . No free air is evident. Differential air-fluid levels are not evident. There appears to be a small loculated pneumothorax at the right costophrenic angle. Psoas margins are normal. No organomegaly is present. IMPRESSION: 1. Findings suggestive for a small bowel obstruction within the distal ileum. 2. There appears to be a loculated pneumothorax at the right costophrenic angle. This appears to be a change from the chest x-ray of 07/13/2020. A [place] critical message alert has been initiated for Lawanda Krishna MD via the [employer] on 07/15/2020 6:12 PM. This message alert has been sent to Lawanda Krishna MD via the preferences provided by the clinician for the receipt of Radiology Critical Findings. Message ID [id number].
[2020-07-15 19:51] LABS: Glucose,Whole Blood 130 mg/dL (75-99)
--- NOTE | 2020-07-15 20:52 | XR ---
EXAMINATION TYPE: XR chest 1V portable DATE OF EXAM: 07/15/2020 COMPARISON: 07/13/2020 INDICATION: Pneumothorax TECHNIQUE: Single frontal view of the chest is obtained. FINDINGS: The heart size is normal. The pulmonary vasculature is normal. The lungs are clear. No suspicious pneumothorax is evident. IMPRESSION: 1. No acute pulmonary process.
[2020-07-15 21:05] LABS: Glucose,Whole Blood 137 mg/dL (75-99)
[2020-07-15] MEDS ORDERED: SODIUM CHLORIDE 0.9% 1,000 ML IV ONE (21:20)
[2020-07-15 21:41] LABS: Anisocytosis Slight; Basophils # (A) 0.1 k/uL (0-0.2); Basophils % (A) 0 %; Eosinophils # (A) 0.2 k/uL (0-0.7); Eosinophils % (A) 1 %; HCT 25.6 % (39.0-53.0); HGB 8.1 gm/dL (13.0-17.5); Hypochromasia Slight; Lymphocytes % (A) 6 %; MCH 27.9 pg (25.0-35.0); MCHC 31.5 g/dL (31.0-37.0); MCV 88.6 fL (80.0-100.0); Monocytes # (A) 0.4 k/uL (0-1.0); Monocytes % (A) 3 %; Neutrophils # (A) 14.1 k/uL (1.3-7.7); Neutrophils % (A) 89 %; Platelet Count 425 k/uL (150-450); RBC 2.89 m/uL (4.30-5.90); RDW 16.4 % (11.5-15.5); WBC 15.9 k/uL (3.8-10.6)
[2020-07-15 21:51] LABS: ALT 14 U/L (4-49); AST 20 U/L (17-59); African American GFR (CKD) >90 (>60 ml/min/1.73 sqM); Albumin 2.6 g/dL (3.5-5.0); Alkaline Phosphatase 49 U/L (38-126); Anion Gap 10 mmol/L; Blood Urea Nitrogen 15 mg/dL (9-20); Calcium 8.6 mg/dL (8.4-10.2); Carbon Dioxide 29 mmol/L (22-30); Chloride 98 mmol/L (98-107); Glucose 118 mg/dL (74-99); Non-African American GFR(CKD) >90 (>60 ml/min/1.73 sqM); Potassium 4.2 mmol/L (3.5-5.1); Sodium 137 mmol/L (137-145); Total Bilirubin 0.7 mg/dL (0.2-1.3); Total Protein 5.6 g/dL (6.3-8.2)
[2020-07-15 22:12] LABS: Appearance,Urine Clear (Clear); Bilirubin,Urine Negative (Negative); Blood,Urine Negative (Negative); Color,Urine Yellow; Glucose,Urine (UA) Negative (Negative); Hyaline Casts,Urine 7 /lpf (0-2); Ketones,Urine Negative (Negative); Leukocyte Esterase,Urine Small (Negative); Mucus,Urine Rare /hpf; Nitrite,Urine Negative (Negative); Protein,Urine Negative (Negative); RBC,Urine 2 /hpf (0-5); Specific Gravity,Urine 1.014 (1.001-1.035); Squamous Epithelial Cell,Urine 1 /hpf (0-4); Urobilinogen,Urine <2.0 mg/dL (<2.0); WBC,Urine 8 /hpf (0-5)
--- NOTE | 2020-07-15 22:58 | CT ---
EXAMINATION TYPE: CT abdomen pelvis w con DATE OF EXAM: 07/15/2020 COMPARISON: 12/12/2018 HISTORY: abdominal pain and distention CT DLP: 838.2 mGycm Automated exposure control for dose reduction was used. CONTRAST: Performed with IV Contrast, patient injected with 100 mL of Isovue 300. There is mild bilateral pleural effusions. There is infiltrate and atelectasis at the posterior lung bases. Heart size is normal. There is nasogastric tube. Tip is in the lateral stomach. Heart size is normal. There is no pericardial effusion. Liver shows no focal defect. Gallbladder appears normal. Bile ducts are not dilated. Spleen is intact . There is no evidence of pancreatic mass. There are multiple dilated fluid-filled loops of small bowel throughout the abdomen. There is some or al contrast in the large bowel down to the rectum. The large bowel is not dilated. The terminal ileum is not dilated. Transition point not identified. Small bowel is dilated up to 4.7 cm. There is no fr ee air. There is no ascites. There is left hip prosthesis. Kidneys show satisfactory contrast opacification. There is no hydronephrosis. There are small renal c ysts on the left side that measure up to 1 cm. Ureters are not dilated. There is Painter catheter in th e urinary bladder. Bladder is empty. The lumbar spine is intact. The bony pelvis is intact. IMPRESSION: Dilated fluid-filled loops of small bowel consistent with distal mechanical small bowel obstruction. Small bowel significantly increased compared to old exam. Bilateral pleural effusions with basilar pulmonary infiltrates and atelectasis increased compared to old exam.
[2020-07-15] MEDS: HALOPERIDOL LACTATE 5 MG/ML 1 ML VIAL IVP PRN (23:16)
[2020-07-16] MEDS ORDERED: LORazepam 2 MG/ML INJ IV PRN (00:26)
[2020-07-16] MEDS: NOREPINEPHRINE 4 MG in SODIUM CHLORIDE 0.9% 250 ML IV SCH ×2 (00:27→19:41)
--- NOTE | 2020-07-16 00:40 | XR ---
EXAMINATION TYPE: XR chest 1V portable DATE OF EXAM: 07/16/2020 COMPARISON: 07/15/2020 HISTORY: NG tube placement TECHNIQUE: FINDINGS: There is patchy bilateral infiltrates in the lower lung truong. Heart size is normal. There are chest leads. There is nasogastric tube with the tip apparently in the lateral aspect of the vinay crystal fundus. Trachea is midline. Mediastinum is normal. There are no hilar masses. IMPRESSION: NG tube in good position in the stomach. There is increasing infiltrates at the lung base s compared to yesterday.
[2020-07-16] MEDS: PIPERACILLIN-TAZOBACTAM 3.375 GM in SODIUM CHLORIDE 0.9% 100 ML IVPB SCH ×3 (01:14→15:20)
[2020-07-16] MEDS: HALOPERIDOL LACTATE 5 MG/ML 1 ML VIAL IVP PRN ×2 (01:20→04:38)
[2020-07-16 05:17] LABS: Anisocytosis Slight; Basophils # (A) 0.1 k/uL (0-0.2); Basophils % (A) 0 %; Eosinophils # (A) 0.2 k/uL (0-0.7); Eosinophils % (A) 1 %; HCT 27.7 % (39.0-53.0); HGB 8.8 gm/dL (13.0-17.5); Hypochromasia Slight; Lymphocytes # (A) 1.4 k/uL (1.0-4.8); Lymphocytes % (A) 8 %; MCHC 31.9 g/dL (31.0-37.0); MCV 87.8 fL (80.0-100.0); Monocytes # (A) 0.4 k/uL (0-1.0); Monocytes % (A) 3 %; Neutrophils # (A) 14.7 k/uL (1.3-7.7); Neutrophils % (A) 86 %; Platelet Count 452 k/uL (150-450); RBC 3.16 m/uL (4.30-5.90); RDW 16.6 % (11.5-15.5)
[2020-07-16 05:27] LABS: ALT 17 U/L (4-49); AST 29 U/L (17-59); African American GFR (CKD) >90 (>60 ml/min/1.73 sqM); Albumin 2.8 g/dL (3.5-5.0); Alkaline Phosphatase 61 U/L (38-126); Anion Gap 8 mmol/L; Blood Urea Nitrogen 18 mg/dL (9-20); Calcium 9.3 mg/dL (8.4-10.2); Carbon Dioxide 39 mmol/L (22-30); Chloride 93 mmol/L (98-107); Glucose 116 mg/dL (74-99); Magnesium 2.1 mg/dL (1.6-2.3); Non-African American GFR(CKD) 82 (>60 ml/min/1.73 sqM); Potassium 3.6 mmol/L (3.5-5.1); Sodium 140 mmol/L (137-145); Total Bilirubin 0.6 mg/dL (0.2-1.3)
[2020-07-16] MEDS: POTASSIUM CHLORIDE 10 MEQ in WATER FOR INJECTION 1 100ML.BAG IVPB SCH ×4 (05:52→19:46)
--- NOTE | 2020-07-16 06:34 | XR ---
EXAMINATION TYPE: XR chest 1V portable DATE OF EXAM: 07/16/2020 COMPARISON: Today HISTORY: Short of breath TECHNIQUE: FINDINGS: There is some mild infiltrate left lung base. There is no heart failure. There is nasogastr ic tube with the tip in the gastric fundus. Trachea is midline. There are no hilar masses. IMPRESSION: Mild infiltrate and atelectasis at the lung bases is improved slightly compared to exam 5 hours ago. No heart failure.
[2020-07-16] MEDS: IPRATROPIUM-ALBUTEROL 3 ML NEB INHALATION SCH ×4 (07:39→20:16)
[2020-07-16] MEDS: NICOTINE 21MG/24HR PATCH TRANSDERM SCH (08:47)
[2020-07-16] MEDS: PANTOPRAZOLE 40 MG/10 ML VIAL IVP SCH (08:47)
[2020-07-16] MEDS: THIAMINE 100 MG TAB PO SCH ×2 (08:48→16:06)
[2020-07-16] MEDS: ALPRAZolam 0.25 MG TAB PO SCH ×3 (08:48→19:40)
[2020-07-16] MEDS ORDERED: SODIUM CHLORIDE 0.9% 1,000 ML IV ONE (09:09)
[2020-07-16] MEDS: DEXTROSE 5%-0.9% NACL 1,000 ML IV SCH (09:23)
--- NOTE | 2020-07-16 09:39 | US ---
EXAMINATION TYPE: US abdomen complete DATE OF EXAM: 07/16/2020 COMPARISON: NONE CLINICAL HISTORY: 55-year-old male abdominal pain. TECHNIQUE: Multiple sonographic images of the abdomen are obtained. FINDINGS: EXAM MEASUREMENTS: Liver Length: 12.4 cm Gallbladder Wall: 0.4 cm CBD: 0.5 cm Spleen: not visualized Right Kidney: 8.2 x 3.8 x 4.5 cm Left Kidney: 8.9 x 3.9 x 3.3 cm Certified Surgical First Assistant notes: ICU patient in restraints, unable to cooperate with examiner, bowel obstruction, c irrhosis. Severe technical limitations, non-diagnostic exam Pancreas: Obscured by bowel gas Liver: unable to fully evaluate, no evident masses Gallbladder: cholelithiasis Evidence for sonographic Craft's sign: no CBD: wnl Spleen: unable to visualize, see above limitations Right Kidney: measures small, very limited views Left Kidney: measures small, very limited views Upper IVC: wnl Abd Aorta: Obscured by overlying bowel gas Incidental fluid-filled dilated small bowel loops measuring up to 3 cm. IMPRESSION: Severe technical limitations. Nearly nondiagnostic exam. Patient was in restraints and would not coop erate. Gallbladder appears mildly hydropic with stones noted by the brick and blocker aid labor, not well seen on the provid ed images. There is also mild gallbladder wall thickening. Sonographic Craft's sign reported absent. If concern for cholecystitis, HIDA scan can be considered. Incidental dilated fluid-filled small bowel loops.
--- NOTE | 2020-07-16 11:15 | XR ---
EXAMINATION TYPE: XR chest 1V portable DATE OF EXAM: 07/16/2020 Comparison: Earlier today Clinical History: 55-year-old male recent C.L. attempt R/O pneumo., NGT placement Findings: NG tube courses below the diaphragm. Heart normal size. Some strandy lower lung atelectasis. No conso lidation, pneumothorax, or pleural effusion. Dilated small bowel loops partially visualized in the up per abdomen. Impression: No acute cardiopulmonary process. No pneumothorax. Partially visualized dilated small bowel loops in the upper abdomen compatible with recent CT findings.
--- NOTE | 2020-07-16 12:05 | P.PN ---
Subjective Progress Note Date: 07/16/20 On 07/16/2020, the patient is being seen in follow-up in intensive care unit. The patient got transferred to the ICU yesterday. Early evening yesterday, the patient became acutely hypotensive and he developed abdominal distention and abdominal pain. At that time, pleasant of the abdomen showed significant distention of the small bowel. Immediately the patient was given a total of 2 L of IV fluids and he was transferred to the intensive care unit. His blood work showed a white cell count of 15.9. His lactic acid level was nonelevated at 1.9. He has adequate renal function. CAT scan of the abdomen and pelvis was done with IV contrast and the patient was found to have small better pleural ef fusion and atelectatic changes in lung bases bilaterally mainly posteriorly. The patient also had multiple dilated fluid-filled loops of small bowel throughout the abdomen. There was some oral contrast and the large bowel down to the rectum. The large bowel was not dilated. The terminal ileum was not dilated. Transition point not identified. Small bowel was dilated up to 4.7 cm in size. There was no free air. There was no ascites. He has a left hip prosthesis. As such, the patient had dilated small bowel loops with possibility of a small bowel obstruction and distal mechanical small bowel obstruction. NG tube was inserted and the patient had immediately around 3.5 L of gastric juice aspirated through the NG. She was started on IV Zosyn. A triple lumen catheter was established today. Currently is hemodynamically stable. His abdomen still distended. Bowel sounds are hypoactive. Gen. surgery consultation still pending for now. He is baseline confused. Ammonia level was below. Has underlying history of liver cirrhosis. Chest x-ray showed no evidence of any underlying pneumonia. His overall performance and functional status is poor. Note that his albumin starting with was low and he looks quite cachectic and malnourished. He has been drinking alcohol continuously thinks young age. He stopped eating and drinking days before this current hospitalization. No a gitation. No tremulousness. No shakiness. Previous CAT scan of the brain shows cerebral atrophy. Objective - Vital Signs Vital signs: Vital Signs Temp 98.4 F 07/16/20 08:00 Pulse 124 H 07/16/20 11:54 Resp 27 H 07/16/20 11:00 BP 130/74 07/16/20 11:00 Pulse Ox 100 07/16/20 11:00 Intake & Output 07/15/20 07/16/20 07/16/20 18:59 06:59 18:59 Intake Total 340 5368.368 9409.019 Output Total 3115 842 Balance 340 -2055.299 551.019 Weight 40 kg 54.8 kg Intake: IV 1000 1250 Dextrose 5%-0.9% NaCl 1, 150 000 ml @ 75 mls/hr IV . [id number] [facility] Rx#:[id number] Piperacillin-Tazobactam 3 100 .375 gm In Sodium Chloride 0.9% 100 ml @ 25 mls/hr IVPB Q8H [facility] Rx#: [id number] Sodium Chloride 0.9% 1, 1000 000 ml @ 999 mls/hr IV . Q1H1M ONE Rx#:[id number] Sodium Chloride 0.9% 1, 1000 000 ml @ 999 mls/hr IV . Q1H1M ONE Rx#:[id number] Intake, IV Titration 59.701 143.019 Amount Norepinephrine 4 mg In 59.701 143.019 Sodium Chloride 0.9% 250 ml @ 0.05 MCG/KG/MIN 10. 439 mls/hr IV .Q24H [facility] Rx#:[id number] Oral 340 Output: Gastric Drainage 2800 600 Urine 315 242 Other: Voiding Method Urinal Indwelling Catheter Indwelling Catheter Diaper Incontinent # Voids 1 - Exam GENERAL EXAM: The patient is lethargic and somnolent. Her headaches. He can follow some simple commands. He has some baseline underlying confusion. 55-year-old -[place] male, thin, resting in bed, he is not using excessive muscle breathing. He has an NG tube in place. He is on oxygen 2 L per minute nasal cannula. HEAD: Normocephalic/atraumatic. EYES: Normal reaction of pupils, equal size. Conjunctiva pink, sclera white. NOSE: Clear with pink turbinates. THROAT: No erythema or exudates. NECK: No masses, no JVD, no thyroid enlargement, no adenopathy. CHEST: No chest wall deformity. Symmetrical expansion. LUNGS: Equal air entry with scattered wheezes, rhonchi CVS: Regular rate and rhythm, normal S1 and S2, no gallops, no murmurs, no rubs, tachycardic, in sinus mechanism ABDOMEN: Abdomen is quite distended. There is positive tympany. Minimal direct tenderness. No rebound tenderness. No guarding. No ascites. He has an umbilical hernia. No syncopal organomegaly assist. With this small bowel obstruction. EXTREMITIES: No clubbing, no edema, no cyanosis, 2+ pulses and upper and lower extremities. MUSCULOSKELETAL: Muscle strength and tone normal. SPINE: No scoliosis or deformity SKIN: No rashes CENTRAL NERVOUS SYSTEM: Alert and oriented -2. No focal deficits, tone is normal in all 4 extremities. PSYCHIATRIC: Alert and oriented -2. No confusion on today's exam, focal neurological deficits are absence. - Labs CBC & Chem 7: 07/16/20 04:52 07/16/20 04:52 Labs: Abnormal Lab Results - Last 24 Hours (Table) 07/15/20 07/15/20 07/15/20 Range/Units 19:49 21:04 21:22 WBC 15.9 H (3.8-10.6) k/uL RBC 2.89 L (4.30-5.90) m/uL Hgb 8.1 L (13.0-17.5) gm/dL Hct 25.6 L (39.0-53.0) % RDW 16.4 H (11.5-15.5) % Plt Count (150-450) k/uL Neutrophils # 14.1 H (1.3-7.7) k/uL Chloride (98-107) mmol/L Carbon Dioxide (22-30) mmol/L Glucose (74-99) mg/dL POC Glucose (mg/dL) 130 H 137 H (75-99) mg/dL Total Protein (6.3-8.2) g/dL Albumin (3.5-5.0) g/dL Ur Leukocyte Esterase (Negative) Urine WBC (0-5) /hpf Hyaline Casts (0-2) /lpf Urine Mucus (None) /hpf 07/15/20 07/15/20 07/16/20 Range/Units 21:22 21:45 04:52 WBC 17.0 H (3.8-10.6) k/uL RBC 3.16 L (4.30-5.90) m/uL Hgb 8.8 L (13.0-17.5) gm/dL Hct 27.7 L (39.0-53.0) % RDW 16.6 H (11.5-15.5) % Plt Count 452 H (150-450) k/uL Neutrophils # 14.7 H (1.3-7.7) k/uL Chloride (98-107) mmol/L Carbon Dioxide (22-30) mmol/L Glucose 118 H (74-99) mg/dL POC Glucose (mg/dL) (75-99) mg/dL Total Protein 5.6 L (6.3-8.2) g/dL Albumin 2.6 L (3.5-5.0) g/dL Ur Leukocyte Esterase Small H (Negative) Urine WBC 8 H (0-5) /hpf Hyaline Casts 7 H (0-2) /lpf Urine Mucus Rare H (None) /hpf 07/16/20 Range/Units 04:52 WBC (3.8-10.6) k/uL RBC (4.30-5.90) m/uL Hgb (13.0-17.5) gm/dL Hct (39.0-53.0) % RDW (11.5-15.5) % Plt Count (150-450) k/uL Neutrophils # (1.3-7.7) k/uL Chloride 93 L (98-107) mmol/L Carbon Dioxide 39 H (22-30) mmol/L Glucose 116 H (74-99) mg/dL POC Glucose (mg/dL) (75-99) mg/dL Total Protein 6.0 L (6.3-8.2) g/dL Albumin 2.8 L (3.5-5.0) g/dL Ur Leukocyte Esterase (Negative) Urine WBC (0-5) /hpf Hyaline Casts (0-2) /lpf Urine Mucus (None) /hpf Assessment and Plan Plan: 1 acute small bowel obstruction based on CAT scan findings. The patient has significant dilatation of the small bowel. Consider mechanical obstruction. NG tube is in place and the stomach and the decompressed. Abdomen continues to be distended and the patient is currently on IV Zosyn. No free air in the abdomen the lactic acid level was nonelevated at this point in time. Hemodynamically improved with fluids. No pressors for now. 2 chronic alcoholism 3 chronic liver cirrhosis 4 altered mentation,, consider the possibility of an underlying alcoholic dementia as the patient has significant cerebral atrophy on CAT scan imaging, ammonia levels have been consistently low 5 chronic symptomatic anemia 6 COPD currently inactive in stable 7 chronic malnourishment 8 hypoproteinemia and hypoalbuminemia along with significant loss in total body protein mass and chronic malnourishment 9 hypertension 10 obstructive sleep apnea 11 significant debility secondary to above-mentioned comorbidities Plan Aspiration precautions Keep the patient nothing by mouth Keep NG tube in place to suction General surgery consultation Monitor hemodynamics IV fluids DuoNeb nebulized treatments [id number] Continue IV Zosyn Continue thiamine Continue IV Protonix Triple-lumen catheter been established Prognosis poor baseline above-mentioned comorbidities. Not a good candidate for abdominal surgery for bowel obstruction if needed as the patient is quite debilitated and malnourished at this point in time. May consider initiation of TPN on this patient for nutritional support.
--- NOTE | 2020-07-16 12:08 | P.PCN ---
Date of Procedure: 07/16/20 Preoperative Diagnosis: Small bowel obstruction Postoperative Diagnosis: same Procedure(s) Performed: Central line insertion Anesthesia: local Surgeon: Harjeet Person Estimated Blood Loss (ml): 0 Pathology: other Condition: critical Disposition: ICU Operative Findings: Indication: Hemodynamic monitoring/Intravenous access. A time-out was completed verifying correct patient, procedure, site, positioning, and implant(s) or special equipment if applicable. The patient was placed in a dependent position appropriate for central line placement based on the vein to be cannulated. The patient's left groin was prepped and draped in sterile fashion. 1% Lidocaine was used to anesthetize the surrounding skin area. A triple lumen 9F Cordis catheter was introduced into the common femoral vein using Seldinger technique. The catheter was threaded smoothly over the guide wire and appropriate blood return was obtained. Each lumen of the catheter was evacuated of air and flushed with sterile saline. The catheter was then sutured in place to the skin and a sterile dressing applied. Perfusion to the extremity distal to the point of catheter insertion was checked and found to be adequate. The patient tolerated the procedure well and there were no complications.
--- NOTE | 2020-07-16 12:22 | P.PN ---
Subjective Progress Note Date: 07/16/20 Fercho Yen, is a 55-year-old male with known history of excessive alcohol use and history of liver cirrhosis who was brought in to [facility] emergency room by his due to mental status changes was confusion patient was also having weight loss, he was drinking alcohol up to 2 days prior to admission then he was not feeling well and he stopped drinking alcohol and stopped eating and drinking for 2-3 days. Patient was evaluated in emergency room, he was febrile temperature 97.7 pulse 60 respiration 16 blood pressure was significantly low at 71/59 pulse ox 94% on room air white blood count was 8.7 hemoglobin 8.3 platelet count 260 sodium was low at 126 potassium was low at 2.5 serum alcohol level was 21. Patient was admitted to intensive care unit he was started on IV fluid and potassium replacement protocol. Chest x-ray was done in the emergency room and did not reveal any active cardiopulmonary disease, computed tomography scan done in the emergency room revealed cerebral atrophy no acute intracranial abnormality, abdomen ultrasound done did not reveal any evidence of sizable ascites, urine analysis and blood culture were done and were ordered in ICU. On 07/06/2020 patient was seen and examined on the medical floor he is more somnolent he responds to stimuli otherwise he denies any complaints blood pressure is improved today urine analysis revealed evidence of urinary tract infection patient was started on IV Rocephin more globin is down to 6.8, On 07/07/2020 patient was seen and examined in the ICU he is alert and oriented 3 in no apparent distress he is answering questions appropriately today, there is no fever or chills no headache or dizziness no chest pain no shortness of breath no cough no nausea or vomiting no abdominal pain. No burning with urination no frequency or urgency and no hematuria, he received 1 unit of red blood cells today. On 07/08/2020, patient was seen and examined on the medical floor, he is somnolent but arousable in no apparent distress, there is no fever or chills no headache or dizziness no chest pain no shortness of breath no cough no nausea or vomiting no abdominal pain no diarrhea no burning with urination no frequency or urgency no hematuria, he had very poor oral intake so far, he was counseled in length he seems to understand, if the oral intake does not improve patient may need a nasogastric tube feeding. On 07/09/2020 patient was seen and examined on the medical floor, he is more alert today, his still has very poor oral intake, he was counseled in length in regard to need to eat more, he is denying any symptoms at this time there is no fever or chills no headache or dizziness no chest pain no shortness of breath no cough no nausea or vomiting no abdominal pain no diarrhea no burning with urination no frequency or urgency no hematuria, will add physical therapy and occupational therapy and assess if patient needs after discharge On 07/10/2020 patient was seen and examined on the medical floor he is alert slightly confused in no apparent distress nurse stated that he has been more agitated and slightly aggressive with staff he still has very poor oral intake otherwise he denies any complaints he has been refusing to keep telemetry box on there is no fever or chills no headache or dizziness no chest pain no shortness of breath no cough no nausea or vomiting no abdominal pain no diarrhea and no urinary symptoms On 07/11/2020 patient was seen and examined on the medical floor he is alert slightly confused in no distress he is complaining of cough he is breathing sounds are coarse otherwise there is no complaints there is no fever or chills no headache or dizziness no chest pain no shortness of breath, no nausea or vomiting no abdominal pain no diarrhea no burning with urination no frequency or urgency and no hematuria. Chest x-ray reveals bilateral infiltrates and small pleural effusion will re-consult pulmonary in that regard. On 07/12/2020 patient was seen and examined on the medical floor he is more alert and oriented today he is having more oral intake he is still complaining of cough there is no fever or chills, no chest pain or shortness of breath no nausea or vomiting no abdominal pain no diarrhea and no urinary symptoms On 07/14/2020 patient was seen and examined on the medical floor, he is alert and oriented 3 in no apparent distress, he was cleared by all consultants yesterday [facility], discharge was done yest erday however, patient still need authorization from insurance, hence discharge was delayed, clinically patient is stable he is complaining of generalized weakness otherwise he denies any specific complaints there is no fever or chills no headache or dizziness no chest pain no shortness of breath no cough no nausea or vomiting no abdominal pain no diarrhea and no urinary symptoms. On 07/15/2020 patient was seen and examined on the medical floor, he is complaining of abdominal pain today, otherwise he denies any complaints there is no fever or chills no headache or dizziness no chest pain no shortness of breath no cough no nausea or vomiting no diarrhea no blood in the stools no burning with urination no frequency or urgency no hematuria. On 07/16/2020 patient was seen and examined in the ICU he is alert and responsive in no apparent distress, yesterday he was having abdominal pain comp uted tomography scan of the abdomen revealed evidence of small bowel obstruction NG tube was put in patient was having episodes of agitation he was also having hypotension he was transferred to intensive care unit, he is being followed by Dr. Person for pulmonary and critical care, and by surgery, currently he is still in ICU he is maintained on vasopressors. Objective - Vital Signs Vital signs: Vital Signs Temp 98.4 F 07/16/20 08:00 Pulse 126 H 07/16/20 12:03 Resp 27 H 07/16/20 11:00 BP 130/74 07/16/20 11:00 Pulse Ox 100 07/16/20 11:00 Intake & Output 07/15/20 07/16/20 07/16/20 18:59 06:59 18:59 Intake Total 340 6907.699 3667.019 Output Total 3115 842 Balance 340 -2055.299 551.019 Weight 40 kg 54.8 kg Intake: IV 1000 1250 Dextrose 5%-0.9% NaCl 1, 150 000 ml @ 75 mls/hr IV . [id number] [facility] Rx#:[id number] Piperacillin-Tazobactam 3 100 .375 gm In Sodium Chloride 0.9% 100 ml @ 25 mls/hr IVPB Q8H [facility] Rx#: [id number] Sodium Chloride 0.9% 1, 1000 000 ml @ 999 mls/hr IV . Q1H1M [facility] Rx#:[id number] Sodium Chloride 0.9% 1, 1000 000 ml @ 999 mls/hr IV . Q1H1M [facility] Rx#:[id number] Intake, IV Titration 59.701 143.019 Amount Norepinephrine 4 mg In 59.701 143.019 Sodium Chloride 0.9% 250 ml @ 0.05 MCG/KG/MIN 10. 439 mls/hr IV .Q24H [facility] Rx#:[id number] Oral 340 Output: Gastric Drainage 2800 600 Urine 315 242 Other: Voiding Method Urinal Indwelling Catheter Indwelling Catheter Diaper Incontinent # Voids 1 - Exam In general patient is alert slightly confused in no apparent distress HEENT head normocephalic and atraumatic Neck is supple no JVD no goiter no lymphadenopathy Chest exam reveals a few scattered crackles no wheezing Cardiac exam reveals regular heart sounds S1 and S2 no gallops no murmurs Abdomen is tense, distended no organomegaly with normal bowel sounds Extremity exam reveals no edema no cyanosis or clubbing Neurological examination reveals no gross focal deficit other than mild confusion - Labs CBC & Chem 7: 07/16/20 04:52 07/16/20 04:52 Labs: Abnormal Lab Results - Last 24 Hours (Table) 07/15/20 07/15/20 07/15/20 Range/Units 19:49 21:04 21:22 WBC 15.9 H (3.8-10.6) k/uL RBC 2.89 L (4.30-5.90) m/uL Hgb 8.1 L (13.0-17.5) gm/dL Hct 25.6 L (39.0-53.0) % RDW 16.4 H (11.5-15.5) % Plt Count (150-450) k/uL Neutrophils # 14.1 H (1.3-7.7) k/uL Chloride (98-107) mmol/L Carbon Dioxide (22-30) mmol/L Glucose (74-99) mg/dL POC Glucose (mg/dL) 130 H 137 H (75-99) mg/dL Total Protein (6.3-8.2) g/dL Albumin (3.5-5.0) g/dL Ur Leukocyte Esterase (Negative) Urine WBC (0-5) /hpf Hyaline Casts (0-2) /lpf Urine Mucus (None) /hpf 07/15/20 07/15/20 07/16/20 Range/Units 21:22 21:45 04:52 WBC 17.0 H (3.8-10.6) k/uL RBC 3.16 L (4.30-5.90) m/uL Hgb 8.8 L (13.0-17.5) gm/dL Hct 27.7 L (39.0-53.0) % RDW 16.6 H (11.5-15.5) % Plt Count 452 H (150-450) k/uL Neutrophils # 14.7 H (1.3-7.7) k/uL Chloride (98-107) mmol/L Carbon Dioxide (22-30) mmol/L Glucose 118 H (74-99) mg/dL POC Glucose (mg/dL) (75-99) mg/dL Total Protein 5.6 L (6.3-8.2) g/dL Albumin 2.6 L (3.5-5.0) g/dL Ur Leukocyte Esterase Small H (Negative) Urine WBC 8 H (0-5) /hpf Hyaline Casts 7 H (0-2) /lpf Urine Mucus Rare H (None) /hpf 07/16/20 Range/Units 04:52 WBC (3.8-10.6) k/uL RBC (4.30-5.90) m/uL Hgb (13.0-17.5) gm/dL Hct (39.0-53.0) % RDW (11.5-15.5) % Plt Count (150-450) k/uL Neutrophils # (1.3-7.7) k/uL Chloride 93 L (98-107) mmol/L Carbon Dioxide 39 H (22-30) mmol/L Glucose 116 H (74-99) mg/dL POC Glucose (mg/dL) (75-99) mg/dL Total Protein 6.0 L (6.3-8.2) g/dL Albumin 2.8 L (3.5-5.0) g/dL Ur Leukocyte Esterase (Negative) Urine WBC (0-5) /hpf Hyaline Casts (0-2) /lpf Urine Mucus (None) /hpf Assessment and Plan Plan: 1. Mental status changes, likely related to chronic alcohol use and early alcohol withdrawal, on CIWA protocol 2. Hypotension patient was started on IV fluid, blood pressure stable, will check urine analysis and blood culture to rule out any infectious etiology, crit ical care consult requested 3. Underlying history of liver cirrhosis, gastroenterology consult requested 4. Anemia will recheck CBC is this evening, if needed will proceed with red blood cell transfusion, gastroenterology consult 5. Hypokalemia correcting 6. Poor oral intake will advance diet gradually 7. By basilar infiltrate with small pleural effusion, possible pneumonia antibiotic were switched to Zosyn, will reconsult pulmonary 8. New abdominal pain started yesterday, there is evidence of small bowel obstruction on testing, awaiting surgery opinion, NG tube is in 9. Sepsis with hypotension, patient restarted on IV Zosyn, will Consult infectious disease For DVT prophylaxis SCD stockings For GI prophylaxis patient on Protonix Prognosis is guarded will follow closely
[2020-07-16] MEDS: ENOXAPARIN 40 MG/0.4 ML SYRINGE SQ SCH (13:16)
--- NOTE | 2020-07-16 13:22 | P.GSCN ---
History of Present Illness Consult date: 07/16/20 History of present illness: CHIEF COMPLAINT: Bowel obstruction HISTORY OF PRESENT ILLNESS: The patient is a 55 year old male with history of alcoholism including cirrhosis presented to the hospital secondary to confusion. During hospitalization, patient developed increased abdominal distention. Workup demonstrated bowel obstruction. General surgery was consulted. is at bedside. Patient is restrained. He is in intensive care unit. Yesterday, NG tube was placed. He has over 3+ liters out of NGT in 12+ hrs. He reports passage of flatus. PAST MEDICAL HISTORY: See list and reviewed PAST SURGICAL HISTORY: See list and reviewed MEDICATIONS: See list and reviewed ALLERGIES: See list and reviewed SOCIAL HISTORY: See list and reviewed FAMILY HISTORY: See list and reviewed REVIEW OF ORGAN SYSTEMS: CONSTITUTIONAL: No fevers or chills. No recent weight loss. EYES: Denies any trouble with vision. No glasses. HEENT: No difficulties with hearing. No nosebleeds. No difficulty swallowing. RESPIRATORY: Has asthma. Has COPD. Has sleep apnea. CARDIOVASCULAR: Denies any chest pain, palpitations, or recent heart attacks. GASTROINTESTINAL: Has cirrhosis of the liver. Has chronic alcoholism. Past history of GI bleed. History of stomach cancer. GENITOURINARY: Denies any blood in urine or increased urinary frequency. NEUROLOGICAL: Past history of CVA and stroke. MUSCULOSKELETAL: Has back pain, stiffness or joint arthritis. SKIN: No current skin cancer. No rash. PSYCHIATRIC: Has depression. He has anxiety. ENDOCRINE: Denies current thyroid disorders. Denies any blood sugar glucose intolerance. HEME/LYMPHATIC: Denies any lumps and bumps around the neck. No recent deep venous thrombosis. ALLERGY/IMMUNOLOGY: No immunoglobulin therapy. No immune deficiencies. BREAST: Denies current breast lumps, pain or nipple discharge. PHYSICAL EXAM: VITALS: Reviewed CONSTITUTIONAL: Well developed and in no acute distress. EYES: Conjuctivae without sclera icterus. Pupils are equally round and reactive to light. Extraocular movements grossly intact. HEAD, EARS, NOSE, THROAT: Moist buccal mucosa. Head is atraumatic, normocephalic. Hears conversational speech. No nasal drainage. Nasogastric tube present. NECK: Supple. No JV distention. No thyroidomegaly. RESPIRATORY: Non-labored respirations and equal bilateral excursions. No gross wheezes. CARDIOVASCULAR: Tachycardic. Palpable 2+ radial pulses. ABDOMEN: Distended. No peritonitis. NG dark emesis. Mild diffuse tenderness. LYMPH: No neck lymphadenopathy. No axillary lymphadenopathy. MUSCULOSKELETAL: Nail and fingers with good capillary refill, currently in restraints. SKIN: Warm and well perfused with good skin turgor. NEUROLOGIC: Cranial nerves II through XII grossly intact. Sensation upper and extremities intact. No focal or lateralizing signs. PSYCH: Alert to person. CLINCAL LABS: Reviewed. WBC up from 15.9. to 17.0. Hgb up 8.1 to 8.8. STUDIES: CT of abdomen and pelvis reviewed with diffused small bowel distention and contrast in rectum. RADIOLOGY: CT reports distal small bowel obstruction. Ultrasound of the gallbladder demonstrates thickened gallbladder wall. Otherwise suboptimal. ASSESSMENT: 1. Small bowel obstruction per CT 2. Gastritis PLAN: 1. May have ice chips 2. Continue NG decompression as he has symptomatic improvement. 3. GI prophylaxis for gastritis 4. May have Lovenox 5. Abdominal films to follow resolution of bowel obstruction Thank you for this kind consultation. Past Medical History Past Medical History: Cancer, COPD, CVA/TIA, GERD/Reflux, GI Bleed, Hypertension, Osteoarthritis (OA), Sleep Apnea/CPAP/BIPAP Additional Past Medical History / Comment(s): TIA 2018. Not currently taking BP medication but has in past. "Stomach cancer 3 yrs, had 3 months of radiation." Does not use CPAP machine. History of Any Multi-Drug Resistant Organisms: None Reported Past Surgical History: Joint Replacement Additional Past Surgical History / Comment(s): Left hip replacement. EGD . Past Anesthesia/Blood Transfusion Reactions: No Reported Reaction Past Psychological History: Anxiety, Depression Smoking Status: Current every day smoker Past Alcohol Use History: Abuse, Daily, Heavy Additional Past Alcohol Use History / Comment(s): DRINKS 5-10. beers daily. Past Drug Use History: Marijuana Additional Drug Use History / Comment(s): USUALLY USES MARIJUANA ONCE A DAY. - Past Family History Mother Family Medical History: Cancer Additional Family Medical History / Comment(s): Breast cancer. Medications and Allergies Home Medications Medication Instructions Recorded Confirmed Type Omeprazole [PriLOSEC] 20 mg PO AC-BID PRN 03/12/19 07/04/20 History Albuterol Sulfate [Ventolin HFA] 2 puff INHALATION RT-QID PRN 07/04/20 07/04/20 History HYDROcodone/APAP 10-325MG [[place] 1 tab PO Q6H PRN 07/04/20 07/04/20 History 10-325] ALPRAZolam [Xanax] 0.25 mg PO TID tab 07/13/20 Rx Amoxic-Pot Clav 875-125Mg 1 each PO Q12HR tab 07/13/20 Rx [Augmentin 875-125] Ipratropium-Albuterol Nebulize 3 ml INHALATION RT-Q2H PRN ml 07/13/20 Rx [Duoneb 0.5 mg-3 mg/3 ml Soln] Ipratropium-Albuterol Nebulize 3 ml INHALATION RT-QID ml 07/13/20 Rx [Duoneb 0.5 mg-3 mg/3 ml Soln] Nicotine 21Mg/24Hr Patch [Habitrol] 1 patch TRANSDERM DAILY patch 07/13/20 Rx Thiamine [Vitamin B-1] 100 mg PO BID-W/MEALS tab 07/13/20 Rx Allergies Allergy/AdvReac Type Severity Reaction Status Date / Time aspirin AdvReac Nausea & Verified 07/04/20 18:40 Vomiting ibuprofen [From Motrin] AdvReac Nausea & Verified 07/04/20 18:40 Vomiting Surgical - Exam Vital Signs Temp Pulse Resp BP Pulse Ox 97.7 F 60 16 71/59 94 L 07/04/20 17:43 07/04/20 17:43 07/04/20 17:43 07/04/20 17:43 07/04/20 17:43 Results - Labs 07/16/20 04:52 07/16/20 14:15 Abnormal Lab Results - Last 24 Hours (Table) 07/15/20 07/15/20 07/15/20 Range/Units 19:49 21:04 21:22 WBC 15.9 H (3.8-10.6) k/uL RBC 2.89 L (4.30-5.90) m/uL Hgb 8.1 L (13.0-17.5) gm/dL Hct 25.6 L (39.0-53.0) % RDW 16.4 H (11.5-15.5) % Plt Count (150-450) k/uL Neutrophils # 14.1 H (1.3-7.7) k/uL Chloride (98-107) mmol/L Carbon Dioxide (22-30) mmol/L Glucose (74-99) mg/dL POC Glucose (mg/dL) 130 H 137 H (75-99) mg/dL Total Protein (6.3-8.2) g/dL Albumin (3.5-5.0) g/dL Ur Leukocyte Esterase (Negative) Urine WBC (0-5) /hpf Hyaline Casts (0-2) /lpf Urine Mucus (None) /hpf 07/15/20 07/15/20 07/16/20 Range/Units 21:22 21:45 04:52 WBC 17.0 H (3.8-10.6) k/uL RBC 3.16 L (4.30-5.90) m/uL Hgb 8.8 L (13.0-17.5) gm/dL Hct 27.7 L (39.0-53.0) % RDW 16.6 H (11.5-15.5) % Plt Count 452 H (150-450) k/uL Neutrophils # 14.7 H (1.3-7.7) k/uL Chloride (98-107) mmol/L Carbon Dioxide (22-30) mmol/L Glucose 118 H (74-99) mg/dL POC Glucose (mg/dL) (75-99) mg/dL Total Protein 5.6 L (6.3-8.2) g/dL Albumin 2.6 L (3.5-5.0) g/dL Ur Leukocyte Esterase Small H (Negative) Urine WBC 8 H (0-5) /hpf Hyaline Casts 7 H (0-2) /lpf Urine Mucus Rare H (None) /hpf 07/16/20 Range/Units 04:52 WBC (3.8-10.6) k/uL RBC (4.30-5.90) m/uL Hgb (13.0-17.5) gm/dL Hct (39.0-53.0) % RDW (11.5-15.5) % Plt Count (150-450) k/uL Neutrophils # (1.3-7.7) k/uL Chloride 93 L (98-107) mmol/L Carbon Dioxide 39 H (22-30) mmol/L Glucose 116 H (74-99) mg/dL POC Glucose (mg/dL) (75-99) mg/dL Total Protein 6.0 L (6.3-8.2) g/dL Albumin 2.8 L (3.5-5.0) g/dL Ur Leukocyte Esterase (Negative) Urine WBC (0-5) /hpf Hyaline Casts (0-2) /lpf Urine Mucus (None) /hpf Diabetes panel 07/15/20 07/16/20 Range/Units 21:22 04:52 Sodium 137 140 (137-145) mmol/L Potassium 4.2 3.6 (3.5-5.1) mmol/L Chloride 98 93 L (98-107) mmol/L Carbon Dioxide 29 39 H (22-30) mmol/L BUN 15 18 (9-20) mg/dL Creatinine 0.94 1.01 (0.66-1.25) mg/dL Glucose 118 H 116 H (74-99) mg/dL Calcium 8.6 9.3 (8.4-10.2) mg/dL AST 20 29 (17-59) U/L ALT 14 17 (4-49) U/L Alkaline Phosphatase 49 61 (38-126) U/L Total Protein 5.6 L 6.0 L (6.3-8.2) g/dL Albumin 2.6 L 2.8 L (3.5-5.0) g/dL Calcium panel 07/15/20 07/16/20 Range/Units 21:22 04:52 Calcium 8.6 9.3 (8.4-10.2) mg/dL Albumin 2.6 L 2.8 L (3.5-5.0) g/dL Pituitary panel 07/15/20 07/16/20 Range/Units 21:22 04:52 Sodium 137 140 (137-145) mmol/L Potassium 4.2 3.6 (3.5-5.1) mmol/L Chloride 98 93 L (98-107) mmol/L Carbon Dioxide 29 39 H (22-30) mmol/L BUN 15 18 (9-20) mg/dL Creatinine 0.94 1.01 (0.66-1.25) mg/dL Glucose 118 H 116 H (74-99) mg/dL Calcium 8.6 9.3 (8.4-10.2) mg/dL Adrenal panel 07/15/20 07/16/20 Range/Units 21:22 04:52 Sodium 137 140 (137-145) mmol/L Potassium 4.2 3.6 (3.5-5.1) mmol/L Chloride 98 93 L (98-107) mmol/L Carbon Dioxide 29 39 H (22-30) mmol/L BUN 15 18 (9-20) mg/dL Creatinine 0.94 1.01 (0.66-1.25) mg/dL Glucose 118 H 116 H (74-99) mg/dL Calcium 8.6 9.3 (8.4-10.2) mg/dL Total Bilirubin 0.7 0.6 (0.2-1.3) mg/dL AST 20 29 (17-59) U/L ALT 14 17 (4-49) U/L Alkaline Phosphatase 49 61 (38-126) U/L Total Protein 5.6 L 6.0 L (6.3-8.2) g/dL Albumin 2.6 L 2.8 L (3.5-5.0) g/dL Assessment and Plan (1) Gastritis with bleeding Current Visit: Yes Status: Acute Code(s): K29.71 - GASTRITIS, UNSPECIFIED, WITH BLEEDING SNOMED Code(s): 7701971 (2) Cirrhosis of liver Current Visit: Yes Status: Acute Code(s): K74.60 - UNSPECIFIED CIRRHOSIS OF LIVER SNOMED Code(s): 99146829 (3) Alcohol withdrawal delirium Current Visit: Yes Status: Acute Code(s): F10.231 - ALCOHOL DEPENDENCE WITH WITHDRAWAL DELIRIUM SNOMED Code(s): 8028056 (4) History of ETOH abuse Current Visit: No Status: Acute Code(s): Z87.898 - PERSONAL HISTORY OF OTHER SPECIFIED CONDITIONS SNOMED Code(s): 236014784 (5) SBO (small bowel obstruction) Current Visit: No Status: Acute Code(s): K56.609 - UNSP INTESTNL OBST, UNSP TO PARTIAL VERSUS COMPLETE OBST SNOMED Code(s): 903329381
[2020-07-16 14:21] LABS: Phosphorus 6.3 mg/dL (2.5-4.5)
[2020-07-16] MEDS ORDERED: MVI, ADULT NO.4 WITH VIT K 10 ML, TRACE (CONC-1ML/DOSE) 1 ML, PARENTERAL ELECTROLYTES 2... IV SCH ×4 (15:00)
[2020-07-16] MEDS ORDERED: MVI, ADULT NO.4 WITH VIT K 10 ML, TRACE (CONC-1ML/DOSE) 1 ML in AMINO ACID 5%-D15W+LYTE... IV SCH ×3 (15:00)
[2020-07-16 18:14] LABS: Glucose,Whole Blood 169 mg/dL (75-99)
[2020-07-16] MEDS: INSULIN ASPART (NovoLOG) 100 UNIT/ML VIAL SQ SCH (18:16)
[2020-07-16] MEDS ORDERED: PIPERACILLIN-TAZOBACTAM 3.375 GM in SODIUM CHLORIDE 0.9% 100 ML IVPB SCH (21:20)
[2020-07-16 23:29] LABS: Glucose,Whole Blood 124 mg/dL (75-99)
[2020-07-17] MEDS: INSULIN ASPART (NovoLOG) 100 UNIT/ML VIAL SQ SCH ×4 (00:08→18:07)
[2020-07-17] MEDS: PIPERACILLIN-TAZOBACTAM 3.375 GM in SODIUM CHLORIDE 0.9% 100 ML IVPB SCH ×3 (00:09→16:31)
[2020-07-17] MEDS: DEXTROSE 5%-0.9% NACL 1,000 ML IV SCH ×2 (00:10→17:12)
[2020-07-17] MEDS: POTASSIUM CHLORIDE 10 MEQ in WATER FOR INJECTION 1 100ML.BAG IVPB SCH ×4 (04:00→08:26)
[2020-07-17 05:27] LABS: Anisocytosis Slight; Basophils % (A) 0 %; Eosinophils # (A) 0.3 k/uL (0-0.7); Eosinophils % (A) 2 %; HCT 22.1 % (39.0-53.0); Hypochromasia Moderate; Lymphocytes # (A) 1.3 k/uL (1.0-4.8); Lymphocytes % (A) 9 %; MCH 28.1 pg (25.0-35.0); MCHC 31.6 g/dL (31.0-37.0); MCV 88.9 fL (80.0-100.0); Mean Platelet Volume 6.9; Monocytes # (A) 0.7 k/uL (0-1.0); Monocytes % (A) 4 %; Neutrophils # (A) 12.2 k/uL (1.3-7.7); Neutrophils % (A) 83 %; Platelet Count 350 k/uL (150-450); RBC 2.49 m/uL (4.30-5.90); RDW 16.2 % (11.5-15.5); WBC 14.8 k/uL (3.8-10.6)
[2020-07-17 05:29] LABS: ALT 15 U/L (4-49); AST 23 U/L (17-59); African American GFR (CKD) >90 (>60 ml/min/1.73 sqM); Albumin 2.3 g/dL (3.5-5.0); Alkaline Phosphatase 48 U/L (38-126); Anion Gap 3 mmol/L; Blood Urea Nitrogen 15 mg/dL (9-20); Calcium 8.1 mg/dL (8.4-10.2); Carbon Dioxide 35 mmol/L (22-30); Chloride 104 mmol/L (98-107); Glucose 100 mg/dL (74-99); Magnesium 2.1 mg/dL (1.6-2.3); Non-African American GFR(CKD) 89 (>60 ml/min/1.73 sqM); Phosphorus 4.1 mg/dL (2.5-4.5); Potassium 3.9 mmol/L (3.5-5.1); Sodium 142 mmol/L (137-145); Total Bilirubin 0.4 mg/dL (0.2-1.3); Total Protein 5.3 g/dL (6.3-8.2)
[2020-07-17] MEDS: THIAMINE 100 MG TAB PO SCH ×2 (05:37→15:24)
[2020-07-17 05:59] LABS: Glucose,Whole Blood 131 mg/dL (75-99)
--- NOTE | 2020-07-17 08:19 | XR ---
EXAMINATION TYPE: XR chest 1V portable DATE OF EXAM: 07/17/2020 COMPARISON: 07/16/2020 INDICATION: Short of breath TECHNIQUE: Single frontal view of the chest is obtained. FINDINGS: The heart size is normal. The pulmonary vasculature is normal. The lungs are clear. Nasogastric tube transverses the thorax the tip within the abdomen. IMPRESSION: 1. No acute pulmonary process.
[2020-07-17] MEDS: ALPRAZolam 0.25 MG TAB PO SCH ×3 (08:21→20:09)
[2020-07-17] MEDS: IPRATROPIUM-ALBUTEROL 3 ML NEB INHALATION SCH ×4 (08:23→19:47)
[2020-07-17] MEDS: ENOXAPARIN 40 MG/0.4 ML SYRINGE SQ SCH (08:25)
[2020-07-17] MEDS: PANTOPRAZOLE 40 MG/10 ML VIAL IVP SCH ×2 (08:25→20:10)
[2020-07-17] MEDS: NICOTINE 21MG/24HR PATCH TRANSDERM SCH (08:25)
--- NOTE | 2020-07-17 09:58 | XR ---
EXAMINATION TYPE: XR abdomen 1V DATE OF EXAM: 07/17/2020 COMPARISON: 07/15/2020 INDICATION: Small bowel obstruction TECHNIQUE: Single view abdomen supine view FINDINGS: There are prominent air-filled small bowel loops. Loops of bowel have increased in dilation over the interval. Contrast is present within the distal colon. The ascending and transverse colon has some re sidual contrast appears somewhat prominent but similar to prior exam. Stomach appears decompressed ov er the interval. Nasogastric tube is present with tip in the right upper quadrant of the abdomen. Psoas margins are poorly visualized on the overpenetrated exam. No mass effect is evident. No organomegaly is present. IMPRESSION: 1. Increasing dilated small bowel loops with abundant air and contrast within the colon. Correlate fo r ileus. Worsening small bowel obstruction should be considered within the differential.
[2020-07-17 11:44] LABS: Glucose,Whole Blood 116 mg/dL (75-99)
--- NOTE | 2020-07-17 11:49 | P.PN ---
Subjective Progress Note Date: 07/17/20 On 07/16/2020, the patient is being seen in follow-up in intensive care unit. The patient got transferred to the ICU yesterday. Early evening yesterday, the patient became acutely hypotensive and he developed abdominal distention and abdominal pain. At that time, pleasant of the abdomen showed significant distention of the small bowel. Immediately the patient was given a total of 2 L of IV fluids and he was transferred to the intensive care unit. His blood work showed a white cell count of 15.9. His lactic acid level was nonelevated at 1.9. He has adequate renal function. CAT scan of the abdomen and pelvis was done with IV contrast and the patient was found to have small better pleural ef fusion and atelectatic changes in lung bases bilaterally mainly posteriorly. The patient also had multiple dilated fluid-filled loops of small bowel throughout the abdomen. There was some oral contrast and the large bowel down to the rectum. The large bowel was not dilated. The terminal ileum was not dilated. Transition point not identified. Small bowel was dilated up to 4.7 cm in size. There was no free air. There was no ascites. He has a left hip prosthesis. As such, the patient had dilated small bowel loops with possibility of a small bowel obstruction and distal mechanical small bowel obstruction. NG tube was inserted and the patient had immediately around 3.5 L of gastric juice aspirated through the NG. She was started on IV Zosyn. A triple lumen catheter was established today. Currently is hemodynamically stable. His abdomen still distended. Bowel sounds are hypoactive. Gen. surgery consultation still pending for now. He is baseline confused. Ammonia level was below. Has underlying history of liver cirrhosis. Chest x-ray showed no evidence of any underlying pneumonia. His overall performance and functional status is poor. Note that his albumin starting with was low and he looks quite cachectic and malnourished. He has been drinking alcohol continuously thinks young age. He stopped eating and drinking days before this current hospitalization. No a gitation. No tremulousness. No shakiness. Previous CAT scan of the brain shows cerebral atrophy. On 07/17/2020 on seeing this patient for a follow-up in the intensive care unit. The patient unfortunately is decompensated. He has become more confused. He pulled up his through Jazmyn catheter overnight. I had started on TPN for nutritional support and this had to be placed on hold. Meanwhile, his abdomen is to be a bit more distended. NG tube is in place. Output is minimal at this point in time. If that's some of the abdomen was done and it shows increased dilated small bowel loops and abundant air and contrast within the colon. This is likely an ileus. However, there is possibility of worsening small bowel obstruction and general surgeries on the case and the patient was seen by general surgery yesterday. We'll ask a reevaluation. Otherwise, his hemoglobin is at 7.0. No evidence of any upper GI bleed. White cell count is at 14.8. Renal function is stable. He is currently on D5 normal saline at rate of 75 mL an hour. As mentioned earlier, TPN was discontinued due to lack of IV central line access. No significant agitation. No shakiness. No focal neurological d eficits. Objective - Vital Signs Vital signs: Vital Signs Temp 96.8 F L 07/17/20 08:00 Pulse 113 H 07/17/20 11:00 Resp 23 07/17/20 11:00 BP 131/78 07/17/20 11:00 Pulse Ox 100 07/17/20 11:00 Intake & Output 07/16/20 07/17/20 07/17/20 18:59 06:59 18:59 Intake Total 2168.642 1335 500 Output Total 1110 705 315 Balance 1058.642 630 185 Weight 54.8 kg 55.8 kg Intake: IV 1994 1335 500 Dextrose 5%-0.9% NaCl 1, 675 675 300 000 ml @ 75 mls/hr IV . [id number] [facility] Rx#:[id number] Mvi, Adult No.4 with Vit 120 360 K 10 ml Trace (Conc-1Ml/ Dose) 1 ml Parenteral Electrolytes 20 ml In Amino Acid 5%-D15w 1,000 ml @ 30 mls/hr IV .Q24H [facility] Rx#:[id number] Piperacillin-Tazobactam 3 200 100 100 .375 gm In Sodium Chloride 0.9% 100 ml @ 25 mls/hr IVPB Q8H [facility] Rx#: [id number] Potassium Chloride 10 meq 200 In Water For Injection 1 100ml.bag @ 100 mls/hr IVPB Q1H [facility] Rx#: [id number] Potassium Chloride 10 meq 100 In Water For Injection 1 100ml.bag @ 100 mls/hr IVPB Q1HR [facility] Rx#: [id number] Sodium Chloride 0.9% 1, 1000 000 ml @ 999 mls/hr IV . Q1H1M [facility] Rx#:[id number] Intake, IV Titration 173.642 Amount Norepinephrine 4 mg In 173.642 Sodium Chloride 0.9% 250 ml @ 0.05 MCG/KG/MIN 10. 439 mls/hr IV .Q24H [facility] Rx#:[id number] Output: Gastric Drainage 600 Urine 510 705 315 Other: Voiding Method Indwelling Catheter Indwelling Catheter Indwelling Catheter - Exam GENERAL EXAM: The patient is lethargic and somnolent. Her headaches. He can follow some simple commands. He has some baseline underlying confusion. 55-year-old -[place] male, thin, resting in bed, he is not using excessive muscle breathing. He has an NG tube in place. He is on oxygen 2 L per minute nasal cannula. HEAD: Normocephalic/atraumatic. EYES: Normal reaction of pupils, equal size. Conjunctiva pink, sclera white. NOSE: Clear with pink turbinates. THROAT: No erythema or exudates. NECK: No masses, no JVD, no thyroid enlargement, no adenopathy. CHEST: No chest wall deformity. Symmetrical expansion. LUNGS: Equal air entry with scattered wheezes, rhonchi CVS: Regular rate and rhythm, normal S1 and S2, no gallops, no murmurs, no rubs, tachycardic, in sinus mechanism ABDOMEN: Abdomen is quite distended. There is positive tympany. Minimal direct tenderness. No rebound tenderness. No guarding. No ascites. He has an umbilical hernia. No syncopal organomegaly assist. With this small bowel obstruction. EXTREMITIES: No clubbing, no edema, no cyanosis, 2+ pulses and upper and lower extremities. MUSCULOSKELETAL: Muscle strength and tone normal. SPINE: No scoliosis or deformity SKIN: No rashes CENTRAL NERVOUS SYSTEM: Alert and oriented -2. No focal deficits, tone is normal in all 4 extremities. PSYCHIATRIC: Alert and oriented -2. No confusion on today's exam, focal neurological deficits are absence. - Labs CBC & Chem 7: 07/17/20 05:05 07/17/20 05:05 Labs: Abnormal Lab Results - Last 24 Hours (Table) 07/16/20 07/16/20 07/16/20 Range/Units 04:52 18:13 23:27 WBC (3.8-10.6) k/uL RBC (4.30-5.90) m/uL Hgb (13.0-17.5) gm/dL Hct (39.0-53.0) % RDW (11.5-15.5) % Neutrophils # (1.3-7.7) k/uL Carbon Dioxide (22-30) mmol/L Glucose (74-99) mg/dL POC Glucose (mg/dL) 169 H 124 H (75-99) mg/dL Calcium (8.4-10.2) mg/dL Phosphorus 6.3 H (2.5-4.5) mg/dL Total Protein (6.3-8.2) g/dL Albumin (3.5-5.0) g/dL 07/17/20 07/17/20 07/17/20 Range/Units 05:05 05:05 05:59 WBC 14.8 H (3.8-10.6) k/uL RBC 2.49 L (4.30-5.90) m/uL Hgb 7.0 L D (13.0-17.5) gm/dL Hct 22.1 L (39.0-53.0) % RDW 16.2 H (11.5-15.5) % Neutrophils # 12.2 H (1.3-7.7) k/uL Carbon Dioxide 35 H (22-30) mmol/L Glucose 100 H (74-99) mg/dL POC Glucose (mg/dL) 131 H (75-99) mg/dL Calcium 8.1 L (8.4-10.2) mg/dL Phosphorus (2.5-4.5) mg/dL Total Protein 5.3 L (6.3-8.2) g/dL Albumin 2.3 L (3.5-5.0) g/dL Assessment and Plan Plan: 1 acute small bowel obstruction based on CAT scan findings. The patient has significant dilatation of the small bowel. Consider mechanical obstruction. NG tube is in place and the stomach and the decompressed. The abdominal x-ray still showing distention and the patient has a quite distended abdomen. Output from the NG tube is minimal at this point in time. Consider ileus. Consider mechanical obstruction of distal small bowel. 2 chronic alcoholism 3 chronic liver cirrhosis 4 altered mentation,, consider the possibility of an underlying alcoholic dementia as the patient has significant cerebral atrophy on CAT scan imaging, ammonia levels have been consistently low 5 chronic symptomatic anemia 6 COPD currently inactive in stable 7 chronic malnourishment 8 hypoproteinemia and hypoalbuminemia along with significant loss in total body protein mass and chronic malnourishment 9 hypertension 10 obstructive sleep apnea 11 significant debility secondary to above-mentioned comorbidities Plan Aspiration precautions Keep the patient nothing by mouth Keep NG tube in place to suction General surgery will be asked to reevaluate this patient. Remains a high surgical candidate and is currently being managed conservatively. Monitor hemodynamics IV fluids DuoNeb nebulized treatments [id number] Continue IV Zosyn Continue thiamine Continue IV Protonix Triple-lumen catheter been established and the wound to the patient. In fact he pulled out the triple-lumen catheter. We'll try to get insert a PICC line by tomorrow Prognosis poor baseline above-mentioned comorbidities. Not a good candidate for abdominal surgery for bowel obstruction if needed as the patient is quite debilitated and malnourished at this point in time.
--- NOTE | 2020-07-17 12:03 | P.PN ---
Subjective Progress Note Date: 07/17/20 Fercho Yen, is a 55-year-old male with known history of excessive alcohol use and history of liver cirrhosis who was brought in to [facility] emergency room by his due to mental status changes was confusion patient was also having weight loss, he was drinking alcohol up to 2 days prior to admission then he was not feeling well and he stopped drinking alcohol and stopped eating and drinking for 2-3 days. Patient was evaluated in emergency room, he was febrile temperature 97.7 pulse 60 respiration 16 blood pressure was significantly low at 71/59 pulse ox 94% on room air white blood count was 8.7 hemoglobin 8.3 platelet count 260 sodium was low at 126 potassium was low at 2.5 serum alcohol level was 21. Patient was admitted to intensive care unit he was started on IV fluid and potassium replacement protocol. Chest x-ray was done in the emergency room and did not reveal any active cardiopulmonary disease, computed tomography scan done in the emergency room revealed cerebral atrophy no acute intracranial abnormality, abdomen ultrasound done did not reveal any evidence of sizable ascites, urine analysis and blood culture were done and were ordered in ICU. On 07/06/2020 patient was seen and examined on the medical floor he is more somnolent he responds to stimuli otherwise he denies any complaints blood pressure is improved today urine analysis revealed evidence of urinary tract infection patient was started on IV Rocephin more globin is down to 6.8, On 07/07/2020 patient was seen and examined in the ICU he is alert and oriented 3 in no apparent distress he is answering questions appropriately today, there is no fever or chills no headache or dizziness no chest pain no shortness of breath no cough no nausea or vomiting no abdominal pain. No burning with urination no frequency or urgency and no hematuria, he received 1 unit of red blood cells today. On 07/08/2020, patient was seen and examined on the medical floor, he is somnolent but arousable in no apparent distress, there is no fever or chills no headache or dizziness no chest pain no shortness of breath no cough no nausea or vomiting no abdominal pain no diarrhea no burning with urination no frequency or urgency no hematuria, he had very poor oral intake so far, he was counseled in length he seems to understand, if the oral intake does not improve patient may need a nasogastric tube feeding. On 07/09/2020 patient was seen and examined on the medical floor, he is more alert today, his still has very poor oral intake, he was counseled in length in regard to need to eat more, he is denying any symptoms at this time there is no fever or chills no headache or dizziness no chest pain no shortness of breath no cough no nausea or vomiting no abdominal pain no diarrhea no burning with urination no frequency or urgency no hematuria, will add physical therapy and occupational therapy and assess if patient needs after discharge On 07/10/2020 patient was seen and examined on the medical floor he is alert slightly confused in no apparent distress nurse stated that he has been more agitated and slightly aggressive with staff he still has very poor oral intake otherwise he denies any complaints he has been refusing to keep telemetry box on there is no fever or chills no headache or dizziness no chest pain no shortness of breath no cough no nausea or vomiting no abdominal pain no diarrhea and no urinary symptoms On 07/11/2020 patient was seen and examined on the medical floor he is alert slightly confused in no distress he is complaining of cough he is breathing sounds are coarse otherwise there is no complaints there is no fever or chills no headache or dizziness no chest pain no shortness of breath, no nausea or vomiting no abdominal pain no diarrhea no burning with urination no frequency or urgency and no hematuria. Chest x-ray reveals bilateral infiltrates and small pleural effusion will re-consult pulmonary in that regard. On 07/12/2020 patient was seen and examined on the medical floor he is more alert and oriented today he is having more oral intake he is still complaining of cough there is no fever or chills, no chest pain or shortness of breath no nausea or vomiting no abdominal pain no diarrhea and no urinary symptoms On 07/14/2020 patient was seen and examined on the medical floor, he is alert and oriented 3 in no apparent distress, he was cleared by all consultants yesterday for [facility] to a [facility], discharge was done yest erday however, patient still need authorization from insurance, hence discharge was delayed, clinically patient is stable he is complaining of generalized weakness otherwise he denies any specific complaints there is no fever or chills no headache or dizziness no chest pain no shortness of breath no cough no nausea or vomiting no abdominal pain no diarrhea and no urinary symptoms. On 07/15/2020 patient was seen and examined on the medical floor, he is complaining of abdominal pain today, otherwise he denies any complaints there is no fever or chills no headache or dizziness no chest pain no shortness of breath no cough no nausea or vomiting no diarrhea no blood in the stools no burning with urination no frequency or urgency no hematuria. On 07/16/2020 patient was seen and examined in the ICU he is alert and responsive in no apparent distress, yesterday he was having abdominal pain comp uted tomography scan of the abdomen revealed evidence of small bowel obstruction NG tube was put in patient was having episodes of agitation he was also having hypotension he was transferred to intensive care unit, he is being followed by Dr. Person for pulmonary and critical care, and by surgery, currently he is still in ICU he is maintained on vasopressors. On 07/17/2020 patient was seen and examined in the ICU he is alert and responsive, he pulled his triple-lumen out and his NG tube. His abdomen is severely tense and distended, NG tube was put back in, patient was counseled in length in regards to not touching his tubes and lines. Patient was started on TPN however this is on hold at this time. Patient continues to be in critical condition, pulmonary, and surgery are following. Hemodynamically patient is stable his blood pressure is 138/74 his pulse rate is 110 respiration 18 and pulse ox 92% on 2 L nasal cannula his white blood count is slightly down at 14.8 his hemoglobin is down to 7.0 kidney and liver function are within normal limits albumin is down to 2.3 Objective - Vital Signs Vital signs: Vital Signs Temp 96.8 F L 07/17/20 08:00 Pulse 113 H 07/17/20 11:00 Resp 23 07/17/20 11:00 BP 131/78 07/17/20 11:00 Pulse Ox 100 07/17/20 11:00 Intake & Output 07/16/20 07/17/20 07/17/20 18:59 06:59 18:59 Intake Total 2168.642 1335 500 Output Total 1110 705 315 Balance 1058.642 630 185 Weight 54.8 kg 55.8 kg Intake: IV 1994 1335 500 Dextrose 5%-0.9% NaCl 675 300 000 ml @ 75 mls/hr IV . [id number] [facility] Rx#:[id number] Mvi, Adult No.4 with Vit 120 360 K 10 ml Trace (Conc-1Ml/ Dose) 1 ml Parenteral Electrolytes 20 ml In Amino Acid 5%-D15w 1,000 ml @ 30 mls/hr IV .Q24H [facility] Rx#:[id number] Piperacillin-Tazobactam 3 200 100 100 .375 gm In Sodium Chloride 0.9% 100 ml @ 25 mls/hr IVPB Q8H [facility] Rx#: [id number] Potassium Chloride 10 meq 200 In Water For Injection 1 100ml.bag @ 100 mls/hr IVPB Q1H [facility] Rx#: [id number] Potassium Chloride 10 meq 100 In Water For Injection 1 100ml.bag @ 100 mls/hr IVPB Q1HR [facility] Rx#: [id number] Sodium Chloride 0.9% 1, 1000 000 ml @ 999 mls/hr IV . Q1H1M [facility] Rx#:[id number] Intake, IV Titration 173.642 Amount Norepinephrine 4 mg In 173.642 Sodium Chloride 0.9% 250 ml @ 0.05 MCG/KG/MIN 10. 439 mls/hr IV .Q24H [facility] Rx#:[id number] Output: Gastric Drainage 600 Urine 510 705 315 Other: Voiding Method Indwelling Catheter Indwelling Catheter Indwelling Catheter - Exam In general patient is alert slightly confused in no apparent distress HEENT head normocephalic and atraumatic Neck is supple no JVD no goiter no lymphadenopathy Chest exam reveals a few scattered crackles no wheezing Cardiac exam reveals regular heart sounds S1 and S2 no gallops no murmurs Abdomen is tense, distended no organomegaly with normal bowel sounds Extremity exam reveals no edema no cyanosis or clubbing Neurological examination reveals no gross focal deficit other than mild confusion - Labs CBC & Chem 7: 07/17/20 05:05 07/17/20 05:05 Labs: Abnormal Lab Results - Last 24 Hours (Table) 07/16/20 07/16/20 07/16/20 Range/Units 04:52 18:13 23:27 WBC (3.8-10.6) k/uL RBC (4.30-5.90) m/uL Hgb (13.0-17.5) gm/dL Hct (39.0-53.0) % RDW (11.5-15.5) % Neutrophils # (1.3-7.7) k/uL Carbon Dioxide (22-30) mmol/L Glucose (74-99) mg/dL POC Glucose (mg/dL) 169 H 124 H (75-99) mg/dL Calcium (8.4-10.2) mg/dL Phosphorus 6.3 H (2.5-4.5) mg/dL Total Protein (6.3-8.2) g/dL Albumin (3.5-5.0) g/dL 07/17/20 07/17/20 07/17/20 Range/Units 05:05 05:05 05:59 WBC 14.8 H (3.8-10.6) k/uL RBC 2.49 L (4.30-5.90) m/uL Hgb 7.0 L D (13.0-17.5) gm/dL Hct 22.1 L (39.0-53.0) % RDW 16.2 H (11.5-15.5) % Neutrophils # 12.2 H (1.3-7.7) k/uL Carbon Dioxide 35 H (22-30) mmol/L Glucose 100 H (74-99) mg/dL POC Glucose (mg/dL) 131 H (75-99) mg/dL Calcium 8.1 L (8.4-10.2) mg/dL Phosphorus (2.5-4.5) mg/dL Total Protein 5.3 L (6.3-8.2) g/dL Albumin 2.3 L (3.5-5.0) g/dL 07/17/20 Range/Units 11:42 WBC (3.8-10.6) k/uL RBC (4.30-5.90) m/uL Hgb (13.0-17.5) gm/dL Hct (39.0-53.0) % RDW (11.5-15.5) % Neutrophils # (1.3-7.7) k/uL Carbon Dioxide (22-30) mmol/L Glucose (74-99) mg/dL POC Glucose (mg/dL) 116 H (75-99) mg/dL Calcium (8.4-10.2) mg/dL Phosphorus (2.5-4.5) mg/dL Total Protein (6.3-8.2) g/dL Albumin (3.5-5.0) g/dL Assessment and Plan Plan: 1. Mental status changes, likely related to chronic alcohol use and early alcohol withdrawal, on CIWA protocol 2. Hypotension patient was started on IV fluid, blood pressure stable, will check urine analysis and blood culture to rule out any infectious etiology, critical care consult requested 3. Underlying history of liver cirrhosis, gastroenterology consult requested 4. Anemia will recheck CBC is this evening, if needed will proceed with red blood cell transfusion, gastroenterology consult 5. Hypokalemia correcting 6. Poor oral intake will advance diet gradually 7. By basilar infiltrate with small pleural effusion, possible pneumonia antibiotic were switched to Zosyn, will reconsult pulmonary 8. New abdominal pain started yesterday, there is evidence of small bowel obstruction on testing, awaiting surgery opinion, NG tube is in 9. Sepsis with hypotension, patient restarted on IV Zosyn, will Consult i nfectious disease For DVT prophylaxis SCD stockings For GI prophylaxis patient on Protonix Prognosis is guarded will follow closely
--- NOTE | 2020-07-17 12:13 | P.PN ---
Subjective Progress Note Date: 07/17/20 CHIEF COMPLAINT: Bowel obstruction HISTORY OF PRESENT ILLNESS: The patient is a 55 year old male with history of alcoholism including cirrhosis presented to the hospital secondary to confusion. During hospitalization, patient developed increased abdominal distention. Workup demonstrated bowel obstruction. No further reports of bleeding from the NG tube. He has drop in Hgb to 7.0 as yesterday he had blood tinged NG tube output. Per discussion with nurse, despite restraints, patient repeatedly pulled out his NGT. NGT now placed back. No bowel movement. REVIEW OF ORGAN SYSTEMS: History of agitation. No bowel movement. No chills. Has productive sputum PHYSICAL EXAM: VITALS: Reviewed CONSTITUTIONAL: Well developed and in no acute distress. EYES: Conjuctivae without sclera icterus. Pupils are equally round and reactive to light. Extraocular movements grossly intact. HEAD, EARS, NOSE, THROAT: Moist buccal mucosa. Head is atraumatic, normocephalic. Hears conversational speech. No nasal drainage. Nasogastric tube present. NECK: Supple. No JV distention. No thyroidomegaly. RESPIRATORY: Mild labored respirations and equal bilateral excursions. Has coarse rhonchi. CARDIOVASCULAR: Tachycardic. Palpable 2+ radial pulses. ABDOMEN: Distended but less tense than yesterday. No diffuse tenderness. No peritonitis. NG output less bilious and without blood tinge MUSCULOSKELETAL: Nail and fingers with good capillary refill, currently in restraints. SKIN: Warm and well perfused with good skin turgor. NEUROLOGIC: Cranial nerves II through XII grossly intact. Sensation upper and extremities intact. No focal or lateralizing signs. PSYCH: Alert to person. CLINCAL LABS: Reviewed. WBC down from 17.0 to 14. 8. Hgb 8.8 down to 7.0. STUDIES: AXR independently reviewed with dilated small bowel and with contrast in colon and rectum. ASSESSMENT: 1. Severe ileus versus small bowel obstruction 2. Anemia with gastritis PLAN: 1. He has acute drop in Hgb. Recommend hold Lovenox. 2. Increase dose of Protonix from 40 mg daily to BID 3. May need small bowel follow through for further work-up 4. Above plan discussed with mechanical integrity engineer for ileus favored over bowel obstruction as contrast extends to colon and rectum. 5. Recommend blood transfusion for symptomatic anemia Objective - Vital Signs Vital signs: Vital Signs Temp 96.8 F L 08/30/20 08:00 Pulse 113 H 07/17/20 11:00 Resp 23 07/17/20 11:00 BP 131/78 07/17/20 11:00 Pulse Ox 100 07/17/20 11:00 Intake & Output 07/16/20 07/17/20 07/17/20 18:59 06:59 18:59 Intake Total 2168.642 1335 500 Output Total 1110 705 315 Balance 1058.642 630 185 Weight 54.8 kg 55.8 kg Intake: IV 1994 1335 500 Dextrose 5%-0.9% NaCl 15 675 300 000 ml @ 75 mls/hr IV . [id number] [facility] Rx#:[id number] Mvi, Adult No.4 with Vit 120 360 K 10 ml Trace (Conc-1Ml/ Dose) 1 ml Parenteral Electrolytes 20 ml In Amino Acid 5%-D15w 1,000 ml @ 30 mls/hr IV .Q24H [facility] Rx#:[id number] Piperacillin-Tazobactam 3 200 100 100 .375 gm In Sodium Chloride 0.9% 100 ml @ 25 mls/hr IVPB Q8H [facility] Rx#: [id number] Potassium Chloride 10 meq 200 In Water For Injection 1 100ml.bag @ 100 mls/hr IVPB Q1H [facility] Rx#: [id number] Potassium Chloride 10 meq 100 In Water For Injection 1 100ml.bag @ 100 mls/hr IVPB Q1HR [facility] Rx#: [id number] Sodium Chloride 0.9% 1, 1000 000 ml @ 999 mls/hr IV . Q1H1M [facility] Rx#:[id number] Intake, IV Titration 173.642 Amount Norepinephrine 4 mg In 173.642 Sodium Chloride 0.9% 250 ml @ 0.05 MCG/KG/MIN 10. 439 mls/hr IV .Q24H [facility] Rx#:[id number] Output: Gastric Drainage 600 Urine 510 705 315 Other: Voiding Method Indwelling Catheter Indwelling Catheter Indwelling Catheter - Labs CBC & Chem 7: 07/17/20 05:05 07/17/20 05:05 Labs: Abnormal Lab Results - Last 24 Hours (Table) 07/16/20 07/16/20 07/16/20 Range/Units 04:52 18:13 23:27 WBC (3.8-10.6) k/uL RBC (4.30-5.90) m/uL Hgb (13.0-17.5) gm/dL Hct (39.0-53.0) % RDW (11.5-15.5) % Neutrophils # (1.3-7.7) k/uL Carbon Dioxide (22-30) mmol/L Glucose (74-99) mg/dL POC Glucose (mg/dL) 169 H 124 H (75-99) mg/dL Calcium (8.4-10.2) mg/dL Phosphorus 6.3 H (2.5-4.5) mg/dL Total Protein (6.3-8.2) g/dL Albumin (3.5-5.0) g/dL 07/17/20 07/17/20 07/17/20 Range/Units 05:05 05:05 05:59 WBC 14.8 H (3.8-10.6) k/uL RBC 2.49 L (4.30-5.90) m/uL Hgb 7.0 L D (13.0-17.5) gm/dL Hct 22.1 L (39.0-53.0) % RDW 16.2 H (11.5-15.5) % Neutrophils # 12.2 H (1.3-7.7) k/uL Carbon Dioxide 35 H (22-30) mmol/L Glucose 100 H (74-99) mg/dL POC Glucose (mg/dL) 131 H (75-99) mg/dL Calcium 8.1 L (8.4-10.2) mg/dL Phosphorus (2.5-4.5) mg/dL Total Protein 5.3 L (6.3-8.2) g/dL Albumin 2.3 L (3.5-5.0) g/dL 07/17/20 Range/Units 11:42 WBC (3.8-10.6) k/uL RBC (4.30-5.90) m/uL Hgb (13.0-17.5) gm/dL Hct (39.0-53.0) % RDW (11.5-15.5) % Neutrophils # (1.3-7.7) k/uL Carbon Dioxide (22-30) mmol/L Glucose (74-99) mg/dL POC Glucose (mg/dL) 116 H (75-99) mg/dL Calcium (8.4-10.2) mg/dL Phosphorus (2.5-4.5) mg/dL Total Protein (6.3-8.2) g/dL Albumin (3.5-5.0) g/dL Assessment and Plan (1) Gastritis with bleeding Current Visit: Yes Status: Acute Code(s): K29.71 - GASTRITIS, UNSPECIFIED, WITH BLEEDING SNOMED Code(s): 8345264 (2) Cirrhosis of liver Current Visit: Yes Status: Acute Code(s): K74.60 - UNSPECIFIED CIRRHOSIS OF LIVER SNOMED Code(s): 07957020 (3) Alcohol withdrawal delirium Current Visit: Yes Status: Acute Code(s): F10.231 - ALCOHOL DEPENDENCE WITH WITHDRAWAL DELIRIUM SNOMED Code(s): 5943984 (4) History of ETOH abuse Current Visit: No Status: Acute Code(s): Z87.898 - PERSONAL HISTORY OF OTHER SPECIFIED CONDITIONS SNOMED Code(s): 583868080 (5) SBO (small bowel obstruction) Current Visit: No Status: Acute Code(s): K56.609 - UNSP INTESTNL OBST, UNSP TO PARTIAL VERSUS COMPLETE OBST SNOMED Code(s): 895405345
[2020-07-17] MEDS ORDERED: MVI, ADULT NO.4 WITH VIT K 10 ML, TRACE (CONC-1ML/DOSE) 1 ML, PARENTERAL ELECTROLYTES 2... IV SCH ×4 (16:00)
[2020-07-17] MEDS ORDERED: MVI, ADULT NO.4 WITH VIT K 10 ML, TRACE (CONC-1ML/DOSE) 1 ML in AMINO ACID 5%-D15W+LYTE... IV SCH ×3 (16:00)
[2020-07-17 18:06] LABS: Glucose,Whole Blood 111 mg/dL (75-99)
[2020-07-17] MEDS: NOREPINEPHRINE 4 MG in SODIUM CHLORIDE 0.9% 250 ML IV SCH (20:12)
[2020-07-17 23:55] LABS: Glucose,Whole Blood 109 mg/dL (75-99)
[2020-07-18] MEDS: INSULIN ASPART (NovoLOG) 100 UNIT/ML VIAL SQ SCH ×5 (00:04→23:43)
[2020-07-18] MEDS: PIPERACILLIN-TAZOBACTAM 3.375 GM in SODIUM CHLORIDE 0.9% 100 ML IVPB SCH ×4 (00:20→23:32)
[2020-07-18 05:11] LABS: Anisocytosis Slight; Basophils % (A) 0 %; Eosinophils # (A) 0.2 k/uL (0-0.7); Eosinophils % (A) 2 %; HCT 20.6 % (39.0-53.0); Hypochromasia Marked; Lymphocytes # (A) 1.1 k/uL (1.0-4.8); Lymphocytes % (A) 13 %; MCHC 29.3 g/dL (31.0-37.0); MCV 92.1 fL (80.0-100.0); Monocytes # (A) 0.5 k/uL (0-1.0); Monocytes % (A) 7 %; Neutrophils # (A) 6.3 k/uL (1.3-7.7); Neutrophils % (A) 76 %; Platelet Count 349 k/uL (150-450); RBC 2.23 m/uL (4.30-5.90); RDW 16.1 % (11.5-15.5); WBC 8.2 k/uL (3.8-10.6)
[2020-07-18 05:15] LABS: INR 1.1 (<1.2); Prothrombin Time 11.4 sec (9.0-12.0)
[2020-07-18 05:28] LABS: ALT 13 U/L (4-49); AST 18 U/L (17-59); African American GFR (CKD) >90 (>60 ml/min/1.73 sqM); Alkaline Phosphatase 45 U/L (38-126); Anion Gap 1 mmol/L; Blood Urea Nitrogen 10 mg/dL (9-20); Calcium 7.9 mg/dL (8.4-10.2); Carbon Dioxide 27 mmol/L (22-30); Chloride 116 mmol/L (98-107); Glucose 81 mg/dL (74-99); Non-African American GFR(CKD) >90 (>60 ml/min/1.73 sqM); Phosphorus 2.8 mg/dL (2.5-4.5); Potassium 3.8 mmol/L (3.5-5.1); Sodium 144 mmol/L (137-145); Total Bilirubin 0.4 mg/dL (0.2-1.3); Total Protein 4.8 g/dL (6.3-8.2)
[2020-07-18] MEDS: DEXTROSE 5%-0.9% NACL 1,000 ML IV SCH ×2 (05:37→16:23)
[2020-07-18] MEDS: POTASSIUM CHLORIDE 10 MEQ in WATER FOR INJECTION 1 100ML.BAG IVPB SCH ×2 (05:44→08:16)
[2020-07-18 05:50] LABS: Glucose,Whole Blood 95 mg/dL (75-99)
--- NOTE | 2020-07-18 08:01 | XR ---
EXAMINATION TYPE: XR chest 1V portable DATE OF EXAM: 07/18/2020 COMPARISON: Prior chest x-ray 07/17/2020 HISTORY: Shortness of breath TECHNIQUE: Single frontal view of the chest is obtained. FINDINGS: NG tube shows the distal tip in the left upper quadrant. Lucency within the lungs suggests possible underlying COPD. Bibasilar patchy increased density is noted. Aorta is dense. Heart size is normal. No evident pneumothorax. There are overlying cardiac leads. IMPRESSION: Possible basilar atelectasis versus pneumonia. Follow-up recommended.
[2020-07-18] MEDS: PANTOPRAZOLE 40 MG/10 ML VIAL IVP SCH ×2 (08:16→20:48)
[2020-07-18] MEDS: NICOTINE 21MG/24HR PATCH TRANSDERM SCH (08:17)
[2020-07-18] MEDS: THIAMINE 100 MG TAB PO SCH ×2 (08:17→18:37)
[2020-07-18] MEDS: ALPRAZolam 0.25 MG TAB PO SCH (08:21)
[2020-07-18] MEDS: IPRATROPIUM-ALBUTEROL 3 ML NEB INHALATION SCH ×4 (08:24→21:26)
[2020-07-18] MEDS ORDERED: FUROSEMIDE 10 MG/ML 2 ML VIAL IV ONE (09:10)
[2020-07-18] MEDS ORDERED: LIDOCAINE 1% INJ 10MG/ML (20 ML MDV) SQ ONE (09:42)
--- NOTE | 2020-07-18 10:15 | XR ---
EXAMINATION TYPE: XR chest 1V portable DATE OF EXAM: 07/18/2020 COMPARISON: Prior chest x-ray 07/18/2020 HISTORY: Status post central venous catheter placement, PICC line TECHNIQUE: Single frontal view of the chest is obtained. FINDINGS: There is been interval placement of a left-sided PICC line, distal tip is overlying the ca voatrial junction level. No pneumothorax or pleural effusion. Possible improved aeration at the lung bases. IMPRESSION: No evident complication status post PICC line placement.
[2020-07-18] MEDS: FAT EMULSION 20% 250 ML in EMPTY BAG 1 BAG IV SCH (10:52)
--- NOTE | 2020-07-18 10:53 | P.PN ---
Subjective Progress Note Date: 07/18/20 Fercho Yen, is a 55-year-old male with known history of excessive alcohol use and history of liver cirrhosis who was brought in to [facility] emergency room by his due to mental status changes was confusion patient was also having weight loss, he was drinking alcohol up to 2 days prior to admission then he was not feeling well and he stopped drinking alcohol and stopped eating and drinking for 2-3 days. Patient was evaluated in emergency room, he was febrile temperature 97.7 pulse 60 respiration 16 blood pressure was significantly low at 71/59 pulse ox 94% on room air white blood count was 8.7 hemoglobin 8.3 platelet count 260 sodium was low at 126 potassium was low at 2.5 serum alcohol level was 21. Patient was admitted to intensive care unit he was started on IV fluid and potassium replacement protocol. Chest x-ray was done in the emergency room and did not reveal any active cardiopulmonary disease, computed tomography scan done in the emergency room revealed cerebral atrophy no acute intracranial abnormality, abdomen ultrasound done did not reveal any evidence of sizable ascites, urine analysis and blood culture were done and were ordered in ICU. On 07/06/2020 patient was seen and examined on the medical floor he is more somnolent he responds to stimuli otherwise he denies any complaints blood pressure is improved today urine analysis revealed evidence of urinary tract infection patient was started on IV Rocephin more globin is down to 6.8, On 07/07/2020 patient was seen and examined in the ICU he is alert and oriented 3 in no apparent distress he is answering questions appropriately today, there is no fever or chills no headache or dizziness no chest pain no shortness of breath no cough no nausea or vomiting no abdominal pain. No burning with urination no frequency or urgency and no hematuria, he received 1 unit of red blood cells today. On 07/08/2020, patient was seen and examined on the medical floor, he is somnolent but arousable in no apparent distress, there is no fever or chills no headache or dizziness no chest pain no shortness of breath no cough no nausea or vomiting no abdominal pain no diarrhea no burning with urination no frequency or urgency no hematuria, he had very poor oral intake so far, he was counseled in length he seems to understand, if the oral intake does not improve patient may need a nasogastric tube feeding. On 07/09/2020 patient was seen and examined on the medical floor, he is more alert today, his still has very poor oral intake, he was counseled in length in regard to need to eat more, he is denying any symptoms at this time there is no fever or chills no headache or dizziness no chest pain no shortness of breath no cough no nausea or vomiting no abdominal pain no diarrhea no burning with urination no frequency or urgency no hematuria, will add physical therapy and occupational therapy and assess if patient needs after discharge On 07/10/2020 patient was seen and examined on the medical floor he is alert slightly confused in no apparent distress nurse stated that he has been more agitated and slightly aggressive with staff he still has very poor oral intake otherwise he denies any complaints he has been refusing to keep telemetry box on there is no fever or chills no headache or dizziness no chest pain no shortness of breath no cough no nausea or vomiting no abdominal pain no diarrhea and no urinary symptoms On 07/11/2020 patient was seen and examined on the medical floor he is alert slightly confused in no distress he is complaining of cough he is breathing sounds are coarse otherwise there is no complaints there is no fever or chills no headache or dizziness no chest pain no shortness of breath, no nausea or vomiting no abdominal pain no diarrhea no burning with urination no frequency or urgency and no hematuria. Chest x-ray reveals bilateral infiltrates and small pleural effusion will re-consult pulmonary in that regard. On 07/12/2020 patient was seen and examined on the medical floor he is more alert and oriented today he is having more oral intake he is still complaining of cough there is no fever or chills, no chest pain or shortness of breath no nausea or vomiting no abdominal pain no diarrhea and no urinary symptoms On 07/14/2020 patient was seen and examined on the medical floor, he is alert and oriented 3 in no apparent distress, he was cleared by all consultants yesterday for [facility] to a [facility], discharge was done yest erday however, patient still need authorization from insurance, hence discharge was delayed, clinically patient is stable he is complaining of generalized weakness otherwise he denies any specific complaints there is no fever or chills no headache or dizziness no chest pain no shortness of breath no cough no nausea or vomiting no abdominal pain no diarrhea and no urinary symptoms. On 07/15/2020 patient was seen and examined on the medical floor, he is complaining of abdominal pain today, otherwise he denies any complaints there is no fever or chills no headache or dizziness no chest pain no shortness of breath no cough no nausea or vomiting no diarrhea no blood in the stools no burning with urination no frequency or urgency no hematuria. On 07/16/2020 patient was seen and examined in the ICU he is alert and responsive in no apparent distress, yesterday he was having abdominal pain comp uted tomography scan of the abdomen revealed evidence of small bowel obstruction NG tube was put in patient was having episodes of agitation he was also having hypotension he was transferred to intensive care unit, he is being followed by Dr. Person for pulmonary and critical care, and by surgery, currently he is still in ICU he is maintained on vasopressors. On 07/17/2020 patient was seen and examined in the ICU he is alert and responsive, he pulled his triple-lumen out and his NG tube. His abdomen is severely tense and distended, NG tube was put back in, patient was counseled in length in regards to not touching his tubes and lines. Patient was started on TPN however this is on hold at this time. Patient continues to be in critical condition, pulmonary, and surgery are following. Hemodynamically patient is stable his blood pressure is 138/74 his pulse rate is 110 respiration 18 and pulse ox 92% on 2 L nasal cannula his white blood count is slightly down at 14.8 his hemoglobin is down to 7.0 kidney and liver function are within normal limits albumin is down to 2.3 On 07/18/2020 patient was seen and examined in the ICU, he is alert and responsive NG tube is in , case discussed with patient nurse Brittany, plan per GI is to proceed with EGD, today hemoglobin is down to 6.0, his white blood count is 8.2 platelet 349 kidney and liver function are within normal limits, albumin level is low at 2.0 Objective - Vital Signs Vital signs: Vital Signs Temp 98.3 F 07/18/20 08:37 Pulse 107 H 07/18/20 08:37 Resp 24 07/18/20 08:37 BP 119/69 07/18/20 08:37 Pulse Ox 97 07/18/20 08:37 Intake & Output 07/17/20 07/18/20 07/18/20 18:59 06:59 18:59 Intake Total 1125 900 585 Output Total 735 949 775 Balance 390 -49 -190 Weight 58 kg Intake: IV 1125 900 150 Dextrose 5%-0.9% NaCl 1, 825 900 150 000 ml @ 75 mls/hr IV . [id number] [facility] Rx#:[id number] Piperacillin-Tazobactam 3 200 .375 gm In Sodium Chloride 0.9% 100 ml @ 25 mls/hr IVPB Q8H [facility] Rx#: [id number] Potassium Chloride 10 meq 100 In Water For Injection 1 100ml.bag @ 100 mls/hr IVPB Q1HR [facility] Rx#: [id number] Intake, IV Titration 125 Amount Piperacillin-Tazobactam 3 25 .375 gm In Sodium Chloride 0.9% 100 ml @ 25 mls/hr IVPB Q8H [facility] Rx#: [id number] Potassium Chloride 10 meq 100 In Water For Injection 1 100ml.bag @ 100 mls/hr IVPB Q1H [facility] Rx#: [id number] Blood Product 310 Rc As-3 Unit 310 [id number] Output: Gastric Drainage 500 Urine 735 949 275 Other: Voiding Method Indwelling Catheter Indwelling Catheter - Exam In general patient is alert slightly confused in no apparent distress HEENT head normocephalic and atraumatic Neck is supple no JVD no goiter no lymphadenopathy Chest exam reveals a few scattered crackles no wheezing Cardiac exam reveals regular heart sounds S1 and S2 no gallops no murmurs Abdomen is better today less tense and less tender no organomegaly with normal bowel sounds Extremity exam reveals no edema no cyanosis or clubbing Neurological examination reveals no gross focal deficit other than mild confusion - Labs CBC & Chem 7: 07/18/20 04:56 07/18/20 04:56 Labs: Abnormal Lab Results - Last 24 Hours (Table) 07/07/20 07/17/20 07/17/20 Range/Units 06:04 11:42 18:05 RBC (4.30-5.90) m/uL Hgb (13.0-17.5) gm/dL Hct (39.0-53.0) % MCHC (31.0-37.0) g/dL RDW (11.5-15.5) % Chloride (98-107) mmol/L POC Glucose (mg/dL) 116 H 111 H (75-99) mg/dL Calcium (8.4-10.2) mg/dL Total Protein (6.3-8.2) g/dL Albumin (3.5-5.0) g/dL Crossmatch See Detail 07/17/20 07/18/20 07/18/20 Range/Units 23:54 04:56 04:56 RBC 2.23 L (4.30-5.90) m/uL Hgb 6.0 L* (13.0-17.5) gm/dL Hct 20.6 L (39.0-53.0) % MCHC 29.3 L (31.0-37.0) g/dL RDW 16.1 H (11.5-15.5) % Chloride 116 H (98-107) mmol/L POC Glucose (mg/dL) 109 H (75-99) mg/dL Calcium 7.9 L (8.4-10.2) mg/dL Total Protein 4.8 L (6.3-8.2) g/dL Albumin 2.0 L (3.5-5.0) g/dL Crossmatch 07/18/20 Range/Units 05:34 RBC (4.30-5.90) m/uL Hgb (13.0-17.5) gm/dL Hct (39.0-53.0) % MCHC (31.0-37.0) g/dL RDW (11.5-15.5) % Chloride (98-107) mmol/L POC Glucose (mg/dL) (75-99) mg/dL Calcium (8.4-10.2) mg/dL Total Protein (6.3-8.2) g/dL Albumin (3.5-5.0) g/dL Crossmatch See Detail Assessment and Plan Plan: 1. Mental status changes, likely related to chronic alcohol use and early alcohol withdrawal, on CIWA protocol 2. Hypotension patient was started on IV fluid, blood pressure stable, will check urine analysis and blood culture to rule out any infectious etiology, critical care consult requested 3. Underlying history of liver cirrhosis, gastroenterology consult requested 4. Anemia hemoglobin is down to 6.0 GI plan to proceed with EGD today 5. Hypokalemia corrected, potassium 3.8 today 6. Poor oral intake, patient received TPN, currently plan is to proceed was clear liquid diet after EGD 7. By basilar infiltrate with small pleural effusion, possible pneumonia antibiotic were switched to Zosyn, will reconsult pulmonary 8. New abdominal pain started yesterday, there is evidence of small bowel obstruction on testing, awaiting surgery opinion, NG tube is in 9. Sepsis with hypotension, patient restarted on IV Zosyn, will Consult infectious disease For DVT prophylaxis SCD stockings For GI prophylaxis patient on Protonix Prognosis is guarded will follow closely
[2020-07-18] MEDS: MVI, ADULT NO.4 WITH VIT K 10 ML, TRACE (CONC-1ML/DOSE) 1 ML, PARENTERAL ELECTROLYTES 2... IV SCH ×4 (11:17)
[2020-07-18 11:45] LABS: Glucose,Whole Blood 116 mg/dL (75-99)
[2020-07-18] MEDS: DEXAMETHASONE SOD PHOSPHATE 4 MG/ML 1 ML VIAL IV SCH ×3 (11:51→23:32)
--- NOTE | 2020-07-18 12:57 | P.PN ---
Subjective Progress Note Date: 07/18/20 CHIEF COMPLAINT: Bowel obstruction HISTORY OF PRESENT ILLNESS: The patient is a 55 year old male with history of alcoholism including cirrhosis presented to the hospital secondary to confusion. During hospitalization, patient developed increased abdominal distention. Workup demonstrated bowel obstruction. Per nursing yesterday NG tube did have some blood present in it. Patient has pulled his NG tube out about 6 times. He also has TPN. Afebrile. Hemoglobin is 6 she received 2 units of blood. White count 8.0 normal. Patient did have EGD done during this admission with Dr. Gates showing diffuse gastritis involving the entire stomach with a small amount of old blood but no active bleeding. Mild duodenitis and small hiatal hernia PHYSICAL EXAM: VITAL SIGNS: Reviewed. GENERAL: Well-developed in no acute distress. HEENT: No sclera icterus. Extraocular movements grossly intact. Moist buccal mucosa. Head is atraumatic, normocephalic. ABDOMEN: Mildly distended with tenderness noted NEUROLOGIC: Alert and oriented. Cranial nerves II through XII grossly intact. ASSESSMENT: 1. Severe ileus versus small bowel obstruction 2. Anemia with gastritis PLAN: 1. He has acute drop in Hgb. Continue to hold Lovenox. 2. Continue Protonix 40 mg IV twice a day 3. Add Reglan 10 mg IV every 6 4. Continue NG tube to continuous suction Physician [employer] note has been reviewed by physician. Signing provider agrees with the documented findings, assessment, and plan of care. Objective - Vital Signs Vital signs: Vital Signs Temp 98.1 F 07/18/20 12:00 Pulse 106 H 07/18/20 12:00 Resp 17 07/18/20 12:00 BP 120/82 07/18/20 12:00 Pulse Ox 99 07/18/20 12:00 Intake & Output 07/17/20 07/18/20 07/18/20 18:59 06:59 18:59 Intake Total 1125 900 902 Output Total 048 967 4019 Balance 390 -49 -923 Weight 58 kg 58 kg Intake: IV 1125 900 367 Dextrose 5%-0.9% NaCl 1, 825 900 325 000 ml @ 75 mls/hr IV . [id number] [facility] Rx#:[id number] Fat Emulsion 20% 250 ml 42 In Empty Bag 1 bag @ 21 mls/hr IV [id number] [facility] Rx#: [id number] Piperacillin-Tazobactam 3 200 .375 gm In Sodium Chloride 0.9% 100 ml @ 25 mls/hr IVPB Q8H [facility] Rx#: [id number] Potassium Chloride 10 meq 100 In Water For Injection 1 100ml.bag @ 100 mls/hr IVPB Q1HR [facility] Rx#: [id number] Intake, IV Titration 225 Amount Mvi, Adult No.4 with Vit 50 K 10 ml Trace (Conc-1Ml/ Dose) 1 ml Parenteral Electrolytes 20 ml In Amino Acid 5%-D15w 1,000 ml @ 50 mls/hr IV . [id number] [facility] Rx#:[id number] Piperacillin-Tazobactam 3 75 .375 gm In Sodium Chloride 0.9% 100 ml @ 25 mls/hr IVPB Q8H [facility] Rx#: [id number] Potassium Chloride 10 meq 100 In Water For Injection 1 100ml.bag @ 100 mls/hr IVPB Q1H [facility] Rx#: [id number] Blood Product 310 Rc As-3 Unit 310 [id number] Output: Gastric Drainage 500 Urine 415 [id number] 5695 Other: Voiding Method Indwelling Catheter Indwelling Catheter - Labs CBC & Chem 7: 07/18/20 04:56 07/18/20 04:56 Labs: Abnormal Lab Results - Last 24 Hours (Table) 07/07/20 07/17/20 07/17/20 Range/Units 06:04 18:05 23:54 RBC (4.30-5.90) m/uL Hgb (13.0-17.5) gm/dL Hct (39.0-53.0) % MCHC (31.0-37.0) g/dL RDW (11.5-15.5) % Chloride (98-107) mmol/L POC Glucose (mg/dL) 111 H 109 H (75-99) mg/dL Calcium (8.4-10.2) mg/dL Total Protein (6.3-8.2) g/dL Albumin (3.5-5.0) g/dL Crossmatch See Detail 07/18/20 07/18/20 07/18/20 Range/Units 04:56 04:56 05:34 RBC 2.23 L (4.30-5.90) m/uL Hgb 6.0 L* (13.0-17.5) gm/dL Hct 20.6 L (39.0-53.0) % MCHC 29.3 L (31.0-37.0) g/dL RDW 16.1 H (11.5-15.5) % Chloride 116 H (98-107) mmol/L POC Glucose (mg/dL) (75-99) mg/dL Calcium 7.9 L (8.4-10.2) mg/dL Total Protein 4.8 L (6.3-8.2) g/dL Albumin 2.0 L (3.5-5.0) g/dL Crossmatch See Detail 07/18/20 Range/Units 11:43 RBC (4.30-5.90) m/uL Hgb (13.0-17.5) gm/dL Hct (39.0-53.0) % MCHC (31.0-37.0) g/dL RDW (11.5-15.5) % Chloride (98-107) mmol/L POC Glucose (mg/dL) 116 H (75-99) mg/dL Calcium (8.4-10.2) mg/dL Total Protein (6.3-8.2) g/dL Albumin (3.5-5.0) g/dL Crossmatch
--- NOTE | 2020-07-18 13:47 | P.CNNES ---
History of Present Illness Consult date: 07/18/20 Requesting physician: Laura Silva Reason for Consult: altered mental status History of Present Illness: This is a 55-year-old gentleman with medical history of alcohol use, cirrhosis that presented to the hospital on 07/04/20 secondary due to confusion. History was obtained from medical records. During hospitalization the patient developed increasing abdominal distention. Workup demonstrated bowel obstruction. Per documentation the patient pulled his NG tube numerous times and the is noted that this there is some blood in the NG tube. On presentation the patient's hemoglobin was 8.3 last hemoglobin is 6.0 (8/3 12/07) Patient had that a CT of the head on 07/04/2020 because of confusion and weakness was reported as cerebral atrophy no acute intracranial abnormality. Not sure what the patient baseline and no family members at bedside. Per the nurse the patient sister will be here later today and will give more information. Review of Systems Review of system: Is limited because of patient condition. but perittent positive and negative per HPI. Past Medical History Past Medical History: Cancer, COPD, CVA/TIA, GERD/Reflux, GI Bleed, Hypertension, Osteoarthritis (OA), Sleep Apnea/CPAP/BIPAP Additional Past Medical History / Comment(s): TIA 2017. Not currently taking BP medication but has in past. "Stomach cancer 3 yrs, had 3 months of radiation." Does not use CPAP machine. History of Any Multi-Drug Resistant Organisms: None Reported Past Surgical History: Joint Replacement Additional Past Surgical History / Comment(s): Left hip replacement. EGD 11/2018. Past Anesthesia/Blood Transfusion Reactions: No Reported Reaction Past Psychological History: Anxiety, Depression Smoking Status: Current every day smoker Past Alcohol Use History: Abuse, Daily, Heavy Additional Past Alcohol Use History / Comment(s): DRINKS 5-10. beers daily. Past Drug Use History: Marijuana Additional Drug Use History / Comment(s): USUALLY USES MARIJUANA ONCE A DAY. - Past Family History Mother Family Medical History: Cancer Additional Family Medical History / Comment(s): Breast cancer. Medications and Allergies Home Medications Medication Instructions Recorded Confirmed Type Omeprazole [PriLOSEC] 20 mg PO AC-BID PRN 03/12/19 07/04/20 History Albuterol Sulfate [Ventolin HFA] 2 puff INHALATION RT-QID PRN 07/04/20 07/04/20 History HYDROcodone/APAP 10-325MG [[place] 1 tab PO Q6H PRN 07/04/20 07/04/20 History 10-325] ALPRAZolam [Xanax] 0.25 mg PO TID tab 07/13/20 Rx Amoxic-Pot Clav 875-125Mg 1 each PO Q12HR tab 07/13/20 Rx [Augmentin 875-125] Ipratropium-Albuterol Nebulize 3 ml INHALATION RT-Q2H PRN ml 07/13/20 Rx [Duoneb 0.5 mg-3 mg/3 ml Soln] Ipratropium-Albuterol Nebulize 3 ml INHALATION RT-QID ml 07/13/20 Rx [Duoneb 0.5 mg-3 mg/3 ml Soln] Nicotine 21Mg/24Hr Patch [Habitrol] 1 patch TRANSDERM DAILY patch 07/13/20 Rx Thiamine [Vitamin B-1] 100 mg PO BID-W/MEALS tab 07/13/20 Rx Allergies Allergy/AdvReac Type Severity Reaction Status Date / Time aspirin AdvReac Nausea & Verified 07/04/20 18:40 Vomiting ibuprofen [From Motrin] AdvReac Nausea & Verified 07/04/20 18:40 Vomiting Physical Examination - Vital Signs Vital Signs: Vital Signs Temp Pulse Pulse Resp BP Pulse Ox 07/18/20 12:00 98.1 F 106 H 17 120/82 99 07/18/20 11:37 103 H 07/18/20 11:30 103 H 18 112/82 100 07/18/20 11:27 104 H 07/18/20 11:00 106 H 17 116/83 98 07/18/20 10:30 104 H 19 119/78 99 07/18/20 10:00 105 H 17 104/77 100 07/18/20 09:30 105 H 17 126/86 100 07/18/20 09:00 98.3 F 102 H 18 135/82 100 07/18/20 08:37 98.3 F 107 H 24 119/69 97 07/18/20 08:35 106 H 07/18/20 08:30 105 H 19 142/121 100 07/18/20 08:25 107 H 07/18/20 08:00 109 H 17 125/92 100 07/18/20 07:30 106 H 22 112/75 100 07/18/20 07:17 97.9 F 108 H 24 112/75 97 07/18/20 07:00 107 H 19 120/73 100 07/18/20 06:47 97.9 F 101 H 26 H 120/76 100 07/18/20 06:37 98.1 F 108 H 24 120/73 99 07/18/20 06:30 98 18 99 07/18/20 06:20 98.1 F 101 H 16 110/71 100 07/18/20 06:00 101 H 19 115/70 100 07/18/20 05:30 99 18 109/64 99 07/18/20 05:00 98 18 105/63 99 07/18/20 04:30 97 19 104/67 99 07/18/20 04:00 98.1 F 106 H 22 105/71 100 07/18/20 03:58 106 H 24 07/18/20 03:30 106 H 19 120/93 99 07/18/20 03:00 108 H 20 126/80 97 07/18/20 02:30 108 H 20 111/72 96 07/18/20 02:00 101 H 16 110/73 97 07/18/20 01:30 109 H 23 125/86 98 07/18/20 01:00 111 H 26 H 111/85 99 07/18/20 00:30 111 H 23 132/85 98 07/18/20 00:00 96.9 F L 107 H 21 135/93 98 07/17/20 23:31 118 H 18 07/17/20 23:30 112 H 19 129/93 07/17/20 23:00 108 H 18 116/87 99 07/17/20 22:30 110 H 17 115/78 07/17/20 22:00 110 H 22 128/80 96 07/17/20 21:30 113 H 27 H 124/65 07/17/20 21:00 115 H 19 124/80 96 07/17/20 20:30 120 H 24 131/86 07/17/20 20:00 97.6 F 114 H 18 112/76 99 07/17/20 19:58 109 H 21 07/17/20 19:54 114 H 18 07/17/20 19:47 107 H 17 07/17/20 19:30 115 H 16 122/75 07/17/20 19:00 121 H 19 119/82 97 07/17/20 18:30 115 H 22 121/81 07/17/20 18:00 118 H 21 128/77 97 07/17/20 17:30 114 H 18 119/96 07/17/20 17:00 116 H 26 H 115/78 98 07/17/20 16:30 115 H 18 107/83 07/17/20 16:00 98.1 F 108 H 17 123/81 100 07/17/20 15:52 110 H 18 07/17/20 15:41 111 H 18 07/17/20 15:30 114 H 18 122/80 07/17/20 15:00 113 H 17 124/86 94 L 07/17/20 14:30 113 H 17 119/75 07/17/20 14:00 114 H 17 127/76 92 L Intake and Output 07/17/20 07/18/20 07/18/20 22:59 06:59 14:59 Intake Total 700 600 902 Output Total 390 128 5048 Balance 236 115 923 Intake: IV 700 600 367 Dextrose 5%-0.9% NaCl 1, 600 600 325 000 ml @ 75 mls/hr IV . [id number] [facility] Rx#:[id number] Fat Emulsion 20% 250 ml 42 In Empty Bag 1 bag @ 21 mls/hr IV [id number] [facility] Rx#: [id number] Piperacillin-Tazobactam 3 100 .375 gm In Sodium Chloride 0.9% 100 ml @ 25 mls/hr IVPB Q8H [facility] Rx#: [id number] Intake, IV Titration 225 Amount Mvi, Adult No.4 with Vit 50 K 10 ml Trace (Conc-1Ml/ Dose) 1 ml Parenteral Electrolytes 20 ml In Amino Acid 5%-D15w 1,000 ml @ 50 mls/hr IV . [id number] [facility] Rx#:[id number] Piperacillin-Tazobactam 3 75 .375 gm In Sodium Chloride 0.9% 100 ml @ 25 mls/hr IVPB Q8H [facility] Rx#: [id number] Potassium Chloride 10 meq 100 In Water For Injection 1 100ml.bag @ 100 mls/hr IVPB Q1H [facility] Rx#: [id number] Blood Product 310 Rc As-3 Unit 310 [id number] Output: Gastric Drainage 500 Urine [id number] Other: Voiding Method Indwelling Catheter Indwelling Catheter Indwelling Catheter Weight 58 kg 58 kg GENERAL: The patient is lying in bed and is not in acute distress. ENT: Scleral icterus bilaterally. Neck is supple and no neck rigidity. CHEST: The heart rate is regular rate rhythm. No murmurs to auscultation. LUNG: Not labored breathing. Lungs is somewhat gurgly to ausculation througho ut. ABDOMEN/GI: Bowel sounds present in all 4 quadrants. No tenderness to palpation throughout. NEUROLOGICAL: Higher mental function: The patient is awake, alert, oriented to self only. Patient is following few simple commands, like showing thumbs up No neglect. Cranial nerves: The pupils are round, equal 2-3mm bilaterally and reactive to light and accommodation. Visual truong are full to threat throughout. Extraocular movement is intact no nystagmus is noted. Facial sensation could not assess because of cooperation. The facial strength is normal throughout. No dysarthria is noted. Shoulder shrug is normal bilaterally. Motor: Gait is defered. The strength is moving all extremities above gravity and no focality. Normal tone and bulk. Cerebellum: Could not assess. Sensation: Intact to painful stimuli. Reflexes (right/left): 2+ throughout except at ankle 1+ bilaterally. Plantars are downgoing bilaterally. Results PT of 11.4 INR is 1.1 Calcium of 7.9. AST is 18. ALT is 13. Vitamin B12 was normal upon checking it twice on 07/05/20 was the 852. On 07/13/2020 was 531. Ammonia level checked numerous times and it was normal was less than 9 last time as check was 07/11/2020. Folate was 10.2 on 07/05/2020 and that was 3.8 on 07/13/2020 - Laboratory Findings CBC and BMP: 07/18/20 14:20 07/18/20 04:56 Abnormal Lab Findings: Abnormal Labs 07/04/20 07/04/20 07/04/20 18:27 18:27 18:57 WBC RBC 2.83 L Hgb 8.3 L Hct 24.9 L MCHC RDW Plt Count Neutrophils # Lymphocytes # Sodium 126 L Potassium 2.5 L* Chloride 85 L Carbon Dioxide BUN Creatinine 0.60 L Glucose POC Glucose (mg/dL) 105 H Calcium 7.9 L Phosphorus Iron TIBC % Saturation Creatine Kinase 22 L Total Protein 5.2 L Albumin 2.6 L Lipase 14 L Procalcitonin Urine Blood Ur Leukocyte Esterase Urine WBC Urine WBC Clumps Urine Bacteria Hyaline Casts Urine Mucus Crossmatch 07/04/20 07/05/20 07/05/20 21:37 03:56 03:56 WBC RBC 2.41 L Hgb 7.1 L Hct 21.8 L MCHC RDW 15.6 H Plt Count Neutrophils # Lymphocytes # Sodium 129 L Potassium 2.8 L Chloride 95 L Carbon Dioxide BUN 8 L Creatinine 0.49 L Glucose 73 L POC Glucose (mg/dL) 102 H Calcium 7.2 L Phosphorus Iron TIBC % Saturation Creatine Kinase Total Protein Albumin Lipase Procalcitonin Urine Blood Ur Leukocyte Esterase Urine WBC Urine WBC Clumps Urine Bacteria Hyaline Casts Urine Mucus Crossmatch 07/05/20 07/05/20 07/05/20 10:18 17:48 17:48 WBC RBC 2.65 L Hgb 7.7 L Hct 23.9 L MCHC RDW 15.8 H Plt Count Neutrophils # Lymphocytes # Sodium Potassium 2.9 L 3.2 L Chloride Carbon Dioxide BUN Creatinine Glucose POC Glucose (mg/dL) Calcium Phosphorus Iron 25 L TIBC 165 L % Saturation Creatine Kinase Total Protein Albumin Lipase Procalcitonin Urine Blood Ur Leukocyte Esterase Urine WBC Urine WBC Clumps Urine Bacteria Hyaline Casts Urine Mucus Crossmatch 07/06/20 07/06/20 07/06/20 03:20 04:27 04:27 WBC RBC 2.25 L Hgb 6.8 L* Hct 20.7 L MCHC RDW 16.1 H Plt Count Neutrophils # Lymphocytes # Sodium 133 L Potassium Chloride Carbon Dioxide BUN 3 L Creatinine 0.46 L Glucose POC Glucose (mg/dL) Calcium 7.7 L Phosphorus Iron TIBC % Saturation Creatine Kinase Total Protein 4.6 L Albumin 2.2 L Lipase Procalcitonin Urine Blood Small H Ur Leukocyte Esterase Large H Urine WBC 10 H Urine WBC Clumps Few H Urine Bacteria Many H Hyaline Casts Urine Mucus Rare H Crossmatch 07/07/20 07/07/20 07/07/20 04:20 04:20 06:04 WBC RBC 2.33 L Hgb 6.9 L* Hct 21.5 L MCHC RDW 16.4 H Plt Count Neutrophils # Lymphocytes # Sodium 134 L Potassium Chloride Carbon Dioxide BUN 2 L Creatinine 0.49 L Glucose POC Glucose (mg/dL) Calcium 8.1 L Phosphorus Iron TIBC % Saturation Creatine Kinase Total Protein Albumin Lipase Procalcitonin Urine Blood Ur Leukocyte Esterase Urine WBC Urine WBC Clumps Urine Bacteria Hyaline Casts Urine Mucus Crossmatch See Detail 07/07/20 07/08/20 07/08/20 18:26 07:50 07:50 WBC 11.7 H 10.8 H RBC 3.11 L 2.83 L Hgb 8.8 L D 8.1 L Hct 27.7 L 25.0 L MCHC RDW 17.9 H 18.5 H Plt Count Neutrophils # 8.7 H Lymphocytes # Sodium Potassium Chloride 108 H Carbon Dioxide BUN 4 L Creatinine 0.53 L Glucose 72 L POC Glucose (mg/dL) Calcium 8.0 L Phosphorus Iron TIBC % Saturation Creatine Kinase Total Protein 4.5 L Albumin 2.0 L Lipase Procalcitonin Urine Blood Ur Leukocyte Esterase Urine WBC Urine WBC Clumps Urine Bacteria Hyaline Casts Urine Mucus Crossmatch 07/09/20 07/09/20 07/10/20 06:17 06:17 05:15 WBC 11.0 H 10.7 H RBC 2.95 L 2.90 L Hgb 8.2 L 8.1 L Hct 25.8 L 25.5 L MCHC RDW 18.0 H 17.7 H Plt Count Neutrophils # 9.1 H 8.7 H Lymphocytes # 0.9 L Sodium Potassium Chloride 108 H Carbon Dioxide BUN 6 L Creatinine 0.50 L Glucose 58 L POC Glucose (mg/dL) Calcium 7.6 L Phosphorus Iron TIBC % Saturation Creatine Kinase Total Protein 4.6 L Albumin 2.0 L Lipase Procalcitonin Urine Blood Ur Leukocyte Esterase Urine WBC Urine WBC Clumps Urine Bacteria Hyaline Casts Urine Mucus Crossmatch 07/10/20 07/11/20 07/11/20 05:15 05:30 05:39 WBC RBC 2.71 L Hgb 7.8 L Hct 23.8 L MCHC RDW 17.1 H Plt Count Neutrophils # 8.4 H Lymphocytes # Sodium Potassium 3.4 L Chloride 108 H Carbon Dioxide BUN 6 L Creatinine 0.48 L Glucose POC Glucose (mg/dL) Calcium 7.3 L Phosphorus Iron 22 L TIBC 164 L % Saturation 13.41 L Creatine Kinase Total Protein 4.7 L Albumin 2.1 L Lipase Procalcitonin Urine Blood Ur Leukocyte Esterase Urine WBC Urine WBC Clumps Urine Bacteria Hyaline Casts Urine Mucus Crossmatch 07/11/20 07/12/20 07/12/20 05:39 06:46 06:46 WBC 11.5 H RBC 2.82 L Hgb 8.0 L Hct 25.0 L MCHC RDW 16.4 H Plt Count Neutrophils # 9.5 H Lymphocytes # Sodium 135 L Potassium Chloride Carbon Dioxide BUN 3 L 6 L Creatinine 0.49 L 0.59 L Glucose 66 L POC Glucose (mg/dL) Calcium 7.7 L 7.6 L Phosphorus Iron TIBC % Saturation Creatine Kinase Total Protein 4.6 L 4.8 L Albumin 2.0 L 2.1 L Lipase Procalcitonin Urine Blood Ur Leukocyte Esterase Urine WBC Urine WBC Clumps Urine Bacteria Hyaline Casts Urine Mucus Crossmatch 07/12/20 07/13/20 07/14/20 06:46 07:39 03:47 WBC RBC Hgb Hct MCHC RDW Plt Count Neutrophils # Lymphocytes # Sodium Potassium Chloride Carbon Dioxide BUN Creatinine Glucose POC Glucose (mg/dL) 104 H Calcium Phosphorus Iron TIBC % Saturation Creatine Kinase Total Protein Albumin Lipase Procalcitonin 0.45 H 0.41 H Urine Blood Ur Leukocyte Esterase Urine WBC Urine WBC Clumps Urine Bacteria Hyaline Casts Urine Mucus Crossmatch 07/15/20 07/15/20 07/15/20 19:49 21:04 21:22 WBC 15.9 H RBC 2.89 L Hgb 8.1 L Hct 25.6 L MCHC RDW 16.4 H Plt Count Neutrophils # 14.1 H Lymphocytes # Sodium Potassium Chloride Carbon Dioxide BUN Creatinine Glucose POC Glucose (mg/dL) 130 H 137 H Calcium Phosphorus Iron TIBC % Saturation Creatine Kinase Total Protein Albumin Lipase Procalcitonin Urine Blood Ur Leukocyte Esterase Urine WBC Urine WBC Clumps Urine Bacteria Hyaline Casts Urine Mucus Crossmatch 07/15/20 07/15/20 07/16/20 21:22 21:45 04:52 WBC 17.0 H RBC 3.16 L Hgb 8.8 L Hct 27.7 L MCHC RDW 16.6 H Plt Count 452 H Neutrophils # 14.7 H Lymphocytes # Sodium Potassium Chloride Carbon Dioxide BUN Creatinine Glucose 118 H POC Glucose (mg/dL) Calcium Phosphorus Iron TIBC % Saturation Creatine Kinase Total Protein 5.6 L Albumin 2.6 L Lipase Procalcitonin Urine Blood Ur Leukocyte Esterase Small H Urine WBC 8 H Urine WBC Clumps Urine Bacteria Hyaline Casts 7 H Urine Mucus Rare H Crossmatch 07/16/20 07/16/20 07/16/20 04:52 04:52 18:13 WBC RBC Hgb Hct MCHC RDW Plt Count Neutrophils # Lymphocytes # Sodium Potassium Chloride 93 L Carbon Dioxide 39 H BUN Creatinine Glucose 116 H POC Glucose (mg/dL) 169 H Calcium Phosphorus 6.3 H Iron TIBC % Saturation Creatine Kinase Total Protein 6.0 L Albumin 2.8 L Lipase Procalcitonin Urine Blood Ur Leukocyte Esterase Urine WBC Urine WBC Clumps Urine Bacteria Hyaline Casts Urine Mucus Crossmatch 07/16/20 07/17/20 07/17/20 23:27 05:05 05:05 WBC 14.8 H RBC 2.49 L Hgb 7.0 L D Hct 22.1 L MCHC RDW 16.2 H Plt Count Neutrophils # 12.2 H Lymphocytes # Sodium Potassium Chloride Carbon Dioxide 35 H BUN Creatinine Glucose 100 H POC Glucose (mg/dL) 124 H Calcium 8.1 L Phosphorus Iron TIBC % Saturation Creatine Kinase Total Protein 5.3 L Albumin 2.3 L Lipase Procalcitonin Urine Blood Ur Leukocyte Esterase Urine WBC Urine WBC Clumps Urine Bacteria Hyaline Casts Urine Mucus Crossmatch 07/17/20 07/17/20 07/17/20 05:59 11:42 18:05 WBC RBC Hgb Hct MCHC RDW Plt Count Neutrophils # Lymphocytes # Sodium Potassium Chloride Carbon Dioxide BUN Creatinine Glucose POC Glucose (mg/dL) 131 H 116 H 111 H Calcium Phosphorus Iron TIBC % Saturation Creatine Kinase Total Protein Albumin Lipase Procalcitonin Urine Blood Ur Leukocyte Esterase Urine WBC Urine WBC Clumps Urine Bacteria Hyaline Casts Urine Mucus Crossmatch 07/17/20 07/18/20 07/18/20 23:54 04:56 04:56 WBC RBC 2.23 L Hgb 6.0 L* Hct 20.6 L MCHC 29.3 L RDW 16.1 H Plt Count Neutrophils # Lymphocytes # Sodium Potassium Chloride 116 H Carbon Dioxide BUN Creatinine Glucose POC Glucose (mg/dL) 109 H Calcium 7.9 L Phosphorus Iron TIBC % Saturation Creatine Kinase Total Protein 4.8 L Albumin 2.0 L Lipase Procalcitonin Urine Blood Ur Leukocyte Esterase Urine WBC Urine WBC Clumps Urine Bacteria Hyaline Casts Urine Mucus Crossmatch 07/18/20 07/18/20 05:34 11:43 WBC RBC Hgb Hct MCHC RDW Plt Count Neutrophils # Lymphocytes # Sodium Potassium Chloride Carbon Dioxide BUN Creatinine Glucose POC Glucose (mg/dL) 116 H Calcium Phosphorus Iron TIBC % Saturation Creatine Kinase Total Protein Albumin Lipase Procalcitonin Urine Blood Ur Leukocyte Esterase Urine WBC Urine WBC Clumps Urine Bacteria Hyaline Casts Urine Mucus Crossmatch See Detail Assessment and Plan Assessment: Toxic-metabolic Encephalopathy: Has anemia, low folic acid and underlying bowel obstructiion folate defiency Severe ileus versus small bowel obstruction Anemia with gastritis Alcohol use Plan: Regarding his altered mentation ordered the an EEG. Since the last folate level was low start the patient was started on folic acid 1mg daily. I ordered TSH. I also ordered ionized calcium. Currently the patient is on thiamine 100 mg twice a day. Regarding the patient the small bowel obstructive versus ileus and his any known gastritis we'll defer management to the primary team. Thank you for the consult. Gian Millan M.D. Neuro-hospitalist Time with Patient: Greater than 30
[2020-07-18] MEDS: METOCLOPRAMIDE 5 MG/ML 2 ML VIAL IVP SCH ×3 (14:26→23:31)
[2020-07-18] MEDS: FOLIC ACID 1 MG TAB PO SCH (14:27)
[2020-07-18 14:37] LABS: Basophils % (A) 0 %; Eosinophils # (A) 0.2 k/uL (0-0.7); Eosinophils % (A) 2 %; HCT 26.4 % (39.0-53.0); Hypochromasia Moderate; Lymphocytes # (A) 0.5 k/uL (1.0-4.8); Lymphocytes % (A) 6 %; MCH 28.4 pg (25.0-35.0); MCHC 31.6 g/dL (31.0-37.0); MCV 90.1 fL (80.0-100.0); Monocytes # (A) 0.2 k/uL (0-1.0); Monocytes % (A) 2 %; Neutrophils # (A) 7.9 k/uL (1.3-7.7); Neutrophils % (A) 88 %; Platelet Count 293 k/uL (150-450); RBC 2.93 m/uL (4.30-5.90); RDW 15.9 % (11.5-15.5); WBC 8.9 k/uL (3.8-10.6)
[2020-07-18 14:44] LABS: HGB 8.3 gm/dL (13.0-17.5)
--- NOTE | 2020-07-18 14:56 | P.PN ---
Subjective Progress Note Date: 07/18/20 Principal diagnosis: Alcoholic liver disease with liver cirrhosis, rule out acute alcohol withdrawal syndrome, possible urinary tract infection, chronic anemia 55-year-old white male patient with history of heavy alcohol abuse who was admitted to the hospital on 07/04/2020 when he was brought in by his for evaluation of altered mental status. In the ER she was also hypotensive, and hemoglobin was 8.3, with no evidence of active bleeding. He was given IV fluid boluses, and his hemoglobin has been trending down over the last couple of days. 6.9 and today's labs, and patient denies any abdominal pain, there has been no evidence of active bleeding since admission. Patient has been being monitored in the ICU, he is awake and alert, he is only oriented to person, his chem ICU is positive on today's exam. He has a safety equipment tester at the bedside. he thought he was in [place]. He denies any acute distress, there is audible wheezing on today's exam. He has a congested cough. Patient is a chronic smoker. Today's chest x-ray shows no acute cardiopulmonary process. Abdomen is nontender, GI service is following, aorta to the unit of blood for hemoglobin of 6.9 this morning. Sinus tachycardia on the monitor, with a rate of 120 BPM. Blood pressure is 115/99, patient is on room air, with a pulse ox of 100%. Afebrile, denies any chills. White blood cell count is 9.4, platelet count is 385, serum sodium is 134, the rest of the electrolytes were within normal limits, B1 is 2 and creatinine 0.49, LFTs were within normal limits. Yesterday his urinalysis s uggested presence of urinary tract infection, urine culture was sent and is pending, blood culture showed no growth at the 24-hour [place]. We started the patient on ceftriaxone empirically. IV fluids 0.9 and was seen at a rate of 1:30, patient is on CIWA protocol for acute alcohol withdrawal, however only required 1 mg of Ativan last night. No agitation. Patient is fairly cooperative. On 07/11/2020 patient seen in follow-up on the selective care unit, he is resting quietly in bed, appears to be in no acute distress, room air pulse ox is 98%, his been intermittently confused. Afebrile. Denies any shortness of breath, lung sounds are clear, last chest x-ray was on 07/07/2020, showing no a cute cardiopulmonary process. Patient was transfused with 1 unit of packed red blood cells yesterday, today hemoglobin is 8.1, clinically no evidence of bleeding. GI service is following. Patient is on antibiotics in the form of Rocephin for gram-negative bacilli in the urine culture, blood culture showed no growth. Patient has been afebrile. On 07/12/2020 patient seen in follow-up on general medical surgical floor, she is more awake today, more interactive, room air pulse ox is 97%, no complaints of shortness of breath, today's hemoglobin is 8.0, no active bleeding, serum ammonia level came back at less than 9. No new chest x-ray, last chest x-ray was done on 07/10/2020 showing bibasilar Infiltrates and/or atelectasis and small tiny bilateral pleural effusions, clinically patient is asymptomatic, room air pulse ox is 97%, afebrile, and he is on Zosyn for antibiotic coverage, and nebulized bronchodilators. No hemoptysis, no chest pain breathing is comfortable, On 07/13/2020 patient seen in follow-up on the general medical surgical floor. He is resting in bed, sounds more congested and wheezy on today's exam, patient is able to expectorate whitish yellowish colored phlegm, denies any chest pain, no hemoptysis, no fever or chills. It is labs have been reviewed, showing white blood cell, 11.5, hemoglobin of 8.0, electrolytes were all within normal limits, BUN 6 creatinine 0.59. Pro-calcitonin came back elevated at 0.45 suggesting possibility of bacterial infection, chest x-ray showed bibasilar acute infiltrates and/or atelectasis with small tiny bilateral pleural effusions. Patient is on Zosyn for empiric antibiotic coverage. Patient apparently was more confused last night, and try to get up out of bed, however patient is not agitated, he was given some Ativan for possibility of alcohol withdrawals, however this is day 9 of his hospital stay, possibility of alcohol withdrawal at this point is unlikely. Patient remains delirious, but not agitated, delirious screen is positive on today's exam. Otherwise no acute distress On 07/14/2020 patient seen in follow-up on general medical surgical floor. He sitting up in the recliner currently, he has a belt around him because he has been trying to get up unassisted at times, no agitation, he is answering q uestions appropriately, and delirium screen is negative today, room air pulse ox is 100%, hemodynamically stable, he denies any breathing difficulty, lung sounds are less congested and wheezy and today's exam. No fever or chills, no compressive chest pain. Today's chest x-ray shows bibasilar airspace opacity and small bilateral pleural effusions nonsignificant changed from previous chest x-ray. Clinically patient is stable, remains on oral Augmentin, and breathing treatments, urine culture revealed Klebsiella pneumonia with no sensitivity except to ampicillin. Painter catheter has been discontinued. On 07/18/2020 patient is seen in follow-up in intensive care unit, remains confused, he is awake, not making very good eye contact. He is not speaking much, he is on 2 L of oxygen a pulse ox of 99-100%. NG tube remains in place, with approximately 500 mL of gastric drainage in the last 24 hours. His abdomen is still distended, surgical services are following, NG tube to low intermittent suction. Patient apparently pulled out his NG tube 6 times, safety equipment tester is at the bedside to prevent the patient from pulling out his indwelling catheters including his NG tube. He is being nourished with the TPN and lipids. His been nothing by mouth for severe ileus. Today's hemoglobin is 6.0, with no obvious signs of bleeding, he will receive a unit of packed red blood cells. White co unt is 8.2, hemoglobin is 6.0, as mentioned above, platelet count was 349, sodium is 144, potassium 3.8, chloride is 116, the rest of electrolytes and renal profile were within normal limits. PICC line was inserted, patient remains on 2 L of oxygen has pulse ox around 100%, no apparent respiratory difficulty noted, no bowel movement in the last 24 hours. Remains on antibiotics in the form of Zosyn, he is on TPN infusion at 50 ML per hour, and lipids on Saturday schedule Objective - Vital Signs Vital signs: Vital Signs Temp 98.1 F 07/18/20 12:00 Pulse 101 H 07/18/20 14:00 Resp 17 07/18/20 14:00 BP 128/96 07/18/20 14:00 Pulse Ox 100 07/18/20 14:00 Intake & Output 07/17/20 07/18/20 07/18/20 18:59 06:59 18:59 Intake Total 9789 075 8441 Output Total 310 610 5122 Balance 390 -97 -1456 Weight 58 kg 58 kg Intake: IV 1125 900 434 Dextrose 5%-0.9% NaCl 1, 825 900 350 000 ml @ 75 mls/hr IV . [id number] [facility] Rx#:[id number] Fat Emulsion 20% 250 ml 84 In Empty Bag 1 bag @ 21 mls/hr IV MoWeFr [facility] Rx#: [id number] Piperacillin-Tazobactam 3 200 .375 gm In Sodium Chloride 0.9% 100 ml @ 25 mls/hr IVPB Q8H [facility] Rx#: [id number] Potassium Chloride 10 meq 100 In Water For Injection 1 100ml.bag @ 100 mls/hr IVPB Q1HR [facility] Rx#: [id number] Intake, IV Titration 300 Amount Mvi, Adult No.4 with Vit 100 K 10 ml Trace (Conc-1Ml/ Dose) 1 ml Parenteral Electrolytes 20 ml In Amino Acid 5%-D15w 1,000 ml @ 50 mls/hr IV . [id number] [facility] Rx#:[id number] Piperacillin-Tazobactam 3 100 .375 gm In Sodium Chloride 0.9% 100 ml @ 25 mls/hr IVPB Q8H [facility] Rx#: [id number] Potassium Chloride 10 meq 100 In Water For Injection 1 100ml.bag @ 100 mls/hr IVPB Q1H [facility] Rx#: [id number] Blood Product 310 Rc As-3 Unit 310 [id number] Output: Gastric Drainage 500 Urine 429 111 9443 Other: Voiding Method Indwelling Catheter Indwelling Catheter Indwelling Catheter - Exam GENERAL EXAM: Alert, a very weak 55-year-old -[place]ish male, thin, poor ly responsive, his eyes are open, but not verbally responding, resting in bed, pulse ox of 100% on 2 L comfortable in no apparent distress. Weak, but no acute distress, safety equipment tester is at the bedside to prevent the patient from pulling on his indwelling lines HEAD: Normocephalic/atraumatic. EYES: Normal reaction of pupils, equal size. Conjunctiva pink, sclera white. NOSE: Clear with pink turbinates. NG tube in place, to low intermittent suction THROAT: No erythema or exudates. NECK: No masses, no JVD, no thyroid enlargement, no adenopathy. CHEST: No chest wall deformity. Symmetrical expansion. LUNGS: Equal air entry with scattered wheezes, rhonchi CVS: Regular rate and rhythm, normal S1 and S2, no gallops, no murmurs, no rubs, tachycardic, in sinus mechanism ABDOMEN: Soft, nontender. No hepatosplenomegaly, normal bowel sounds, no guarding or rigidity. EXTREMITIES: No clubbing, no edema, no cyanosis, 2+ pulses and upper and lower extremities. MUSCULOSKELETAL: Muscle strength and tone normal. SPINE: No scoliosis or deformity SKIN: No rashes CENTRAL NERVOUS SYSTEM: Lethargic, eyes open, but inattentive, and does not make eye contact No focal deficits, tone is normal in all 4 extremities. - Labs CBC & Chem 7: 07/18/20 04:56 07/18/20 04:56 Labs: Abnormal Lab Results - Last 24 Hours (Table) 07/07/20 07/17/20 07/17/20 Range/Units 06:04 18:05 23:54 RBC (4.30-5.90) m/uL Hgb (13.0-17.5) gm/dL Hct (39.0-53.0) % MCHC (31.0-37.0) g/dL RDW (11.5-15.5) % Chloride (98-107) mmol/L POC Glucose (mg/dL) 111 H 109 H (75-99) mg/dL Calcium (8.4-10.2) mg/dL Total Protein (6.3-8.2) g/dL Albumin (3.5-5.0) g/dL Crossmatch See Detail 07/18/20 07/18/20 07/18/20 Range/Units 04:56 04:56 05:34 RBC 2.23 L (4.30-5.90) m/uL Hgb 6.0 L* (13.0-17.5) gm/dL Hct 20.6 L (39.0-53.0) % MCHC 29.3 L (31.0-37.0) g/dL RDW 16.1 H (11.5-15.5) % Chloride 116 H (98-107) mmol/L POC Glucose (mg/dL) (75-99) mg/dL Calcium 7.9 L (8.4-10.2) mg/dL Total Protein 4.8 L (6.3-8.2) g/dL Albumin 2.0 L (3.5-5.0) g/dL Crossmatch See Detail 07/18/20 Range/Units 11:43 RBC (4.30-5.90) m/uL Hgb (13.0-17.5) gm/dL Hct (39.0-53.0) % MCHC (31.0-37.0) g/dL RDW (11.5-15.5) % Chloride (98-107) mmol/L POC Glucose (mg/dL) 116 H (75-99) mg/dL Calcium (8.4-10.2) mg/dL Total Protein (6.3-8.2) g/dL Albumin (3.5-5.0) g/dL Crossmatch Assessment and Plan Plan: Assessment: #1. Acute small bowel obstruction, versus ileus, patient was transferred back to the intensive care unit on 07/15/2020 with symptoms of abdominal pain, hypotension and CT of the abdomen and pelvis findings showing evidence consistent with ileus and small bowel obstruction, which is being treated conservatively #2. Chronic alcoholism #3. Chronic liver cirrhosis #4. Altered mentation, delirium, multifactorial, in the patient with the prolonged and complicated clinical course and possibly due to multiple etiologies including withdrawal symptoms from alcohol, nutritional deficiencies, urinary tract infection, possibility of pneumonia, small bowel obstruction, nothing by mouth status, immobility. These causes have been addressed on an ongoing basis. Neurology consultation has been requested #5. Chronic symptomatic anemia #6. Acute exacerbation of COPD #7. History of chronic tobacco abuse #8. Chronic malnourishment with hypoproteinemia and hypoalbuminemia along with significant loss and total body protein mass #9. History of hypertension #10. History of sleep apnea syndrome #11. Klebsiella pneumonia urinary tract infection #12. Significant medical debility Plan: Patient will be given one-time dose of IV Lasix, patient is quite bronchospastic and wheezy and today's exam, continue nevertheless broncho-dilators, we will add steroids will Decadron 4 mg every 6 hours, continue TPN for nutritional support, patient is off vasopressor support, hemodynamically he is stable, will try to optimize nutritional status, surgery is following, abdomen is still distended, patient remains nothing by mouth, maintain aspiration precautions. Remains on IV antibiotics, patient will remain in intensive care unit, he remains a full code. We'll request a neurology consultation in regards to his ongoing encephalopathy. Maintaining safety equipment tester, maintaining safety precautions. I performed a history & physical examination of the patient and discussed their management with my nurse practitioner, Marilyn Rushing. I reviewed the nurse practitioner's note and agree with the documented findings and plan of care. Lung sounds are positive for diffuse wheezes throughout the lung truong. The findings and the impression was discussed with the patient. I attest to the documentation by the nurse practitioner. Time with Patient: Greater than 30
[2020-07-18 16:24] LABS: Ionized Calcium 5.2 mg/dL (4.5-5.3)
--- NOTE | 2020-07-18 17:17 | EEG ---
ELECTROENCEPHALOGRAM REPORT DATE OF SERVICE: 07/18/2020 CLINICAL HISTORY: This is a 55-year-old gentleman with a reported history of alcohol use, who presented to the hospital on 07/04/2020 for confusion. This video EEG was obtained to evaluate for seizure and epileptiform activity. RELEVANT MEDICATION: The patient is not on any central acting medication. DESCRIPTION: Wakefulness is only obtained during the study. During wakefulness there is no clear posterior dominant rhythm seen bilaterally. There background consists of 6-7 hertz theta activity intermixed with delta activity. There is no sleep 2 architecture seen during the study. Interictal and ictal - None. ACTIVATION PROCEDURE: Photic stimulation was not performed because of patient is unable to cooperate. Hyperventilation was not performed because the patient clinical history. EEG DIAGNOSIS: This is an abnormal EEG due to background slowing on bilateral hemisphere. CLINICAL INTERPRETATION: This is an abnormal routine awake EEG suggestive of mild to moderate encephalopathy of unknown etiology. There is no focal slowing. There is no interictal or ictal activity during the study. Clinical correlation is recommended. MMRUSTY / JASIELN: [id number] / BOUBACAR
[2020-07-18 18:03] LABS: Glucose,Whole Blood 171 mg/dL (75-99)
[2020-07-18] MEDS: HALOPERIDOL LACTATE 5 MG/ML 1 ML VIAL IVP PRN (19:16)
[2020-07-18] MEDS: NOREPINEPHRINE 4 MG in SODIUM CHLORIDE 0.9% 250 ML IV SCH (22:13)
[2020-07-18 23:41] LABS: Glucose,Whole Blood 150 mg/dL (75-99)
[2020-07-19 05:09] LABS: Basophils % (A) 0 %; Eosinophils % (A) 0 %; HCT 25.3 % (39.0-53.0); Hypochromasia Slight; Lymphocytes # (A) 0.7 k/uL (1.0-4.8); Lymphocytes % (A) 11 %; MCH 28.3 pg (25.0-35.0); MCHC 31.6 g/dL (31.0-37.0); MCV 89.8 fL (80.0-100.0); Mean Platelet Volume 7.7; Monocytes # (A) 0.1 k/uL (0-1.0); Monocytes % (A) 2 %; Neutrophils # (A) 6.1 k/uL (1.3-7.7); Neutrophils % (A) 87 %; Platelet Count 241 k/uL (150-450); RBC 2.82 m/uL (4.30-5.90); RDW 15.8 % (11.5-15.5)
[2020-07-19 05:17] LABS: ALT 14 U/L (4-49); AST 14 U/L (17-59); African American GFR (CKD) >90 (>60 ml/min/1.73 sqM); Albumin 2.4 g/dL (3.5-5.0); Alkaline Phosphatase 56 U/L (38-126); Anion Gap 2 mmol/L; Blood Urea Nitrogen 11 mg/dL (9-20); Calcium 8.8 mg/dL (8.4-10.2); Carbon Dioxide 27 mmol/L (22-30); Chloride 112 mmol/L (98-107); Glucose 119 mg/dL (74-99); Non-African American GFR(CKD) >90 (>60 ml/min/1.73 sqM); Phosphorus 3.1 mg/dL (2.5-4.5); Potassium 4.1 mmol/L (3.5-5.1); Sodium 141 mmol/L (137-145); Total Bilirubin 0.8 mg/dL (0.2-1.3); Total Protein 5.5 g/dL (6.3-8.2)
[2020-07-19] MEDS: METOCLOPRAMIDE 5 MG/ML 2 ML VIAL IVP SCH ×4 (05:17→23:37)
[2020-07-19] MEDS: DEXAMETHASONE SOD PHOSPHATE 4 MG/ML 1 ML VIAL IV SCH ×4 (05:17→23:37)
[2020-07-19] MEDS: DEXTROSE 5%-0.9% NACL 1,000 ML IV SCH ×2 (05:17→18:16)
[2020-07-19] MEDS: INSULIN ASPART (NovoLOG) 100 UNIT/ML VIAL SQ SCH ×4 (05:21→20:11)
[2020-07-19] MEDS: MVI, ADULT NO.4 WITH VIT K 10 ML, TRACE (CONC-1ML/DOSE) 1 ML, PARENTERAL ELECTROLYTES 2... IV SCH ×4 (06:58)
[2020-07-19] MEDS: NICOTINE 21MG/24HR PATCH TRANSDERM SCH (08:23)
[2020-07-19] MEDS: PIPERACILLIN-TAZOBACTAM 3.375 GM in SODIUM CHLORIDE 0.9% 100 ML IVPB SCH ×3 (08:23→23:38)
[2020-07-19] MEDS: FOLIC ACID 1 MG TAB PO SCH (08:23)
[2020-07-19] MEDS: THIAMINE 100 MG TAB PO SCH ×2 (08:23→17:51)
[2020-07-19] MEDS: PANTOPRAZOLE 40 MG/10 ML VIAL IVP SCH ×2 (08:24→20:11)
[2020-07-19] MEDS: IPRATROPIUM-ALBUTEROL 3 ML NEB INHALATION SCH ×4 (08:36→20:29)
--- NOTE | 2020-07-19 10:20 | P.PN ---
Subjective Progress Note Date: 07/19/20 Patient was seen at bedside and the per the nurse the the patient is doing today better compared to yesterday. It's also noted that the ICU team feels the patient is doing better compared to yesterday. Upon seeing the patient that he stated that the he wanted that a drink of beer. Otherwise denies any weakness the denies any visual disturbance. Objective - Vital Signs Vital signs: Vital Signs Temp 97.6 F 07/19/20 08:00 Pulse 103 H 07/19/20 09:00 Resp 14 07/19/20 09:00 BP 120/64 07/19/20 09:00 Pulse Ox 95 07/19/20 09:00 Intake & Output 07/18/20 07/19/20 07/19/20 18:59 06:59 18:59 Intake Total 1503 1564.167 405 Output Total 2800 760 140 Balance -1297 804.167 265 Weight 58 kg 51.8 kg Intake: IV 618 505 275 Dextrose 5%-0.9% NaCl 1, 450 300 175 000 ml @ 75 mls/hr IV . [id number] [facility] Rx#:[id number] Fat Emulsion 20% 250 ml 168 105 In Empty Bag 1 bag @ 21 mls/hr IV MoWeFr [facility] Rx#: [id number] Piperacillin-Tazobactam 3 100 100 .375 gm In Sodium Chloride 0.9% 100 ml @ 25 mls/hr IVPB Q8H [facility] Rx#: [id number] Intake, IV Titration 575 1059.167 100 Amount Mvi, Adult No.4 with Vit 100 K 10 ml Trace (Conc-1Ml/ Dose) 1 ml Parenteral Electrolytes 20 ml In Amino Acid 5%-D15w 1,000 ml @ 50 mls/hr IV . [id number] [facility] Rx#:[id number] Mvi, Adult No.4 with Vit 350 1034.167 K 10 ml Trace (Conc-1Ml/ Dose) 1 ml Parenteral Electrolytes 20 ml In Amino Acid 5%-D15w 1,000 ml @ 50 mls/hr IV . [id number] [facility] Rx#:[id number] Piperacillin-Tazobactam 3 125 25 .375 gm In Sodium Chloride 0.9% 100 ml @ 25 mls/hr IVPB Q8H [facility] Rx#: [id number] Potassium Chloride 10 meq 100 In Water For Injection 1 100ml.bag @ 100 mls/hr IVPB Q1H [facility] Rx#: [id number] Blood Product 310 Rc As-3 Unit 310 [id number] Other 30 Output: Gastric Drainage 500 Urine 2300 760 140 Other: Voiding Method Indwelling Catheter Indwelling Catheter Indwelling Catheter - Exam GENERAL: The patient is lying in bed and is not in acute distress. ENT: Scleral icterus bilaterally. Neck is supple and no neck rigidity. CHEST: The heart rate is regular rate rhythm. No murmurs to auscultation. LUNG: Not labored breathing. ABDOMEN/GI: Bowel sounds present in all 4 quadrants. No tenderness to palpation throughout. NEUROLOGICAL: Higher mental function: The patient is awake, alert, oriented to self, place but not time. Patient is following simple commands. No aphasia or neglect. Cranial nerves: The pupils are round, equal 2-3mm bilaterally and reactive to light and accommodation. Visual truong are full to threat throughout. Extraocular movement is intact no nystagmus is noted. Facial sensation could not assess because of cooperation. The facial strength is normal throughout. No dysarthria is noted. Shoulder shrug is normal bilaterally. Motor: Gait is defered. The strength is moving all extremities above gravity in upper extremities while lower extremities are 5/5 bilaterally. Normal tone and bulk. Sensation: Intact to normal stimuli. Reflexes (right/left): 2+ throughout except at ankle 1+ bilaterally. Plantars are downgoing bilaterally. Foot: Patient has Pes plantus. - Labs CBC & Chem 7: 07/19/20 04:50 07/19/20 04:50 Labs: Abnormal Lab Results - Last 24 Hours (Table) 07/18/20 07/18/20 07/18/20 Range/Units 11:43 14:20 18:02 RBC 2.93 L (4.30-5.90) m/uL Hgb 8.3 L D (13.0-17.5) gm/dL Hct 26.4 L (39.0-53.0) % RDW 15.9 H (11.5-15.5) % Neutrophils # 7.9 H (1.3-7.7) k/uL Lymphocytes # 0.5 L (1.0-4.8) k/uL Chloride (98-107) mmol/L Glucose (74-99) mg/dL POC Glucose (mg/dL) 116 H 171 H (75-99) mg/dL AST (17-59) U/L Total Protein (6.3-8.2) g/dL Albumin (3.5-5.0) g/dL 07/18/20 07/19/20 07/19/20 Range/Units 23:39 04:50 04:50 RBC 2.82 L (4.30-5.90) m/uL Hgb 8.0 L (13.0-17.5) gm/dL Hct 25.3 L (39.0-53.0) % RDW 15.8 H (11.5-15.5) % Neutrophils # (1.3-7.7) k/uL Lymphocytes # 0.7 L (1.0-4.8) k/uL Chloride 112 H (98-107) mmol/L Glucose 119 H (74-99) mg/dL POC Glucose (mg/dL) 150 H (75-99) mg/dL AST 14 L (17-59) U/L Total Protein 5.5 L (6.3-8.2) g/dL Albumin 2.4 L (3.5-5.0) g/dL Assessment and Plan Assessment: Toxic-metabolic Encephalopathy: Has anemia, low folic acid and underlying bowel obstructiion. Component of delirium since the he is in the ICU as well as he has a heavy alcohol as well underlying GI condition. Folate defiency Severe ileus versus small bowel obstruction Anemia with gastritis Alcohol use Plan: Routine EEG (07/19/20): Mild to moderate encephalopathy with unspecified et iology. No epileptiform discharges or seizure detected. Folate was 10.2 on 07/05/2020 and that was 3.8 on 07/13/2020. On folic acid 1mg daily. TSH: 2.47 Ionized calcium: 5.2 The patient the mentation is improved today compared to yesterday but still not back to his baseline now. The patient might also have a component of delirium since the he is in the ICU as well as he has a heavy alcohol use. We'll defer the management to the primary team Currently the patient is on thiamine 100 mg twice a day. Regarding the patient the small bowel obstructive versus ileus and his any known gastritis we'll defer management to the primary team. We'll continue to follow. Gian Millan M.D. Neuro-hospitalist Time with Patient: Greater than 30
--- NOTE | 2020-07-19 10:25 | P.PN ---
Subjective Progress Note Date: 07/19/20 CHIEF COMPLAINT: Bowel obstruction HISTORY OF PRESENT ILLNESS: The patient is a 55 year old male with history of alcoholism including cirrhosis presented to the hospital secondary to confusion. During hospitalization, patient developed increased abdominal distention. He is being followed for ileus versus small bowel obstruction. He did have one smear for a BM. He also has TPN. Afebrile. Hemoglobin is 8.0. Patient did receive 2 units of blood for hemoglobin of 6.0 yesterday. Patient did have EGD done during this admission with Dr. Gates showing diffuse gastritis involving the entire stomach with a small amount of old blood but no active bleeding. Mild duodenitis and small hiatal hernia PHYSICAL EXAM: VITAL SIGNS: Reviewed. GENERAL: Well-developed in no acute distress. HEENT: No sclera icterus. Extraocular movements grossly intact. Moist buccal mucosa. Head is atraumatic, normocephalic. ABDOMEN: Soft nontender nondistended NEUROLOGIC: Alert and oriented. Cranial nerves II through XII grossly intact. ASSESSMENT: 1. Severe ileus versus small bowel obstruction 2. Anemia with gastritis PLAN: 1. He has acute drop in Hgb. Continue to hold Lovenox. 2. Continue Protonix 40 mg IV twice a day 3. Continue Reglan 10 mg IV every 6 4. Discontinue NG tube 5. Add lactulose 30 g by mouth one every hour 3 doses Physician Shorts Sifter note has been reviewed by physician. Signing provider agrees with the documented findings, assessment, and plan of care. Objective - Vital Signs Vital signs: Vital Signs Temp 97.6 F 07/19/20 08:00 Pulse 103 H 07/19/20 09:00 Resp 14 07/19/20 09:00 BP 120/64 07/19/20 09:00 Pulse Ox 95 07/19/20 09:00 Intake & Output 07/18/20 07/19/20 07/19/20 18:59 06:59 18:59 Intake Total 1503 1564.167 405 Output Total 2800 760 140 Balance -1297 804.167 265 Weight 58 kg 51.8 kg Intake: IV 618 505 275 Dextrose 5%-0.9% NaCl 1, 450 300 175 000 ml @ 75 mls/hr IV . [id number] [facility] Rx#:[id number] Fat Emulsion 20% 250 ml 168 105 In Empty Bag 1 bag @ 21 mls/hr IV MoWeFr [facility] Rx#: [id number] Piperacillin-Tazobactam 3 100 100 .375 gm In Sodium Chloride 0.9% 100 ml @ 25 mls/hr IVPB Q8H [facility] Rx#: [id number] Intake, IV Titration 575 1059.167 100 Amount Mvi, Adult No.4 with Vit 100 K 10 ml Trace (Conc-1Ml/ Dose) 1 ml Parenteral Electrolytes 20 ml In Amino Acid 5%-D15w 1,000 ml @ 50 mls/hr IV . [id number] [facility] Rx#:[id number] Mvi, Adult No.4 with Vit 350 1034.167 K 10 ml Trace (Conc-1Ml/ Dose) 1 ml Parenteral Electrolytes 20 ml In Amino Acid 5%-D15w 1,000 ml @ 50 mls/hr IV . [id number] [facility] Rx#:[id number] Piperacillin-Tazobactam 3 125 25 .375 gm In Sodium Chloride 0.9% 100 ml @ 25 mls/hr IVPB Q8H [facility] Rx#: [id number] Potassium Chloride 10 meq 100 In Water For Injection 1 100ml.bag @ 100 mls/hr IVPB Q1H [facility] Rx#: [id number] Blood Product 310 Rc As-3 Unit 310 [id number] Other 30 Output: Gastric Drainage 500 Urine 2300 760 140 Other: Voiding Method Indwelling Catheter Indwelling Catheter Indwelling Catheter - Labs CBC & Chem 7: 07/19/20 04:50 07/19/20 04:50 Labs: Abnormal Lab Results - Last 24 Hours (Table) 07/18/20 07/18/20 07/18/20 Range/Units 11:43 14:20 18:02 RBC 2.93 L (4.30-5.90) m/uL Hgb 8.3 L D (13.0-17.5) gm/dL Hct 26.4 L (39.0-53.0) % RDW 15.9 H (11.5-15.5) % Neutrophils # 7.9 H (1.3-7.7) k/uL Lymphocytes # 0.5 L (1.0-4.8) k/uL Chloride (98-107) mmol/L Glucose (74-99) mg/dL POC Glucose (mg/dL) 116 H 171 H (75-99) mg/dL AST (17-59) U/L Total Protein (6.3-8.2) g/dL Albumin (3.5-5.0) g/dL 07/18/20 07/19/20 07/19/20 Range/Units 23:39 04:50 04:50 RBC 2.82 L (4.30-5.90) m/uL Hgb 8.0 L (13.0-17.5) gm/dL Hct 25.3 L (39.0-53.0) % RDW 15.8 H (11.5-15.5) % Neutrophils # (1.3-7.7) k/uL Lymphocytes # 0.7 L (1.0-4.8) k/uL Chloride 112 H (98-107) mmol/L Glucose 119 H (74-99) mg/dL POC Glucose (mg/dL) 150 H (75-99) mg/dL AST 14 L (17-59) U/L Total Protein 5.5 L (6.3-8.2) g/dL Albumin 2.4 L (3.5-5.0) g/dL
[2020-07-19] MEDS: HALOPERIDOL LACTATE 5 MG/ML 1 ML VIAL IVP PRN ×3 (11:53→20:18)
[2020-07-19 12:01] LABS: Glucose,Whole Blood 137 mg/dL (75-99)
[2020-07-19] MEDS: LACTULOSE 20 GM/30 ML CUP PO SCH ×5 (12:05→17:50)
--- NOTE | 2020-07-19 13:29 | P.PN ---
Subjective Progress Note Date: 07/19/20 Principal diagnosis: Alcoholic liver disease with liver cirrhosis and toxic metabolic encephalopathy. 55-year-old white male patient with history of heavy alcohol abuse who was a dmitted to the hospital on 07/04/2020 when he was brought in by his for evaluation of altered mental status. In the ER she was also hypotensive, and hemoglobin was 8.3, with no evidence of active bleeding. He was given IV fluid boluses, and his hemoglobin has been trending down over the last couple of days. 6.9 and today's labs, and patient denies any abdominal pain, there has been no evidence of active bleeding since admission. Patient has been being monitored in the ICU, he is awake and alert, he is only oriented to person, his chem ICU is positive on today's exam. He has a safety belt installer at the bedside. he thought he was in [place]. He denies any acute distress, there is audible wheezing on today's exam. He has a congested cough. Patient is a chronic smoker. Today's chest x-ray shows no acute cardiopulmonary process. Abdomen is nontender, GI service is following, aorta to the unit of blood for hemoglobin of 6.9 this morning. Sinus tachycardia on the monitor, with a rate of 120 BPM. Blood pressure is 115/99, patient is on room air, with a pulse ox of 100%. Afebrile, denies any chills. White blood cell count is 9.4, platelet count is 385, serum sodium is 134, the rest of the electrolytes were within normal limits, B1 is 2 and creatinine 0.49, LFTs were within normal limits. Yesterday his urinalysis suggested presence of urinary tract infection, urine culture was sent and is pending, blood culture showed no growth at the 24-hour [place]. We started the patient on ceftriaxone empirically. IV fluids 0.9 and was seen at a rate of 1:30, patient is on CIWA protocol for acute alcohol withdrawal, however only required 1 mg of Ativan last night. No agitation. Patient is fairly cooperative. On 07/11/2020 patient seen in follow-up on the selective care unit, he is resting quietly in bed, appears to be in no acute distress, room air pulse ox is 98%, his been intermittently confused. Afebrile. Denies any shortness of breath, lung sounds are clear, last chest x-ray was on 07/07/2020, showing no acute cardiopulmonary process. Patient was transfused with 1 unit of packed red blood cells yesterday, today hemoglobin is 8.1, clinically no evidence of blee ding. GI service is following. Patient is on antibiotics in the form of Rocephin for gram-negative bacilli in the urine culture, blood culture showed no growth. Patient has been afebrile. On 07/12/2020 patient seen in follow-up on general medical surgical floor, she is more awake today, more interactive, room air pulse ox is 97%, no complaints of shortness of breath, today's hemoglobin is 8.0, no active bleeding, serum ammonia level came back at less than 9. No new chest x-ray, last chest x-ray was done on 07/10/2020 showing bibasilar Infiltrates and/or atelectasis and small tiny bilateral pleural effusions, clinically patient is asymptomatic, room air pulse ox is 97%, afebrile, and he is on Zosyn for antibiotic coverage, and nebulized bronchodilators. No hemoptysis, no chest pain breathing is comfortable, On 07/13/2020 patient seen in follow-up on the general medical surgical floor. He is resting in bed, sounds more congested and wheezy on today's exam, patient is able to expectorate whitish yellowish colored phlegm, denies any chest pain, no hemoptysis, no fever or chills. It is labs have been reviewed, showing white blood cell, 11.5, hemoglobin of 8.0, electrolytes were all within normal limits, BUN 6 creatinine 0.59. Pro-calcitonin came back elevated at 0.45 suggesting possibility of bacterial infection, chest x-ray showed bibasilar acute infiltrates and/or atelectasis with small tiny bilateral pleural effusions. Patient is on Zosyn for empiric antibiotic coverage. Patient apparently was more confused last night, and try to get up out of bed, however patient is not agitated, he was given some Ativan for possibility of alcohol withdrawals, however this is day 9 of his hospital stay, possibility of alcohol withdrawal at this point is unlikely. Patient remains delirious, but not agitated, delirious screen is positive on today's exam. Otherwise no acute distress On 07/14/2020 patient seen in follow-up on general medical surgical floor. He sitting up in the recliner currently, he has a belt around him because he has been trying to get up unassisted at times, no agitation, he is answering questions appropriately, and delirium screen is negative today, room air pulse ox is 100%, hemodynamically stable, he denies any breathing difficulty, lung darron nds are less congested and wheezy and today's exam. No fever or chills, no compressive chest pain. Today's chest x-ray shows bibasilar airspace opacity and small bilateral pleural effusions nonsignificant changed from previous chest x-ray. Clinically patient is stable, remains on oral Augmentin, and breathing treatments, urine culture revealed Klebsiella pneumonia with no sensitivity except to ampicillin. Painter catheter has been discontinued. On 07/18/2020 patient is seen in follow-up in intensive care unit, remains confused, he is awake, not making very good eye contact. He is not speaking much, he is on 2 L of oxygen a pulse ox of 99-100%. NG tube remains in place, with approximately 500 mL of gastric drainage in the last 24 hours. His abdomen is still distended, surgical services are following, NG tube to low intermittent suction. Patient apparently pulled out his NG tube 6 times, safety belt installer is at the bedside to prevent the patient from pulling out his indwelling catheters including his NG tube. He is being nourished with the TPN and lipids. His been nothing by mouth for severe ileus. Today's hemoglobin is 6.0, with no obvious signs of bleeding, he will receive a unit of packed red blood cells. White count is 8.2, hemoglobin is 6.0, as mentioned above, platelet count was 349, sodium is 144, potassium 3.8, chloride is 116, the rest of electrolytes and renal profile were within normal limits. PICC line was inserted, patient remains on 2 L of oxygen has pulse ox around 100%, no apparent respiratory difficulty noted, no bowel movement in the last 24 hours. Remains on antibiotics in the form of Zosyn, he is on TPN infusion at 50 ML per hour, and lipids on Saturday schedule Patient was reevaluated today on 07/19/20, remains in the ICU, his mental status seems to wax and wane, today he seems to be confused but less agitated, he was agitated last night and he required Haldol. Patient remains on 2 L nasal cannula, he is on TPN at 50 MLS per hour. Patient is hemodynamically stable. Hemoglobin today is 8. Patient did receive a total of 2 units of packed RBCs since admission for low hemoglobin. Electrolytes are normal, renal profile is normal. Patient continues to do poorly with incentive spirometry, and continues to sound very congested. But less congested today compared to yesterday. And he seems to be much less agitated when I saw him earlier today. Objective - Vital Signs Vital signs: Vital Signs Temp 97.0 F L 07/19/20 12:00 Pulse 107 H 07/19/20 12:44 Resp 14 07/19/20 12:00 BP 124/84 07/19/20 12:00 Pulse Ox 28 L 07/19/20 12:00 Intake & Output 07/18/20 07/19/20 07/19/20 18:59 06:59 18:59 Intake Total 1503 1564.167 630 Output Total 2800 760 290 Balance -1297 804.167 340 Weight 58 kg 51.8 kg Intake: IV 618 505 500 Dextrose 5%-0.9% NaCl 1, 450 300 400 000 ml @ 75 mls/hr IV . [id number] [facility] Rx#:[id number] Fat Emulsion 20% 250 ml 168 105 In Empty Bag 1 bag @ 21 mls/hr IV [id number] [facility] Rx#: [id number] Piperacillin-Tazobactam 3 100 100 .375 gm In Sodium Chloride 0.9% 100 ml @ 25 mls/hr IVPB Q8H [facility] Rx#: [id number] Intake, IV Titration 575 1059.167 100 Amount Mvi, Adult No.4 with Vit 100 K 10 ml Trace (Conc-1Ml/ Dose) 1 ml Parenteral Electrolytes 20 ml In Amino Acid 5%-D15w 1,000 ml @ 50 mls/hr IV . [id number] [facility] Rx#:[id number] Mvi, Adult No.4 with Vit 350 1034.167 K 10 ml Trace (Conc-1Ml/ Dose) 1 ml Parenteral Electrolytes 20 ml In Amino Acid 5%-D15w 1,000 ml @ 50 mls/hr IV . [id number] [facility] Rx#:[id number] Piperacillin-Tazobactam 3 125 25 .375 gm In Sodium Chloride 0.9% 100 ml @ 25 mls/hr IVPB Q8H [facility] Rx#: [id number] Potassium Chloride 10 meq 100 In Water For Injection 1 100ml.bag @ 100 mls/hr IVPB Q1H [facility] Rx#: [id number] Blood Product 310 Rc As-3 Unit 310 [id number] Other 30 Output: Gastric Drainage 500 Urine 2300 760 290 Other: Voiding Method Indwelling Catheter Indwelling Catheter Indwelling Catheter - Exam GENERAL EXAM: Revealed a 55-year-old -[place] male, resting in bed, on 2 L nasal cannula, in no distress, today he seems to be much more verbal compared to the last few days. HEENT: PERRLA, EOMI, no neck masses, no JVD, no icterus. CHEST: No chest wall deformity. Symmetrical expansion. LUNGS: Equal air entry with scattered rhonchi and wheezes noted bilaterally. CVS: Regular rate and rhythm, normal S1 and S2, no gallops, no murmurs, no rubs, tachycardic, in sinus mechanism ABDOMEN: Soft, nontender. No hepatosplenomegaly, normal bowel sounds, no guarding or rigidity. EXTREMITIES: No clubbing, no edema, no cyanosis, 2+ pulses and upper and lower extremities. MUSCULOSKELETAL: Muscle strength and tone normal. SPINE: No scoliosis or deformity SKIN: No rashes CENTRAL NERVOUS SYSTEM: Last lethargic today, opens eyes, interactive, but confused. - Labs CBC & Chem 7: 07/19/20 04:50 07/19/20 04:50 Labs: Abnormal Lab Results - Last 24 Hours (Table) 07/18/20 07/18/20 07/18/20 Range/Units 14:20 18:02 23:39 RBC 2.93 L (4.30-5.90) m/uL Hgb 8.3 L D (13.0-17.5) gm/dL Hct 26.4 L (39.0-53.0) % RDW 15.9 H (11.5-15.5) % Neutrophils # 7.9 H (1.3-7.7) k/uL Lymphocytes # 0.5 L (1.0-4.8) k/uL Chloride (98-107) mmol/L Glucose (74-99) mg/dL POC Glucose (mg/dL) 171 H 150 H (75-99) mg/dL AST (17-59) U/L Total Protein (6.3-8.2) g/dL Albumin (3.5-5.0) g/dL 07/19/20 07/19/20 07/19/20 Range/Units 04:50 04:50 11:49 RBC 2.82 L (4.30-5.90) m/uL Hgb 8.0 L (13.0-17.5) gm/dL Hct 25.3 L (39.0-53.0) % RDW 15.8 H (11.5-15.5) % Neutrophils # (1.3-7.7) k/uL Lymphocytes # 0.7 L (1.0-4.8) k/uL Chloride 112 H (98-107) mmol/L Glucose 119 H (74-99) mg/dL POC Glucose (mg/dL) 137 H (75-99) mg/dL AST 14 L (17-59) U/L Total Protein 5.5 L (6.3-8.2) g/dL Albumin 2.4 L (3.5-5.0) g/dL Assessment and Plan Assessment: Impression: Chronic alcoholism and recurrent in terms of alcohol withdrawal Acute small bowel obstruction versus ileus Chronic liver cirrhosis. Acute metabolic toxic encephalopathy. Chronic symptomatic anemia Acute exacerbation of COPD History of hypertension Klebsiella pneumonia urinary tract infection Medical debility. Recommendation: Continue to monitor the patient in the ICU. Continue bronchodilators. Continue Haldol. Continue Decadron. Continue TPN. Overall prognosis remains extremely poor and guarded, We'll continue to follow. Time with Patient: Less than 30
--- NOTE | 2020-07-19 13:59 | CDI ---
Documentation Clarification Form Date: 07/19/2020 01:18:53 PM From: Latoya Marin RN, CCDS Admit Date: 07/04/2020 08:25:00 PM Patient Name: Fercho Yen Visit Number: [id number] ATTENTION: The Clinical Documentation Specialists (CDI) and [facility] Coding Staff appreciate your assistance in clarifying documentation. Please respond to the clarification below the line at the bottom and electronically sign. The CDI & [facility] Coding staff will review the response and follow-up if needed. Please note: Queries are made part of the Legal Health Record. If you have any questions, please contact the author of this message via ITS. Dr. Lawanda Krishna Hypotension is documented throughout the medical record treated with IV Fluids and blood transfusions and requires further specificity. Patient history/risk factors: Chronic ETOH with withdrawal, chronic liver cirrhosis, nutritional deficiencies, NPO, Immobility, chronic malnourishment, hypoproteinemia, hypoalbuminemia, anemia of chronic disease Clinical Indicators: 07/18 Pulmonary Progress Note: "Acute small bowel obstruction, versus ileus, patient was transferred back to the intensive care unit on 07/15/2020 with symptoms of abdominal pain, hypotension and CT of the abdomen and pelvis findings showing evidence consistent with ileus and small bowel obstruction, which is being treated conservatively " 07/18 Attending Progress Notes: "Hypotension patient was started on IV fluid, blood pressure stable, will check urine analysis and blood culture to rule out any infectious etiology, critical care consult requested. Sepsis with hypotension, patient restarted on IV Zosyn, will consult infectious disease 07/07-07/14 Pulmonary progress note: "Hypotension, likely hypovolemic, related to poor oral intake, and active alcohol abuse, improved with fluid resuscitation." 07/04 1743 Admission Vitals: Temp 97.7, Hr 60, RR 71/59, spo2 94% RA 07/155 V/S: Temp 96, HR 123, RR 42, B/P 80/42, spo2 44% on room air, 100% on NRB Treatment: 07/04 0.9% NS IVF Bolus1.5L followed by 130 cc/hr 07/15 0.9% NS IVF bolus 1L 07/16 0.9% NS IVF Bolus 1L 07/07 1 unit PRBC's transfused 07/18 1 unit PRBC's transfused 07/18 Decadron 4 mg IVP Q 6hr 07/16 TPN Ordered In your professional opinion, can you please clarify the hypotension and treatment further? Septic Shock Suspected or known causative organism Any associated organ failure Hypovolemic Shock Cause Other, please specify Unable to determine (Last Revision: August 2017) hypovolemic shock secondary to amemia and UTI MTDD
[2020-07-19 17:13] LABS: Glucose,Whole Blood 157 mg/dL (75-99)
--- NOTE | 2020-07-19 17:22 | P.PN ---
Subjective Progress Note Date: 07/19/20 Fercho Yen, is a 55-year-old male with known history of excessive alcohol use and history of liver cirrhosis who was brought in to [facility] emergency room by his due to mental status changes was confusion patient was also having weight loss, he was drinking alcohol up to 2 days prior to admission then he was not feeling well and he stopped drinking alcohol and stopped eating and drinking for 2-3 days. Patient was evaluated in emergency room, he was febrile temperature 97.7 pulse 60 respiration 16 blood pressure was significantly low at 71/59 pulse ox 94% on room air white blood count was 8.7 hemoglobin 8.3 platelet count 260 sodium was low at 126 potassium was low at 2.5 serum alcohol level was 21. Patient was admitted to intensive care unit he was started on IV fluid and potassium replacement protocol. Chest x-ray was done in the emergency room and did not reveal any active cardiopulmonary disease, computed tomography scan done in the emergency room revealed cerebral atrophy no acute intracranial abnormality, abdomen ultrasound done did not reveal any evidence of sizable ascites, urine analysis and blood culture were done and were ordered in ICU. On 07/06/2020 patient was seen and examined on the medical floor he is more somnolent he responds to stimuli otherwise he denies any complaints blood pressure is improved today urine analysis revealed evidence of urinary tract infection patient was started on IV Rocephin more globin is down to 6.8, On 07/07/2020 patient was seen and examined in the ICU he is alert and oriented 3 in no apparent distress he is answering questions appropriately today, there is no fever or chills no headache or dizziness no chest pain no shortness of breath no cough no nausea or vomiting no abdominal pain. No burning with urination no frequency or urgency and no hematuria, he received 1 unit of red blood cells today. On 07/08/2020, patient was seen and examined on the medical floor, he is somnolent but arousable in no apparent distress, there is no fever or chills no headache or dizziness no chest pain no shortness of breath no cough no nausea or vomiting no abdominal pain no diarrhea no burning with urination no frequency or urgency no hematuria, he had very poor oral intake so far, he was counseled in length he seems to understand, if the oral intake does not improve patient may need a nasogastric tube feeding. On 07/09/2020 patient was seen and examined on the medical floor, he is more alert today, his still has very poor oral intake, he was counseled in length in regard to need to eat more, he is denying any symptoms at this time there is no fever or chills no headache or dizziness no chest pain no shortness of breath no cough no nausea or vomiting no abdominal pain no diarrhea no burning with urination no frequency or urgency no hematuria, will add physical therapy and occupational therapy and assess if patient needs after discharge On 07/10/2020 patient was seen and examined on the medical floor he is alert slightly confused in no apparent distress nurse stated that he has been more agitated and slightly aggressive with staff he still has very poor oral intake otherwise he denies any complaints he has been refusing to keep telemetry box on there is no fever or chills no headache or dizziness no chest pain no shortness of breath no cough no nausea or vomiting no abdominal pain no diarrhea and no urinary symptoms On 07/11/2020 patient was seen and examined on the medical floor he is alert slightly confused in no distress he is complaining of cough he is breathing sounds are coarse otherwise there is no complaints there is no fever or chills no headache or dizziness no chest pain no shortness of breath, no nausea or vomiting no abdominal pain no diarrhea no burning with urination no frequency or urgency and no hematuria. Chest x-ray reveals bilateral infiltrates and small pleural effusion will re-consult pulmonary in that regard. On 07/12/2020 patient was seen and examined on the medical floor he is more alert and oriented today he is having more oral intake he is still complaining of cough there is no fever or chills, no chest pain or shortness of breath no nausea or vomiting no abdominal pain no diarrhea and no urinary symptoms On 07/14/2020 patient was seen and examined on the medical floor, he is alert and oriented 3 in no apparent distress, he was cleared by all consultants yesterday [facility], discharge was done yest erday however, patient still need authorization from insurance, hence discharge was delayed, clinically patient is stable he is complaining of generalized weakness otherwise he denies any specific complaints there is no fever or chills no headache or dizziness no chest pain no shortness of breath no cough no nausea or vomiting no abdominal pain no diarrhea and no urinary symptoms. On 07/15/2020 patient was seen and examined on the medical floor, he is complaining of abdominal pain today, otherwise he denies any complaints there is no fever or chills no headache or dizziness no chest pain no shortness of breath no cough no nausea or vomiting no diarrhea no blood in the stools no burning with urination no frequency or urgency no hematuria. On 07/16/2020 patient was seen and examined in the ICU he is alert and responsive in no apparent distress, yesterday he was having abdominal pain comp uted tomography scan of the abdomen revealed evidence of small bowel obstruction NG tube was put in patient was having episodes of agitation he was also having hypotension he was transferred to intensive care unit, he is being followed by Dr. Person for pulmonary and critical care, and by surgery, currently he is still in ICU he is maintained on vasopressors. On 07/17/2020 patient was seen and examined in the ICU he is alert and responsive, he pulled his triple-lumen out and his NG tube. His abdomen is severely tense and distended, NG tube was put back in, patient was counseled in length in regards to not touching his tubes and lines. Patient was started on TPN however this is on hold at this time. Patient continues to be in critical condition, pulmonary, and surgery are following. Hemodynamically patient is stable his blood pressure is 138/74 his pulse rate is 110 respiration 18 and pulse ox 92% on 2 L nasal cannula his white blood count is slightly down at 14.8 his hemoglobin is down to 7.0 kidney and liver function are within normal limits albumin is down to 2.3 On 07/18/2020 patient was seen and examined in the ICU, he is alert and responsive NG tube is in , case discussed with patient nurse Brittany, plan per GI is to proceed with EGD, today hemoglobin is down to 6.0, his white blood count is 8.2 platelet 349 kidney and liver function are within normal limits, albumin level is low at 2.0 On 07/19/2020 patient was seen and examined in the ICU, he is alert responsive in no apparent distress, he had episodes of agitation earlier, he is denying any complaints at this time , his temperature is 90.7 pulse 100 respiration 14 blood pressure 124/84 pulse ox 97% on 2 L nasal cannula, his white blood count is 7 hemoglobin 8 platelet count 241 Objective - Vital Signs Vital signs: Vital Signs Temp 97.2 F L 07/19/20 04:00 Pulse 101 H 07/19/20 08:46 Resp 19 07/19/20 07:00 BP 113/74 07/19/20 07:00 Pulse Ox 91 L 07/19/20 07:00 Intake & Output 07/18/20 07/19/20 07/19/20 18:59 06:59 18:59 Intake Total 1503 1564.167 280 Output Total 2800 760 95 Balance -1297 804.167 185 Weight 58 kg 51.8 kg Intake: IV 618 505 200 Dextrose 5%-0.9% NaCl 1, 450 300 100 000 ml @ 75 mls/hr IV . [id number] [facility] Rx#:[id number] Fat Emulsion 20% 250 ml 168 105 In Empty Bag 1 bag @ 21 mls/hr IV [id number] [facility] Rx#: [id number] Piperacillin-Tazobactam 3 100 100 .375 gm In Sodium Chloride 0.9% 100 ml @ 25 mls/hr IVPB Q8H [facility] Rx#: [id number] Intake, IV Titration 575 1059.167 50 Amount Mvi, Adult No.4 with Vit 50 K 10 ml Trace (Conc-1Ml/ Dose) 1 ml Parenteral Electrolytes 20 ml In Amino Acid 5%-D15w 1,000 ml @ 50 mls/hr IV . [id number] [facility] Rx#:[id number] Mvi, Adult No.4 with Vit 350 1034.167 K 10 ml Trace (Conc-1Ml/ Dose) 1 ml Parenteral Electrolytes 20 ml In Amino Acid 5%-D15w 1,000 ml @ 50 mls/hr IV . [id number] [facility] Rx#:[id number] Piperacillin-Tazobactam 3 125 25 .375 gm In Sodium Chloride 0.9% 100 ml @ 25 mls/hr IVPB Q8H [facility] Rx#: [id number] Potassium Chloride 10 meq 100 In Water For Injection 1 100ml.bag @ 100 mls/hr IVPB Q1H [facility] Rx#: [id number] Blood Product 310 Rc As-3 Unit 310 [id number] Other 30 Output: Gastric Drainage 500 Urine 2300 760 95 Other: Voiding Method Indwelling Catheter Indwelling Catheter Indwelling Catheter - Exam In general patient is alert slightly confused in no apparent distress HEENT head normocephalic and atraumatic Neck is supple no JVD no goiter no lymphadenopathy Chest exam reveals a few scattered crackles no wheezing Cardiac exam reveals regular heart sounds S1 and S2 no gallops no murmurs Abdomen is better today less tense and less tender no organomegaly with normal bowel sounds Extremity exam reveals no edema no cyanosis or clubbing Neurological examination reveals no gross focal deficit other than mild confusion - Labs CBC & Chem 7: 07/19/20 04:50 07/19/20 04:50 Labs: Abnormal Lab Results - Last 24 Hours (Table) 07/18/20 07/18/20 07/18/20 Range/Units 11:43 14:20 18:02 RBC 2.93 L (4.30-5.90) m/uL Hgb 8.3 L D (13.0-17.5) gm/dL Hct 26.4 L (39.0-53.0) % RDW 15.9 H (11.5-15.5) % Neutrophils # 7.9 H (1.3-7.7) k/uL Lymphocytes # 0.5 L (1.0-4.8) k/uL Chloride (98-107) mmol/L Glucose (74-99) mg/dL POC Glucose (mg/dL) 116 H 171 H (75-99) mg/dL AST (17-59) U/L Total Protein (6.3-8.2) g/dL Albumin (3.5-5.0) g/dL 07/18/20 07/19/20 07/19/20 Range/Units 23:39 04:50 04:50 RBC 2.82 L (4.30-5.90) m/uL Hgb 8.0 L (13.0-17.5) gm/dL Hct 25.3 L (39.0-53.0) % RDW 15.8 H (11.5-15.5) % Neutrophils # (1.3-7.7) k/uL Lymphocytes # 0.7 L (1.0-4.8) k/uL Chloride 112 H (98-107) mmol/L Glucose 119 H (74-99) mg/dL POC Glucose (mg/dL) 150 H (75-99) mg/dL AST 14 L (17-59) U/L Total Protein 5.5 L (6.3-8.2) g/dL Albumin 2.4 L (3.5-5.0) g/dL Assessment and Plan Plan: 1. Mental status changes, likely related to chronic alcohol use and early alcohol withdrawal, on CIWA protocol 2. Hypotension patient was started on IV fluid, blood pressure stable, will check urine analysis and blood culture to rule out any infectious etiology, critical care consult requested 3. Underlying history of liver cirrhosis, gastroenterology consult requested 4. Anemia hemoglobin is down to 6.0 GI plan to proceed with EGD today 5. Hypokalemia corrected, potassium 3.8 today 6. Poor oral intake, patient received TPN, currently plan is to proceed was clear liquid diet after EGD 7. By basilar infiltrate with small pleural effusion, possible pneumonia antibiotic were switched to Zosyn, will reconsult pulmonary 8. New abdominal pain started yesterday, there is evidence of small bowel obst ruction on testing, awaiting surgery opinion, NG tube is in 9. Sepsis with hypotension, patient restarted on IV Zosyn, will Consult infectious disease For DVT prophylaxis SCD stockings For GI prophylaxis patient on Protonix Prognosis is guarded will follow closely
[2020-07-19 20:07] LABS: Glucose,Whole Blood 223 mg/dL (75-99)
[2020-07-20] MEDS: MVI, ADULT NO.4 WITH VIT K 10 ML, TRACE (CONC-1ML/DOSE) 1 ML, PARENTERAL ELECTROLYTES 2... IV SCH ×4 (03:36)
[2020-07-20] MEDS: HALOPERIDOL LACTATE 5 MG/ML 1 ML VIAL IVP PRN ×2 (04:10→16:10)
[2020-07-20 05:12] LABS: Basophils % (A) 0 %; Eosinophils % (A) 0 %; Hypochromasia Moderate; Lymphocytes # (A) 0.8 k/uL (1.0-4.8); Lymphocytes % (A) 11 %; MCHC 30.9 g/dL (31.0-37.0); MCV 90.8 fL (80.0-100.0); Mean Platelet Volume 7.5; Monocytes # (A) 0.2 k/uL (0-1.0); Monocytes % (A) 3 %; Neutrophils % (A) 84 %; Platelet Count 204 k/uL (150-450); RBC 2.87 m/uL (4.30-5.90); RDW 15.9 % (11.5-15.5); WBC 7.1 k/uL (3.8-10.6)
[2020-07-20] MEDS: METOCLOPRAMIDE 5 MG/ML 2 ML VIAL IVP SCH ×4 (05:28→23:56)
[2020-07-20] MEDS: DEXAMETHASONE SOD PHOSPHATE 4 MG/ML 1 ML VIAL IV SCH ×3 (05:29→21:01)
[2020-07-20] MEDS: DEXTROSE 5%-0.9% NACL 1,000 ML IV SCH (05:30)
[2020-07-20 05:44] LABS: African American GFR (CKD) >90 (>60 ml/min/1.73 sqM); Anion Gap 4 mmol/L; Blood Urea Nitrogen 13 mg/dL (9-20); Carbon Dioxide 24 mmol/L (22-30); Chloride 115 mmol/L (98-107); Glucose 109 mg/dL (74-99); Magnesium 1.9 mg/dL (1.6-2.3); Non-African American GFR(CKD) >90 (>60 ml/min/1.73 sqM); Phosphorus 2.9 mg/dL (2.5-4.5); Potassium 3.8 mmol/L (3.5-5.1); Sodium 143 mmol/L (137-145)
[2020-07-20 06:37] LABS: Glucose,Whole Blood 131 mg/dL (75-99)
[2020-07-20] MEDS: INSULIN ASPART (NovoLOG) 100 UNIT/ML VIAL SQ SCH ×4 (06:37→20:39)
[2020-07-20] MEDS: POTASSIUM CHLORIDE 10 MEQ in WATER FOR INJECTION 1 100ML.BAG IVPB SCH ×2 (06:50→08:29)
--- NOTE | 2020-07-20 08:14 | IR ---
EXAMINATION TYPE: IR cvc insert >=5 years DATE OF EXAM: 07/18/2020 COMPARISON: NONE HISTORY: Needs long-term intravenous access for therapy, total parenteral nutrition FINDINGS: Maximal barrier technique was utilized. Hand hygiene obtained with soap and water. The ski n overlying the left brachial vein was localized with ultrasound and noted to be compressible and pat ent by ultrasound. An ultrasound image was obtained and submitted on patient's chart. Sterile techni que utilized with the ultrasound machine. The skin overlying was prepped and draped and Lidocaine use d for local anesthesia. A skin astrid was made with a scalpel. Access was gained to the vein under di rect ultrasound guidance with a 21-gauge needle and a 0.018 inch wire was advanced. Access site was dilated with a peel-away sheath and the catheter tailored to length. Catheter advanced centrally and a post procedure chest x-ray verified placement with the tip at the superior vena cava. Catheter wa s fixed to the skin and a sterile dressing placed. Hemostasis achieved and the catheter was aspirate d and flushed with sterile saline. The patient remained in stable condition. IMPRESSION: STATUS POST ULTRASOUND GUIDED PICC LINE PLACEMENT, READY FOR USE. THIS PROCEDURE WAS PER FORMED BY THE UNDERSIGNED.
[2020-07-20] MEDS: PIPERACILLIN-TAZOBACTAM 3.375 GM in SODIUM CHLORIDE 0.9% 100 ML IVPB SCH ×3 (08:34→23:56)
[2020-07-20] MEDS: FOLIC ACID 1 MG TAB PO SCH (08:35)
[2020-07-20] MEDS: THIAMINE 100 MG TAB PO SCH ×2 (08:35→17:19)
[2020-07-20] MEDS: NICOTINE 21MG/24HR PATCH TRANSDERM SCH (08:35)
[2020-07-20] MEDS: PANTOPRAZOLE 40 MG/10 ML VIAL IVP SCH ×2 (08:35→21:01)
[2020-07-20] MEDS: FAT EMULSION 20% 250 ML in EMPTY BAG 1 BAG IV SCH (08:35)
[2020-07-20] MEDS: IPRATROPIUM-ALBUTEROL 3 ML NEB INHALATION SCH ×4 (09:19→19:53)
--- NOTE | 2020-07-20 10:56 | XR ---
EXAMINATION TYPE: XR chest 1V portable DATE OF EXAM: 07/20/2020 CLINICAL HISTORY: Pneumonia TECHNIQUE: Semiupright portable view of the chest obtained. The left hemidiaphragm and bilateral cos tophrenic angles are not included on imaging. COMPARISON: 07/18/2020 chest radiograph FINDINGS: Left-sided PICC distal tip at the cavoatrial junction. There is increased airspace opaciti es of the visualized bilateral lung bases. There is nonvisualization of the costophrenic angles. The visualized mediastinal silhouette is unremarkable. No pneumothorax of the visualized lungs. IMPRESSION: Limited radiograph due to incomplete visualization of the bilateral lung bases and costop hrenic angles. There is increased airspace opacities of the visualized bilateral lung bases.
[2020-07-20 11:51] LABS: Glucose,Whole Blood 107 mg/dL (75-99)
--- NOTE | 2020-07-20 13:01 | P.PN ---
Subjective Progress Note Date: 07/20/20 Fercho Yen, is a 55-year-old male with known history of excessive alcohol use and history of liver cirrhosis who was brought in to [facility] emergency room by his due to mental status changes was confusion patient was also having weight loss, he was drinking alcohol up to 2 days prior to admission then he was not feeling well and he stopped drinking alcohol and stopped eating and drinking for 2-3 days. Patient was evaluated in emergency room, he was febrile temperature 97.7 pulse 60 respiration 16 blood pressure was significantly low at 71/59 pulse ox 94% on room air white blood count was 8.7 hemoglobin 8.3 platelet count 260 sodium was low at 126 potassium was low at 2.5 serum alcohol level was 21. Patient was admitted to intensive care unit he was started on IV fluid and potassium replacement protocol. Chest x-ray was done in the emergency room and did not reveal any active cardiopulmonary disease, computed tomography scan done in the emergency room revealed cerebral atrophy no acute intracranial abnormality, abdomen ultrasound done did not reveal any evidence of sizable ascites, urine analysis and blood culture were done and were ordered in ICU. On 07/06/2020 patient was seen and examined on the medical floor he is more somnolent he responds to stimuli otherwise he denies any complaints blood pressure is improved today urine analysis revealed evidence of urinary tract infection patient was started on IV Rocephin more globin is down to 6.8, On 07/07/2020 patient was seen and examined in the ICU he is alert and oriented 3 in no apparent distress he is answering questions appropriately today, there is no fever or chills no headache or dizziness no chest pain no shortness of breath no cough no nausea or vomiting no abdominal pain. No burning with urination no frequency or urgency and no hematuria, he received 1 unit of red blood cells today. On 07/08/2020, patient was seen and examined on the medical floor, he is somnolent but arousable in no apparent distress, there is no fever or chills no headache or dizziness no chest pain no shortness of breath no cough no nausea or vomiting no abdominal pain no diarrhea no burning with urination no frequency or urgency no hematuria, he had very poor oral intake so far, he was counseled in length he seems to understand, if the oral intake does not improve patient may need a nasogastric tube feeding. On 07/09/2020 patient was seen and examined on the medical floor, he is more alert today, his still has very poor oral intake, he was counseled in length in regard to need to eat more, he is denying any symptoms at this time there is no fever or chills no headache or dizziness no chest pain no shortness of breath no cough no nausea or vomiting no abdominal pain no diarrhea no burning with urination no frequency or urgency no hematuria, will add physical therapy and occupational therapy and assess if patient needs after discharge On 07/10/2020 patient was seen and examined on the medical floor he is alert slightly confused in no apparent distress nurse stated that he has been more agitated and slightly aggressive with staff he still has very poor oral intake otherwise he denies any complaints he has been refusing to keep telemetry box on there is no fever or chills no headache or dizziness no chest pain no shortness of breath no cough no nausea or vomiting no abdominal pain no diarrhea and no urinary symptoms On 07/11/2020 patient was seen and examined on the medical floor he is alert slightly confused in no distress he is complaining of cough he is breathing sounds are coarse otherwise there is no complaints there is no fever or chills no headache or dizziness no chest pain no shortness of breath, no nausea or vomiting no abdominal pain no diarrhea no burning with urination no frequency or urgency and no hematuria. Chest x-ray reveals bilateral infiltrates and small pleural effusion will re-consult pulmonary in that regard. On 07/12/2020 patient was seen and examined on the medical floor he is more alert and oriented today he is having more oral intake he is still complaining of cough there is no fever or chills, no chest pain or shortness of breath no nausea or vomiting no abdominal pain no diarrhea and no urinary symptoms On 07/14/2020 patient was seen and examined on the medical floor, he is alert and oriented 3 in no apparent distress, he was cleared by all consultants yesterday for discharge to a residential for rehab, discharge was done yest erday however, patient still need authorization from insurance, hence discharge was delayed, clinically patient is stable he is complaining of generalized weakness otherwise he denies any specific complaints there is no fever or chills no headache or dizziness no chest pain no shortness of breath no cough no nausea or vomiting no abdominal pain no diarrhea and no urinary symptoms. On 07/15/2020 patient was seen and examined on the medical floor, he is complaining of abdominal pain today, otherwise he denies any complaints there is no fever or chills no headache or dizziness no chest pain no shortness of breath no cough no nausea or vomiting no diarrhea no blood in the stools no burning with urination no frequency or urgency no hematuria. On 07/16/2020 patient was seen and examined in the ICU he is alert and responsive in no apparent distress, yesterday he was having abdominal pain comp uted tomography scan of the abdomen revealed evidence of small bowel obstruction NG tube was put in patient was having episodes of agitation he was also having hypotension he was transferred to intensive care unit, he is being followed by Dr. Person for pulmonary and critical care, and by surgery, currently he is still in ICU he is maintained on vasopressors. On 07/17/2020 patient was seen and examined in the ICU he is alert and responsive, he pulled his triple-lumen out and his NG tube. His abdomen is severely tense and distended, NG tube was put back in, patient was counseled in length in regards to not touching his tubes and lines. Patient was started on TPN however this is on hold at this time. Patient continues to be in critical condition, pulmonary, and surgery are following. Hemodynamically patient is stable his blood pressure is 138/74 his pulse rate is 110 respiration 18 and pulse ox 92% on 2 L nasal cannula his white blood count is slightly down at 14.8 his hemoglobin is down to 7.0 kidney and liver function are within normal limits albumin is down to 2.3 On 07/18/2020 patient was seen and examined in the ICU, he is alert and responsive NG tube is in , case discussed with patient nurse Brittany, plan per GI is to proceed with EGD, today hemoglobin is down to 6.0, his white blood count is 8.2 platelet 349 kidney and liver function are within normal limits, albumin level is low at 2.0 On 07/19/2020 patient was seen and examined in the ICU, he is alert responsive in no apparent distress, he had episodes of agitation earlier, he is denying any complaints at this time , his temperature is 90.7 pulse 100 respiration 14 blood pressure 124/84 pulse ox 97% on 2 L nasal cannula, his white blood count is 7 hemoglobin 8 platelet count 241 On 07/20/2020 patient was seen and examined in the ICU he is alert and more responsive he is sitting up in a chair he had episodes of agitation earlier this morning, otherwise there is no complaints he was cleared by pulmonary critical care to be transferred out of ICU antibiotics were discontinued, at this time will consult physical therapy and occupational therapy, will assess if patient need to go to a rehab after this admission Objective - Vital Signs Vital signs: Vital Signs Temp 98.2 F 07/20/20 08:00 Pulse 104 H 07/20/20 12:40 Resp 20 07/20/20 10:00 BP 118/71 07/20/20 12:00 Pulse Ox 95 07/20/20 12:00 Intake & Output 07/19/20 07/20/20 07/20/20 18:59 06:59 18:59 Intake Total 2110 2951 1159 Output Total 520 415 385 Balance 1590 2536 774 Intake: IV 1050 1550 559 Dextrose 5%-0.9% NaCl 1, 850 900 75 000 ml @ 75 mls/hr IV . [id number] [facility] Rx#:[id number] Fat Emulsion 20% 250 ml 84 In Empty Bag 1 bag @ 21 mls/hr IV MoWeFr [facility] Rx#: [id number] Mvi, Adult No.4 with Vit 550 300 K 10 ml Trace (Conc-1Ml/ Dose) 1 ml Parenteral Electrolytes 20 ml In Amino Acid 5%-D15w 1,000 ml @ 50 mls/hr IV . [id number] [facility] Rx#:[id number] Piperacillin-Tazobactam 3 200 100 100 .375 gm In Sodium Chloride 0.9% 100 ml @ 25 mls/hr IVPB Q8H [facility] Rx#: [id number] Intake, IV Titration 550 1081 Amount Mvi, Adult No.4 with Vit 150 50 K 10 ml Trace (Conc-1Ml/ Dose) 1 ml Parenteral Electrolytes 20 ml In Amino Acid 5%-D15w 1,000 ml @ 30 mls/hr IV .Q24H [facility] Rx#:[id number] Mvi, Adult No.4 with Vit 350 K 10 ml Trace (Conc-1Ml/ Dose) 1 ml Parenteral Electrolytes 20 ml In Amino Acid 5%-D15w 1,000 ml @ 50 mls/hr IV . [id number] [facility] Rx#:[id number] Mvi, Adult No.4 with Vit 50 1031 K 10 ml Trace (Conc-1Ml/ Dose) 1 ml Parenteral Electrolytes 20 ml In Amino Acid 5%-D15w 1,000 ml @ 50 mls/hr IV . [id number] [facility] Rx#:[id number] Oral 480 320 600 Other 30 Output: Urine 520 415 385 Other: Voiding Method Indwelling Catheter Indwelling Catheter Indwelling Catheter - Exam In general patient is alert slightly confused in no apparent distress HEENT head normocephalic and atraumatic Neck is supple no JVD no goiter no lymphadenopathy Chest exam reveals a few scattered crackles no wheezing Cardiac exam reveals regular heart sounds S1 and S2 no gallops no murmurs Abdomen is better today less tense and less tender no organomegaly with normal bowel sounds Extremity exam reveals no edema no cyanosis or clubbing Neurological examination reveals no gross focal deficit other than mild confusion - Labs CBC & Chem 7: 07/20/20 03:56 07/20/20 03:56 Labs: Abnormal Lab Results - Last 24 Hours (Table) 07/19/20 07/19/20 07/20/20 Range/Units 17:11 20:06 03:56 RBC (4.30-5.90) m/uL Hgb (13.0-17.5) gm/dL Hct (39.0-53.0) % MCHC (31.0-37.0) g/dL RDW (11.5-15.5) % Lymphocytes # (1.0-4.8) k/uL Chloride 115 H (98-107) mmol/L Glucose 109 H (74-99) mg/dL POC Glucose (mg/dL) 157 H 223 H (75-99) mg/dL 07/20/20 07/20/20 07/20/20 Range/Units 03:56 06:35 11:50 RBC 2.87 L (4.30-5.90) m/uL Hgb 8.0 L (13.0-17.5) gm/dL Hct 26.0 L (39.0-53.0) % MCHC 30.9 L (31.0-37.0) g/dL RDW 15.9 H (11.5-15.5) % Lymphocytes # 0.8 L (1.0-4.8) k/uL Chloride (98-107) mmol/L Glucose (74-99) mg/dL POC Glucose (mg/dL) 131 H 107 H (75-99) mg/dL Assessment and Plan Plan: 1. Mental status changes, likely related to chronic alcohol use and early alc ohol withdrawal, on CICT protocol 2. Hypotension patient was started on IV fluid, blood pressure stable, will check urine analysis and blood culture to rule out any infectious etiology, critical care consult requested 3. Underlying history of liver cirrhosis, gastroenterology consult requested 4. Anemia hemoglobin is down to 6.0 GI plan to proceed with EGD today 5. Hypokalemia corrected, potassium 3.8 today 6. Poor oral intake, patient received TPN, currently plan is to proceed was clear liquid diet after EGD 7. By basilar infiltrate with small pleural effusion, possible pneumonia antibi otic were switched to Zosyn, will reconsult pulmonary 8. New abdominal pain started yesterday, there is evidence of small bowel obstruction on testing, awaiting surgery opinion, NG tube is in 9. Sepsis with hypotension, patient restarted on IV Zosyn, will Consult infectious disease For DVT prophylaxis SCD stockings For GI prophylaxis patient on Protonix Prognosis is guarded will follow closely
--- NOTE | 2020-07-20 13:53 | P.PN ---
Subjective Progress Note Date: 07/20/20 Principal diagnosis: Alcoholic liver disease with liver cirrhosis and toxic metabolic encephalopathy. 55-year-old white male patient with history of heavy alcohol abuse who was a dmitted to the hospital on 07/04/2020 when he was brought in by his for evaluation of altered mental status. In the ER she was also hypotensive, and hemoglobin was 8.3, with no evidence of active bleeding. He was given IV fluid boluses, and his hemoglobin has been trending down over the last couple of days. 6.9 and today's labs, and patient denies any abdominal pain, there has been no evidence of active bleeding since admission. Patient has been being monitored in the ICU, he is awake and alert, he is only oriented to person, his chem ICU is positive on today's exam. He has a safety attendant at the bedside. he thought he was in [place]. He denies any acute distress, there is audible wheezing on today's exam. He has a congested cough. Patient is a chronic smoker. Today's chest x-ray shows no acute cardiopulmonary process. Abdomen is nontender, GI service is following, aorta to the unit of blood for hemoglobin of 6.9 this morning. Sinus tachycardia on the monitor, with a rate of 120 BPM. Blood pressure is 115/99, patient is on room air, with a pulse ox of 100%. Afebrile, denies any chills. White blood cell count is 9.4, platelet count is 385, serum sodium is 134, the rest of the electrolytes were within normal limits, B1 is 2 and creatinine 0.49, LFTs were within normal limits. Yesterday his urinalysis suggested presence of urinary tract infection, urine culture was sent and is pending, blood culture showed no growth at the 24-hour [place]. We started the patient on ceftriaxone empirically. IV fluids 0.9 and was seen at a rate of 1:30, patient is on CIWA protocol for acute alcohol withdrawal, however only required 1 mg of Ativan last night. No agitation. Patient is fairly cooperative. On 07/11/2020 patient seen in follow-up on the selective care unit, he is resting quietly in bed, appears to be in no acute distress, room air pulse ox is 98%, his been intermittently confused. Afebrile. Denies any shortness of breath, lung sounds are clear, last chest x-ray was on 07/07/2020, showing no acute cardiopulmonary process. Patient was transfused with 1 unit of packed red blood cells yesterday, today hemoglobin is 8.1, clinically no evidence of blee ding. GI service is following. Patient is on antibiotics in the form of Rocephin for gram-negative bacilli in the urine culture, blood culture showed no growth. Patient has been afebrile. On 07/12/2020 patient seen in follow-up on general medical surgical floor, she is more awake today, more interactive, room air pulse ox is 97%, no complaints of shortness of breath, today's hemoglobin is 8.0, no active bleeding, serum ammonia level came back at less than 9. No new chest x-ray, last chest x-ray was done on 07/10/2020 showing bibasilar Infiltrates and/or atelectasis and small tiny bilateral pleural effusions, clinically patient is asymptomatic, room air pulse ox is 97%, afebrile, and he is on Zosyn for antibiotic coverage, and nebulized bronchodilators. No hemoptysis, no chest pain breathing is comfortable, On 07/13/2020 patient seen in follow-up on the general medical surgical floor. He is resting in bed, sounds more congested and wheezy on today's exam, patient is able to expectorate whitish yellowish colored phlegm, denies any chest pain, no hemoptysis, no fever or chills. It is labs have been reviewed, showing white blood cell, 11.5, hemoglobin of 8.0, electrolytes were all within normal limits, BUN 6 creatinine 0.59. Pro-calcitonin came back elevated at 0.45 suggesting possibility of bacterial infection, chest x-ray showed bibasilar acute infiltrates and/or atelectasis with small tiny bilateral pleural effusions. Patient is on Zosyn for empiric antibiotic coverage. Patient apparently was more confused last night, and try to get up out of bed, however patient is not agitated, he was given some Ativan for possibility of alcohol withdrawals, however this is day 9 of his hospital stay, possibility of alcohol withdrawal at this point is unlikely. Patient remains delirious, but not agitated, delirious screen is positive on today's exam. Otherwise no acute distress On 07/14/2020 patient seen in follow-up on general medical surgical floor. He sitting up in the recliner currently, he has a belt around him because he has been trying to get up unassisted at times, no agitation, he is answering questions appropriately, and delirium screen is negative today, room air pulse ox is 100%, hemodynamically stable, he denies any breathing difficulty, lung darron nds are less congested and wheezy and today's exam. No fever or chills, no compressive chest pain. Today's chest x-ray shows bibasilar airspace opacity and small bilateral pleural effusions nonsignificant changed from previous chest x-ray. Clinically patient is stable, remains on oral Augmentin, and breathing treatments, urine culture revealed Klebsiella pneumonia with no sensitivity except to ampicillin. Painter catheter has been discontinued. On 07/18/2020 patient is seen in follow-up in intensive care unit, remains confused, he is awake, not making very good eye contact. He is not speaking much, he is on 2 L of oxygen a pulse ox of 99-100%. NG tube remains in place, with approximately 500 mL of gastric drainage in the last 24 hours. His abdomen is still distended, surgical services are following, NG tube to low intermittent suction. Patient apparently pulled out his NG tube 6 times, safety attendant is at the bedside to prevent the patient from pulling out his indwelling catheters including his NG tube. He is being nourished with the TPN and lipids. His been nothing by mouth for severe ileus. Today's hemoglobin is 6.0, with no obvious signs of bleeding, he will receive a unit of packed red blood cells. White count is 8.2, hemoglobin is 6.0, as mentioned above, platelet count was 349, sodium is 144, potassium 3.8, chloride is 116, the rest of electrolytes and renal profile were within normal limits. PICC line was inserted, patient remains on 2 L of oxygen has pulse ox around 100%, no apparent respiratory difficulty noted, no bowel movement in the last 24 hours. Remains on antibiotics in the form of Zosyn, he is on TPN infusion at 50 ML per hour, and lipids on Saturday schedule Patient was reevaluated today on 07/19/20, remains in the ICU, his mental status seems to wax and wane, today he seems to be confused but less agitated, he was agitated last night and he required Haldol. Patient remains on 2 L nasal cannula, he is on TPN at 50 MLS per hour. Patient is hemodynamically stable. Hemoglobin today is 8. Patient did receive a total of 2 units of packed RBCs since admission for low hemoglobin. Electrolytes are normal, renal profile is normal. Patient continues to do poorly with incentive spirometry, and continues to sound very congested. But less congested today compared to yesterday. And he seems to be much less agitated when I saw him earlier today. Reevaluated today on 07/20/patient remains in the ICU, seems to be improving from the pulmonary perspective, less wheezing, patient is able to clear some of his secretions, and this was clear his secretions, he sounds better. Mentation seems to be a bit better, although the patient seems confused oriented 1 only. At times he seems to be delusional. His IV fluids remains at 75 mL/h, TPN is a 50 ML per hour, he is on oxygen at 2 L nasal cannula, and my plan is to transfer the patient to [facility] today without telemetry. Will maintain the patient on Haldol. All labs today were reviewed and they seem to be basically unremarkable. And no significant metabolic derangements. His hemoglobin is 8.0. Objective - Vital Signs Vital signs: Vital Signs Temp 98.2 F 07/20/20 08:00 Pulse 104 H 07/20/20 12:51 Resp 20 07/20/20 10:00 BP 134/91 07/20/20 13:00 Pulse Ox 95 07/20/20 12:00 Intake & Output 07/19/20 07/20/20 07/20/20 18:59 06:59 18:59 Intake Total 2110 2951 1159 Output Total 520 415 385 Balance 1590 2536 774 Intake: IV 1050 1550 559 Dextrose 5%-0.9% NaCl 1, 850 900 75 000 ml @ 75 mls/hr IV . [id number] [facility] Rx#:[id number] Fat Emulsion 20% 250 ml 84 In Empty Bag 1 bag @ 21 mls/hr IV MoWeFr [facility] Rx#: [id number] Mvi, Adult No.4 with Vit 550 300 K 10 ml Trace (Conc-1Ml/ Dose) 1 ml Parenteral Electrolytes 20 ml In Amino Acid 5%-D15w 1,000 ml @ 50 mls/hr IV . [id number] [facility] Rx#:[id number] Piperacillin-Tazobactam 3 200 100 100 .375 gm In Sodium Chloride 0.9% 100 ml @ 25 mls/hr IVPB Q8H [facility] Rx#: [id number] Intake, IV Titration 550 1081 Amount Mvi, Adult No.4 with Vit 150 50 K 10 ml Trace (Conc-1Ml/ Dose) 1 ml Parenteral Electrolytes 20 ml In Amino Acid 5%-D15w 1,000 ml @ 30 mls/hr IV .Q24H [facility] Rx#:[id number] Mvi, Adult No.4 with Vit 350 K 10 ml Trace (Conc-1Ml/ Dose) 1 ml Parenteral Electrolytes 20 ml In Amino Acid 5%-D15w 1,000 ml @ 50 mls/hr IV . [id number] [facility] Rx#:[id number] Mvi, Adult No.4 with Vit 50 1031 K 10 ml Trace (Conc-1Ml/ Dose) 1 ml Parenteral Electrolytes 20 ml In Amino Acid 5%-D15w 1,000 ml @ 50 mls/hr IV . [id number] [facility] Rx#:[id number] Oral 480 320 600 Other 30 Output: Urine 520 415 385 Other: Voiding Method Indwelling Catheter Indwelling Catheter Indwelling Catheter - Exam GENERAL EXAM: Revealed a 55-year-old -[place] male, resting at a bedside chair. HEENT: PERRLA, EOMI, no neck masses, no JVD, no icterus. CHEST: No chest wall deformity. Symmetrical expansion. LUNGS: Equal air entry diminished breath sound bilaterally no rhonchi and no wheezes mostly when he clears his upper airways by coughing. CVS: Regular rate and rhythm, normal S1 and S2, no gallops, no murmurs, no rubs, tachycardic, in sinus mechanism ABDOMEN: Soft, nontender. No hepatosplenomegaly, normal bowel sounds, no guarding or rigidity. EXTREMITIES: No clubbing, no edema, no cyanosis, 2+ pulses and upper and lower extremities. MUSCULOSKELETAL: Muscle strength and tone normal. SPINE: No scoliosis or deformity SKIN: No rashes CENTRAL NERVOUS SYSTEM: Tries to communicate, but seems to be confused. - Labs CBC & Chem 7: 07/20/20 03:56 07/20/20 03:56 Labs: Abnormal Lab Results - Last 24 Hours (Table) 07/19/20 07/19/20 07/20/20 Range/Units 17:11 20:06 03:56 RBC (4.30-5.90) m/uL Hgb (13.0-17.5) gm/dL Hct (39.0-53.0) % MCHC (31.0-37.0) g/dL RDW (11.5-15.5) % Lymphocytes # (1.0-4.8) k/uL Chloride 115 H (98-107) mmol/L Glucose 109 H (74-99) mg/dL POC Glucose (mg/dL) 157 H 223 H (75-99) mg/dL 07/20/20 07/20/20 07/20/20 Range/Units 03:56 06:35 11:50 RBC 2.87 L (4.30-5.90) m/uL Hgb 8.0 L (13.0-17.5) gm/dL Hct 26.0 L (39.0-53.0) % MCHC 30.9 L (31.0-37.0) g/dL RDW 15.9 H (11.5-15.5) % Lymphocytes # 0.8 L (1.0-4.8) k/uL Chloride (98-107) mmol/L Glucose (74-99) mg/dL POC Glucose (mg/dL) 131 H 107 H (75-99) mg/dL Assessment and Plan Assessment: Impression: Chronic alcoholism and recurrent alcohol withdrawal Acute small bowel obstruction versus ileus, resolved. Chronic liver cirrhosis. Acute metabolic toxic encephalopathy. Chronic symptomatic anemia Acute exacerbation of COPD, improved. History of hypertension Klebsiella pneumonia urinary tract infection, remains on antibiotics. Medical debility. Recommendation: Transfer patient to a medical surgical floor Continue bronchodilators. Continue Haldol. Continue Decadron. However will cut down the dose. Continue TPN. Overall prognosis remains extremely poor and guarded, We'll continue to follow. Time with Patient: Less than 30
--- NOTE | 2020-07-20 14:31 | P.PN ---
Subjective Progress Note Date: 07/20/20 CHIEF COMPLAINT: Bowel obstruction HISTORY OF PRESENT ILLNESS: The patient is a 55 year old male with history of alcoholism including cirrhosis presented to the hospital secondary to confusion. During hospitalization, patient developed increased abdominal distention. He is being followed for ileus versus small bowel obstruction. Patient did have EGD done during this admission with Dr. Gates showing diffuse gastritis involving the entire stomach with a small amount of old blood but no active bleeding. Mild duodenitis and small hiatal hernia Patient is afebrile. WBC is 7.1 hemoglobin is 8.0 patient is more awake and alert. Denies any abdominal pain. He is being transferred out of the ICU to regular medical floor today PHYSICAL EXAM: VITAL SIGNS: Reviewed. GENERAL: Well-developed in no acute distress. HEENT: No sclera icterus. Extraocular movements grossly intact. Moist buccal mucosa. Head is atraumatic, normocephalic. ABDOMEN: Soft nontender nondistended NEUROLOGIC: Alert and oriented. Cranial nerves II through XII grossly intact. ASSESSMENT: 1. Severe ileus versus small bowel obstruction 2. Anemia with gastritis PLAN: -Advance diet to a full liquid diet -He has acute drop in Hgb. Continue to hold Lovenox. -Continue Protonix 40 mg IV twice a day -Continue Reglan 10 mg IV every 6 Physician Environmental Health Specialist note has been reviewed by physician. Signing provider agrees with the documented findings, assessment, and plan of care. Objective - Vital Signs Vital signs: Vital Signs Temp 98.2 F 07/20/20 08:00 Pulse 104 H 07/20/20 12:51 Resp 20 07/20/20 10:00 BP 113/76 07/20/20 14:00 Pulse Ox 95 07/20/20 12:00 Intake & Output 07/19/20 07/20/20 07/20/20 18:59 06:59 18:59 Intake Total 2110 2951 1300 Output Total 520 415 510 Balance 1590 2536 790 Intake: IV 1050 1550 700 Dextrose 5%-0.9% NaCl 1, 850 900 75 000 ml @ 75 mls/hr IV . [id number] [facility] Rx#:[id number] Fat Emulsion 20% 250 ml 125 In Empty Bag 1 bag @ 21 mls/hr IV MoWeFr [facility] Rx#: [id number] Mvi, Adult No.4 with Vit 550 400 K 10 ml Trace (Conc-1Ml/ Dose) 1 ml Parenteral Electrolytes 20 ml In Amino Acid 5%-D15w 1,000 ml @ 50 mls/hr IV . [id number] [facility] Rx#:[id number] Piperacillin-Tazobactam 3 200 100 100 .375 gm In Sodium Chloride 0.9% 100 ml @ 25 mls/hr IVPB Q8H [facility] Rx#: [id number] Intake, IV Titration 550 1081 Amount Mvi, Adult No.4 with Vit 150 50 K 10 ml Trace (Conc-1Ml/ Dose) 1 ml Parenteral Electrolytes 20 ml In Amino Acid 5%-D15w 1,000 ml @ 30 mls/hr IV .Q24H [facility] Rx#:[id number] Mvi, Adult No.4 with Vit 350 K 10 ml Trace (Conc-1Ml/ Dose) 1 ml Parenteral Electrolytes 20 ml In Amino Acid 5%-D15w 1,000 ml @ 50 mls/hr IV . [id number] [facility] Rx#:[id number] Mvi, Adult No.4 with Vit 50 1031 K 10 ml Trace (Conc-1Ml/ Dose) 1 ml Parenteral Electrolytes 20 ml In Amino Acid 5%-D15w 1,000 ml @ 50 mls/hr IV . [id number] [facility] Rx#:[id number] Oral 480 320 600 Other 30 Output: Urine 520 415 510 Other: Voiding Method Indwelling Catheter Indwelling Catheter Indwelling Catheter - Labs CBC & Chem 7: 07/20/20 03:56 07/20/20 03:56 Labs: Abnormal Lab Results - Last 24 Hours (Table) 07/19/20 07/19/20 07/20/20 Range/Units 17:11 20:06 03:56 RBC (4.30-5.90) m/uL Hgb (13.0-17.5) gm/dL Hct (39.0-53.0) % MCHC (31.0-37.0) g/dL RDW (11.5-15.5) % Lymphocytes # (1.0-4.8) k/uL Chloride 115 H (98-107) mmol/L Glucose 109 H (74-99) mg/dL POC Glucose (mg/dL) 157 H 223 H (75-99) mg/dL 07/20/20 07/20/20 07/20/20 Range/Units 03:56 06:35 11:50 RBC 2.87 L (4.30-5.90) m/uL Hgb 8.0 L (13.0-17.5) gm/dL Hct 26.0 L (39.0-53.0) % MCHC 30.9 L (31.0-37.0) g/dL RDW 15.9 H (11.5-15.5) % Lymphocytes # 0.8 L (1.0-4.8) k/uL Chloride (98-107) mmol/L Glucose (74-99) mg/dL POC Glucose (mg/dL) 131 H 107 H (75-99) mg/dL
[2020-07-20 17:14] LABS: Glucose,Whole Blood 171 mg/dL (75-99)
--- NOTE | 2020-07-20 18:54 | P.PN ---
Subjective Progress Note Date: 07/20/20 Patient was seen at bedside and the he feels he is doing better today compared to couple days ago. He denies of any new weakness numbness visual disturbance. He has a sitter at bedside. Per the primary team the also feel that the patient's mentation is improving. Objective - Vital Signs Vital signs: Vital Signs Temp 98.2 F 07/20/20 08:00 Pulse 104 H 07/20/20 15:19 Resp 20 07/20/20 15:19 BP 113/76 07/20/20 14:00 Pulse Ox 95 07/20/20 12:00 Intake & Output 07/19/20 07/20/20 07/20/20 18:59 06:59 18:59 Intake Total 2110 2951 1300 Output Total 520 415 685 Balance 1590 2536 615 Weight 51.8 kg Intake: IV 1050 1550 700 Dextrose 5%-0.9% NaCl 1, 850 900 75 000 ml @ 75 mls/hr IV . [id number] [facility] Rx#:[id number] Fat Emulsion 20% 250 ml 125 In Empty Bag 1 bag @ 21 mls/hr IV MoWeFr [facility] Rx#: [id number] Mvi, Adult No.4 with Vit 550 400 K 10 ml Trace (Conc-1Ml/ Dose) 1 ml Parenteral Electrolytes 20 ml In Amino Acid 5%-D15w 1,000 ml @ 50 mls/hr IV . [id number] [facility] Rx#:[id number] Piperacillin-Tazobactam 3 200 100 100 .375 gm In Sodium Chloride 0.9% 100 ml @ 25 mls/hr IVPB Q8H [facility] Rx#: [id number] Intake, IV Titration 550 1081 Amount Mvi, Adult No.4 with Vit 150 50 K 10 ml Trace (Conc-1Ml/ Dose) 1 ml Parenteral Electrolytes 20 ml In Amino Acid 5%-D15w 1,000 ml @ 30 mls/hr IV .Q24H [facility] Rx#:[id number] Mvi, Adult No.4 with Vit 350 K 10 ml Trace (Conc-1Ml/ Dose) 1 ml Parenteral Electrolytes 20 ml In Amino Acid 5%-D15w 1,000 ml @ 50 mls/hr IV . [id number] [facility] Rx#:[id number] Mvi, Adult No.4 with Vit 50 1031 K 10 ml Trace (Conc-1Ml/ Dose) 1 ml Parenteral Electrolytes 20 ml In Amino Acid 5%-D15w 1,000 ml @ 50 mls/hr IV . [id number] [facility] Rx#:[id number] Oral 480 320 600 Other 30 Output: Urine 520 415 685 Other: Voiding Method Indwelling Catheter Indwelling Catheter Indwelling Catheter - Exam GENERAL: The patient is lying in bed and is not in acute distress. ENT: Scleral icterus bilaterally. Neck is supple and no neck rigidity. CHEST: The heart rate is regular rate rhythm. LUNG: Not labored breathing. ABDOMEN/GI: Bowel sounds present in all 4 quadrants. No tenderness to palpation throughout. NEUROLOGICAL: Higher mental function: The patient is awake, alert, oriented to self, place but not time. Patient is following simple commands. No aphasia or neglect. Cranial nerves: The pupils are round, equal 2-3mm bilaterally and reactive to light and accommodation. Visual truong are full to threat throughout. Extraocular movement is intact no nystagmus is noted. Facial sensation could not assess because of cooperation. The facial strength is normal throughout. No dysarthria is noted. Shoulder shrug is normal bilaterally. Motor: Gait is defered. The strength is moving all extremities above gravity in upper extremities while lower extremities are 5/5 bilaterally. Normal tone and bulk. Sensation: Intact to normal stimuli. Reflexes (right/left): 2+ throughout except at ankle 1+ bilaterally. Plantars are downgoing bilaterally. Foot: Patient has Pes plantus. - Labs CBC & Chem 7: 07/20/20 03:56 07/20/20 03:56 Labs: Abnormal Lab Results - Last 24 Hours (Table) 07/19/20 07/20/20 07/20/20 Range/Units 20:06 03:56 03:56 RBC 2.87 L (4.30-5.90) m/uL Hgb 8.0 L (13.0-17.5) gm/dL Hct 26.0 L (39.0-53.0) % MCHC 30.9 L (31.0-37.0) g/dL RDW 15.9 H (11.5-15.5) % Lymphocytes # 0.8 L (1.0-4.8) k/uL Chloride 115 H (98-107) mmol/L Glucose 109 H (74-99) mg/dL POC Glucose (mg/dL) 223 H (75-99) mg/dL 07/20/20 07/20/20 07/20/20 Range/Units 06:35 11:50 17:12 RBC (4.30-5.90) m/uL Hgb (13.0-17.5) gm/dL Hct (39.0-53.0) % MCHC (31.0-37.0) g/dL RDW (11.5-15.5) % Lymphocytes # (1.0-4.8) k/uL Chloride (98-107) mmol/L Glucose (74-99) mg/dL POC Glucose (mg/dL) 131 H 107 H 171 H (75-99) mg/dL Assessment and Plan Assessment: Toxic-metabolic Encephalopathy: Has anemia, low folic acid and underlying bowel obstructiion. Component of delirium since the he is in the ICU as well as he has a heavy alcohol as well underlying GI condition. Folate defiency Severe ileus versus small bowel obstruction Anemia with gastritis Alcohol use Plan: Routine EEG (07/19/20): Mild to moderate encephalopathy with unspecified etiology. No epileptiform discharges or seizure detected. Folate was 10.2 on 07/05/2020 and that was 3.8 on 07/13/2020. On folic acid 1mg daily. TSH: 2.47 Ionized calcium: 5.2 The patient the mentation is improved today compared to yesterday but still not back to his baseline now. The patient might also have a component of delirium since the he is in the ICU as well as he has a heavy alcohol use. We'll defer the management to the primary team Currently the patient is on thiamine 100 mg twice a day. Regarding the patient the small bowel obstructive versus ileus and his any known gastritis we'll defer management to the primary team. We'll continue to follow periodically. Gian Millan M.D. Neuro-hospitalist Time with Patient: Less than 30
[2020-07-20 20:40] LABS: Glucose,Whole Blood 105 mg/dL (75-99)
[2020-07-21] MEDS: MVI, ADULT NO.4 WITH VIT K 10 ML, TRACE (CONC-1ML/DOSE) 1 ML, PARENTERAL ELECTROLYTES 2... IV SCH ×4 (00:20)
[2020-07-21 06:11] LABS: Basophils % (A) 0 %; Eosinophils # (A) 0.1 k/uL (0-0.7); Eosinophils % (A) 1 %; HCT 23.4 % (39.0-53.0); HGB 7.2 gm/dL (13.0-17.5); Hypochromasia Moderate; Lymphocytes % (A) 10 %; MCH 27.8 pg (25.0-35.0); MCHC 30.9 g/dL (31.0-37.0); Mean Platelet Volume 7.8; Monocytes # (A) 0.5 k/uL (0-1.0); Monocytes % (A) 5 %; Neutrophils # (A) 8.1 k/uL (1.3-7.7); Neutrophils % (A) 82 %; Platelet Count 184 k/uL (150-450); RDW 15.8 % (11.5-15.5); WBC 9.9 k/uL (3.8-10.6)
[2020-07-21] MEDS: DEXTROSE 5%-0.9% NACL 1,000 ML IV SCH ×3 (06:24→21:44)
[2020-07-21] MEDS: INSULIN ASPART (NovoLOG) 100 UNIT/ML VIAL SQ SCH ×4 (06:24→21:36)
[2020-07-21 06:26] LABS: Glucose,Whole Blood 114 mg/dL (75-99)
[2020-07-21] MEDS: METOCLOPRAMIDE 5 MG/ML 2 ML VIAL IVP SCH ×4 (06:26→23:58)
[2020-07-21 06:32] LABS: ALT 11 U/L (4-49); AST 13 U/L (17-59); African American GFR (CKD) >90 (>60 ml/min/1.73 sqM); Albumin 2.2 g/dL (3.5-5.0); Alkaline Phosphatase 43 U/L (38-126); Anion Gap 4 mmol/L; Blood Urea Nitrogen 11 mg/dL (9-20); Calcium 8.7 mg/dL (8.4-10.2); Carbon Dioxide 25 mmol/L (22-30); Chloride 112 mmol/L (98-107); Glucose 100 mg/dL (74-99); Magnesium 1.6 mg/dL (1.6-2.3); Non-African American GFR(CKD) >90 (>60 ml/min/1.73 sqM); Phosphorus 2.5 mg/dL (2.5-4.5); Potassium 3.7 mmol/L (3.5-5.1); Sodium 141 mmol/L (137-145); Total Bilirubin 0.5 mg/dL (0.2-1.3)
[2020-07-21] MEDS: THIAMINE 100 MG TAB PO SCH ×2 (06:33→18:18)
[2020-07-21] MEDS ORDERED: POTASSIUM CHLORIDE 20 MEQ in WATER FOR INJECTION 1 100ML.BAG IVPB STA (06:38)
--- NOTE | 2020-07-21 07:44 | XR ---
EXAMINATION TYPE: XR chest 1V portable DATE OF EXAM: 07/21/2020 COMPARISON: Prior chest x-ray 07/20/2020 HISTORY: Pneumonia TECHNIQUE: Single frontal view of the chest is obtained. FINDINGS: Patient is rotated. Left-sided PICC line is again noted. Patchy retrocardiac density is pre sent. No evident pneumothorax. There is blunting the left costophrenic angle. IMPRESSION: Correlate for left lower lobe pneumonia versus atelectasis, possible associated effusion
[2020-07-21] MEDS: IPRATROPIUM-ALBUTEROL 3 ML NEB INHALATION SCH ×4 (07:48→19:17)
[2020-07-21] MEDS: PANTOPRAZOLE 40 MG/10 ML VIAL IVP SCH ×2 (09:34→21:36)
[2020-07-21] MEDS: DEXAMETHASONE SOD PHOSPHATE 4 MG/ML 1 ML VIAL IV SCH (09:35)
[2020-07-21] MEDS: FOLIC ACID 1 MG TAB PO SCH (09:35)
[2020-07-21] MEDS: NICOTINE 21MG/24HR PATCH TRANSDERM SCH (09:35)
[2020-07-21] MEDS: MAGNESIUM SULFATE-D5W PMX 1 GM in DEXTROSE/WATER 1 100ML.BAG IVPB SCH ×2 (09:35→09:37)
[2020-07-21] MEDS: PIPERACILLIN-TAZOBACTAM 3.375 GM in SODIUM CHLORIDE 0.9% 100 ML IVPB SCH (09:36)
--- NOTE | 2020-07-21 13:02 | P.PN ---
Subjective Progress Note Date: 07/21/20 Principal diagnosis: Alcoholic liver disease with liver cirrhosis and toxic metabolic encephalopathy. 55-year-old white male patient with history of heavy alcohol abuse who was a dmitted to the hospital on 07/04/2020 when he was brought in by his for evaluation of altered mental status. In the ER she was also hypotensive, and hemoglobin was 8.3, with no evidence of active bleeding. He was given IV fluid boluses, and his hemoglobin has been trending down over the last couple of days. 6.9 and today's labs, and patient denies any abdominal pain, there has been no evidence of active bleeding since admission. Patient has been being monitored in the ICU, he is awake and alert, he is only oriented to person, his chem ICU is positive on today's exam. He has a manager security and safety at the bedside. he thought he was in [place]. He denies any acute distress, there is audible wheezing on today's exam. He has a congested cough. Patient is a chronic smoker. Today's chest x-ray shows no acute cardiopulmonary process. Abdomen is nontender, GI service is following, aorta to the unit of blood for hemoglobin of 6.9 this morning. Sinus tachycardia on the monitor, with a rate of 120 BPM. Blood pressure is 115/99, patient is on room air, with a pulse ox of 100%. Afebrile, denies any chills. White blood cell count is 9.4, platelet count is 385, serum sodium is 134, the rest of the electrolytes were within normal limits, B1 is 2 and creatinine 0.49, LFTs were within normal limits. Yesterday his urinalysis suggested presence of urinary tract infection, urine culture was sent and is pending, blood culture showed no growth at the 24-hour [place]. We started the patient on ceftriaxone empirically. IV fluids 0.9 and was seen at a rate of 1:30, patient is on CIWA protocol for acute alcohol withdrawal, however only required 1 mg of Ativan last night. No agitation. Patient is fairly cooperative. On 07/11/2020 patient seen in follow-up on the selective care unit, he is resting quietly in bed, appears to be in no acute distress, room air pulse ox is 98%, his been intermittently confused. Afebrile. Denies any shortness of breath, lung sounds are clear, last chest x-ray was on 07/07/2020, showing no acute cardiopulmonary process. Patient was transfused with 1 unit of packed red blood cells yesterday, today hemoglobin is 8.1, clinically no evidence of blee ding. GI service is following. Patient is on antibiotics in the form of Rocephin for gram-negative bacilli in the urine culture, blood culture showed no growth. Patient has been afebrile. On 07/12/2020 patient seen in follow-up on general medical surgical floor, she is more awake today, more interactive, room air pulse ox is 97%, no complaints of shortness of breath, today's hemoglobin is 8.0, no active bleeding, serum ammonia level came back at less than 9. No new chest x-ray, last chest x-ray was done on 07/10/2020 showing bibasilar Infiltrates and/or atelectasis and small tiny bilateral pleural effusions, clinically patient is asymptomatic, room air pulse ox is 97%, afebrile, and he is on Zosyn for antibiotic coverage, and nebulized bronchodilators. No hemoptysis, no chest pain breathing is comfortable, On 07/13/2020 patient seen in follow-up on the general medical surgical floor. He is resting in bed, sounds more congested and wheezy on today's exam, patient is able to expectorate whitish yellowish colored phlegm, denies any chest pain, no hemoptysis, no fever or chills. It is labs have been reviewed, showing white blood cell, 11.5, hemoglobin of 8.0, electrolytes were all within normal limits, BUN 6 creatinine 0.59. Pro-calcitonin came back elevated at 0.45 suggesting possibility of bacterial infection, chest x-ray showed bibasilar acute infiltrates and/or atelectasis with small tiny bilateral pleural effusions. Patient is on Zosyn for empiric antibiotic coverage. Patient apparently was more confused last night, and try to get up out of bed, however patient is not agitated, he was given some Ativan for possibility of alcohol withdrawals, however this is day 9 of his hospital stay, possibility of alcohol withdrawal at this point is unlikely. Patient remains delirious, but not agitated, delirious screen is positive on today's exam. Otherwise no acute distress On 07/14/2020 patient seen in follow-up on general medical surgical floor. He sitting up in the recliner currently, he has a belt around him because he has been trying to get up unassisted at times, no agitation, he is answering questions appropriately, and delirium screen is negative today, room air pulse ox is 100%, hemodynamically stable, he denies any breathing difficulty, lung darron nds are less congested and wheezy and today's exam. No fever or chills, no compressive chest pain. Today's chest x-ray shows bibasilar airspace opacity and small bilateral pleural effusions nonsignificant changed from previous chest x-ray. Clinically patient is stable, remains on oral Augmentin, and breathing treatments, urine culture revealed Klebsiella pneumonia with no sensitivity except to ampicillin. Painter catheter has been discontinued. On 07/18/2020 patient is seen in follow-up in intensive care unit, remains confused, he is awake, not making very good eye contact. He is not speaking much, he is on 2 L of oxygen a pulse ox of 99-100%. NG tube remains in place, with approximately 500 mL of gastric drainage in the last 24 hours. His abdomen is still distended, surgical services are following, NG tube to low intermittent suction. Patient apparently pulled out his NG tube 6 times, manager security and safety is at the bedside to prevent the patient from pulling out his indwelling catheters including his NG tube. He is being nourished with the TPN and lipids. His been nothing by mouth for severe ileus. Today's hemoglobin is 6.0, with no obvious signs of bleeding, he will receive a unit of packed red blood cells. White count is 8.2, hemoglobin is 6.0, as mentioned above, platelet count was 349, sodium is 144, potassium 3.8, chloride is 116, the rest of electrolytes and renal profile were within normal limits. PICC line was inserted, patient remains on 2 L of oxygen has pulse ox around 100%, no apparent respiratory difficulty noted, no bowel movement in the last 24 hours. Remains on antibiotics in the form of Zosyn, he is on TPN infusion at 50 ML per hour, and lipids on Saturday schedule Patient was reevaluated today on 07/19/20, remains in the ICU, his mental status seems to wax and wane, today he seems to be confused but less agitated, he was agitated last night and he required Haldol. Patient remains on 2 L nasal cannula, he is on TPN at 50 MLS per hour. Patient is hemodynamically stable. Hemoglobin today is 8. Patient did receive a total of 2 units of packed RBCs since admission for low hemoglobin. Electrolytes are normal, renal profile is normal. Patient continues to do poorly with incentive spirometry, and continues to sound very congested. But less congested today compared to yesterday. And he seems to be much less agitated when I saw him earlier today. Reevaluated today on 07/20/patient remains in the ICU, seems to be improving from the pulmonary perspective, less wheezing, patient is able to clear some of his secretions, and this was clear his secretions, he sounds better. Mentation seems to be a bit better, although the patient seems confused oriented 1 only. At times he seems to be delusional. His IV fluids remains at 75 mL/h, TPN is a 50 ML per hour, he is on oxygen at 2 L nasal cannula, and my plan is to transfer the patient to [facility] today without telemetry. Will maintain the patient on Haldol. All labs today were reviewed and they seem to be basically unremarkable. And no significant metabolic derangements. His hemoglobin is 8.0. Reevaluated today on 07/21/20, patient remains in the ICU as an overflow. Patient is on room air. Asymptomatic, remains confused. Patient remains on TPN, and minimal oral intake over the last 24 hours. His mental status is basically about the same, confused, but pleasant, does not seem to be agitated, requiring less and less Haldol, hence I changed the dose of Haldol to 2 mg every 4 hours as needed. Patient is being considered for transfer to [facility], labs were reviewed relatively normal CBC except for a chronically low hemoglobin of 7.2 electrolytes are normal renal profile is normal. Chest x-ray was unremarkable. Objective - Vital Signs Vital signs: Vital Signs Temp 98.2 F 07/21/20 08:00 Pulse 100 07/21/20 11:37 Resp 20 07/21/20 08:00 BP 99/57 07/21/20 08:00 Pulse Ox 99 07/21/20 08:00 Intake & Output 07/20/20 07/21/20 07/21/20 18:59 06:59 18:59 Intake Total 1300 3031 550 Output Total 685 850 440 Balance 615 2181 110 Weight 51.8 kg 57.6 kg Intake: IV 700 2000 550 Dextrose 5%-0.9% NaCl 1, 75 1200 300 000 ml @ 75 mls/hr IV . [id number] [facility] Rx#:[id number] Fat Emulsion 20% 250 ml 125 In Empty Bag 1 bag @ 21 mls/hr IV MoWeFr [facility] Rx#: [id number] Mvi, Adult No.4 with Vit 400 800 250 K 10 ml Trace (Conc-1Ml/ Dose) 1 ml Parenteral Electrolytes 20 ml In Amino Acid 5%-D15w 1,000 ml @ 50 mls/hr IV . [id number] [facility] Rx#:[id number] Piperacillin-Tazobactam 3 100 .375 gm In Sodium Chloride 0.9% 100 ml @ 25 mls/hr IVPB Q8H [facility] Rx#: [id number] Intake, IV Titration 1031 Amount Mvi, Adult No.4 with Vit 1031 K 10 ml Trace (Conc-1Ml/ Dose) 1 ml Parenteral Electrolytes 20 ml In Amino Acid 5%-D15w 1,000 ml @ 50 mls/hr IV . [id number] [facility] Rx#:[id number] Oral 600 Output: Urine 685 850 440 Other: Voiding Method Indwelling Catheter Indwelling Catheter Indwelling Catheter - Exam GENERAL EXAM: Revealed a 55-year-old -[place] male, in bed, in no distress. Sitter is at bedside. HEENT: PERRLA, EOMI, no neck masses, no JVD, no icterus. CHEST: No chest wall deformity. Symmetrical expansion. LUNGS: Equal air entry diminished breath sound bilaterally no rhonchi and no wheezes mostly when he clears his upper airways by coughing. CVS: Regular rate and rhythm, normal S1 and S2, no gallops, no murmurs, no rubs, tachycardic, in sinus mechanism ABDOMEN: Soft, nontender. No hepatosplenomegaly, normal bowel sounds, no guarding or rigidity. EXTREMITIES: No clubbing, no edema, no cyanosis, 2+ pulses and upper and lower extremities. MUSCULOSKELETAL: Muscle strength and tone normal. SPINE: No scoliosis or deformity SKIN: No rashes CENTRAL NERVOUS SYSTEM: More communicative, but remains confused - Labs CBC & Chem 7: 07/21/20 05:06 07/21/20 05:06 Labs: Abnormal Lab Results - Last 24 Hours (Table) 07/20/20 07/20/20 07/21/20 Range/Units 17:12 20:38 05:06 RBC (4.30-5.90) m/uL Hgb (13.0-17.5) gm/dL Hct (39.0-53.0) % MCHC (31.0-37.0) g/dL RDW (11.5-15.5) % Neutrophils # (1.3-7.7) k/uL Chloride 112 H (98-107) mmol/L Creatinine 0.63 L (0.66-1.25) mg/dL Glucose 100 H (74-99) mg/dL POC Glucose (mg/dL) 171 H 105 H (75-99) mg/dL AST 13 L (17-59) U/L Total Protein 5.0 L (6.3-8.2) g/dL Albumin 2.2 L (3.5-5.0) g/dL 07/21/20 07/21/20 Range/Units 05:06 06:24 RBC 2.60 L (4.30-5.90) m/uL Hgb 7.2 L (13.0-17.5) gm/dL Hct 23.4 L (39.0-53.0) % MCHC 30.9 L (31.0-37.0) g/dL RDW 15.8 H (11.5-15.5) % Neutrophils # 8.1 H (1.3-7.7) k/uL Chloride (98-107) mmol/L Creatinine (0.66-1.25) mg/dL Glucose (74-99) mg/dL POC Glucose (mg/dL) 114 H (75-99) mg/dL AST (17-59) U/L Total Protein (6.3-8.2) g/dL Albumin (3.5-5.0) g/dL Assessment and Plan Assessment: Impression: Chronic alcoholism and recurrent alcohol withdrawal Acute small bowel obstruction versus ileus, resolved. Chronic liver cirrhosis. Acute metabolic toxic encephalopathy. Chronic symptomatic anemia Acute exacerbation of COPD, improved. History of hypertension Klebsiella pneumonia urinary tract infection, remains on antibiotics. Medical debility. Recommendation: Transfer patient to a medical surgical floor Continue bronchodilators. Continue Haldol. However cut down the frequency of that dose. Continue Decadron. Cut down Decadron to 4 mg daily. And likely stop it in the next couple of days Continue TPN. Until his oral intake improves. Evaluate for eventual placement possibly in a [place] [facility]. We'll continue to follow. Time with Patient: Less than 30
[2020-07-21] MEDS: HALOPERIDOL LACTATE 5 MG/ML 1 ML VIAL IVP PRN ×2 (13:26→21:44)
--- NOTE | 2020-07-21 14:53 | P.PN ---
Subjective Progress Note Date: 07/21/20 CHIEF COMPLAINT: Bowel obstruction HISTORY OF PRESENT ILLNESS: The patient is a 55 year old male with history of alcoholism including cirrhosis presented to the hospital secondary to confusion. During hospitalization, patient developed increased abdominal distention. He is being followed for ileus versus small bowel obstruction. Patient did have EGD done during this admission with Dr. Gates showing diffuse gastritis involving the entire stomach with a small amount of old blood but no active bleeding. Mild duodenitis and small hiatal hernia. He denies abdominal pain. Tolerating full liquid diet. Patient is afebrile. WBC 9.9 Hemoglobin 7.2 magnesium 1.6 PHYSICAL EXAM: VITAL SIGNS: Reviewed. GENERAL: Well-developed in no acute distress. HEENT: No sclera icterus. Extraocular movements grossly intact. Moist buccal mucosa. Head is atraumatic, normocephalic. ABDOMEN: Soft nontender nondistended NEUROLOGIC: Alert and oriented. Cranial nerves II through XII grossly intact. ASSESSMENT: 1. Severe ileus versus small bowel obstruction improved 2. Anemia with gastritis PLAN: -Advance diet to regular -Continue TPN -Continue Protonix 40 mg IV twice a day -Continue Reglan 10 mg IV every 6 -Patient being transferred to regular medical floor Physician [employer] note has been reviewed by physician. Signing provider agrees with the documented findings, assessment, and plan of care. Objective - Vital Signs Vital signs: Vital Signs Temp 98.2 F 07/21/20 08:00 Pulse 100 07/21/20 11:37 Resp 20 07/21/20 08:00 BP 99/57 07/21/20 08:00 Pulse Ox 99 07/21/20 08:00 Intake & Output 07/20/20 07/21/20 07/21/20 18:59 06:59 18:59 Intake Total 1300 3031 550 Output Total 685 850 440 Balance 615 2181 110 Weight 51.8 kg 57.6 kg Intake: IV 700 2000 550 Dextrose 5%-0.9% NaCl 1, 75 1200 300 000 ml @ 75 mls/hr IV . [id number] [facility] Rx#:[id number] Fat Emulsion 20% 250 ml 125 In Empty Bag 1 bag @ 21 mls/hr IV MoWeFr [facility] Rx#: [id number] Mvi, Adult No.4 with Vit 400 800 250 K 10 ml Trace (Conc-1Ml/ Dose) 1 ml Parenteral Electrolytes 20 ml In Amino Acid 5%-D15w 1,000 ml @ 50 mls/hr IV . [id number] [facility] Rx#:[id number] Piperacillin-Tazobactam 3 100 .375 gm In Sodium Chloride 0.9% 100 ml @ 25 mls/hr IVPB Q8H [facility] Rx#: [id number] Intake, IV Titration 1031 Amount Mvi, Adult No.4 with Vit 1031 K 10 ml Trace (Conc-1Ml/ Dose) 1 ml Parenteral Electrolytes 20 ml In Amino Acid 5%-D15w 1,000 ml @ 50 mls/hr IV . [id number] [facility] Rx#:[id number] Oral 600 Output: Urine 685 850 440 Other: Voiding Method Indwelling Catheter Indwelling Catheter Indwelling Catheter - Labs CBC & Chem 7: 07/21/20 05:06 07/21/20 05:06 Labs: Abnormal Lab Results - Last 24 Hours (Table) 07/20/20 07/20/20 07/21/20 Range/Units 17:12 20:38 05:06 RBC (4.30-5.90) m/uL Hgb (13.0-17.5) gm/dL Hct (39.0-53.0) % MCHC (31.0-37.0) g/dL RDW (11.5-15.5) % Neutrophils # (1.3-7.7) k/uL Chloride 112 H (98-107) mmol/L Creatinine 0.63 L (0.66-1.25) mg/dL Glucose 100 H (74-99) mg/dL POC Glucose (mg/dL) 171 H 105 H (75-99) mg/dL AST 13 L (17-59) U/L Total Protein 5.0 L (6.3-8.2) g/dL Albumin 2.2 L (3.5-5.0) g/dL 07/21/20 07/21/20 Range/Units 05:06 06:24 RBC 2.60 L (4.30-5.90) m/uL Hgb 7.2 L (13.0-17.5) gm/dL Hct 23.4 L (39.0-53.0) % MCHC 30.9 L (31.0-37.0) g/dL RDW 15.8 H (11.5-15.5) % Neutrophils # 8.1 H (1.3-7.7) k/uL Chloride (98-107) mmol/L Creatinine (0.66-1.25) mg/dL Glucose (74-99) mg/dL POC Glucose (mg/dL) 114 H (75-99) mg/dL AST (17-59) U/L Total Protein (6.3-8.2) g/dL Albumin (3.5-5.0) g/dL
[2020-07-21 16:47] LABS: Glucose,Whole Blood 123 mg/dL (75-99)
--- NOTE | 2020-07-21 16:52 | P.PN ---
Subjective Progress Note Date: 07/21/20 Fercho Yen, is a 55-year-old male with known history of excessive alcohol use and history of liver cirrhosis who was brought in to [facility] emergency room by his due to mental status changes was confusion patient was also having weight loss, he was drinking alcohol up to 2 days prior to admission then he was not feeling well and he stopped drinking alcohol and stopped eating and drinking for 2-3 days. Patient was evaluated in emergency room, he was febrile temperature 97.7 pulse 60 respiration 16 blood pressure was significantly low at 71/59 pulse ox 94% on room air white blood count was 8.7 hemoglobin 8.3 platelet count 260 sodium was low at 126 potassium was low at 2.5 serum alcohol level was 21. Patient was admitted to intensive care unit he was started on IV fluid and potassium replacement protocol. Chest x-ray was done in the emergency room and did not reveal any active cardiopulmonary disease, computed tomography scan done in the emergency room revealed cerebral atrophy no acute intracranial abnormality, abdomen ultrasound done did not reveal any evidence of sizable ascites, urine analysis and blood culture were done and were ordered in ICU. On 07/06/2020 patient was seen and examined on the medical floor he is more somnolent he responds to stimuli otherwise he denies any complaints blood pressure is improved today urine analysis revealed evidence of urinary tract infection patient was started on IV Rocephin more globin is down to 6.8, On 07/07/2020 patient was seen and examined in the ICU he is alert and oriented 3 in no apparent distress he is answering questions appropriately today, there is no fever or chills no headache or dizziness no chest pain no shortness of breath no cough no nausea or vomiting no abdominal pain. No burning with urination no frequency or urgency and no hematuria, he received 1 unit of red blood cells today. On 07/08/2020, patient was seen and examined on the medical floor, he is somnolent but arousable in no apparent distress, there is no fever or chills no headache or dizziness no chest pain no shortness of breath no cough no nausea or vomiting no abdominal pain no diarrhea no burning with urination no frequency or urgency no hematuria, he had very poor oral intake so far, he was counseled in length he seems to understand, if the oral intake does not improve patient may need a nasogastric tube feeding. On 07/09/2020 patient was seen and examined on the medical floor, he is more alert today, his still has very poor oral intake, he was counseled in length in regard to need to eat more, he is denying any symptoms at this time there is no fever or chills no headache or dizziness no chest pain no shortness of breath no cough no nausea or vomiting no abdominal pain no diarrhea no burning with urination no frequency or urgency no hematuria, will add physical therapy and occupational therapy and assess if patient needs after discharge On 07/10/2020 patient was seen and examined on the medical floor he is alert slightly confused in no apparent distress nurse stated that he has been more agitated and slightly aggressive with staff he still has very poor oral intake otherwise he denies any complaints he has been refusing to keep telemetry box on there is no fever or chills no headache or dizziness no chest pain no shortness of breath no cough no nausea or vomiting no abdominal pain no diarrhea and no urinary symptoms On 07/11/2020 patient was seen and examined on the medical floor he is alert slightly confused in no distress he is complaining of cough he is breathing sounds are coarse otherwise there is no complaints there is no fever or chills no headache or dizziness no chest pain no shortness of breath, no nausea or vomiting no abdominal pain no diarrhea no burning with urination no frequency or urgency and no hematuria. Chest x-ray reveals bilateral infiltrates and small pleural effusion will re-consult pulmonary in that regard. On 07/12/2020 patient was seen and examined on the medical floor he is more alert and oriented today he is having more oral intake he is still complaining of cough there is no fever or chills, no chest pain or shortness of breath no nausea or vomiting no abdominal pain no diarrhea and no urinary symptoms On 07/14/2020 patient was seen and examined on the medical floor, he is alert and oriented 3 in no apparent distress, he was cleared by all consultants yesterday for discharge to a care home for rehab, discharge was done yest erday however, patient still need authorization from insurance, hence discharge was delayed, clinically patient is stable he is complaining of generalized weakness otherwise he denies any specific complaints there is no fever or chills no headache or dizziness no chest pain no shortness of breath no cough no nausea or vomiting no abdominal pain no diarrhea and no urinary symptoms. On 07/15/2020 patient was seen and examined on the medical floor, he is complaining of abdominal pain today, otherwise he denies any complaints there is no fever or chills no headache or dizziness no chest pain no shortness of breath no cough no nausea or vomiting no diarrhea no blood in the stools no burning with urination no frequency or urgency no hematuria. On 07/16/2020 patient was seen and examined in the ICU he is alert and responsive in no apparent distress, yesterday he was having abdominal pain comp uted tomography scan of the abdomen revealed evidence of small bowel obstruction NG tube was put in patient was having episodes of agitation he was also having hypotension he was transferred to intensive care unit, he is being followed by Dr. Person for pulmonary and critical care, and by surgery, currently he is still in ICU he is maintained on vasopressors. On 07/17/2020 patient was seen and examined in the ICU he is alert and responsive, he pulled his triple-lumen out and his NG tube. His abdomen is severely tense and distended, NG tube was put back in, patient was counseled in length in regards to not touching his tubes and lines. Patient was started on TPN however this is on hold at this time. Patient continues to be in critical condition, pulmonary, and surgery are following. Hemodynamically patient is stable his blood pressure is 138/74 his pulse rate is 110 respiration 18 and pulse ox 92% on 2 L nasal cannula his white blood count is slightly down at 14.8 his hemoglobin is down to 7.0 kidney and liver function are within normal limits albumin is down to 2.3 On 07/18/2020 patient was seen and examined in the ICU, he is alert and responsive NG tube is in , case discussed with patient nurse Brittany, plan per GI is to proceed with EGD, today hemoglobin is down to 6.0, his white blood count is 8.2 platelet 349 kidney and liver function are within normal limits, albumin level is low at 2.0 On 07/19/2020 patient was seen and examined in the ICU, he is alert responsive in no apparent distress, he had episodes of agitation earlier, he is denying any complaints at this time , his temperature is 90.7 pulse 100 respiration 14 blood pressure 124/84 pulse ox 97% on 2 L nasal cannula, his white blood count is 7 hemoglobin 8 platelet count 241 On 07/20/2020 patient was seen and examined in the ICU he is alert and more responsive he is sitting up in a chair he had episodes of agitation earlier this morning, otherwise there is no complaints he was cleared by pulmonary critical care to be transferred out of ICU antibiotics were discontinued, at this time will consult physical therapy and occupational therapy, will assess if patient need to go to a rehab after this admission On 07/21/2020 patient was seen and examined the ICU he is alert, confused, in no apparent distress, he does not seem to be aware of his condition, he is denying any complaints at this time, clinically he is improving gradually, he is having bowel movements, and is tolerating liquid diet well, he will be transferred to care home for rehabilitation in the next few days Objective - Vital Signs Vital signs: Vital Signs Temp 98.2 F 07/21/20 08:00 Pulse 100 07/21/20 11:37 Resp 20 07/21/20 08:00 BP 99/57 07/21/20 08:00 Pulse Ox 99 07/21/20 08:00 Intake & Output 07/20/20 07/21/20 07/21/20 18:59 06:59 18:59 Intake Total 1300 3031 550 Output Total 685 850 440 Balance 615 2181 110 Weight 51.8 kg 57.6 kg Intake: IV 700 2000 550 Dextrose 5%-0.9% NaCl 1, 75 1200 300 000 ml @ 75 mls/hr IV . [id number] [facility] Rx#:[id number] Fat Emulsion 20% 250 ml 125 In Empty Bag 1 bag @ 21 mls/hr IV MoWeFr [facility] Rx#: [id number] Mvi, Adult No.4 with Vit 400 800 250 K 10 ml Trace (Conc-1Ml/ Dose) 1 ml Parenteral Electrolytes 20 ml In Amino Acid 5%-D15w 1,000 ml @ 50 mls/hr IV . [id number] [facility] Rx#:[id number] Piperacillin-Tazobactam 3 100 .375 gm In Sodium Chloride 0.9% 100 ml @ 25 mls/hr IVPB Q8H [facility] Rx#: [id number] Intake, IV Titration 1031 Amount Mvi, Adult No.4 with Vit 1031 K 10 ml Trace (Conc-1Ml/ Dose) 1 ml Parenteral Electrolytes 20 ml In Amino Acid 5%-D15w 1,000 ml @ 50 mls/hr IV . [id number] [facility] Rx#:[id number] Oral 600 Output: Urine 685 850 440 Other: Voiding Method Indwelling Catheter Indwelling Catheter Indwelling Catheter - Exam In general patient is alert slightly confused in no apparent distress HEENT head normocephalic and atraumatic Neck is supple no JVD no goiter no lymphadenopathy Chest exam reveals a few scattered crackles no wheezing Cardiac exam reveals regular heart sounds S1 and S2 no gallops no murmurs Abdomen is better today less tense and less tender no organomegaly with normal bowel sounds Extremity exam reveals no edema no cyanosis or clubbing Neurological examination reveals no gross focal deficit other than mild confusion - Labs CBC & Chem 7: 07/21/20 05:06 07/21/20 05:06 Labs: Abnormal Lab Results - Last 24 Hours (Table) 07/20/20 07/20/20 07/21/20 Range/Units 17:12 20:38 05:06 RBC (4.30-5.90) m/uL Hgb (13.0-17.5) gm/dL Hct (39.0-53.0) % MCHC (31.0-37.0) g/dL RDW (11.5-15.5) % Neutrophils # (1.3-7.7) k/uL Chloride 112 H (98-107) mmol/L Creatinine 0.63 L (0.66-1.25) mg/dL Glucose 100 H (74-99) mg/dL POC Glucose (mg/dL) 171 H 105 H (75-99) mg/dL AST 13 L (17-59) U/L Total Protein 5.0 L (6.3-8.2) g/dL Albumin 2.2 L (3.5-5.0) g/dL 07/21/20 07/21/20 Range/Units 05:06 06:24 RBC 2.60 L (4.30-5.90) m/uL Hgb 7.2 L (13.0-17.5) gm/dL Hct 23.4 L (39.0-53.0) % MCHC 30.9 L (31.0-37.0) g/dL RDW 15.8 H (11.5-15.5) % Neutrophils # 8.1 H (1.3-7.7) k/uL Chloride (98-107) mmol/L Creatinine (0.66-1.25) mg/dL Glucose (74-99) mg/dL POC Glucose (mg/dL) 114 H (75-99) mg/dL AST (17-59) U/L Total Protein (6.3-8.2) g/dL Albumin (3.5-5.0) g/dL Assessment and Plan Plan: 1. Mental status changes, likely related to chronic alcohol use and early alcohol withdrawal, on [facility] protocol 2. Hypotension patient was started on IV fluid, blood pressure stable, will check urine analysis and blood culture to rule out any infectious etiology, critical care consult requested 3. Underlying history of liver cirrhosis, gastroenterology consult requested 4. Anemia hemoglobin is down to 6.0 GI plan to proceed with EGD today 5. Hypokalemia corrected, potassium 3.8 today 6. Poor oral intake, patient received TPN, currently plan is to proceed was clear liquid diet after EGD 7. By basilar infiltrate with small pleural effusion, possible pneumonia antibiotic were switched to Zosyn, will reconsult pulmonary 8. New abdominal pain started yesterday, there is evidence of small bowel obstruction on testing, awaiting surgery opinion, NG tube is in 9. Sepsis with hypotension, patient restarted on IV Zosyn, will Consult infectious disease For DVT prophylaxis SCD stockings For GI prophylaxis patient on Protonix Prognosis is guarded will follow closely
[2020-07-21 20:30] LABS: Glucose,Whole Blood 143 mg/dL (75-99)
[2020-07-21] MEDS ORDERED: MVI, ADULT NO.4 WITH VIT K 10 ML, TRACE (CONC-1ML/DOSE) 1 ML in AMINO ACID 5%-D15W+LYTE... IV SCH ×3 (21:00)
[2020-07-22] MEDS: HALOPERIDOL LACTATE 5 MG/ML 1 ML VIAL IVP PRN ×2 (03:55→11:12)
[2020-07-22 04:59] LABS: African American GFR (CKD) >90 (>60 ml/min/1.73 sqM); Anion Gap 2 mmol/L; Blood Urea Nitrogen 11 mg/dL (9-20); Calcium 8.4 mg/dL (8.4-10.2); Carbon Dioxide 24 mmol/L (22-30); Chloride 110 mmol/L (98-107); Glucose 92 mg/dL (74-99); Magnesium 1.6 mg/dL (1.6-2.3); Non-African American GFR(CKD) >90 (>60 ml/min/1.73 sqM); Phosphorus 1.9 mg/dL (2.5-4.5); Potassium 3.6 mmol/L (3.5-5.1); Sodium 136 mmol/L (137-145)
[2020-07-22 06:33] LABS: Glucose,Whole Blood 111 mg/dL (75-99)
[2020-07-22] MEDS: INSULIN ASPART (NovoLOG) 100 UNIT/ML VIAL SQ SCH ×4 (06:43→20:48)
[2020-07-22] MEDS: METOCLOPRAMIDE 5 MG/ML 2 ML VIAL IVP SCH ×3 (06:45→17:28)
[2020-07-22] MEDS: THIAMINE 100 MG TAB PO SCH ×2 (06:45→17:29)
[2020-07-22] MEDS: FOLIC ACID 1 MG TAB PO SCH ×2 (08:20→11:18)
[2020-07-22] MEDS: PANTOPRAZOLE 40 MG/10 ML VIAL IVP SCH ×2 (08:20→20:44)
[2020-07-22] MEDS: DEXAMETHASONE SOD PHOSPHATE 4 MG/ML 1 ML VIAL IV SCH (08:20)
[2020-07-22] MEDS: IPRATROPIUM-ALBUTEROL 3 ML NEB INHALATION SCH ×4 (08:32→20:04)
[2020-07-22] MEDS: FAT EMULSION 20% 250 ML in EMPTY BAG 1 BAG IV SCH (10:07)
[2020-07-22] MEDS: NICOTINE 21MG/24HR PATCH TRANSDERM SCH (10:07)
[2020-07-22] MEDS: MAGNESIUM SULFATE-D5W PMX 1 GM in DEXTROSE/WATER 1 100ML.BAG IVPB SCH ×2 (11:28→13:40)
[2020-07-22 11:30] VITALS: BMI 20.7
[2020-07-22] MEDS ORDERED: POTASSIUM CHLORIDE 20 MEQ in WATER FOR INJECTION 1 100ML.BAG IVPB ONE (12:00)
--- NOTE | 2020-07-22 12:53 | P.PN ---
Subjective Progress Note Date: 07/22/20 Fercho Yen, is a 55-year-old male with known history of excessive alcohol use and history of liver cirrhosis who was brought in to [facility] emergency room by his due to mental status changes was confusion patient was also having weight loss, he was drinking alcohol up to 2 days prior to admission then he was not feeling well and he stopped drinking alcohol and stopped eating and drinking for 2-3 days. Patient was evaluated in emergency room, he was febrile temperature 97.7 pulse 60 respiration 16 blood pressure was significantly low at 71/59 pulse ox 94% on room air white blood count was 8.7 hemoglobin 8.3 platelet count 260 sodium was low at 126 potassium was low at 2.5 serum alcohol level was 21. Patient was admitted to intensive care unit he was started on IV fluid and potassium replacement protocol. Chest x-ray was done in the emergency room and did not reveal any active cardiopulmonary disease, computed tomography scan done in the emergency room revealed cerebral atrophy no acute intracranial abnormality, abdomen ultrasound done did not reveal any evidence of sizable ascites, urine analysis and blood culture were done and were ordered in ICU. On 07/06/2020 patient was seen and examined on the medical floor he is more somnolent he responds to stimuli otherwise he denies any complaints blood pressure is improved today urine analysis revealed evidence of urinary tract infection patient was started on IV Rocephin more globin is down to 6.8, On 07/07/2020 patient was seen and examined in the ICU he is alert and oriented 3 in no apparent distress he is answering questions appropriately today, there is no fever or chills no headache or dizziness no chest pain no shortness of breath no cough no nausea or vomiting no abdominal pain. No burning with urination no frequency or urgency and no hematuria, he received 1 unit of red blood cells today. On 07/08/2020, patient was seen and examined on the medical floor, he is somnolent but arousable in no apparent distress, there is no fever or chills no headache or dizziness no chest pain no shortness of breath no cough no nausea or vomiting no abdominal pain no diarrhea no burning with urination no frequency or urgency no hematuria, he had very poor oral intake so far, he was counseled in length he seems to understand, if the oral intake does not improve patient may need a nasogastric tube feeding. On 07/09/2020 patient was seen and examined on the medical floor, he is more alert today, his still has very poor oral intake, he was counseled in length in regard to need to eat more, he is denying any symptoms at this time there is no fever or chills no headache or dizziness no chest pain no shortness of breath no cough no nausea or vomiting no abdominal pain no diarrhea no burning with urination no frequency or urgency no hematuria, will add physical therapy and occupational therapy and assess if patient needs after discharge On 07/10/2020 patient was seen and examined on the medical floor he is alert slightly confused in no apparent distress nurse stated that he has been more agitated and slightly aggressive with staff he still has very poor oral intake otherwise he denies any complaints he has been refusing to keep telemetry box on there is no fever or chills no headache or dizziness no chest pain no shortness of breath no cough no nausea or vomiting no abdominal pain no diarrhea and no urinary symptoms On 07/11/2020 patient was seen and examined on the medical floor he is alert slightly confused in no distress he is complaining of cough he is breathing sounds are coarse otherwise there is no complaints there is no fever or chills no headache or dizziness no chest pain no shortness of breath, no nausea or vomiting no abdominal pain no diarrhea no burning with urination no frequency or urgency and no hematuria. Chest x-ray reveals bilateral infiltrates and small pleural effusion will re-consult pulmonary in that regard. On 07/12/2020 patient was seen and examined on the medical floor he is more alert and oriented today he is having more oral intake he is still complaining of cough there is no fever or chills, no chest pain or shortness of breath no nausea or vomiting no abdominal pain no diarrhea and no urinary symptoms On 07/14/2020 patient was seen and examined on the medical floor, he is alert and oriented 3 in no apparent distress, he was cleared by all consultants yesterday for discharge to a senior living for rehab, discharge was done yest erday however, patient still need authorization from insurance, hence discharge was delayed, clinically patient is stable he is complaining of generalized weakness otherwise he denies any specific complaints there is no fever or chills no headache or dizziness no chest pain no shortness of breath no cough no nausea or vomiting no abdominal pain no diarrhea and no urinary symptoms. On 07/15/2020 patient was seen and examined on the medical floor, he is complaining of abdominal pain today, otherwise he denies any complaints there is no fever or chills no headache or dizziness no chest pain no shortness of breath no cough no nausea or vomiting no diarrhea no blood in the stools no burning with urination no frequency or urgency no hematuria. On 07/16/2020 patient was seen and examined in the ICU he is alert and responsive in no apparent distress, yesterday he was having abdominal pain comp uted tomography scan of the abdomen revealed evidence of small bowel obstruction NG tube was put in patient was having episodes of agitation he was also having hypotension he was transferred to intensive care unit, he is being followed by Dr. Person for pulmonary and critical care, and by surgery, currently he is still in ICU he is maintained on vasopressors. On 07/17/2020 patient was seen and examined in the ICU he is alert and responsive, he pulled his triple-lumen out and his NG tube. His abdomen is severely tense and distended, NG tube was put back in, patient was counseled in length in regards to not touching his tubes and lines. Patient was started on TPN however this is on hold at this time. Patient continues to be in critical condition, pulmonary, and surgery are following. Hemodynamically patient is stable his blood pressure is 138/74 his pulse rate is 110 respiration 18 and pulse ox 92% on 2 L nasal cannula his white blood count is slightly down at 14.8 his hemoglobin is down to 7.0 kidney and liver function are within normal limits albumin is down to 2.3 On 07/18/2020 patient was seen and examined in the ICU, he is alert and responsive NG tube is in , case discussed with patient nurse Brittany, plan per GI is to proceed with EGD, today hemoglobin is down to 6.0, his white blood count is 8.2 platelet 349 kidney and liver function are within normal limits, albumin level is low at 2.0 On 07/19/2020 patient was seen and examined in the ICU, he is alert responsive in no apparent distress, he had episodes of agitation earlier, he is denying any complaints at this time , his temperature is 90.7 pulse 100 respiration 14 blood pressure 124/84 pulse ox 97% on 2 L nasal cannula, his white blood count is 7 hemoglobin 8 platelet count 241 On 07/20/2020 patient was seen and examined in the ICU he is alert and more responsive he is sitting up in a chair he had episodes of agitation earlier this morning, otherwise there is no complaints he was cleared by pulmonary critical care to be transferred out of ICU antibiotics were discontinued, at this time will consult physical therapy and occupational therapy, will assess if patient need to go to a rehab after this admission On 07/21/2020 patient was seen and examined the ICU he is alert, confused, in no apparent distress, he does not seem to be aware of his condition, he is denying any complaints at this time, clinically he is improving gradually, he is having bowel movements, and is tolerating liquid diet well, he will be transferred to senior living for rehabilitation in the next few days. On 07/22/2020 patient was seen and examined in the ICU he is alert and oriented in no distress patient is improving gradually his mentation is significantly better than yesterday, he is denying any complaints at this time , at this time will discontinue Painter catheter discontinue TPN and increase oral intake, will reassess tomorrow to see if patient is ready to be transferred to a senior living for rehabilitation Objective - Vital Signs Vital signs: Vital Signs Temp 99 F 07/22/20 08:00 Pulse 84 07/22/20 08:38 Resp 20 07/22/20 08:00 BP 100/84 07/22/20 08:00 Pulse Ox 93 L 07/22/20 08:00 Intake & Output 07/21/20 07/22/20 07/22/20 18:59 06:59 18:59 Intake Total 1550 1500 375 Output Total 790 1375 225 Balance 760 125 150 Weight 59.9 kg 59.9 kg Intake: IV 1550 1500 375 Dextrose 5%-0.9% NaCl 1, 900 900 225 000 ml @ 75 mls/hr IV . [id number] [facility] Rx#:[id number] Mvi, Adult No.4 with Vit 650 600 150 K 10 ml Trace (Conc-1Ml/ Dose) 1 ml Parenteral Electrolytes 20 ml In Amino Acid 5%-D15w 1,000 ml @ 50 mls/hr IV . [id number] [facility] Rx#:[id number] Output: Urine 790 1375 225 Other: Voiding Method Indwelling Catheter Indwelling Catheter - Exam In general patient is alert slightly confused in no apparent distress HEENT head normocephalic and atraumatic Neck is supple no JVD no goiter no lymphadenopathy Chest exam reveals a few scattered crackles no wheezing Cardiac exam reveals regular heart sounds S1 and S2 no gallops no murmurs Abdomen is better today less tense and less tender no organomegaly with normal bowel sounds Extremity exam reveals no edema no cyanosis or clubbing Neurological examination reveals no gross focal deficit other than mild confusion - Labs CBC & Chem 7: 07/21/20 05:06 07/22/20 04:17 Labs: Abnormal Lab Results - Last 24 Hours (Table) 07/21/20 07/21/20 07/22/20 Range/Units 16:46 20:28 04:17 Sodium 136 L (137-145) mmol/L Chloride 110 H (98-107) mmol/L Creatinine 0.55 L (0.66-1.25) mg/dL POC Glucose (mg/dL) 123 H 143 H (75-99) mg/dL Phosphorus 1.9 L (2.5-4.5) mg/dL 07/22/20 Range/Units 06:32 Sodium (137-145) mmol/L Chloride (98-107) mmol/L Creatinine (0.66-1.25) mg/dL POC Glucose (mg/dL) 111 H (75-99) mg/dL Phosphorus (2.5-4.5) mg/dL Assessment and Plan Plan: 1. Mental status changes, likely related to chronic alcohol use and early alcohol withdrawal, on CIWA protocol 2. Hypotension patient was started on IV fluid, blood pressure stable, will check urine analysis and blood culture to rule out any infectious etiology, critical care consult requested 3. Underlying history of liver cirrhosis, gastroenterology consult requested 4. Anemia hemoglobin is down to 6.0 GI plan to proceed with EGD today 5. Hypokalemia corrected, potassium 3.8 today 6. Poor oral intake, patient received TPN, currently plan is to proceed was clear liquid diet after EGD 7. By basilar infiltrate with small pleural effusion, possible pneumonia antibiotic were switched to Zosyn, will reconsult pulmonary 8. New abdominal pain started yesterday, there is evidence of small bowel obstruction on testing, awaiting surgery opinion, NG tube is in 9. Sepsis with hypotension, patient restarted on IV Zosyn, will Consult infectious disease For DVT prophylaxis SCD stockings For GI prophylaxis patient on Protonix Prognosis is guarded will follow closely
[2020-07-22] MEDS: SODIUM PHOSPHATE 10 MMOL in SODIUM CHLORIDE 0.9% 100 ML IVPB SCH ×2 (13:09→15:54)
--- NOTE | 2020-07-22 13:13 | P.PN ---
Subjective Progress Note Date: 07/22/20 Principal diagnosis: Alcoholic liver disease with cirrhosis and toxic metabolic encephalopathy The patient is seen today 07/22/2020 in follow-up in the intensive care unit. He is currently awake and alert. Confused at times. Confused to time and place. Sitter is at the bedside. He is currently maintaining good O2 saturations in the 90s on room air. He remains on TPN and lipids for nutritional support. He is status post 2 units of packed red blood cells this admission. Current hemoglobin 7.2. Sodium 136. Potassium 3.6. Creatinine 0.55. He's been afebrile. Objective - Vital Signs Vital signs: Vital Signs Temp 99 F 07/22/20 08:00 Pulse 84 07/22/20 08:38 Resp 20 07/22/20 08:00 BP 100/84 07/22/20 08:00 Pulse Ox 93 L 07/22/20 08:00 Intake & Output 07/21/20 07/22/20 07/22/20 18:59 06:59 18:59 Intake Total 1550 1500 375 Output Total 790 1375 225 Balance 760 125 150 Weight 59.9 kg 59.9 kg Intake: IV 1550 1500 375 Dextrose 5%-0.9% NaCl 1, 900 900 225 000 ml @ 75 mls/hr IV . [id number] [facility] Rx#:[id number] Mvi, Adult No.4 with Vit 650 600 150 K 10 ml Trace (Conc-1Ml/ Dose) 1 ml Parenteral Electrolytes 20 ml In Amino Acid 5%-D15w 1,000 ml @ 50 mls/hr IV . [id number] [facility] Rx#:[id number] Output: Urine 790 1375 225 Other: Voiding Method Indwelling Catheter Indwelling Catheter - Exam GENERAL EXAM: Revealed a 55-year-old -[place] male, on room air, in bed, in no distress. Sitter is at bedside. HEENT: PERRLA, EOMI, no neck masses, no JVD, no icterus. CHEST: No chest wall deformity. Symmetrical expansion. LUNGS: Equal air entry diminished breath sound bilaterally no rhonchi and no wheezes mostly when he clears his upper airways by coughing. CVS: Regular rate and rhythm, normal S1 and S2, no gallops, no murmurs, no rubs, tachycardic, in sinus mechanism ABDOMEN: Soft, nontender. No hepatosplenomegaly, normal bowel sounds, no guarding or rigidity. EXTREMITIES: No clubbing, no edema, no cyanosis, 2+ pulses and upper and lower extremities. MUSCULOSKELETAL: Muscle strength and tone normal. SPINE: No scoliosis or deformity SKIN: No rashes CENTRAL NERVOUS SYSTEM: More communicative, but remains confused - Labs CBC & Chem 7: 07/21/20 05:06 07/22/20 04:17 Labs: Abnormal Lab Results - Last 24 Hours (Table) 07/21/20 07/21/20 07/22/20 Range/Units 16:46 20:28 04:17 Sodium 136 L (137-145) mmol/L Chloride 110 H (98-107) mmol/L Creatinine 0.55 L (0.66-1.25) mg/dL POC Glucose (mg/dL) 123 H 143 H (75-99) mg/dL Phosphorus 1.9 L (2.5-4.5) mg/dL 07/22/20 Range/Units 06:32 Sodium (137-145) mmol/L Chloride (98-107) mmol/L Creatinine (0.66-1.25) mg/dL POC Glucose (mg/dL) 111 H (75-99) mg/dL Phosphorus (2.5-4.5) mg/dL Assessment and Plan Assessment: Chronic alcoholism and recurrent alcohol withdrawal Acute small bowel obstruction versus ileus, resolved. Chronic liver cirrhosis. Acute metabolic toxic encephalopathy. Chronic symptomatic anemia Acute exacerbation of COPD, improved. History of hypertension Klebsiella pneumonia urinary tract infection, remains on antibiotics. Medical debility. Plan: The patient was seen and evaluated by Dr. Silva He remains in the ICU as a medical floor overflow Sitter is at the bedside Continue TPN and lipids for nutritional support Plan is for ECF post discharge We will see on an as-needed basis I, the cosigning physician, performed a history & physical examination of the patient. Lungs sounds with crackles in the left base. Maintaining good O2 sa turations in the 90s on room air. I discussed the assessment and plan of care with my nurse practitioner, Cassandra Pepe. I attest to the above note as dictated by her.
[2020-07-22 13:22] LABS: Glucose,Whole Blood 178 mg/dL (75-99)
[2020-07-22] MEDS: DEXTROSE 5%-0.9% NACL 1,000 ML IV SCH (13:40)
--- NOTE | 2020-07-22 15:38 | P.PN ---
Subjective Progress Note Date: 07/22/20 CHIEF COMPLAINT: Bowel obstruction HISTORY OF PRESENT ILLNESS: Patient seen and examined with Dr. Yip. Patient is in ICU as a medical floor overflow. The patient is a 55 year old male with history of alcoholism including cirrhosis presented to the hospital secondary to confusion. During hospitalization, patient developed increased abdominal distention. He is being followed for ileus versus small bowel obstruction. Patient did have EGD done during this admission with Dr. Gates showing diffuse gastritis involving the entire stomach with a small amount of old blood but no active bleeding. Mild duodenitis and small hiatal hernia. He denies abdominal pain. Tolerating regular diet. Patient is afebrile. TPN was discontinued today PHYSICAL EXAM: VITAL SIGNS: Reviewed. GENERAL: Well-developed in no acute distress. HEENT: No sclera icterus. Extraocular movements grossly intact. Moist buccal mucosa. Head is atraumatic, normocephalic. ABDOMEN: Soft nontender nondistended NEUROLOGIC: Patient is awake and alert sitting up in bed ASSESSMENT: 1. Severe ileus versus small bowel obstruction. Resolved 2. Anemia with gastritis PLAN: -Continue regular -Continue Protonix 40 mg IV twice a day -Continue Reglan 10 mg IV every 6 -Patient being transferred to regular medical floor -Anticipating possible discharge to ECF tomorrow Physician Coding Clerks Supervisor note has been reviewed by physician. Signing provider agrees with the documented findings, assessment, and plan of care. Objective - Vital Signs Vital signs: Vital Signs Temp 99 F 07/22/20 08:00 Pulse 84 07/22/20 08:38 Resp 20 07/22/20 08:00 BP 100/84 07/22/20 08:00 Pulse Ox 93 L 07/22/20 08:00 Intake & Output 07/21/20 07/22/20 07/22/20 18:59 06:59 18:59 Intake Total 1550 1500 1424 Output Total 790 1375 525 Balance 760 125 899 Weight 59.9 kg 59.9 kg Intake: IV 1550 1500 884 Dextrose 5%-0.9% NaCl 1, 900 900 450 000 ml @ 10 mls/hr IV . Q24H [facility] Rx#:[id number] Fat Emulsion 20% 250 ml 84 In Empty Bag 1 bag @ 21 mls/hr IV MoWeFr [facility] Rx#: [id number] Mvi, Adult No.4 with Vit 650 600 350 K 10 ml Trace (Conc-1Ml/ Dose) 1 ml Parenteral Electrolytes 20 ml In Amino Acid 5%-D15w 1,000 ml @ 50 mls/hr IV . [id number] [facility] Rx#:[id number] Intake, IV Titration 300 Amount Magnesium Sulfate-D5w Pmx 100 1 gm In Dextrose/Water 1 100ml.bag @ 100 mls/hr IVPB Q1H [facility] Rx#: [id number] Potassium Chloride 20 meq 100 In Water For Injection 1 100ml.bag @ 50 mls/hr IVPB ONCE ONE Rx#: [id number] Sodium Phosphate 10 mmol 100 In Sodium Chloride 0.9% 100 ml @ 50 mls/hr IVPB Q2H [facility] Rx#:[id number] Oral 240 Output: Urine 790 1375 525 Other: Voiding Method Indwelling Catheter Indwelling Catheter Indwelling Catheter - Labs CBC & Chem 7: 07/21/20 05:06 07/22/20 04:17 Labs: Abnormal Lab Results - Last 24 Hours (Table) 07/21/20 07/21/20 07/22/20 Range/Units 16:46 20:28 04:17 Sodium 136 L (137-145) mmol/L Chloride 110 H (98-107) mmol/L Creatinine 0.55 L (0.66-1.25) mg/dL POC Glucose (mg/dL) 123 H 143 H (75-99) mg/dL Phosphorus 1.9 L (2.5-4.5) mg/dL 07/22/20 07/22/20 Range/Units 06:32 13:21 Sodium (137-145) mmol/L Chloride (98-107) mmol/L Creatinine (0.66-1.25) mg/dL POC Glucose (mg/dL) 111 H 178 H (75-99) mg/dL Phosphorus (2.5-4.5) mg/dL
[2020-07-22 17:21] LABS: Glucose,Whole Blood 89 mg/dL (75-99)
--- NOTE | 2020-07-22 17:28 | P.PN ---
Subjective Progress Note Date: 07/22/20 Patient was seen at bedside and the per the nurse he supposed to be transferred to the floor. According to the ICU nurse with had a mild for multiple days she stated that the patient's condition that seems that about the same. There is no seizure-like activity. Patient states that he is doing well and he has no complaints she denies of any weakness numbness. Objective - Vital Signs Vital signs: Vital Signs Temp 99 F 07/22/20 08:00 Pulse 84 07/22/20 08:38 Resp 20 07/22/20 16:56 BP 100/84 07/22/20 08:00 Pulse Ox 93 L 07/22/20 08:00 Intake & Output 07/21/20 07/22/20 07/22/20 18:59 06:59 18:59 Intake Total 1550 1500 1424 Output Total 790 1375 525 Balance 760 125 899 Weight 59.9 kg 59.9 kg Intake: IV 1550 1500 884 Dextrose 5%-0.9% NaCl 1, 900 900 450 000 ml @ 10 mls/hr IV . Q24H [facility] Rx#:[id number] Fat Emulsion 20% 250 ml 84 In Empty Bag 1 bag @ 21 mls/hr IV MoWeFr [facility] Rx#: [id number] Mvi, Adult No.4 with Vit 650 600 350 K 10 ml Trace (Conc-1Ml/ Dose) 1 ml Parenteral Electrolytes 20 ml In Amino Acid 5%-D15w 1,000 ml @ 50 mls/hr IV . [id number] [facility] Rx#:[id number] Intake, IV Titration 300 Amount Magnesium Sulfate-D5w Pmx 100 1 gm In Dextrose/Water 1 100ml.bag @ 100 mls/hr IVPB Q1H [facility] Rx#: [id number] Potassium Chloride 20 meq 100 In Water For Injection 1 100ml.bag @ 50 mls/hr IVPB ONCE ONE Rx#: [id number] Sodium Phosphate 10 mmol 100 In Sodium Chloride 0.9% 100 ml @ 50 mls/hr IVPB Q2H [facility] Rx#:[id number] Oral 240 Output: Urine 790 1375 525 Other: Voiding Method Indwelling Catheter Indwelling Catheter Diaper - Exam GENERAL: The patient is lying in bed and is not in acute distress. CHEST: The heart rate is regular rate rhythm. LUNG: Not labored breathing. ABDOMEN/GI: Bowel sounds present in all 4 quadrants. No tenderness to palpation throughout. NEUROLOGICAL: Higher mental function: The patient is awake, alert, oriented to self but not place or time. Patient is following simple commands. No aphasia or neglect. Cranial nerves: The pupils are round, equal 2-3mm bilaterally and reactive to light and accommodation. Visual truong are full to threat throughout. Extraocular movement is intact no nystagmus is noted. Facial sensation could not assess because of lack of cooperation. The facial strength is normal throughout. Hypophonia. No dysarthria is noted. Shoulder shrug is normal bilaterally. Motor: Gait is defered. The strength is moving all extremities above gravity in upper extremities while lower extremities are 5/5 bilaterally. Normal tone and bulk. Sensation: Intact to normal stimuli. Reflexes (right/left): 2+ throughout except at ankle 1+ bilaterally. Plantars are downgoing bilaterally. Extremities: Pes planus bilaterally - Labs CBC & Chem 7: 07/21/20 05:06 07/22/20 04:17 Labs: Abnormal Lab Results - Last 24 Hours (Table) 07/21/20 07/22/20 07/22/20 Range/Units 20:28 04:17 06:32 Sodium 136 L (137-145) mmol/L Chloride 110 H (98-107) mmol/L Creatinine 0.55 L (0.66-1.25) mg/dL POC Glucose (mg/dL) 143 H 111 H (75-99) mg/dL Phosphorus 1.9 L (2.5-4.5) mg/dL 07/22/20 Range/Units 13:21 Sodium (137-145) mmol/L Chloride (98-107) mmol/L Creatinine (0.66-1.25) mg/dL POC Glucose (mg/dL) 178 H (75-99) mg/dL Phosphorus (2.5-4.5) mg/dL Assessment and Plan Assessment: Toxic-metabolic Encephalopathy: Has anemia, low folic acid and underlying bowel obstructiion. Component of delirium since the he is in the ICU as well as he has a heavy alc ohol as well underlying GI condition. Folate defiency Severe ileus versus small bowel obstruction Anemia with gastritis Alcohol use Plan: Routine EEG (07/19/20): Mild to moderate encephalopathy with unspecified etiology. No epileptiform discharges or seizure detected. Folate was 10.2 on 07/05/2020 and that was 3.8 on 07/13/2020. On folic acid 1mg daily. TSH: 2.47 Ionized calcium: 5.2 The patient might also have a component of delirium since the he is in the ICU as well as he has a heavy alcohol use. We'll defer the management to the primary team Currently the patient is on thiamine 100 mg twice a day. Regarding the patient the small bowel obstructive versus ileus and his any known gastritis we'll defer management to the primary team. We'll continue to follow periodically. There is no neurology service over the weekend. If the neurology team as needed that please contact the via wander up. Gian Millan M.D. Neuro-hospitalist Time with Patient: Greater than 30
[2020-07-22] MEDS ORDERED: HALOPERIDOL LACTATE 5 MG/ML 1 ML VIAL IM PRN (17:34)
[2020-07-22 20:49] LABS: Glucose,Whole Blood 89 mg/dL (75-99)
[2020-07-23] MEDS: METOCLOPRAMIDE 5 MG/ML 2 ML VIAL IVP SCH ×5 (00:27→23:44)
[2020-07-23] MEDS: AMOXIC-POT CLAV 875-125MG 1 EACH TAB PO SCH (01:39)
[2020-07-23] MEDS: DEXTROSE 5%-0.9% NACL 1,000 ML IV SCH (03:48)
[2020-07-23 06:26] LABS: Anisocytosis Slight; Basophils % (A) 0 %; Eosinophils # (A) 0.1 k/uL (0-0.7); Eosinophils % (A) 1 %; HCT 23.1 % (39.0-53.0); HGB 7.4 gm/dL (13.0-17.5); Hypochromasia Slight; Lymphocytes # (A) 0.9 k/uL (1.0-4.8); Lymphocytes % (A) 8 %; MCH 28.1 pg (25.0-35.0); MCHC 31.8 g/dL (31.0-37.0); MCV 88.4 fL (80.0-100.0); Mean Platelet Volume 7.6; Monocytes # (A) 0.6 k/uL (0-1.0); Monocytes % (A) 6 %; Neutrophils % (A) 84 %; Platelet Count 205 k/uL (150-450); RBC 2.62 m/uL (4.30-5.90); RDW 16.6 % (11.5-15.5); WBC 10.7 k/uL (3.8-10.6)
[2020-07-23 06:51] LABS: Ionized Calcium 5.1 mg/dL (4.5-5.3)
[2020-07-23 07:09] LABS: Glucose,Whole Blood 84 mg/dL (75-99)
[2020-07-23 07:13] LABS: African American GFR (CKD) >90 (>60 ml/min/1.73 sqM); Anion Gap 4 mmol/L; Blood Urea Nitrogen 10 mg/dL (9-20); Calcium 8.1 mg/dL (8.4-10.2); Carbon Dioxide 27 mmol/L (22-30); Chloride 108 mmol/L (98-107); Glucose 79 mg/dL (74-99); Magnesium 1.7 mg/dL (1.6-2.3); Non-African American GFR(CKD) >90 (>60 ml/min/1.73 sqM); Phosphorus 3.4 mg/dL (2.5-4.5); Potassium 3.2 mmol/L (3.5-5.1); Sodium 139 mmol/L (137-145); Triglycerides 65 mg/dL (<150)
[2020-07-23] MEDS: INSULIN ASPART (NovoLOG) 100 UNIT/ML VIAL SQ SCH ×4 (07:17→20:29)
[2020-07-23] MEDS: IPRATROPIUM-ALBUTEROL 3 ML NEB INHALATION SCH ×4 (07:26→19:42)
[2020-07-23] MEDS: THIAMINE 100 MG TAB PO SCH ×2 (07:31→17:30)
[2020-07-23] MEDS: DEXAMETHASONE SOD PHOSPHATE 4 MG/ML 1 ML VIAL IV SCH (08:47)
[2020-07-23] MEDS: NICOTINE 21MG/24HR PATCH TRANSDERM SCH (08:47)
[2020-07-23] MEDS: FOLIC ACID 1 MG TAB PO SCH (08:47)
[2020-07-23] MEDS: PANTOPRAZOLE 40 MG/10 ML VIAL IVP SCH ×2 (08:48→20:27)
--- NOTE | 2020-07-23 11:14 | P.PN ---
Subjective Progress Note Date: 07/23/20 Principal diagnosis: Alcoholic liver disease with cirrhosis and toxic metabolic encephalopathy The patient is seen today 07/22/2020 in follow-up in the intensive care unit. He is currently awake and alert. Confused at times. Confused to time and place. Sitter is at the bedside. He is currently maintaining good O2 saturations in the 90s on room air. He remains on TPN and lipids for nutritional support. He is status post 2 units of packed red blood cells this admission. Current hemoglobin 7.2. Sodium 136. Potassium 3.6. Creatinine 0.55. He's been afebrile. The patient is seen today 07/23/2020 in follow-up on the regular medical floor. He is resting comfortably in bed. Awake and alert in no acute distress. Maintaining O2 saturations in the 90s on room air. He's afebrile. Hemodynamically stable. Sitter is at the bedside. White count 10.7. Hemoglobin 7.4. Sodium 139. Potassium 3.2. Creatinine 0.63. Objective - Vital Signs Vital signs: Vital Signs Temp 98.6 F 07/23/20 04:18 Pulse 104 H 07/23/20 07:39 Resp 20 07/23/20 04:18 BP 115/62 07/23/20 04:18 Pulse Ox 98 07/23/20 04:18 Intake & Output 07/22/20 07/23/20 07/23/20 18:59 06:59 18:59 Intake Total 1424 Output Total 525 100 Balance 899 -100 Weight 59.9 kg Intake: IV 884 Dextrose 5%-0.9% NaCl 1, 450 000 ml @ 10 mls/hr IV . Q24H [facility] Rx#:[id number] Fat Emulsion 20% 250 ml 84 In Empty Bag 1 bag @ 21 mls/hr IV MoWeFr [facility] Rx#: [id number] Mvi, Adult No.4 with Vit 350 K 10 ml Trace (Conc-1Ml/ Dose) 1 ml Parenteral Electrolytes 20 ml In Amino Acid 5%-D15w 1,000 ml @ 50 mls/hr IV . [id number] [facility] Rx#:[id number] Intake, IV Titration 300 Amount Magnesium Sulfate-D5w Pmx 100 1 gm In Dextrose/Water 1 100ml.bag @ 100 mls/hr IVPB Q1H [facility] Rx#: [id number] Potassium Chloride 20 meq 100 In Water For Injection 1 100ml.bag @ 50 mls/hr IVPB ONCE ONE Rx#: [id number] Sodium Phosphate 10 mmol 100 In Sodium Chloride 0.9% 100 ml @ 50 mls/hr IVPB Q2H [facility] Rx#:[id number] Oral 240 Output: Urine 525 100 Other: Voiding Method Diaper Urinal Urinal Diaper Diaper Incontinent Incontinent # Voids 1 - Exam GENERAL EXAM: Revealed a male, cachectic 55-year-old -[place] male, on room air, in bed, in no distress. Sitter is at bedside. HEENT: PERRLA, EOMI, no neck masses, no JVD, no icterus. CHEST: No chest wall deformity. Symmetrical expansion. LUNGS: Equal air entry diminished breath sound bilaterally no rhonchi and no wheezes mostly when he clears his upper airways by coughing. CVS: Regular rate and rhythm, normal S1 and S2, no gallops, no murmurs, no rubs, tachycardic, in sinus mechanism ABDOMEN: Soft, nontender. No hepatosplenomegaly, normal bowel sounds, no guarding or rigidity. EXTREMITIES: No clubbing, no edema, no cyanosis, 2+ pulses and upper and lower extremities. MUSCULOSKELETAL: Muscle strength and tone normal. SPINE: No scoliosis or deformity SKIN: No rashes CENTRAL NERVOUS SYSTEM: More communicative, but remains confused - Labs CBC & Chem 7: 07/23/20 05:47 07/23/20 05:47 Labs: Abnormal Lab Results - Last 24 Hours (Table) 07/22/20 07/23/20 07/23/20 Range/Units 13:21 05:47 05:47 WBC 10.7 H (3.8-10.6) k/uL RBC 2.62 L (4.30-5.90) m/uL Hgb 7.4 L (13.0-17.5) gm/dL Hct 23.1 L (39.0-53.0) % RDW 16.6 H (11.5-15.5) % Neutrophils # 9.0 H (1.3-7.7) k/uL Lymphocytes # 0.9 L (1.0-4.8) k/uL Potassium 3.2 L (3.5-5.1) mmol/L Chloride 108 H (98-107) mmol/L Creatinine 0.63 L (0.66-1.25) mg/dL POC Glucose (mg/dL) 178 H (75-99) mg/dL Calcium 8.1 L (8.4-10.2) mg/dL Assessment and Plan Assessment: Chronic alcoholism and recurrent alcohol withdrawal Acute small bowel obstruction versus ileus, resolved. Chronic liver cirrhosis. Acute metabolic toxic encephalopathy. Chronic symptomatic anemia Acute exacerbation of COPD, improved. History of hypertension Klebsiella pneumonia urinary tract infection, remains on antibiotics. Medical debility. Plan: The patient was seen and evaluated by Dr. Silva Discontinue Decadron Plan is for ECF post discharge We will see on an as-needed basis I, the cosigning physician, performed a history & physical examination of the patient. Lungs sounds with crackles in the left base. Maintaining good O2 saturations in the 90s on room air. I discussed the assessment and plan of care with my nurse practitioner, Cassandra Pepe. I attest to the above note as dictated by her.
[2020-07-23 12:06] LABS: Glucose,Whole Blood 133 mg/dL (75-99)
--- NOTE | 2020-07-23 12:13 | P.PN ---
Subjective Progress Note Date: 07/23/20 Principal diagnosis: Ileus Patient complains of increased bloating. T-max 99. White blood cell count 10.7, hemoglobin 7.4. Urine positive for Klebsiella. Patient is on a regular diet but is not eating much. No vomiting. Feels nauseated. Last bowel movement 2 days ago. Objective - Vital Signs Vital signs: Vital Signs Temp 98.6 F 07/23/20 04:18 Pulse 104 H 07/23/20 07:39 Resp 20 07/23/20 04:18 BP 115/62 07/23/20 04:18 Pulse Ox 98 07/23/20 04:18 Intake & Output 07/22/20 07/23/20 07/23/20 18:59 06:59 18:59 Intake Total 1424 Output Total 525 100 Balance 899 -100 Weight 59.9 kg Intake: IV 884 Dextrose 5%-0.9% NaCl 1, 450 000 ml @ 10 mls/hr IV . Q24H [facility] Rx#:[id number] Fat Emulsion 20% 250 ml 84 In Empty Bag 1 bag @ 21 mls/hr IV MoWeFr [facility] Rx#: [id number] Mvi, Adult No.4 with Vit 350 K 10 ml Trace (Conc-1Ml/ Dose) 1 ml Parenteral Electrolytes 20 ml In Amino Acid 5%-D15w 1,000 ml @ 50 mls/hr IV . [id number] [facility] Rx#:[id number] Intake, IV Titration 300 Amount Magnesium Sulfate-D5w Pmx 100 1 gm In Dextrose/Water 1 100ml.bag @ 100 mls/hr IVPB Q1H [facility] Rx#: [id number] Potassium Chloride 20 meq 100 In Water For Injection 1 100ml.bag @ 50 mls/hr IVPB ONCE ONE Rx#: [id number] Sodium Phosphate 10 mmol 100 In Sodium Chloride 0.9% 100 ml @ 50 mls/hr IVPB Q2H [facility] Rx#:[id number] Oral 240 Output: Urine 525 100 Other: Voiding Method Diaper Urinal Urinal Diaper Diaper Incontinent Incontinent # Voids 1 - Exam Abdomen: Distended, positive tympany, minimal tenderness - Labs CBC & Chem 7: 07/23/20 05:47 07/23/20 05:47 Labs: Abnormal Lab Results - Last 24 Hours (Table) 09/03/0707/23/20 07/23/20 Range/Units 13:21 05:47 05:47 WBC 10.7 H (3.8-10.6) k/uL RBC 2.62 L (4.30-5.90) m/uL Hgb 7.4 L (13.0-17.5) gm/dL Hct 23.1 L (39.0-53.0) % RDW 16.6 H (11.5-15.5) % Neutrophils # 9.0 H (1.3-7.7) k/uL Lymphocytes # 0.9 L (1.0-4.8) k/uL Potassium 3.2 L (3.5-5.1) mmol/L Chloride 108 H (98-107) mmol/L Creatinine 0.63 L (0.66-1.25) mg/dL POC Glucose (mg/dL) 178 H (75-99) mg/dL Calcium 8.1 L (8.4-10.2) mg/dL 07/23/20 Range/Units 12:04 WBC (3.8-10.6) k/uL RBC (4.30-5.90) m/uL Hgb (13.0-17.5) gm/dL Hct (39.0-53.0) % RDW (11.5-15.5) % Neutrophils # (1.3-7.7) k/uL Lymphocytes # (1.0-4.8) k/uL Potassium (3.5-5.1) mmol/L Chloride (98-107) mmol/L Creatinine (0.66-1.25) mg/dL POC Glucose (mg/dL) 133 H (75-99) mg/dL Calcium (8.4-10.2) mg/dL Assessment and Plan (1) Ileus Narrative/Plan: Patient's abdomen is more distended today. Will change to nothing by mouth status. Check abdominal x-rays tomorrow. Will place nasogastric tube of vomiting occurs. Current Visit: Yes Status: Acute Code(s): K56.7 - ILEUS, UNSPECIFIED SNOMED Code(s): 030700288
--- NOTE | 2020-07-23 13:20 | P.PN ---
Subjective Progress Note Date: 07/23/20 Fercho Yen, is a 55-year-old male with known history of excessive alcohol use and history of liver cirrhosis who was brought in to [facility] emergency room by his due to mental status changes was confusion patient was also having weight loss, he was drinking alcohol up to 2 days prior to admission then he was not feeling well and he stopped drinking alcohol and stopped eating and drinking for 2-3 days. Patient was evaluated in emergency room, he was febrile temperature 97.7 pulse 60 respiration 16 blood pressure was significantly low at 71/59 pulse ox 94% on room air white blood count was 8.7 hemoglobin 8.3 platelet count 260 sodium was low at 126 potassium was low at 2.5 serum alcohol level was 21. Patient was admitted to intensive care unit he was started on IV fluid and potassium replacement protocol. Chest x-ray was done in the emergency room and did not reveal any active cardiopulmonary disease, computed tomography scan done in the emergency room revealed cerebral atrophy no acute intracranial abnormality, abdomen ultrasound done did not reveal any evidence of sizable ascites, urine analysis and blood culture were done and were ordered in ICU. On 07/06/2020 patient was seen and examined on the medical floor he is more somnolent he responds to stimuli otherwise he denies any complaints blood pressure is improved today urine analysis revealed evidence of urinary tract infection patient was started on IV Rocephin more globin is down to 6.8, On 07/07/2020 patient was seen and examined in the ICU he is alert and oriented 3 in no apparent distress he is answering questions appropriately today, there is no fever or chills no headache or dizziness no chest pain no shortness of breath no cough no nausea or vomiting no abdominal pain. No burning with urination no frequency or urgency and no hematuria, he received 1 unit of red blood cells today. On 07/08/2020, patient was seen and examined on the medical floor, he is somnolent but arousable in no apparent distress, there is no fever or chills no headache or dizziness no chest pain no shortness of breath no cough no nausea or vomiting no abdominal pain no diarrhea no burning with urination no frequency or urgency no hematuria, he had very poor oral intake so far, he was counseled in length he seems to understand, if the oral intake does not improve patient may need a nasogastric tube feeding. On 07/09/2020 patient was seen and examined on the medical floor, he is more alert today, his still has very poor oral intake, he was counseled in length in regard to need to eat more, he is denying any symptoms at this time there is no fever or chills no headache or dizziness no chest pain no shortness of breath no cough no nausea or vomiting no abdominal pain no diarrhea no burning with urination no frequency or urgency no hematuria, will add physical therapy and occupational therapy and assess if patient needs after discharge On 07/10/2020 patient was seen and examined on the medical floor he is alert slightly confused in no apparent distress nurse stated that he has been more agitated and slightly aggressive with staff he still has very poor oral intake otherwise he denies any complaints he has been refusing to keep telemetry box on there is no fever or chills no headache or dizziness no chest pain no shortness of breath no cough no nausea or vomiting no abdominal pain no diarrhea and no urinary symptoms On 07/11/2020 patient was seen and examined on the medical floor he is alert slightly confused in no distress he is complaining of cough he is breathing sounds are coarse otherwise there is no complaints there is no fever or chills no headache or dizziness no chest pain no shortness of breath, no nausea or vomiting no abdominal pain no diarrhea no burning with urination no frequency or urgency and no hematuria. Chest x-ray reveals bilateral infiltrates and small pleural effusion will re-consult pulmonary in that regard. On 07/12/2020 patient was seen and examined on the medical floor he is more alert and oriented today he is having more oral intake he is still complaining of cough there is no fever or chills, no chest pain or shortness of breath no nausea or vomiting no abdominal pain no diarrhea and no urinary symptoms On 07/14/2020 patient was seen and examined on the medical floor, he is alert and oriented 3 in no apparent distress, he was cleared by all consultants yesterday for discharge to a senior care for rehab, discharge was done yest erday however, patient still need authorization from insurance, hence discharge was delayed, clinically patient is stable he is complaining of generalized weakness otherwise he denies any specific complaints there is no fever or chills no headache or dizziness no chest pain no shortness of breath no cough no nausea or vomiting no abdominal pain no diarrhea and no urinary symptoms. On 07/15/2020 patient was seen and examined on the medical floor, he is complaining of abdominal pain today, otherwise he denies any complaints there is no fever or chills no headache or dizziness no chest pain no shortness of breath no cough no nausea or vomiting no diarrhea no blood in the stools no burning with urination no frequency or urgency no hematuria. On 07/16/2020 patient was seen and examined in the ICU he is alert and responsive in no apparent distress, yesterday he was having abdominal pain comp uted tomography scan of the abdomen revealed evidence of small bowel obstruction NG tube was put in patient was having episodes of agitation he was also having hypotension he was transferred to intensive care unit, he is being followed by Dr. Person for pulmonary and critical care, and by surgery, currently he is still in ICU he is maintained on vasopressors. On 07/17/2020 patient was seen and examined in the ICU he is alert and responsive, he pulled his triple-lumen out and his NG tube. His abdomen is severely tense and distended, NG tube was put back in, patient was counseled in length in regards to not touching his tubes and lines. Patient was started on TPN however this is on hold at this time. Patient continues to be in critical condition, pulmonary, and surgery are following. Hemodynamically patient is stable his blood pressure is 138/74 his pulse rate is 110 respiration 18 and pulse ox 92% on 2 L nasal cannula his white blood count is slightly down at 14.8 his hemoglobin is down to 7.0 kidney and liver function are within normal limits albumin is down to 2.3 On 07/18/2020 patient was seen and examined in the ICU, he is alert and responsive NG tube is in , case discussed with patient nurse Brittany, plan per GI is to proceed with EGD, today hemoglobin is down to 6.0, his white blood count is 8.2 platelet 349 kidney and liver function are within normal limits, albumin level is low at 2.0 On 07/19/2020 patient was seen and examined in the ICU, he is alert responsive in no apparent distress, he had episodes of agitation earlier, he is denying any complaints at this time , his temperature is 90.7 pulse 100 respiration 14 blood pressure 124/84 pulse ox 97% on 2 L nasal cannula, his white blood count is 7 hemoglobin 8 platelet count 241 On 07/20/2020 patient was seen and examined in the ICU he is alert and more responsive he is sitting up in a chair he had episodes of agitation earlier this morning, otherwise there is no complaints he was cleared by pulmonary critical care to be transferred out of ICU antibiotics were discontinued, at this time will consult physical therapy and occupational therapy, will assess if patient need to go to a rehab after this admission On 07/21/2020 patient was seen and examined the ICU he is alert, confused, in no apparent distress, he does not seem to be aware of his condition, he is denying any complaints at this time, clinically he is improving gradually, he is having bowel movements, and is tolerating liquid diet well, he will be transferred to senior care for rehabilitation in the next few days. On 07/22/2020 patient was seen and examined in the ICU he is alert and oriented in no distress patient is improving gradually his mentation is significantly better than yesterday, he is denying any complaints at this time , at this time will discontinue Painter catheter discontinue TPN and increase oral intake, will reassess tomorrow to see if patient is ready to be transferred to a senior care for rehabilitation. On 07/23/2020 patient was seen and examined on the medical floor, his is available in the room, there is no fever or chills no headache or dizziness no chest pain no shortness of breath no cough no nausea or vomiting , he feels his abdomen is more distended today and is starting to have more abdominal pain, he states that his last bowel movement was 2 days ago no burning was urination no frequency or urgency and no hematuria. Objective - Vital Signs Vital signs: Vital Signs Temp 98.6 F 07/23/20 04:18 Pulse 104 H 07/23/20 07:39 Resp 20 07/23/20 04:18 BP 115/62 07/23/20 04:18 Pulse Ox 98 07/23/20 04:18 Intake & Output 07/22/20 07/23/20 07/23/20 18:59 06:59 18:59 Intake Total 1424 Output Total 525 100 Balance 899 -100 Weight 59.9 kg Intake: IV 884 Dextrose 5%-0.9% NaCl 1, 450 000 ml @ 10 mls/hr IV . Q24H [facility] Rx#:[id number] Fat Emulsion 20% 250 ml 84 In Empty Bag 1 bag @ 21 mls/hr IV MoWeFr [facility] Rx#: [id number] Mvi, Adult No.4 with Vit 350 K 10 ml Trace (Conc-1Ml/ Dose) 1 ml Parenteral Electrolytes 20 ml In Amino Acid 5%-D15w 1,000 ml @ 50 mls/hr IV . [id number] [facility] Rx#:[id number] Intake, IV Titration 300 Amount Magnesium Sulfate-D5w Pmx 100 1 gm In Dextrose/Water 1 100ml.bag @ 100 mls/hr IVPB Q1H [facility] Rx#: [id number] Potassium Chloride 20 meq 100 In Water For Injection 1 100ml.bag @ 50 mls/hr IVPB ONCE ONE Rx#: [id number] Sodium Phosphate 10 mmol 100 In Sodium Chloride 0.9% 100 ml @ 50 mls/hr IVPB Q2H [facility] Rx#:[id number] Oral 240 Output: Urine 525 100 Other: Voiding Method Diaper Urinal Urinal Diaper Diaper Incontinent Incontinent # Voids 1 - Exam In general patient is alert slightly confused in no apparent distress HEENT head normocephalic and atraumatic Neck is supple no JVD no goiter no lymphadenopathy Chest exam reveals a few scattered crackles no wheezing Cardiac exam reveals regular heart sounds S1 and S2 no gallops no murmurs Abdomen is better today less tense and less tender no organomegaly with normal bowel sounds Extremity exam reveals no edema no cyanosis or clubbing Neurological examination reveals no gross focal deficit other than mild confusion - Labs CBC & Chem 7: 07/23/20 05:47 07/23/20 05:47 Labs: Abnormal Lab Results - Last 24 Hours (Table) 07/22/20 07/23/20 07/23/20 Range/Units 13:21 05:47 05:47 WBC 10.7 H (3.8-10.6) k/uL RBC 2.62 L (4.30-5.90) m/uL Hgb 7.4 L (13.0-17.5) gm/dL Hct 23.1 L (39.0-53.0) % RDW 16.6 H (11.5-15.5) % Neutrophils # 9.0 H (1.3-7.7) k/uL Lymphocytes # 0.9 L (1.0-4.8) k/uL Potassium 3.2 L (3.5-5.1) mmol/L Chloride 108 H (98-107) mmol/L Creatinine 0.63 L (0.66-1.25) mg/dL POC Glucose (mg/dL) 178 H (75-99) mg/dL Calcium 8.1 L (8.4-10.2) mg/dL Assessment and Plan Plan: 1. Mental status changes, likely related to chronic alcohol use and early alcohol withdrawal, on CIWA protocol 2. Hypotension patient was started on IV fluid, blood pressure stable, will check urine analysis and blood culture to rule out any infectious etiology, critical care consult requested 3. Underlying history of liver cirrhosis, gastroenterology consult requested 4. Anemia hemoglobin is down to 6.0 GI plan to proceed with EGD today 5. Hypokalemia corrected, potassium 3.8 today 6. Poor oral intake, patient received TPN, currently plan is to proceed was clear liquid diet after EGD 7. By basilar infiltrate with small pleural effusion, possible pneumonia antibiotic were switched to Zosyn, will reconsult pulmonary 8. New abdominal pain started yesterday, there is evidence of small bowel obstr uction on testing, awaiting surgery opinion, NG tube is in 9. Sepsis with hypotension, patient restarted on IV Zosyn, will Consult infectious disease For DVT prophylaxis SCD stockings For GI prophylaxis patient on Protonix Prognosis is guarded will follow closely
[2020-07-23 16:27] LABS: Glucose,Whole Blood 105 mg/dL (75-99)
[2020-07-23] MEDS: POTASSIUM CHLORIDE 20 MEQ in WATER FOR INJECTION 1 100ML.BAG IVPB SCH ×2 (20:26→23:43)
--- NOTE | 2020-07-24 01:26 | P.CONS ---
History of Present Illness - Reason for Consult Consult date: 07/23/20 UTI and small bowel obstruction Requesting physician: Lawanda Krishna - Chief Complaint Abdominal pain x few days - History of Present Illness Patient is a 55-year-old -[place] man presenting to the hospital about 3 weeks ago on 07/04/2020 for evaluation of confusion and cough weakness in this patient did have history of heavy drinking, patient subsequently has been admitted to the ICU and the patient has been assisted with the fluid resuscitation and electrolyte replacement And the patient has been evaluated by multiple consultants including pulmonary neurology and surgical services patient was also noticed to have a positive UA subsequent culture were Klebsiella that has been treated with Rocephin and the patient only completed his antibiotic therapy, patient is currently afebrile and white count is normal, patient main symptom remains to be abdominal distention and pain and constipation with last, about 2 days ago patient complaining of some nausea but no vomiting or takes them is to be poor, and this disease was consulted today with concern for UTI and small bowel ileus and need for further antibiotic therapy Review of Systems Positive point has been mentioned in the HPI rest of the systems are negative Past Medical History Past Medical History: Cancer, COPD, CVA/TIA, GERD/Reflux, GI Bleed, Hypertension, Osteoarthritis (OA), Sleep Apnea/CPAP/BIPAP Additional Past Medical History / Comment(s): TIA 2017. Not currently taking BP medication but has in past. "Stomach cancer 3 yrs, had 3 months of radiation." Does not use CPAP machine. History of Any Multi-Drug Resistant Organisms: None Reported Past Surgical History: Joint Replacement Additional Past Surgical History / Comment(s): Left hip replacement. EGD 11/2018. Past Anesthesia/Blood Transfusion Reactions: No Reported Reaction Past Psychological History: Anxiety, Depression Smoking Status: Current every day smoker Past Alcohol Use History: Abuse, Daily, Heavy Additional Past Alcohol Use History / Comment(s): DRINKS 5-10. beers daily. Past Drug Use History: Marijuana Additional Drug Use History / Comment(s): USUALLY USES MARIJUANA ONCE A DAY. - Past Family History Mother Family Medical History: Cancer Additional Family Medical History / Comment(s): Breast cancer. Medications and Allergies Home Medications Medication Instructions Recorded Confirmed Type Omeprazole [PriLOSEC] 20 mg PO AC-BID PRN 03/12/19 07/04/20 History Albuterol Sulfate [Ventolin HFA] 2 puff INHALATION RT-QID PRN 07/04/20 07/04/20 History HYDROcodone/APAP 10-325MG [[place] 1 tab PO Q6H PRN 07/04/20 07/04/20 History 10-325] ALPRAZolam [Xanax] 0.25 mg PO TID tab 07/13/20 Rx Amoxic-Pot Clav 875-125Mg 1 each PO Q12HR tab 07/13/20 Rx [Augmentin 875-125] Ipratropium-Albuterol Nebulize 3 ml INHALATION RT-Q2H PRN ml 07/13/20 Rx [Duoneb 0.5 mg-3 mg/3 ml Soln] Ipratropium-Albuterol Nebulize 3 ml INHALATION RT-QID ml 07/13/20 Rx [Duoneb 0.5 mg-3 mg/3 ml Soln] Nicotine 21Mg/24Hr Patch [Habitrol] 1 patch TRANSDERM DAILY patch 07/13/20 Rx Thiamine [Vitamin B-1] 100 mg PO BID-W/MEALS tab 07/13/20 Rx Allergies Allergy/AdvReac Type Severity Reaction Status Date / Time aspirin AdvReac Nausea & Verified 07/04/20 18:40 Vomiting ibuprofen [From Motrin] AdvReac Nausea & Verified 07/04/20 18:40 Vomiting Physical Exam Vitals: Vital Signs Temp Pulse Pulse Resp BP Pulse Ox 07/23/20 20:33 98.4 F 101 H 18 110/70 100 07/23/20 14:20 118 H 18 100/66 100 07/23/20 07:39 104 H 07/23/20 07:30 110 H 07/23/20 04:18 98.6 F 98 20 115/62 98 Intake and Output 07/23/20 07/23/20 07/24/20 14:59 22:59 06:59 Output Total 100 Balance -100 Output: Urine 100 Other: Voiding Method Urinal Urinal Diaper Diaper Incontinent Incontinent # Voids 1 GENERAL DESCRIPTION: Middle-aged male lying in bed, no distress. No tachypnea or accessory muscle of respiration use. HEENT: Shows Pallor , no scleral icterus. Oral mucous membrane is dry. No pharyngeal erythema or thrush NECK: Trachea central, no thyromegaly. LUNGS: Unlabored breathing. Clear to auscultation anteriorly. No wheeze or crackle. HEART: S1, S2, regular rate and rhythm. No loud murmur ABDOMEN: Soft, mild distention and tenderness , no guarding or rigidity, no organomegaly EXTREMITIES: No edema of feet. SKIN: No rash, no masses palpable. NEUROLOGICAL: The patient is awake, alert, oriented x3, mood and affect normal. Results CBC & Chem 7: 07/23/20 05:47 07/23/20 05:47 Labs: Abnormal Lab Results - Last 24 Hours (Table) 07/23/20 07/23/20 07/23/20 Range/Units 05:47 05:47 12:04 WBC 10.7 H (3.8-10.6) k/uL RBC 2.62 L (4.30-5.90) m/uL Hgb 7.4 L (13.0-17.5) gm/dL Hct 23.1 L (39.0-53.0) % RDW 16.6 H (11.5-15.5) % Neutrophils # 9.0 H (1.3-7.7) k/uL Lymphocytes # 0.9 L (1.0-4.8) k/uL Potassium 3.2 L (3.5-5.1) mmol/L Chloride 108 H (98-107) mmol/L Creatinine 0.63 L (0.66-1.25) mg/dL POC Glucose (mg/dL) 133 H (75-99) mg/dL Calcium 8.1 L (8.4-10.2) mg/dL 07/23/20 Range/Units 16:26 WBC (3.8-10.6) k/uL RBC (4.30-5.90) m/uL Hgb (13.0-17.5) gm/dL Hct (39.0-53.0) % RDW (11.5-15.5) % Neutrophils # (1.3-7.7) k/uL Lymphocytes # (1.0-4.8) k/uL Potassium (3.5-5.1) mmol/L Chloride (98-107) mmol/L Creatinine (0.66-1.25) mg/dL POC Glucose (mg/dL) 105 H (75-99) mg/dL Calcium (8.4-10.2) mg/dL Assessment and Plan Assessment: 1-patient with abdominal pain and mild distention in this patient who did have a significant history of some drinking the question of possible cirrhosis and ileus and questionable possible bowel obstruction however the patient currently is afebrile and white count is normal and does not look toxic we will hold on any systemic antibiotic therapy 2-patient with Klebsiella urinary tract infection for the patient received more than 7 day course of IV Rocephin (1) Ileus Current Visit: Yes Status: Acute Code(s): K56.7 - ILEUS, UNSPECIFIED SNOMED Code(s): 601099456 (2) UTI (urinary tract infection) Current Visit: No Status: Acute Code(s): N39.0 - URINARY TRACT INFECTION, SITE NOT SPECIFIED SNOMED Code(s): 18186455 Plan: 1- we will check blood cultures and inflammatory markers 2-patient may benefit from CT of abdominal pelvis for better definition of the underlying pathology this will be discussed with surgery 3-we'll hold on any systemic antibiotic therapy at this point 4-if the patient's spike any fever or any worsening white count we will obtain appropriate culture and start the patient on appropriate antibiotic at that point We will follow on clinical condition and cultures to further adjust medication if needed Thank you for this consultation will follow this patient with you Time with Patient: Greater than 30
[2020-07-24] MEDS: DEXTROSE 5%-0.9% NACL 1,000 ML IV SCH (01:46)
[2020-07-24] MEDS: METOCLOPRAMIDE 5 MG/ML 2 ML VIAL IVP SCH (05:32)
[2020-07-24 05:42] LABS: Glucose,Whole Blood 87 mg/dL (75-99)
[2020-07-24] MEDS: INSULIN ASPART (NovoLOG) 100 UNIT/ML VIAL SQ SCH ×3 (05:47→17:37)
[2020-07-24 06:54] LABS: Anisocytosis Slight; Basophils % (A) 0 %; Eosinophils # (A) 0.2 k/uL (0-0.7); Eosinophils % (A) 2 %; HCT 23.3 % (39.0-53.0); HGB 7.3 gm/dL (13.0-17.5); Hypochromasia Slight; Lymphocytes % (A) 10 %; MCH 27.7 pg (25.0-35.0); MCHC 31.2 g/dL (31.0-37.0); MCV 88.8 fL (80.0-100.0); Mean Platelet Volume 7.8; Monocytes # (A) 0.5 k/uL (0-1.0); Monocytes % (A) 5 %; Neutrophils # (A) 8.6 k/uL (1.3-7.7); Neutrophils % (A) 82 %; Platelet Count 283 k/uL (150-450); RBC 2.62 m/uL (4.30-5.90); RDW 16.6 % (11.5-15.5); WBC 10.5 k/uL (3.8-10.6)
[2020-07-24 07:08] LABS: African American GFR (CKD) >90 (>60 ml/min/1.73 sqM); Anion Gap 4 mmol/L; Blood Urea Nitrogen 8 mg/dL (9-20); Calcium 8.3 mg/dL (8.4-10.2); Carbon Dioxide 26 mmol/L (22-30); Chloride 109 mmol/L (98-107); Glucose 79 mg/dL (74-99); Magnesium 1.6 mg/dL (1.6-2.3); Non-African American GFR(CKD) >90 (>60 ml/min/1.73 sqM); Phosphorus 3.8 mg/dL (2.5-4.5); Potassium 3.6 mmol/L (3.5-5.1); Sodium 139 mmol/L (137-145)
[2020-07-24] MEDS: IPRATROPIUM-ALBUTEROL 3 ML NEB INHALATION SCH ×5 (07:23→20:48)
[2020-07-24 07:34] LABS: C Reactive Protein 56.3 mg/L (<10.0)
--- NOTE | 2020-07-24 08:01 | XR ---
EXAMINATION TYPE: XR abdomen 2V DATE OF EXAM: 07/24/2020 6:17 AM CLINICAL HISTORY: Ileus TECHNIQUE: Supine and upright images of the abdomen and pelvis were obtained COMPARISON: KUB 07/17/2020. FINDINGS: Upright film demonstrates no evidence of pneumoperitoneum. Left sided venous catheter dista l tip over the distal SVC. Lung bases are clear. There is retained oral contrast within the descendin g colon and rectum, redemonstrated from 07/17/2020. There are diffusely mildly dilated large and small bowel loops, mildly decreased from 07/17/2020. Degenerative changes of the spine. Incompletely visual ized left hip prosthesis. IMPRESSION: Retained colonic oral contrast and diffusely dilated large and small bowel loops most likely represen ts ileus. There is mildly decreased gaseous distention versus 07/17/2020.
[2020-07-24] MEDS: PANTOPRAZOLE 40 MG/10 ML VIAL IVP SCH ×2 (08:56→21:40)
[2020-07-24] MEDS ORDERED: SODIUM FERRIC GLUCONAT-SUCROSE 125 MG in SODIUM CHLORIDE 0.9% 100 ML IVPB ONE (10:00)
--- NOTE | 2020-07-24 10:48 | P.PN ---
Subjective Progress Note Date: 07/24/20 Principal diagnosis: Ileus Patient quite hungry. Seems slightly confused today. Still bloated. No bowel movement. White blood cell count remains normal. X-ray still show bowel dilation although improved from 07/17. Objective - Vital Signs Vital signs: Vital Signs Temp 98.3 F 07/24/20 05:16 Pulse 100 07/24/20 07:30 Resp 18 07/24/20 05:16 BP 113/75 07/24/20 05:16 Pulse Ox 99 07/24/20 05:16 Intake & Output 07/23/20 07/24/20 07/24/20 18:59 06:59 18:59 Intake Total 200 Output Total 100 100 Balance 100 -100 Intake: Intake, IV Titration 200 Amount Potassium Chloride 20 meq 200 In Water For Injection 1 100ml.bag @ 50 mls/hr IVPB Q2H [facility] Rx#: [id number] Output: Urine 100 100 Other: Voiding Method Urinal Urinal Diaper Diaper Incontinent Incontinent # Voids 1 1 - Exam Abdomen: Soft, distended, tympanic, nontender - Labs CBC & Chem 7: 07/24/20 06:31 07/24/20 06:31 Labs: Abnormal Lab Results - Last 24 Hours (Table) 07/23/20 07/23/20 07/24/20 Range/Units 12:04 16:26 06:31 RBC (4.30-5.90) m/uL Hgb (13.0-17.5) gm/dL Hct (39.0-53.0) % RDW (11.5-15.5) % Neutrophils # (1.3-7.7) k/uL Chloride 109 H (98-107) mmol/L BUN 8 L (9-20) mg/dL Creatinine 0.64 L (0.66-1.25) mg/dL POC Glucose (mg/dL) 133 H 105 H (75-99) mg/dL Calcium 8.3 L (8.4-10.2) mg/dL C-Reactive Protein 56.3 H (<10.0) mg/L 07/24/20 Range/Units 06:31 RBC 2.62 L (4.30-5.90) m/uL Hgb 7.3 L (13.0-17.5) gm/dL Hct 23.3 L (39.0-53.0) % RDW 16.6 H (11.5-15.5) % Neutrophils # 8.6 H (1.3-7.7) k/uL Chloride (98-107) mmol/L BUN (9-20) mg/dL Creatinine (0.66-1.25) mg/dL POC Glucose (mg/dL) (75-99) mg/dL Calcium (8.4-10.2) mg/dL C-Reactive Protein (<10.0) mg/L Assessment and Plan (1) Ileus Narrative/Plan: Will advance diet back to liquids. Dulcolax suppository daily. Ambulate. Continue antibiotics for UTI. Current Visit: Yes Status: Acute Code(s): K56.7 - ILEUS, UNSPECIFIED SNOMED Code(s): 359899147
--- NOTE | 2020-07-24 10:58 | P.PN ---
Subjective Progress Note Date: 07/24/20 Fercho Yen, is a 55-year-old male with known history of excessive alcohol use and history of liver cirrhosis who was brought in to [facility] emergency room by his due to mental status changes was confusion patient was also having weight loss, he was drinking alcohol up to 2 days prior to admission then he was not feeling well and he stopped drinking alcohol and stopped eating and drinking for 2-3 days. Patient was evaluated in emergency room, he was febrile temperature 97.7 pulse 60 respiration 16 blood pressure was significantly low at 71/59 pulse ox 94% on room air white blood count was 8.7 hemoglobin 8.3 platelet count 260 sodium was low at 126 potassium was low at 2.5 serum alcohol level was 21. Patient was admitted to intensive care unit he was started on IV fluid and potassium replacement protocol. Chest x-ray was done in the emergency room and did not reveal any active cardiopulmonary disease, computed tomography scan done in the emergency room revealed cerebral atrophy no acute intracranial abnormality, abdomen ultrasound done did not reveal any evidence of sizable ascites, urine analysis and blood culture were done and were ordered in ICU. On 07/06/2020 patient was seen and examined on the medical floor he is more somnolent he responds to stimuli otherwise he denies any complaints blood pressure is improved today urine analysis revealed evidence of urinary tract infection patient was started on IV Rocephin more globin is down to 6.8, On 07/07/2020 patient was seen and examined in the ICU he is alert and oriented 3 in no apparent distress he is answering questions appropriately today, there is no fever or chills no headache or dizziness no chest pain no shortness of breath no cough no nausea or vomiting no abdominal pain. No burning with urination no frequency or urgency and no hematuria, he received 1 unit of red blood cells today. On 07/08/2020, patient was seen and examined on the medical floor, he is somnolent but arousable in no apparent distress, there is no fever or chills no headache or dizziness no chest pain no shortness of breath no cough no nausea or vomiting no abdominal pain no diarrhea no burning with urination no frequency or urgency no hematuria, he had very poor oral intake so far, he was counseled in length he seems to understand, if the oral intake does not improve patient may need a nasogastric tube feeding. On 07/09/2020 patient was seen and examined on the medical floor, he is more alert today, his still has very poor oral intake, he was counseled in length in regard to need to eat more, he is denying any symptoms at this time there is no fever or chills no headache or dizziness no chest pain no shortness of breath no cough no nausea or vomiting no abdominal pain no diarrhea no burning with urination no frequency or urgency no hematuria, will add physical therapy and occupational therapy and assess if patient needs after discharge On 07/10/2020 patient was seen and examined on the medical floor he is alert slightly confused in no apparent distress nurse stated that he has been more agitated and slightly aggressive with staff he still has very poor oral intake otherwise he denies any complaints he has been refusing to keep telemetry box on there is no fever or chills no headache or dizziness no chest pain no shortness of breath no cough no nausea or vomiting no abdominal pain no diarrhea and no urinary symptoms On 07/11/2020 patient was seen and examined on the medical floor he is alert slightly confused in no distress he is complaining of cough he is breathing sounds are coarse otherwise there is no complaints there is no fever or chills no headache or dizziness no chest pain no shortness of breath, no nausea or vomiting no abdominal pain no diarrhea no burning with urination no frequency or urgency and no hematuria. Chest x-ray reveals bilateral infiltrates and small pleural effusion will re-consult pulmonary in that regard. On 07/12/2020 patient was seen and examined on the medical floor he is more alert and oriented today he is having more oral intake he is still complaining of cough there is no fever or chills, no chest pain or shortness of breath no nausea or vomiting no abdominal pain no diarrhea and no urinary symptoms On 07/14/2020 patient was seen and examined on the medical floor, he is alert and oriented 3 in no apparent distress, he was cleared by all consultants yesterday for discharge to a [facility] for rehab, discharge was done yest erday however, patient still need authorization from insurance, hence discharge was delayed, clinically patient is stable he is complaining of generalized weakness otherwise he denies any specific complaints there is no fever or chills no headache or dizziness no chest pain no shortness of breath no cough no nausea or vomiting no abdominal pain no diarrhea and no urinary symptoms. On 07/15/2020 patient was seen and examined on the medical floor, he is complaining of abdominal pain today, otherwise he denies any complaints there is no fever or chills no headache or dizziness no chest pain no shortness of breath no cough no nausea or vomiting no diarrhea no blood in the stools no burning with urination no frequency or urgency no hematuria. On 07/16/2020 patient was seen and examined in the ICU he is alert and responsive in no apparent distress, yesterday he was having abdominal pain comp uted tomography scan of the abdomen revealed evidence of small bowel obstruction NG tube was put in patient was having episodes of agitation he was also having hypotension he was transferred to intensive care unit, he is being followed by Dr. Person for pulmonary and critical care, and by surgery, currently he is still in ICU he is maintained on vasopressors. On 07/17/2020 patient was seen and examined in the ICU he is alert and responsive, he pulled his triple-lumen out and his NG tube. His abdomen is severely tense and distended, NG tube was put back in, patient was counseled in length in regards to not touching his tubes and lines. Patient was started on TPN however this is on hold at this time. Patient continues to be in critical condition, pulmonary, and surgery are following. Hemodynamically patient is stable his blood pressure is 138/74 his pulse rate is 110 respiration 18 and pulse ox 92% on 2 L nasal cannula his white blood count is slightly down at 14.8 his hemoglobin is down to 7.0 kidney and liver function are within normal limits albumin is down to 2.3 On 07/18/2020 patient was seen and examined in the ICU, he is alert and responsive NG tube is in , case discussed with patient nurse Brittany, plan per GI is to proceed with EGD, today hemoglobin is down to 6.0, his white blood count is 8.2 platelet 349 kidney and liver function are within normal limits, albumin level is low at 2.0 On 07/19/2020 patient was seen and examined in the ICU, he is alert responsive in no apparent distress, he had episodes of agitation earlier, he is denying any complaints at this time , his temperature is 90.7 pulse 100 respiration 14 blood pressure 124/84 pulse ox 97% on 2 L nasal cannula, his white blood count is 7 hemoglobin 8 platelet count 241 On 07/20/2020 patient was seen and examined in the ICU he is alert and more responsive he is sitting up in a chair he had episodes of agitation earlier this morning, otherwise there is no complaints he was cleared by pulmonary critical care to be transferred out of ICU antibiotics were discontinued, at this time will consult physical therapy and occupational therapy, will assess if patient need to go to a rehab after this admission On 07/21/2020 patient was seen and examined the ICU he is alert, confused, in no apparent distress, he does not seem to be aware of his condition, he is denying any complaints at this time, clinically he is improving gradually, he is having bowel movements, and is tolerating liquid diet well, he will be transferred to [facility] for rehabilitation in the next few days. On 07/22/2020 patient was seen and examined in the ICU he is alert and oriented in no distress patient is improving gradually his mentation is significantly better than yesterday, he is denying any complaints at this time , at this time will discontinue Painter catheter discontinue TPN and increase oral intake, will reassess tomorrow to see if patient is ready to be transferred to a fci for rehabilitation. On 07/23/2020 patient was seen and examined on the medical floor, his is available in the room, there is no fever or chills no headache or dizziness no chest pain no shortness of breath no cough no nausea or vomiting , he feels his abdomen is more distended today and is starting to have more abdominal pain, he states that his last bowel movement was 2 days ago no burning was urination no frequency or urgency and no hematuria. On 07/24/2020 patient was seen and examined on the medical floor, he is alert responsive in no apparent distress, he is complaining of generalized weakness and abdominal discomfort otherwise he denies any complaints, he has not had a bowel movement for 3 days, surgery are following, he is maintained on clear liquid diet, he has anemia with hemoglobin down to 7.2, IV iron was ordered however unfortunately patient pulled his PICC line out. Objective - Vital Signs Vital signs: Vital Signs Temp 98.3 F 07/24/20 05:16 Pulse 100 07/24/20 07:30 Resp 18 07/24/20 05:16 BP 113/75 07/24/20 05:16 Pulse Ox 99 07/24/20 05:16 Intake & Output 09/04/0607/24/20 07/24/20 18:59 06:59 18:59 Intake Total 200 Output Total 100 100 Balance 100 -100 Intake: Intake, IV Titration 200 Amount Potassium Chloride 20 meq 200 In Water For Injection 1 100ml.bag @ 50 mls/hr IVPB Q2H [facility] Rx#: [id number] Output: Urine 100 100 Other: Voiding Method Urinal Urinal Diaper Diaper Incontinent Incontinent # Voids 1 1 - Exam In general patient is alert slightly confused in no apparent distress HEENT head normocephalic and atraumatic Neck is supple no JVD no goiter no lymphadenopathy Chest exam reveals a few scattered crackles no wheezing Cardiac exam reveals regular heart sounds S1 and S2 no gallops no murmurs Abdomen is better today less tense and less tender no organomegaly with normal bowel sounds Extremity exam reveals no edema no cyanosis or clubbing Neurological examination reveals no gross focal deficit other than mild confusion - Labs CBC & Chem 7: 07/24/20 06:31 07/24/20 06:31 Labs: Abnormal Lab Results - Last 24 Hours (Table) 07/23/20 07/23/20 07/24/20 Range/Units 12:04 16:26 06:31 RBC (4.30-5.90) m/uL Hgb (13.0-17.5) gm/dL Hct (39.0-53.0) % RDW (11.5-15.5) % Neutrophils # (1.3-7.7) k/uL Chloride 109 H (98-107) mmol/L BUN 8 L (9-20) mg/dL Creatinine 0.64 L (0.66-1.25) mg/dL POC Glucose (mg/dL) 133 H 105 H (75-99) mg/dL Calcium 8.3 L (8.4-10.2) mg/dL C-Reactive Protein 56.3 H (<10.0) mg/L 07/24/20 Range/Units 06:31 RBC 2.62 L (4.30-5.90) m/uL Hgb 7.3 L (13.0-17.5) gm/dL Hct 23.3 L (39.0-53.0) % RDW 16.6 H (11.5-15.5) % Neutrophils # 8.6 H (1.3-7.7) k/uL Chloride (98-107) mmol/L BUN (9-20) mg/dL Creatinine (0.66-1.25) mg/dL POC Glucose (mg/dL) (75-99) mg/dL Calcium (8.4-10.2) mg/dL C-Reactive Protein (<10.0) mg/L Assessment and Plan Plan: 1. Mental status changes, likely related to chronic alcohol use and early alcohol withdrawal, on [facility] protocol 2. Hypotension patient was started on IV fluid, blood pressure stable, will check urine analysis and blood culture to rule out any infectious etiology, critical care consult requested 3. Underlying history of liver cirrhosis, gastroenterology consult requested 4. Anemia hemoglobin is down to 6.0 GI plan to proceed with EGD today 5. Hypokalemia corrected, potassium 3.8 today 6. Poor oral intake, patient received TPN, currently plan is to proceed was clear liquid diet after EGD 7. By basilar infiltrate with small pleural effusion, possible pneumonia antibiotic were switched to Zosyn, will reconsult pulmonary 8. New abdominal pain started yesterday, there is evidence of small bowel obstruction on testing, awaiting surgery opinion, NG tube is in 9. Sepsis with hypotension, patient restarted on IV Zosyn, will Consult infectious disease For DVT prophylaxis SCD stockings For GI prophylaxis patient on Protonix Prognosis is guarded will follow closely
[2020-07-24 11:19] LABS: Glucose,Whole Blood 82 mg/dL (75-99)
[2020-07-24] MEDS: THIAMINE 100 MG TAB PO SCH ×2 (11:29→17:40)
[2020-07-24] MEDS: bisacodyL 10 MG SUPP RECTAL SCH (11:29)
[2020-07-24] MEDS: FOLIC ACID 1 MG TAB PO SCH (11:29)
[2020-07-24] MEDS: NICOTINE 21MG/24HR PATCH TRANSDERM SCH (11:57)
[2020-07-24] MEDS: METOCLOPRAMIDE 10 MG TAB PO SCH ×2 (13:25→17:40)
[2020-07-24 17:11] LABS: Glucose,Whole Blood 88 mg/dL (75-99)
--- NOTE | 2020-07-24 22:04 | PN ---
PROGRESS NOTE DATE OF SERVICE: 07/24/2020 REASON FOR FOLLOWUP: UTI and ileus. INTERVAL HISTORY: Patient is currently afebrile, has been breathing comfortably. The patient did mention he did have a bowel movement. Denies having any nausea, vomiting. No chest pain, shortness of breath or cough or any urinary symptoms. PHYSICAL EXAMINATION: Blood pressure 120/77 with a pulse of 81, temperature 98.5. He is 96% on room air. General description is a middle-aged male lying in bed in no distress. Respiratory system: Unlabored breathing, decreased breath sounds at the base. No wheeze. Heart S1, S2. Regular rate and rhythm. Abdomen soft, no tenderness. No guarding, no rigidity. LABS: Hemoglobin 7.1, white count 10.5, BUN of 8, creatinine 0.64. DIAGNOSTIC IMPRESSION AND PLAN: 1. Patient with Klebsiella urinary tract infection that has been adequately treated. 2. Patient now with evidence of ileus, seemed to have shown some clinical improvement. X-rays show improvement as well. Is being managed medically with no fever or elevated white count. We will hold on any systemic antibiotic. Continue supportive care. MMODL / IJN: [id number] /
[2020-07-25 00:04] LABS: Glucose,Whole Blood 106 mg/dL (75-99)
[2020-07-25] MEDS: INSULIN ASPART (NovoLOG) 100 UNIT/ML VIAL SQ SCH ×5 (00:08→20:49)
[2020-07-25] MEDS: DEXTROSE 5%-0.9% NACL 1,000 ML IV SCH (01:58)
[2020-07-25] MEDS: METOCLOPRAMIDE 10 MG TAB PO SCH ×3 (07:34→18:12)
[2020-07-25] MEDS: IPRATROPIUM-ALBUTEROL 3 ML NEB INHALATION SCH ×4 (07:34→20:07)
[2020-07-25] MEDS: THIAMINE 100 MG TAB PO SCH ×2 (07:34→18:12)
[2020-07-25 07:35] LABS: Glucose,Whole Blood 90 mg/dL (75-99)
[2020-07-25 08:57] LABS: African American GFR (CKD) >90 (>60 ml/min/1.73 sqM); Anion Gap 7 mmol/L; Blood Urea Nitrogen 4 mg/dL (9-20); Calcium 8.5 mg/dL (8.4-10.2); Carbon Dioxide 24 mmol/L (22-30); Chloride 108 mmol/L (98-107); Glucose 73 mg/dL (74-99); Magnesium 1.6 mg/dL (1.6-2.3); Non-African American GFR(CKD) >90 (>60 ml/min/1.73 sqM); Phosphorus 3.9 mg/dL (2.5-4.5); Potassium 3.9 mmol/L (3.5-5.1); Sodium 139 mmol/L (137-145)
[2020-07-25] MEDS: PANTOPRAZOLE 40 MG/10 ML VIAL IVP SCH (09:03)
[2020-07-25] MEDS: bisacodyL 10 MG SUPP RECTAL SCH (09:24)
[2020-07-25] MEDS: NICOTINE 21MG/24HR PATCH TRANSDERM SCH (09:24)
[2020-07-25] MEDS: FOLIC ACID 1 MG TAB PO SCH (09:24)
--- NOTE | 2020-07-25 11:55 | P.PN ---
Subjective Progress Note Date: 07/25/20 Principal diagnosis: Ileus Patient doing better today. He did have a bowel movement. Says he feels less bloated. Denies nausea or vomiting. Tolerating clears. Objective - Vital Signs Vital signs: Vital Signs Temp 98.3 F 07/25/20 05:50 Pulse 113 H 07/25/20 05:50 Resp 18 07/25/20 05:50 BP 116/74 07/25/20 05:50 Pulse Ox 100 07/25/20 05:50 Intake & Output 07/24/20 07/25/20 07/25/20 18:59 06:59 18:59 Intake Total 30 Output Total 100 100 Balance -100 30 -100 Intake: Oral 30 Output: Urine 100 100 Other: Voiding Method Urinal Urinal Diaper Diaper Incontinent Incontinent # Voids 1 1 # Bowel Movements 1 1 - Exam Abdomen: Soft, less distended, mild tympany, nontender - Labs CBC & Chem 7: 07/24/20 06:31 07/25/20 07:58 Labs: Abnormal Lab Results - Last 24 Hours (Table) 07/25/20 07/25/20 Range/Units 00:02 07:58 Chloride 108 H (98-107) mmol/L BUN 4 L (9-20) mg/dL Creatinine 0.61 L (0.66-1.25) mg/dL Glucose 73 L (74-99) mg/dL POC Glucose (mg/dL) 106 H (75-99) mg/dL Microbiology - Last 24 Hours (Table) 07/24/20 06:31 Blood Culture - Preliminary Blood No Growth after 24 hours Assessment and Plan (1) Ileus Narrative/Plan: Patient seems to be improving. Will advance to full liquids. Increase activity as tolerated. Current Visit: Yes Status: Acute Code(s): K56.7 - ILEUS, UNSPECIFIED SNOME D Code(s): 896054990
[2020-07-25 12:21] LABS: Glucose,Whole Blood 79 mg/dL (75-99)
--- NOTE | 2020-07-25 12:34 | P.PN ---
Subjective Progress Note Date: 07/25/20 Fercho Yen, is a 55-year-old male with known history of excessive alcohol use and history of liver cirrhosis who was brought in to [facility] emergency room by his due to mental status changes was confusion patient was also having weight loss, he was drinking alcohol up to 2 days prior to admission then he was not feeling well and he stopped drinking alcohol and stopped eating and drinking for 2-3 days. Patient was evaluated in emergency room, he was febrile temperature 97.7 pulse 60 respiration 16 blood pressure was significantly low at 71/59 pulse ox 94% on room air white blood count was 8.7 hemoglobin 8.3 platelet count 260 sodium was low at 126 potassium was low at 2.5 serum alcohol level was 21. Patient was admitted to intensive care unit he was started on IV fluid and potassium replacement protocol. Chest x-ray was done in the emergency room and did not reveal any active cardiopulmonary disease, computed tomography scan done in the emergency room revealed cerebral atrophy no acute intracranial abnormality, abdomen ultrasound done did not reveal any evidence of sizable ascites, urine analysis and blood culture were done and were ordered in ICU. On 07/06/2020 patient was seen and examined on the medical floor he is more somnolent he responds to stimuli otherwise he denies any complaints blood pressure is improved today urine analysis revealed evidence of urinary tract infection patient was started on IV Rocephin more globin is down to 6.8, On 07/07/2020 patient was seen and examined in the ICU he is alert and oriented 3 in no apparent distress he is answering questions appropriately today, there is no fever or chills no headache or dizziness no chest pain no shortness of breath no cough no nausea or vomiting no abdominal pain. No burning with urination no frequency or urgency and no hematuria, he received 1 unit of red blood cells today. On 07/08/2020, patient was seen and examined on the medical floor, he is somnolent but arousable in no apparent distress, there is no fever or chills no headache or dizziness no chest pain no shortness of breath no cough no nausea or vomiting no abdominal pain no diarrhea no burning with urination no frequency or urgency no hematuria, he had very poor oral intake so far, he was counseled in length he seems to understand, if the oral intake does not improve patient may need a nasogastric tube feeding. On 07/09/2020 patient was seen and examined on the medical floor, he is more alert today, his still has very poor oral intake, he was counseled in length in regard to need to eat more, he is denying any symptoms at this time there is no fever or chills no headache or dizziness no chest pain no shortness of breath no cough no nausea or vomiting no abdominal pain no diarrhea no burning with urination no frequency or urgency no hematuria, will add physical therapy and occupational therapy and assess if patient needs after discharge On 07/10/2020 patient was seen and examined on the medical floor he is alert slightly confused in no apparent distress nurse stated that he has been more agitated and slightly aggressive with staff he still has very poor oral intake otherwise he denies any complaints he has been refusing to keep telemetry box on there is no fever or chills no headache or dizziness no chest pain no shortness of breath no cough no nausea or vomiting no abdominal pain no diarrhea and no urinary symptoms On 07/11/2020 patient was seen and examined on the medical floor he is alert slightly confused in no distress he is complaining of cough he is breathing sounds are coarse otherwise there is no complaints there is no fever or chills no headache or dizziness no chest pain no shortness of breath, no nausea or vomiting no abdominal pain no diarrhea no burning with urination no frequency or urgency and no hematuria. Chest x-ray reveals bilateral infiltrates and small pleural effusion will re-consult pulmonary in that regard. On 07/12/2020 patient was seen and examined on the medical floor he is more alert and oriented today he is having more oral intake he is still complaining of cough there is no fever or chills, no chest pain or shortness of breath no nausea or vomiting no abdominal pain no diarrhea and no urinary symptoms On 07/14/2020 patient was seen and examined on the medical floor, he is alert and oriented 3 in no apparent distress, he was cleared by all consultants yesterday for discharge to a fdc for rehab, discharge was done yest erday however, patient still need authorization from insurance, hence discharge was delayed, clinically patient is stable he is complaining of generalized weakness otherwise he denies any specific complaints there is no fever or chills no headache or dizziness no chest pain no shortness of breath no cough no nausea or vomiting no abdominal pain no diarrhea and no urinary symptoms. On 07/15/2020 patient was seen and examined on the medical floor, he is complaining of abdominal pain today, otherwise he denies any complaints there is no fever or chills no headache or dizziness no chest pain no shortness of breath no cough no nausea or vomiting no diarrhea no blood in the stools no burning with urination no frequency or urgency no hematuria. On 07/16/2020 patient was seen and examined in the ICU he is alert and responsive in no apparent distress, yesterday he was having abdominal pain comp uted tomography scan of the abdomen revealed evidence of small bowel obstruction NG tube was put in patient was having episodes of agitation he was also having hypotension he was transferred to intensive care unit, he is being followed by Dr. Person for pulmonary and critical care, and by surgery, currently he is still in ICU he is maintained on vasopressors. On 07/17/2020 patient was seen and examined in the ICU he is alert and responsive, he pulled his triple-lumen out and his NG tube. His abdomen is severely tense and distended, NG tube was put back in, patient was counseled in length in regards to not touching his tubes and lines. Patient was started on TPN however this is on hold at this time. Patient continues to be in critical condition, pulmonary, and surgery are following. Hemodynamically patient is stable his blood pressure is 138/74 his pulse rate is 110 respiration 18 and pulse ox 92% on 2 L nasal cannula his white blood count is slightly down at 14.8 his hemoglobin is down to 7.0 kidney and liver function are within normal limits albumin is down to 2.3 On 07/18/2020 patient was seen and examined in the ICU, he is alert and responsive NG tube is in , case discussed with patient nurse Brittany, plan per GI is to proceed with EGD, today hemoglobin is down to 6.0, his white blood count is 8.2 platelet 349 kidney and liver function are within normal limits, albumin level is low at 2.0 On 07/19/2020 patient was seen and examined in the ICU, he is alert responsive in no apparent distress, he had episodes of agitation earlier, he is denying any complaints at this time , his temperature is 90.7 pulse 100 respiration 14 blood pressure 124/84 pulse ox 97% on 2 L nasal cannula, his white blood count is 7 hemoglobin 8 platelet count 241 On 07/20/2020 patient was seen and examined in the ICU he is alert and more responsive he is sitting up in a chair he had episodes of agitation earlier this morning, otherwise there is no complaints he was cleared by pulmonary critical care to be transferred out of ICU antibiotics were discontinued, at this time will consult physical therapy and occupational therapy, will assess if patient need to go to a rehab after this admission On 07/21/2020 patient was seen and examined the ICU he is alert, confused, in no apparent distress, he does not seem to be aware of his condition, he is denying any complaints at this time, clinically he is improving gradually, he is having bowel movements, and is tolerating liquid diet well, he will be transferred to fdc for rehabilitation in the next few days. On 07/22/2020 patient was seen and examined in the ICU he is alert and oriented in no distress patient is improving gradually his mentation is significantly better than yesterday, he is denying any complaints at this time , at this time will discontinue Painter catheter discontinue TPN and increase oral intake, will reassess tomorrow to see if patient is ready to be transferred to a fdc for rehabilitation. On 07/23/2020 patient was seen and examined on the medical floor, his is available in the room, there is no fever or chills no headache or dizziness no chest pain no shortness of breath no cough no nausea or vomiting , he feels his abdomen is more distended today and is starting to have more abdominal pain, he states that his last bowel movement was 2 days ago no burning was urination no frequency or urgency and no hematuria. On 07/24/2020 patient was seen and examined on the medical floor, he is alert responsive in no apparent distress, he is complaining of generalized weakness and abdominal discomfort otherwise he denies any complaints, he has not had a bowel movement for 3 days, surgery are following, he is maintained on clear liquid diet, he has anemia with hemoglobin down to 7.2, IV iron was ordered however unfortunately patient pulled his PICC line out. On 07/25/2020 patient was seen and examined on the medical floor, he is alert responsive in no distress, still complaining of generalized weakness, otherwise he denies any complaints there is no fever or chills no headache or dizziness no chest pain no shortness of breath no cough no nausea or vomiting no abdominal pain no diarrhea no blood in the stools no burning with urination no frequency or urgency no hematuria Objective - Vital Signs Vital signs: Vital Signs Temp 98.3 F 07/25/20 05:50 Pulse 113 H 07/25/20 05:50 Resp 18 07/25/20 05:50 BP 116/74 07/25/20 05:50 Pulse Ox 100 07/25/20 05:50 Intake & Output 07/24/20 07/25/20 07/25/20 18:59 06:59 18:59 Intake Total 30 Output Total 100 100 Balance -100 30 -100 Intake: Oral 30 Output: Urine 100 100 Other: Voiding Method Urinal Urinal Diaper Diaper Incontinent Incontinent # Voids 1 1 # Bowel Movements 1 - Exam In general patient is alert slightly confused in no apparent distress HEENT head normocephalic and atraumatic Neck is supple no JVD no goiter no lymphadenopathy Chest exam reveals a few scattered crackles no wheezing Cardiac exam reveals regular heart sounds S1 and S2 no gallops no murmurs Abdomen is better today less tense and less tender no organomegaly with normal bowel sounds Extremity exam reveals no edema no cyanosis or clubbing Neurological examination reveals no gross focal deficit other than mild confusion - Labs CBC & Chem 7: 07/24/20 06:31 07/25/20 07:58 Labs: Abnormal Lab Results - Last 24 Hours (Table) 07/25/20 07/25/20 Range/Units 00:02 07:58 Chloride 108 H (98-107) mmol/L BUN 4 L (9-20) mg/dL Creatinine 0.61 L (0.66-1.25) mg/dL Glucose 73 L (74-99) mg/dL POC Glucose (mg/dL) 106 H (75-99) mg/dL Microbiology - Last 24 Hours (Table) 07/24/20 06:31 Blood Culture - Preliminary Blood No Growth after 24 hours Assessment and Plan Plan: 1. Mental status changes, likely related to chronic alcohol use and early alcohol withdrawal, on [place] protocol 2. Hypotension patient was started on IV fluid, blood pressure stable, will check urine analysis and blood culture to rule out any infectious etiology, critical care consult requested 3. Underlying history of liver cirrhosis, gastroenterology consult requested 4. Anemia hemoglobin is down to 6.0 GI plan to proceed with EGD today 5. Hypokalemia corrected, potassium 3.8 today 6. Poor oral intake, patient received TPN, currently plan is to proceed was clear liquid diet after EGD 7. By basilar infiltrate with small pleural effusion, possible pneumonia antibiotic were switched to Zosyn, will reconsult pulmonary 8. New abdominal pain started yesterday, there is evidence of small bowel ob struction on testing, awaiting surgery opinion, NG tube is in 9. Sepsis with hypotension, patient restarted on IV Zosyn, will Consult infectious disease For DVT prophylaxis SCD stockings For GI prophylaxis patient on Protonix Prognosis is guarded will follow closely Plan for transfer to rehab tomorrow
[2020-07-25] MEDS: PANTOPRAZOLE 40 MG TABLET PO SCH (18:12)
[2020-07-25 18:16] LABS: Glucose,Whole Blood 83 mg/dL (75-99)
[2020-07-25 20:28] LABS: Glucose,Whole Blood 93 mg/dL (75-99)
[2020-07-26] MEDS: DEXTROSE 5%-0.9% NACL 1,000 ML IV SCH (02:52)
[2020-07-26 04:19] VITALS: RESP 20
[2020-07-26] MEDS: INSULIN ASPART (NovoLOG) 100 UNIT/ML VIAL SQ SCH ×2 (05:15→11:56)
[2020-07-26 05:27] LABS: Glucose,Whole Blood 70 mg/dL (75-99)
[2020-07-26 05:46] LABS: Glucose,Whole Blood 87 mg/dL (75-99)
--- NOTE | 2020-07-26 06:16 | PN ---
PROGRESS NOTE DATE OF SERVICE: 07/25/2020 REASON FOR FOLLOWUP: Urinary tract infection and ileus. INTERVAL HISTORY: The patient is currently afebrile, has been breathing comfortably. The patient mentioning his abdominal distention has slightly decreased. Did have small bowel movement. Nausea, but no vomiting. Has been tolerating his diet. No chest pain, shortness of breath or cough. PHYSICAL EXAMINATION: Blood pressure is 115/51 with a pulse of 89, temperature 99.6. He is 99% on room air. General description is a middle-aged male lying in bed in no distress. RESPIRATORY SYSTEM: Unlabored breathing, clear to auscultation anteriorly. HEART: S1, S2. Regular rate and rhythm. ABDOMEN: Soft, no tenderness. LABS: Blood culture repeat has been negative so far. DIAGNOSTIC IMPRESSION AND PLAN: 1. Patient with Klebsiella urinary tract infection has been adequately treated. 2. Patient now with evidence of ileus. Clinical suspicion is low for underlying infectious etiology. The patient to be monitor closely off antibiotic therapy. Continue supportive care. MMODL / IJN: [id number] /
[2020-07-26] MEDS: IPRATROPIUM-ALBUTEROL 3 ML NEB INHALATION SCH ×3 (07:06→15:59)
[2020-07-26 07:07] LABS: Glucose,Whole Blood 99 mg/dL (75-99)
[2020-07-26 07:38] LABS: Anisocytosis Slight; Basophils % (A) 0 %; Eosinophils # (A) 0.2 k/uL (0-0.7); Eosinophils % (A) 1 %; HCT 24.4 % (39.0-53.0); HGB 7.8 gm/dL (13.0-17.5); Hypochromasia Slight; Lymphocytes # (A) 1.3 k/uL (1.0-4.8); Lymphocytes % (A) 11 %; MCH 28.5 pg (25.0-35.0); MCHC 32.1 g/dL (31.0-37.0); MCV 88.7 fL (80.0-100.0); Mean Platelet Volume 7.1; Monocytes # (A) 0.7 k/uL (0-1.0); Monocytes % (A) 5 %; Neutrophils # (A) 9.9 k/uL (1.3-7.7); Neutrophils % (A) 81 %; Platelet Count 449 k/uL (150-450); RBC 2.75 m/uL (4.30-5.90); RDW 16.2 % (11.5-15.5); WBC 12.2 k/uL (3.8-10.6)
[2020-07-26 07:59] LABS: ALT 10 U/L (4-49); AST 16 U/L (17-59); African American GFR (CKD) >90 (>60 ml/min/1.73 sqM); Albumin 2.2 g/dL (3.5-5.0); Alkaline Phosphatase 53 U/L (38-126); Anion Gap 5 mmol/L; Blood Urea Nitrogen 2 mg/dL (9-20); Calcium 7.9 mg/dL (8.4-10.2); Carbon Dioxide 26 mmol/L (22-30); Chloride 106 mmol/L (98-107); Glucose 93 mg/dL (74-99); Non-African American GFR(CKD) >90 (>60 ml/min/1.73 sqM); Potassium 3.6 mmol/L (3.5-5.1); Sodium 137 mmol/L (137-145); Total Protein 5.1 g/dL (6.3-8.2)
[2020-07-26] MEDS: FOLIC ACID 1 MG TAB PO SCH (10:22)
[2020-07-26] MEDS: METOCLOPRAMIDE 10 MG TAB PO SCH ×2 (10:22→11:56)
[2020-07-26] MEDS: PANTOPRAZOLE 40 MG TABLET PO SCH (10:22)
[2020-07-26] MEDS: THIAMINE 100 MG TAB PO SCH (10:23)
[2020-07-26] MEDS: bisacodyL 10 MG SUPP RECTAL SCH (10:32)
[2020-07-26] MEDS: NICOTINE 21MG/24HR PATCH TRANSDERM SCH (10:32)
[2020-07-26 11:11] LABS: Glucose,Whole Blood 84 mg/dL (75-99)
[2020-07-26 12:03] VITALS: BP 113/82; PULSE 113; TEMP 99
--- NOTE | 2020-07-26 13:06 | P.DS ---
Providers Date of admission: 07/04/20 20:25 Expected date of discharge: 07/26/20 Attending physician: Lawanda Krishna Consults: 07/05/20 17:39 Consult Physician Routine Consulting Provider: Bora Millan Consult Reason/Comments: hypotension Do you want consulting provider notified?: Yes 07/11/20 12:40 Consult Physician Routine Consulting Provider: Harjeet Person Consult Reason/Comments: pneumonia Do you want consulting provider notified?: Yes 07/15/20 19:01 Consult Physician Stat Consulting Provider: Shantanu Yip Consult Reason/Comments: SBO Do you want consulting provider notified?: Yes 07/18/20 09:09 Consult Physician Routine Consulting Provider: Nancie Conde Consult Reason/Comments: encephalopathy Do you want consulting provider notified?: Yes 07/23/20 13:22 Consult Physician Routine Consulting Provider: Michael Park Consult Reason/Comments: UTI, bowel obstruction Do you want consulting provider notified?: Yes Primary care physician: Lawanda Krishna [facility] Course: Diagnoses on discharge: 1. Mental status changes, likely related to chronic alcohol use and early alcohol withdrawal, on CIFL protocol 2. Hypotension patient was started on IV fluid, blood pressure stable, will check urine analysis and blood culture to rule out any infectious etiology, critical care consult requested 3. Underlying history of liver cirrhosis, gastroenterology consult requested 4. Anemia hemoglobin is down to 6.0 GI plan to proceed with EGD today 5. Hypokalemia corrected, potassium 3.8 today 6. Poor oral intake, patient received TPN, currently plan is to proceed was clear liquid diet after EGD 7. By basilar infiltrate with small pleural effusion, possible pneumonia antibiotic were switched to Zosyn, will reconsult pulmonary 8. New abdominal pain started yesterday, there is evidence of small bowel obstruction on testing, awaiting surgery opinion, NG tube is in 9. Sepsis with hypotension, patient restarted on IV Zosyn, will Consult infectious disease Hospital Course: Fercho Yen, is a 55-year-old male with known history of excessive alcohol use and history of liver cirrhosis who was brought in to [facility] emergency room by his due to mental status changes was confusion patient was also having weight loss, he was drinking alcohol up to 2 days prior to admission then he was not feeling well and he stopped drinking alcohol and stopped eating and drinking for 2-3 days. Patient was evaluated in emergency room, he was febrile temperature 97.7 pulse 60 respiration 16 blood pressure was significantly low at 71/59 pulse ox 94% on room air white blood count was 8.7 hemoglobin 8.3 platelet count 260 sodium was low at 126 potassium was low at 2.5 serum alcohol level was 21. Patient was admitted to intensive care unit he was started on IV fluid and potassium replacement protocol. Chest x-ray was done in the emergency room and did not reveal any active cardiopulmonary disease, computed tomography scan done in the emergency room revealed cerebral atrophy no acute intracranial abnormality, abdomen ultrasound done did not reveal any evidence of sizable ascites, urine analysis and blood culture were done and were ordered in ICU. On 07/06/2020 patient was seen and examined on the medical floor he is more somnolent he responds to stimuli otherwise he denies any complaints blood pressure is improved today urine analysis revealed evidence of urinary tract infection patient was started on IV Rocephin more globin is down to 6.8, On 07/07/2020 patient was seen and examined in the ICU he is alert and oriented 3 in no apparent distress he is answering questions appropriately today, there is no fever or chills no headache or dizziness no chest pain no shortness of breath no cough no nausea or vomiting no abdominal pain. No burning with urination no frequency or urgency and no hematuria, he received 1 unit of red blood cells today. On 07/08/2020, patient was seen and examined on the medical floor, he is somnolent but arousable in no apparent distress, there is no fever or chills no headache or dizziness no chest pain no shortness of breath no cough no nausea or vomiting no abdominal pain no diarrhea no burning with urination no frequency or urgency no hematuria, he had very poor oral intake so far, he was counseled in length he seems to understand, if the oral intake does not improve patient may need a nasogastric tube feeding. On 07/09/2020 patient was seen and examined on the medical floor, he is more alert today, his still has very poor oral intake, he was counseled in length in regard to need to eat more, he is denying any symptoms at this time there is no fever or chills no headache or dizziness no chest pain no shortness of breath no cough no nausea or vomiting no abdominal pain no diarrhea no burning with urination no frequency or urgency no hematuria, will add physical therapy and occupational therapy and assess if patient needs after discharge On 07/10/2020 patient was seen and examined on the medical floor he is alert slightly confused in no apparent distress nurse stated that he has been more ag itated and slightly aggressive with staff he still has very poor oral intake otherwise he denies any complaints he has been refusing to keep telemetry box on there is no fever or chills no headache or dizziness no chest pain no shortness of breath no cough no nausea or vomiting no abdominal pain no diarrhea and no urinary symptoms On 07/11/2020 patient was seen and examined on the medical floor he is alert slightly confused in no distress he is complaining of cough he is breathing sounds are coarse otherwise there is no complaints there is no fever or chills no headache or dizziness no chest pain no shortness of breath, no nausea or vomiting no abdominal pain no diarrhea no burning with urination no frequency or urgency and no hematuria. Chest x-ray reveals bilateral infiltrates and small pleural effusion will re-consult pulmonary in that regard. On 07/12/2020 patient was seen and examined on the medical floor he is more alert and oriented today he is having more oral intake he is still complaining of cough there is no fever or chills, no chest pain or shortness of breath no nausea or vomiting no abdominal pain no diarrhea and no urinary symptoms On 07/14/2020 patient was seen and examined on the medical floor, he is alert and oriented 3 in no apparent distress, he was cleared by all consultants yesterday for discharge to a group home for rehab, discharge was done yester day however, patient still need authorization from insurance, hence discharge was delayed, clinically patient is stable he is complaining of generalized weakness otherwise he denies any specific complaints there is no fever or chills no headache or dizziness no chest pain no shortness of breath no cough no nausea or vomiting no abdominal pain no diarrhea and no urinary symptoms. On 07/15/2020 patient was seen and examined on the medical floor, he is complaining of abdominal pain today, otherwise he denies any complaints there is no fever or chills no headache or dizziness no chest pain no shortness of breath no cough no nausea or vomiting no diarrhea no blood in the stools no burning with urination no frequency or urgency no hematuria. On 07/16/2020 patient was seen and examined in the ICU he is alert and responsive in no apparent distress, yesterday he was having abdominal pain computed tomography scan of the abdomen revealed evidence of small bowel obstruction NG tube was put in patient was having episodes of agitation he was also having hypotension he was transferred to intensive care unit, he is being followed by Dr. Person for pulmonary and critical care, and by surgery, mellissa lara he is still in ICU he is maintained on vasopressors. On 07/17/2020 patient was seen and examined in the ICU he is alert and responsive, he pulled his triple-lumen out and his NG tube. His abdomen is severely tense and distended, NG tube was put back in, patient was counseled in length in regards to not touching his tubes and lines. Patient was started on TPN however this is on hold at this time. Patient continues to be in critical condition, pulmonary, and surgery are following. Hemodynamically patient is stable his blood pressure is 138/74 his pulse rate is 110 respiration 18 and pulse ox 92% on 2 L nasal cannula his white blood count is slightly down at 14.8 his hemoglobin is down to 7.0 kidney and liver function are within normal limits albumin is down to 2.3 On 07/18/2020 patient was seen and examined in the ICU, he is alert and responsive NG tube is in , case discussed with patient nurse Brittany, plan per GI is to proceed with EGD, today hemoglobin is down to 6.0, his white blood count is 8.2 platelet 349 kidney and liver function are within normal limits, albumin level is low at 2.0 On 07/19/2020 patient was seen and examined in the ICU, he is alert responsive in no apparent distress, he had episodes of agitation earlier, he is denying any complaints at this time , his temperature is 90.7 pulse 100 respiration 14 blood pressure 124/84 pulse ox 97% on 2 L nasal cannula, his white blood count is 7 hemoglobin 8 platelet count 241 On 07/20/2020 patient was seen and examined in the ICU he is alert and more responsive he is sitting up in a chair he had episodes of agitation earlier this morning, otherwise there is no complaints he was cleared by pulmonary critical care to be transferred out of ICU antibiotics were discontinued, at this time will consult physical therapy and occupational therapy, will assess if patient need to go to a rehab after this admission On 07/21/2020 patient was seen and examined the ICU he is alert, confused, in no apparent distress, he does not seem to be aware of his condition, he is denying any complaints at this time, clinically he is improving gradually, he is having bowel movements, and is tolerating liquid diet well, he will be transferred to group home for rehabilitation in the next few days. On 07/22/2020 patient was seen and examined in the ICU he is alert and oriented in no distress patient is improving gradually his mentation is significantly better than yesterday, he is denying any complaints at this time , at this time will discontinue Painter catheter discontinue TPN and increase oral intake, will reassess tomorrow to see if patient is ready to be transferred to a group home for rehabilitation. On 07/23/2020 patient was seen and examined on the medical floor, his is available in the room, there is no fever or chills no headache or dizziness no chest pain no shortness of breath no cough no nausea or vomiting , he feels his abdomen is more distended today and is starting to have more abdominal pain, he states that his last bowel movement was 2 days ago no burning was urination no frequency or urgency and no hematuria. On 07/24/2020 patient was seen and examined on the medical floor, he is alert responsive in no apparent distress, he is complaining of generalized weakness and abdominal discomfort otherwise he denies any complaints, he has not had a bowel movement for 3 days, surgery are following, he is maintained on clear liquid diet, he has anemia with hemoglobin down to 7.2, IV iron was ordered however unfortunately patient pulled his PICC line out. On 07/25/2020 patient was seen and examined on the medical floor, he is alert responsive in no distress, still complaining of generalized weakness, otherwise he denies any complaints there is no fever or chills no headache or dizziness no chest pain no shortness of breath no cough no nausea or vomiting no abdominal pain no diarrhea no blood in the stools no burning with urination no frequency or urgency no hematuria 07/26/2020 patient was seen and examined on the medical floor he is alert and responsive in no apparent distress he is sitting up and eating his meal there is no fever or chills no headache or dizziness no chest pain no shortness of breath no cough no nausea or vomiting no abdominal pain no diarrhea no burning with urination no frequency or urgency and no hematuria patient is having normal krupa l movements at this time. Patient will be discharged to rehab. Patient Condition at Discharge: Fair Plan - Discharge Summary Discharge Rx Participant: Yes New Discharge Prescriptions: New Ipratropium-Albuterol Nebulize [Duoneb 0.5 mg-3 mg/3 ml Soln] 3 ml INHALATION RT-QID ml Ipratropium-Albuterol Nebulize [Duoneb 0.5 mg-3 mg/3 ml Soln] 3 ml INHALATION RT-Q2H PRN ml PRN Reason: Shortness Of Breath Or Wheezing Nicotine 21Mg/24Hr Patch [Habitrol] 1 patch TRANSDERM DAILY patch Thiamine [Vitamin B-1] 100 mg PO BID-W/MEALS tab ALPRAZolam [Xanax] 0.25 mg PO TID tab Amoxicillin/Potassium Clav [Augmentin 875-125 Tablet] 1 tab PO Q12HR 10 Days #20 tab Folic Acid 1 mg PO DAILY tab Continue Omeprazole [PriLOSEC] 20 mg PO AC-BID PRN PRN Reason: gerds HYDROcodone/APAP 10-325MG [[place] 10-325] 1 tab PO Q6H PRN PRN Reason: Pain Albuterol Sulfate [Ventolin HFA] 2 puff INHALATION RT-QID PRN PRN Reason: Shortness Of Breath Discontinued ALPRAZolam [Xanax] 0.25 mg PO BID PRN PRN Reason: Anxiety Discharge Medication List Omeprazole [PriLOSEC] 20 mg PO AC-BID PRN 03/12/19 [History] Albuterol Sulfate [Ventolin HFA] 2 puff INHALATION RT-QID PRN 07/04/20 [History] HYDROcodone/APAP 10-325MG [[place] 10-325] 1 tab PO Q6H PRN 07/04/20 [History] ALPRAZolam [Xanax] 0.25 mg PO TID tab 07/13/20 [Rx] Ipratropium-Albuterol Nebulize [Duoneb 0.5 mg-3 mg/3 ml Soln] 3 ml INHALATION R T-Q2H PRN ml 07/13/20 [Rx] Ipratropium-Albuterol Nebulize [Duoneb 0.5 mg-3 mg/3 ml Soln] 3 ml INHALATION RT-QID ml 07/13/20 [Rx] Nicotine 21Mg/24Hr Patch [Habitrol] 1 patch TRANSDERM DAILY patch 07/13/20 [Rx] Thiamine [Vitamin B-1] 100 mg PO BID-W/MEALS tab 07/13/20 [Rx] Amoxicillin/Potassium Clav [Augmentin 875-125 Tablet] 1 tab PO Q12HR 10 Days #20 tab 07/26/20 [Rx] Folic Acid 1 mg PO DAILY tab 07/26/20 [Rx] Follow up Appointment(s)/Referral(s): Lawanda Krishna MD [Primary Care Provider] - 1-2 days Activity/Diet/Wound Care/Special Instructions: Per Speech therapy-ENT consult is advisable after discharge.
--- NOTE | 2020-07-26 14:36 | P.PN ---
Subjective Progress Note Date: 07/26/20 CHIEF COMPLAINT: Bowel obstruction HISTORY OF PRESENT ILLNESS: Patient seen and examined with Dr. Yip. Patient stated ileus. He is having bowel movements. Tolerating diet. He is afebrile. White count 12.2. HGB 7.8 PHYSICAL EXAM: VITAL SIGNS: Reviewed. GENERAL: Well-developed in no acute distress. HEENT: No sclera icterus. Extraocular movements grossly intact. Moist buccal mucosa. Head is atraumatic, normocephalic. ABDOMEN: Soft nontender nondistended NEUROLOGIC: Patient is awake and alert sitting up in bed ASSESSMENT: 1. Severe ileus. Resolved 2. Anemia with gastritis PLAN: -Continue regular diet -Patient is surgically stable for discharge Physician Real Estate Processor note has been reviewed by physician. Signing provider agrees with the documented findings, assessment, and plan of care. Objective - Vital Signs Vital signs: Vital Signs Temp 99 F 07/26/20 12:02 Pulse 113 H 07/26/20 12:02 Resp 20 07/26/20 12:02 BP 113/82 07/26/20 12:02 Pulse Ox 100 07/26/20 12:02 Intake & Output 07/25/20 07/26/20 07/26/20 18:59 06:59 18:59 Output Total 100 Balance -100 Weight 59.9 kg Output: Urine 100 Other: Voiding Method Urinal Urinal Urinal Diaper Diaper Diaper Incontinent Incontinent Incontinent # Bowel Movements 1 - Labs CBC & Chem 7: 07/26/20 07:21 07/26/20 07:21 Labs: Abnormal Lab Results - Last 24 Hours (Table) 07/26/20 07/26/20 07/26/20 Range/Units 05:14 07:21 07:21 WBC 12.2 H (3.8-10.6) k/uL RBC 2.75 L (4.30-5.90) m/uL Hgb 7.8 L (13.0-17.5) gm/dL Hct 24.4 L (39.0-53.0) % RDW 16.2 H (11.5-15.5) % Neutrophils # 9.9 H (1.3-7.7) k/uL BUN 2 L (9-20) mg/dL Creatinine 0.65 L (0.66-1.25) mg/dL POC Glucose (mg/dL) 70 L (75-99) mg/dL Calcium 7.9 L (8.4-10.2) mg/dL AST 16 L (17-59) U/L Total Protein 5.1 L (6.3-8.2) g/dL Albumin 2.2 L (3.5-5.0) g/dL Microbiology - Last 24 Hours (Table) 07/24/20 06:31 Blood Culture - Preliminary Blood No Growth after 48 hours
--- NOTE | 2020-07-26 17:16 | P.PN ---
Subjective Progress Note Date: 07/26/20 She was seen at bedside and he stated that he is doing better. He denies of any fevers. Denies any any weakness any numbness any visual disturbance. Objective - Vital Signs Vital signs: Vital Signs Temp 99 F 07/26/20 12:02 Pulse 113 H 07/26/20 12:02 Resp 20 07/26/20 12:02 BP 113/82 07/26/20 12:02 Pulse Ox 100 07/26/20 12:02 Intake & Output 07/25/20 07/26/20 07/26/20 18:59 06:59 18:59 Output Total 100 Balance -100 Weight 59.9 kg Output: Urine 100 Other: Voiding Method Urinal Urinal Urinal Diaper Diaper Diaper Incontinent Incontinent Incontinent # Voids 2 # Bowel Movements 1 1 - Exam GENERAL: The patient is lying in bed and is not in acute distress. CHEST: The heart rate is regular rate rhythm. LUNG: Not labored breathing. ABDOMEN/GI: Bowel sounds present in all 4 quadrants. No tenderness to palpation throughout. NEUROLOGICAL: Higher mental function: The patient is awake, alert, oriented to self and place but not time. Patient is following simple commands. No aphasia or neglect. Cranial nerves: The pupils are round, equal 2-3mm bilaterally and reactive to light and accommodation. Visual truong are full to threat throughout. Extraocular movement is intact no nystagmus is noted. Facial sensation could not assess because of lack of cooperation. The facial strength is normal throughout. Hypophonia. No dysarthria is noted. Shoulder shrug is normal bilaterally. Motor: Gait is defered. The strength are 5/5 bilaterally. Normal tone and decrease bulk throughout. Sensation: Intact to normal stimuli. Reflexes (right/left): 2+ throughout except at ankle 1+ bilaterally. Plantars are downgoing bilaterally. Extremities: Pes planus bilaterally - Labs CBC & Chem 7: 07/26/20 07:21 07/26/20 07:21 Labs: Abnormal Lab Results - Last 24 Hours (Table) 07/26/20 07/26/20 07/26/20 Range/Units 05:14 07:21 07:21 WBC 12.2 H (3.8-10.6) k/uL RBC 2.75 L (4.30-5.90) m/uL Hgb 7.8 L (13.0-17.5) gm/dL Hct 24.4 L (39.0-53.0) % RDW 16.2 H (11.5-15.5) % Neutrophils # 9.9 H (1.3-7.7) k/uL BUN 2 L (9-20) mg/dL Creatinine 0.65 L (0.66-1.25) mg/dL POC Glucose (mg/dL) 70 L (75-99) mg/dL Calcium 7.9 L (8.4-10.2) mg/dL AST 16 L (17-59) U/L Total Protein 5.1 L (6.3-8.2) g/dL Albumin 2.2 L (3.5-5.0) g/dL Microbiology - Last 24 Hours (Table) 07/24/20 06:31 Blood Culture - Preliminary Blood No Growth after 48 hours Assessment and Plan Assessment: Encephalopathy secondary due multifactorial (folic acid defiency, anemia secondary due to gastritis, prolonged hospital stay and alcohol use). Folate defiency Severe ileus Anemia with gastritis Alcohol use Pneumonia (Klebsiella)--resolved Plan: Routine EEG (07/19/20): Mild to moderate encephalopathy with unspecified etiology. No epileptiform discharges or seizure detected. Vitamin B12: 852 (07/05/20). Repeat 531 (07/13/20). Folate was 10.2 on 07/05/2020 and that was 3.8 on 07/13/2020. On folic acid 1mg daily. TSH: 2.47 Ionized calcium: 5.2 Ammonia <9 (07/11/20) The patient might have underlying cognitive impairment as his baseline because of his the chronic alcohol use. Recommend neurocognitive assessment as outpatient. Currently the patient is on thiamine 100 mg twice a day. Regarding the patient's anemia we'll defer the management to the primary team. The patient is being discharged to rehab today. Gian Millan M.D. Neuro-hospitalist Time with Patient: Greater than 30
--- NOTE | 2020-07-26 22:57 | P.PN ---
Progress Note - Text Progress Note Date: 07/26/20 REASON FOR FOLLOWUP: Urinary tract infection and ileus. INTERVAL HISTORY: The patient remains to be afebrile, the patient is breathing comfortably. The patient mentioning his abdominal distention has slightly decreased. The patient Did have small bowel movement. Nausea, but no vomiting. Has been tolerating his diet. No chest pain, shortness of breath or cough. PHYSICAL EXAMINATION: Blood pressure is 115/50 with a pulse of 90 temperature 99.6. He is 99% on room air. General description is a middle-aged male lying in bed in no distress. RESPIRATORY SYSTEM: Unlabored breathing, clear to auscultation anteriorly. HEART: S1, S2. Regular rate and rhythm. ABDOMEN: Soft, no tenderness. LABS: Blood culture repeat has been negative so far. DIAGNOSTIC IMPRESSION AND PLAN: 1. Patient with Klebsiella urinary tract infection has been adequately treated. 2. Patient now with evidence of ileus. That seemed to be improving With medical therapy and the patient has been tolerating his diet with no fever or elevated white count will monitor patient closely off antibiotic therapy
--- NOTE | 2020-08-07 22:43 | CDI ---
Documentation Clarification Form Date: 08/08/2020 From: Bebeto Vera Phone: If you have a question about this query, please contact Sierra Cervantes, Publications Production Supervisor at [phone] between 8am and 5pm. Admit Date: 07/04/2020 Discharge Date: 07/26/2020 Patient Name: Fercho Yen Visit Number: [id number] ATTENTION: The Clinical Documentation Specialists (CDI) and [facility] Coding Staff appreciate your assistance in clarifying documentation. Please respond to the clarification below the line at the bottom and electronically sign. The CDI & [facility] Coding staff will review the response and follow-up if needed. Please note: Queries are made part of the Legal Health Record. If you have any questions, please contact the author of this message via ITS. Dear Lawanda Summers MD., The patient presented with the Alcohol withdrawal delirium, Hypotensive episode, Hypokalemia, Dehydration, Failure to thrive History/Risk Factors: Alcohol withdrawal,depression, malnutrition, toxic encephalopathy Clinical Indicators: Hypotension, dehydration, failure to thrive. WBC : 8.7 Blood cultures: [id number] Vitals signs on admission: Temperature 97.7 F Pulse Rate 60 100 Respiratory 16 16 Rate Blood Pressure 71/59 75/61 85/62 O2 Sat by Pulse 94 L 99 Oximetry Antibiotics: IV Zosyn 07/16 Sepsis with hypotension, patient restarted on IV Zosyn, will Consult infectious disease HP stated "Hypotension patient was started on IV fluid, blood pressure stable, will check urine analysis and blood culture to rule out any infectious etiology, critical care consult requested". 07/07 Acute delirium likely related to acute alcohol withdrawal, and symptomatic anemia, and possibility of urinary tract infection is not excluded In your professional opinion, please clarify if these findings signify one of the following conditions, whether the Sepsis is POA. Present on Admission Yes NO yes MTDD
== END 2020-07-26 17:40 | DRG 896 ==
LOC: EC 17:41 → 2SICU 20:25 → 3SCARD 07-07 20:31 → 5NMEDONC 07-10 17:05 → 2SICU 07-15 20:53 → 6NMEDSUR 07-22 15:29
PROVIDERS: ADMIT Internal Medicine; ATTEND Internal Medicine
PROC: 30233N1 Transfusion of Nonautologous Red Blood Cells into Peripheral Vein, Percutaneous Approach (ICD-10-PCS; principal; 2020-07-09 07:45)
PROC: 0DB98ZX Excision of Duodenum, Via Natural or Artificial Opening Endoscopic, Diagnostic (ICD-10-PCS; principal; 2020-07-09 07:45)
PROC: 0DB78ZX Excision of Stomach, Pylorus, Via Natural or Artificial Opening Endoscopic, Diagnostic (ICD-10-PCS; principal; 2020-07-09 07:45)
PROC: 3E0436Z Introduction of Nutritional Substance into Central Vein, Percutaneous Approach (ICD-10-PCS; 2020-07-13)
PROC: 02HV33Z Insertion of Infusion Device into Superior Vena Cava, Percutaneous Approach (ICD-10-PCS; 2020-07-16)
PROC: 02HV33Z Insertion of Infusion Device into Superior Vena Cava, Percutaneous Approach (ICD-10-PCS; 2020-07-18)
PROC: 0D9670Z Drainage of Stomach with Drainage Device, Via Natural or Artificial Opening (ICD-10-PCS; 2020-07-18)
DX: F10.231 Alcohol dependence with withdrawal delirium (principal); G92 Toxic encephalopathy; J18.9 Pneumonia, unspecified organism; E43 Unspecified severe protein-calorie malnutrition; A41.9 Sepsis, unspecified organism; R57.1 Hypovolemic shock; J44.1 Chronic obstructive pulmonary disease with (acute) exacerbation; F05 Delirium due to known physiological condition; R64 Cachexia; J91.8 Pleural effusion in other conditions classified elsewhere; N39.0 Urinary tract infection, site not specified; K56.609 Unspecified intestinal obstruction, unspecified as to partial versus complete obstruction; K56.7 Ileus, unspecified; J44.0 Chronic obstructive pulmonary disease with (acute) lower respiratory infection; K70.30 Alcoholic cirrhosis of liver without ascites; E86.1 Hypovolemia; D50.9 Iron deficiency anemia, unspecified; E77.8 Other disorders of glycoprotein metabolism; Z20.828 Contact with and (suspected) exposure to other viral communicable diseases; K29.80 Duodenitis without bleeding; L89.152 Pressure ulcer of sacral region, stage 2; K42.9 Umbilical hernia without obstruction or gangrene; K44.9 Diaphragmatic hernia without obstruction or gangrene; B96.1 Klebsiella pneumoniae [K. pneumoniae] as the cause of diseases classified elsewhere; R53.81 Other malaise; E86.0 Dehydration; I95.9 Hypotension, unspecified; D53.9 Nutritional anemia, unspecified; K29.70 Gastritis, unspecified, without bleeding; K21.9 Gastro-esophageal reflux disease without esophagitis; Z96.642 Presence of left artificial hip joint; I10 Essential (primary) hypertension; F32.9 Major depressive disorder, single episode, unspecified; F41.9 Anxiety disorder, unspecified; F17.200 Nicotine dependence, unspecified, uncomplicated; Y90.1 Blood alcohol level of 20-39 mg/100 ml; R62.7 Adult failure to thrive; E87.6 Hypokalemia; F12.90 Cannabis use, unspecified, uncomplicated; M19.90 Unspecified osteoarthritis, unspecified site; Z79.899 Other long term (current) drug therapy; Z88.6 Allergy status to analgesic agent; Z86.73 Personal history of transient ischemic attack (TIA), and cerebral infarction without residual deficits; Z87.440 Personal history of urinary (tract) infections; Z85.028 Personal history of other malignant neoplasm of stomach; Z98.890 Other specified postprocedural states; Z80.3 Family history of malignant neoplasm of breast; Z92.3 Personal history of irradiation; Z78.1 Physical restraint status; Z68.20 Body mass index [BMI] 20.0-20.9, adult
CPT/HCPCS: 36415; 36573; 36600; 43239; 70450; 71045; 71046; 74018; 74019; 74177; 74230; 76700; 76705; 80048; 80053; 80320; 81001; 82140; 82330; 82550; 82607; 82728; 82746; 83540; 83550; 83605; 83690; 83735; 84100; 84132; 84145; 84443; 84478; 85025; 85027; 85610; 86140; 86850; 86900; 86901; 86920; 87040; 87077; 87086; 87186; 88305; 93005; 94640; 95816; 96365; 96366; 96368; 96372; 99285

== ENCOUNTER 2020-07-31 10:23 | Emergency (ER) | payer OTHER ==
[2020-07-31 10:44] VITALS: BP 99/59; PULSE 99; RESP 17; TEMP 97.4
[2020-07-31] MEDS ORDERED: SODIUM CHLORIDE 0.9% 500 ML 500 ML IV STA (10:53)
--- NOTE | 2020-07-31 10:53 | ED ---
General Adult HPI - General Stated complaint: EPS eval Time Seen by Provider: 07/31/20 10:26 Source: EMS Mode of arrival: EMS Limitations: altered mental status - History of Present Illness Initial comments: Patient is a 55-year-old male, with history of alcoholism, cirrhosis, currently being treated for UTI, possible pneumonia, presenting to the emergency department via EMS from [facility] for combative behavior and refusal of treatment. Staff states that patient was be combative towards them and refused any treatment this morning so they sent him in for EPS evaluation. Patient is currently on Augmentin for a UTI as well as possible pneumonia. Patient has been at [facility] for 5 days following discharge from the hospital. According to staff, patient is A&O 1-2 at baseline. Denies any recent fever, chills, nausea or vomiting. He has no complaints today other than pain in his feet. Staff states there has not been any falls. There are no further complaints at this time. Patient was slightly hypotensive at 99/59, rest of vitals are normal. - Related Data Home Medications Medication Instructions Recorded Confirmed Omeprazole [PriLOSEC] 20 mg PO AC-BID PRN 03/12/19 07/04/20 Albuterol Sulfate [Ventolin HFA] 2 puff INHALATION RT-QID PRN 07/04/20 07/04/20 HYDROcodone/APAP 10-325MG [[place] 1 tab PO Q6H PRN 07/04/20 07/04/20 10-325] Previous Rx's Medication Instructions Recorded ALPRAZolam [Xanax] 0.25 mg PO TID tab 07/13/20 Ipratropium-Albuterol Nebulize 3 ml INHALATION RT-Q2H PRN ml 07/13/20 [Duoneb 0.5 mg-3 mg/3 ml Soln] Ipratropium-Albuterol Nebulize 3 ml INHALATION RT-QID ml 07/13/20 [Duoneb 0.5 mg-3 mg/3 ml Soln] Nicotine 21Mg/24Hr Patch [Habitrol] 1 patch TRANSDERM DAILY patch 07/13/20 Thiamine [Vitamin B-1] 100 mg PO BID-W/MEALS tab 07/13/20 Amoxicillin/Potassium Clav 1 tab PO Q12HR 10 Days #20 tab 09/08/20 [Augmentin 875-125 Tablet] Folic Acid 1 mg PO DAILY tab 07/26/20 Allergies Allergy/AdvReac Type Severity Reaction Status Date / Time aspirin AdvReac Nausea & Verified 07/04/20 18:40 Vomiting ibuprofen [From Motrin] AdvReac Nausea & Verified 07/04/20 18:40 Vomiting Review of Systems ROS Statement: Those systems with pertinent positive or pertinent negative responses have been documented in the HPI. ROS Other: All systems not noted in ROS Statement are negative. Past Medical History Past Medical History: Cancer, COPD, CVA/TIA, GERD/Reflux, GI Bleed, Hypertension, Osteoarthritis (OA), Sleep Apnea/CPAP/BIPAP Additional Past Medical History / Comment(s): TIA 2018. Not currently taking BP medication but has in past. "Stomach cancer 3 yrs, had 3 months of radiation." Does not use CPAP machine. History of Any Multi-Drug Resistant Organisms: None Reported Past Surgical History: Joint Replacement Additional Past Surgical History / Comment(s): Left hip replacement. EGD 11/2018. Past Anesthesia/Blood Transfusion Reactions: No Reported Reaction Past Psychological History: Anxiety, Depression Smoking Status: Current every day smoker Past Alcohol Use History: Abuse, Daily, Heavy Past Drug Use History: Marijuana - Past Family History Mother Family Medical History: Cancer Additional Family Medical History / Comment(s): Breast cancer. General Exam - General Exam Comments Initial Comments: GENERAL: Patient is cachectic, nontoxic, and in no acute distress. HEAD: Atraumatic, normocephalic. EYES: Pupils equal round and reactive to light, extraocular movements intact, sclera anicteric, conjunctiva are normal. Eyelids were unremarkable. ENT: TMs normal, nares patent, oropharynx clear without exudates. Dry mucous membranes. NECK: Normal range of motion, supple without lymphadenopathy or JVD. LUNGS: Unlabored respirations. Breath sounds clear to auscultation bilaterally and equal. No wheezes rales or rhonchi. HEART: Regular rate and rhythm without murmurs, rubs or gallops. ABDOMEN: Soft, nontender, normoactive bowel sounds. No guarding, no rebound. No masses appreciated. : Deferred MUSCULOSKELETAL: Normal extremities with adequate strength and normal range of motion. No clubbing or cyanosis. Mild bilateral lower leg edema. Neurovascular intact. NEUROLOGICAL: Patient is alert and oriented x 1-2, to self and location, this is his baseline. Motor and sensory are also intact. Cranial nerves II through XII grossly intact. Symmetrical smile. Normal speech. PSYCH: Normal mood, normal affect. SKIN: Warm, Dry, normal turgor, no rashes. Patient has an approximate 3 cm in diameter stage I ulcer decubitus area, looks to be healing very well, no signs of active infection. Limitations: altered mental status Course Vital Signs 07/31/20 10:24 Temperature 97.4 F L Pulse Rate 99 Respiratory 17 Rate Blood Pressure 99/59 O2 Sat by Pulse 100 Oximetry Medical Decision Making - Medical Decision Making Patient is a 55-year-old male sent in by med a lot for a possible psychiatric evaluation due to being combative at [facility]. He has history of alcoholism, cirrhosis, he is A&O x1-2 at baseline. His vital signs are stable upon arrival, he continues to be at his baseline, A&O x 2 to self and location. Denies any suicidal or homicidal thoughts. He did check basic labs, hemoglobin stable 8.1, normal white count, potassium is 3.4, kidney function is stable, ammonia is 9, urine shows no evidence of infection, serum alcohol is negative. I did give patient some fluids for mild dehydration. Patient has been cooperative during entire ER stay, he has not been combative. He has had no complaints. I feel the patient is safe to be discharged back to [facility]. He needs to follow-up with his PCP. Case discussed with Dr. Bruner was in agreement with this plan of care. - Lab Data Result diagrams: 07/31/20 11:13 07/31/20 11:13 Lab Results 07/31/20 07/31/20 07/31/20 Range/Units 11:13 11:13 11:13 WBC 10.6 (3.8-10.6) k/uL RBC 3.05 L (4.30-5.90) m/uL Hgb 8.1 L (13.0-17.5) gm/dL Hct 26.1 L (39.0-53.0) % MCV 85.8 (80.0-100.0) fL MCH 26.6 (25.0-35.0) pg MCHC 31.0 (31.0-37.0) g/dL RDW 16.4 H (11.5-15.5) % Plt Count 583 H (150-450) k/uL Neutrophils % 80 % Lymphocytes % 10 % Monocytes % 5 % Eosinophils % 3 % Basophils % 0 % Neutrophils # 8.4 H (1.3-7.7) k/uL Lymphocytes # 1.0 (1.0-4.8) k/uL Monocytes # 0.5 (0-1.0) k/uL Eosinophils # 0.3 (0-0.7) k/uL Basophils # 0.0 (0-0.2) k/uL Hypochromasia Slight Anisocytosis Slight Sodium 144 (137-145) mmol/L Potassium 3.4 L (3.5-5.1) mmol/L Chloride 110 H (98-107) mmol/L Carbon Dioxide 28 (22-30) mmol/L Anion Gap 6 mmol/L BUN 6 L (9-20) mg/dL Creatinine 0.72 (0.66-1.25) mg/dL Est GFR (CKD-EPI)AfAm >90 (>60 ml/min/1.73 sqM) Est GFR (CKD-EPI)NonAf >90 (>60 ml/min/1.73 sqM) Glucose 78 (74-99) mg/dL Calcium 8.6 (8.4-10.2) mg/dL Magnesium 1.6 (1.6-2.3) mg/dL Total Bilirubin 0.6 (0.2-1.3) mg/dL AST 18 (17-59) U/L ALT 11 (4-49) U/L Alkaline Phosphatase 63 (38-126) U/L Ammonia (<30) umol/L Creatine Kinase 32 L (55-170) U/L Total Protein 5.5 L (6.3-8.2) g/dL Albumin 2.5 L (3.5-5.0) g/dL Urine Color Yellow Urine Appearance Clear (Clear) Urine pH 5.0 (5.0-8.0) Ur Specific [place] 1.018 (1.001-1.035) Urine Protein Negative (Negative) Urine Glucose (UA) Negative (Negative) Urine Ketones Negative (Negative) Urine Blood Negative (Negative) Urine Nitrite Negative (Negative) Urine Bilirubin Negative (Negative) Urine Urobilinogen 3.0 (<2.0) mg/dL Ur Leukocyte Esterase Negative (Negative) Urine Opiates Screen (NotDetected) Ur Oxycodone Screen (NotDetected) Urine Methadone Screen (NotDetected) Ur Propoxyphene Screen (NotDetected) Ur Barbiturates Screen (NotDetected) U Tricyclic Antidepress (NotDetected) Ur Phencyclidine Scrn (NotDetected) Ur Amphetamines Screen (NotDetected) U Methamphetamines Scrn (NotDetected) U Benzodiazepines Scrn (NotDetected) Urine Cocaine Screen (NotDetected) U Marijuana (THC) Screen (NotDetected) Serum Alcohol <10 mg/dL 07/31/20 07/31/20 Range/Units 11:13 11:13 WBC (3.8-10.6) k/uL RBC (4.30-5.90) m/uL Hgb (13.0-17.5) gm/dL Hct (39.0-53.0) % MCV (80.0-100.0) fL MCH (25.0-35.0) pg MCHC (31.0-37.0) g/dL RDW (11.5-15.5) % Plt Count (150-450) k/uL Neutrophils % % Lymphocytes % % Monocytes % % Eosinophils % % Basophils % % Neutrophils # (1.3-7.7) k/uL Lymphocytes # (1.0-4.8) k/uL Monocytes # (0-1.0) k/uL Eosinophils # (0-0.7) k/uL Basophils # (0-0.2) k/uL Hypochromasia Anisocytosis Sodium (137-145) mmol/L Potassium (3.5-5.1) mmol/L Chloride (98-107) mmol/L Carbon Dioxide (22-30) mmol/L Anion Gap mmol/L BUN (9-20) mg/dL Creatinine (0.66-1.25) mg/dL Est GFR (CKD-EPI)AfAm (>60 ml/min/1.73 sqM) Est GFR (CKD-EPI)NonAf (>60 ml/min/1.73 sqM) Glucose (74-99) mg/dL Calcium (8.4-10.2) mg/dL Magnesium (1.6-2.3) mg/dL Total Bilirubin (0.2-1.3) mg/dL AST (17-59) U/L ALT (4-49) U/L Alkaline Phosphatase (38-126) U/L Ammonia 9 (<30) umol/L Creatine Kinase (55-170) U/L Total Protein (6.3-8.2) g/dL Albumin (3.5-5.0) g/dL Urine Color Urine Appearance (Clear) Urine pH (5.0-8.0) Ur Specific [place] (1.001-1.035) Urine Protein (Negative) Urine Glucose (UA) (Negative) Urine Ketones (Negative) Urine Blood (Negative) Urine Nitrite (Negative) Urine Bilirubin (Negative) Urine Urobilinogen (<2.0) mg/dL Ur Leukocyte Esterase (Negative) Urine Opiates Screen Detected H (NotDetected) Ur Oxycodone Screen Not Detected (NotDetected) Urine Methadone Screen Not Detected (NotDetected) Ur Propoxyphene Screen Not Detected (NotDetected) Ur Barbiturates Screen Not Detected (NotDetected) U Tricyclic Antidepress Not Detected (NotDetected) Ur Phencyclidine Scrn Not Detected (NotDetected) Ur Amphetamines Screen Not Detected (NotDetected) U Methamphetamines Scrn Not Detected (NotDetected) U Benzodiazepines Scrn Detected H (NotDetected) Urine Cocaine Screen Not Detected (NotDetected) U Marijuana (THC) Screen Not Detected (NotDetected) Serum Alcohol mg/dL Disposition Clinical Impression: Dehydration Disposition: HOME SELF-CARE Condition: Stable Instructions (If sedation given, give patient instructions): Dehydration (ED) Additional Instructions: Please return to the Emergency Department if symptoms worsen or any other concerns. Continue with already prescribed medications. Follow-up with PCP. Is patient prescribed a controlled substance at d/c from ED?: No Referrals: Hemal Bruno MD [Primary Care Provider] - 1-2 days
[2020-07-31 11:29] LABS: Appearance,Urine Clear (Clear); Bilirubin,Urine Negative (Negative); Blood,Urine Negative (Negative); Color,Urine Yellow; Glucose,Urine (UA) Negative (Negative); Ketones,Urine Negative (Negative); Leukocyte Esterase,Urine Negative (Negative); Nitrite,Urine Negative (Negative); Protein,Urine Negative (Negative); Specific Gravity,Urine 1.018 (1.001-1.035)
[2020-07-31 11:47] LABS: Amphetamine Screen,Urine Not Detected (NotDetected); Barbiturate Screen,Urine Not Detected (NotDetected); Benzodiazepines Screen,Urine Detected (NotDetected); Cocaine Screen,Urine Not Detected (NotDetected); Methadone Screen, Urine Not Detected (NotDetected); Opiate Screen,Urine Detected (NotDetected); Oxycodone Screen, Urine Not Detected (NotDetected); Phencyclidine Screen,Urine Not Detected (NotDetected); Tricyclic Antidepressant,Urine Not Detected (NotDetected); Urn Cannabinoid Scrn Not Detected (NotDetected)
[2020-07-31 11:49] LABS: Anisocytosis Slight; Basophils % (A) 0 %; Eosinophils # (A) 0.3 k/uL (0-0.7); Eosinophils % (A) 3 %; HCT 26.1 % (39.0-53.0); HGB 8.1 gm/dL (13.0-17.5); Hypochromasia Slight; Lymphocytes % (A) 10 %; MCH 26.6 pg (25.0-35.0); MCV 85.8 fL (80.0-100.0); Mean Platelet Volume 6.8; Monocytes # (A) 0.5 k/uL (0-1.0); Monocytes % (A) 5 %; Neutrophils # (A) 8.4 k/uL (1.3-7.7); Neutrophils % (A) 80 %; Platelet Count 583 k/uL (150-450); RBC 3.05 m/uL (4.30-5.90); RDW 16.4 % (11.5-15.5); WBC 10.6 k/uL (3.8-10.6)
[2020-07-31 12:16] LABS: ALT 11 U/L (4-49); AST 18 U/L (17-59); African American GFR (CKD) >90 (>60 ml/min/1.73 sqM); Albumin 2.5 g/dL (3.5-5.0); Alcohol <10 mg/dL; Alkaline Phosphatase 63 U/L (38-126); Anion Gap 6 mmol/L; Blood Urea Nitrogen 6 mg/dL (9-20); Calcium 8.6 mg/dL (8.4-10.2); Carbon Dioxide 28 mmol/L (22-30); Chloride 110 mmol/L (98-107); Creatine Kinase 32 U/L (55-170); Glucose 78 mg/dL (74-99); Magnesium 1.6 mg/dL (1.6-2.3); Non-African American GFR(CKD) >90 (>60 ml/min/1.73 sqM); Potassium 3.4 mmol/L (3.5-5.1); Sodium 144 mmol/L (137-145); Total Bilirubin 0.6 mg/dL (0.2-1.3); Total Protein 5.5 g/dL (6.3-8.2)
== END 2020-07-31 13:24 | disposition home or self-care (01) ==
LOC: EC 10:23
DX: E86.0 Dehydration (principal); J44.9 Chronic obstructive pulmonary disease, unspecified; K21.9 Gastro-esophageal reflux disease without esophagitis; L89.91 Pressure ulcer of unspecified site, stage 1; F17.200 Nicotine dependence, unspecified, uncomplicated; Z79.899 Other long term (current) drug therapy; Z88.6 Allergy status to analgesic agent; Z86.73 Personal history of transient ischemic attack (TIA), and cerebral infarction without residual deficits; G47.33 Obstructive sleep apnea (adult) (pediatric); Z99.89 Dependence on other enabling machines and devices; Z85.028 Personal history of other malignant neoplasm of stomach; Z92.3 Personal history of irradiation; Z80.3 Family history of malignant neoplasm of breast
CPT/HCPCS: 36415; 80053; 82140; 82550; 83735; 85025; 81003; 80306; 99284; 96360; G0480; 80320